=== PATIENT | male | born 1945 | race Caucasian/White ===

== ENCOUNTER 2019-08-23 11:27 | Outpatient (RCR) | payer MEDICARE, BC, SELFPAY | END 2019-08-30 23:59 | disposition home or self-care (01) | LOC: SPT 11:27 | PROVIDERS: Family Provider Family Medicine; PCP Family Medicine; Referring Provider Electrodiagnostic Medicine; Visit Provider Electrodiagnostic Medicine | DX: H81.10 Benign paroxysmal vertigo, unspecified ear (principal) | CPT/HCPCS: 95992; 97162 ==

== ENCOUNTER → 2019-12-21 14:32 | Outpatient (BNVA) | payer MEDICARE, BC, SELFPAY | PROVIDERS: Family Provider Family Medicine; PCP Family Medicine; Referring Provider Family Medicine; Visit Provider Urology | DX: R97.20 Elevated prostate specific antigen [PSA] (principal) | CPT/HCPCS: 81001 ==

== ENCOUNTER 2020-02-01 10:07 | Outpatient (CLI) | payer MEDICARE, BC, SELFPAY ==
[2020-02-01 12:23] LABS: Hematocrit 37.7 % (42.0-52.0); Mean Corpuscular HGB Conc 31.8 g/dL (30.0-36.0); Mean Corpuscular Hemoglobin 31.5 pg (28.0-34.0); Mean Platelet Volume 11.4 fL (7.4-10.4); Platelet Count 179 10^3/cmm (130-400); Red Blood Count 3.81 10^6/uL (4.1-5.3); Red Cell Distribution Width 21.4 % (12.1-15.1); White Blood Count 6.8 10^3/uL (4.0-10.0)
[2020-02-01 12:59] LABS: Slide Review Slide Review Perform
[2020-02-01 13:00] LABS: Alanine Aminotransferase 15 U/L (0-41); Albumin Level 4.5 g/dL (3.5-5.2); Alkaline Phosphatase 81 IU/L (40-130); Anion Gap 18.5 (5-19); Aspartate Amino Transferase 12 U/L (0-40); Blood Urea Nitrogen 14 mg/dL (8-23); Calcium 8.7 mg/dL (8.5-10.5); Carbon Dioxide 24 mmol/L (22-29); Chloride 99 mmol/L (98-107); Ferritin 654 ng/mL (30-400); Globulin 2.6 g/dL (1.3-4.6); Glucose 95 mg/dL (65-115); Homocysteine 7.05; Iron 107 ug/dL (59-158); Lactate Dehydrogenase 228 U/L (135-225); Osmolality Calculated 280 mOsm/kg (285-295); Percent Saturation 63.3 % (20-50); Potassium 4.5 mmol/L (3.5-5.1); Sodium 137 mmol/L (136-145); Thyroid Stimulating Hormone 2.72 uIU/mL (0.27-4.20); Total Bilirubin 2.8 mg/dL (0.15-1.2); Total Iron Binding Capacity 169 mcg/dl; Total Protein 7.1 g/dL (6.6-8.7); Unsaturated Iron Binding 62 ug/dL (112-347); Vitamin B12 797 pg/mL (232-1245)
[2020-02-01 13:08] LABS: Absolute Eosinophils 0.4 10^3/cmm (0.0-0.7); Band Neutrophils Absolute 0.1 10^3/cmm (0.0-1.2); Eosinophils 6 %; Lymphocytes 12 %; Monocytes Absolute 0.1 10^3/cmm (0.1-0.6); Segmented Neutrophils 73 %; Total Cells Counted 100 (0-100)
[2020-02-01 13:09] LABS: Anisocytosis 4+; Macrocytosis 2+
[2020-02-01 13:10] LABS: Absolute Neutrophil 5.1 10^3/cmm (1.4-6.5); Platelet Estimate Normal (Normal)
[2020-02-01 13:15] LABS: Folate Level > 20.0 ng/mL (4.5-32.2)
[2020-02-01 13:19] LABS: Erythrocyte Sedimentation Rate 22 mm/hr (0-10)
[2020-02-01 13:25] LABS: LAB Peripheral Smear Sent for Review
--- NOTE | 2020-02-01 13:46 | ONC CON_ITS ---
Dr. Merida New Patient Note Patient: Vlad Dugan Unit #: [id number]: 1945 Dicatated By: Oscar Merida M.D.Date of Visit: Feb 01, 2020 Onc MED New Patient/Consult Referring Physician: Dr. ARMANDO MAIN M.D. Chief Complaint: Anemia and splenomegaly. History of Present Illness: This is a 74 year-old man with a known history of nonimmune hemolytic anemia and splenomegaly. He has had a fairly longstanding mild anemia. His other blood counts have been somewhat variable, but it actually does appear to be a mild pancytopenia. He has had CT evidence of splenomegaly dating back to at least 2008 when he was admitted to the hospital with traumatic rib fractures and associated right pneumothorax. In 2010 he had underwent cholecystectomy following an episode of what was apparently gallbladder pancreatitis. He indicates that he had a liver biopsy with that procedure and that his liver was normal. In 2017 he underwent hematology evaluation with Dr. Tio Larsen in [place]. 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 His bone marrow aspiration/biopsy on 02/16/2018 showed hypercellular marrow for age with associated erythroid hyperplasia. Iron stores were 3+. There was no evidence of malignancy. There were rare binucleate RBC precursors with mild N:C dyssynchrony. There was no mention of a chromosome analysis or FISH studies. He was placed on folic acid supplementation. Splenic biopsy was recommended, but I am not certain if that was ever actually done. He also had a repeat CT abdomen/pelvis on 01/11/2018. It showed evidence of cholecystectomy and postoperative changes involving the stomach. The liver had a normal appearance. There was unchanged splenomegaly. A 9 mm low-attenuation lesion in the tip of the spleen was likely a splenic cyst or hemangioma, and it also appeared unchanged. There was no retroperitoneal or periaortic lymphadenopathy. His laboratory studies done by Dr. Main on 11/21/2019 included CBC showing hemoglobin 10.8 g with hematocrit 32.4%. The red cell indices were slightly macrocytic. The white blood cell count was 4800 and the platelet count was 118,000. Comprehensive metabolic profile showed slightly elevated total bilirubin at 3.1 mg/dL. The liver enzymes were normal. His calculated serum globulin was slightly low at 1.8 g/dL. B12 and folate levels were normal. His PSA was slightly elevated at 4.2 ng/mL. His main complaint has been extreme fatigue. He says he does not feel worth a damn. He is totally exhausted and completely drained. 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 He has no appetite and he says he eats very little. He indicates that he has lost 60 pounds after first moving to this area in 2004 and he has continued to gradually lose weight since then. He has had a total weight loss now in the range of 60 pounds. He does not have fever or night sweats. He indicates that he has been treated presumptively for tick fever on several occasions, initially about 3 years ago. He was treated again sometime in the spring of this year and he just completed another course of doxycycline a couple of weeks ago. He does report having some sinus drainage. He has only a little cough. Within the past week or so he has developed some shortness of breath. He does not complain of chest pain. He has no GI or complaints. He denies having any pain joint or bone pain, but he does have stiffness. He does not complain of headache or dizziness, and he has no focal neurologic symptoms. Past Medical History: His medical history includes history of tick fever, nonimmune hemolytic anemia and splenomegaly, and gall bladder pancreatitis in 2010. Past Surgical History: His surgical/procedural history includes bilateral cataract excisions, cholecystectomy in 2010, and chest tube placement for t raumatic right pneumothorax in 2008. He had polyps removed from his bladder about 25 years ago. Medications: Folic Acid 1 Tablet Oral daily, Vitamin B12 1 Tablet Oral daily Allergies: No Known Allergies. Social History: Mr. Dugan is and he is retired. He has a history of smoking 1-1/2 packs of cigarettes daily for 60 years. He reports that he was a heavy drinker for a short period, but he had cut down about 10 years ago. He now has just social alcohol use. Family History: He does not know anything about his father. Mother of natural causes at age 85. Two brothers are , one with complications of diabetes and one with multiple issues following service in [place]. Review Of Symptoms: Constitutional - He says he is not feeling worth a darn. He reports being totally exhausted and completely drained. He is able to do some light work, but he has to force himself. He has no appetite. He has been losing weight gradually. He does not have fever or night sweats. ECOG score is 1, Eyes - No recent change in vision, ENMT - No hearing loss, but he does report having tinnitus. He has some sinus drainage. No mouth sores. No or sore throat or difficulty swallowing, Hematologic/Lymphatic - No abnormal bruising or bleeding, Respiratory - He started having some shortness of breath about one week ago. He has a little cough. No pleuritic pain or hemoptysis, Cardiovascular - No angina pain. No palpitations, Gastrointestinal - No nausea or vomiting. No heartburn or acid reflux. No diarrhea or constipation. His normal bowel habits is every 2-3 days. No blood in the stool or black stools, Genitourinary (M) - No dysuria or hematuria. No urinary frequency. No urgency or incontinence, Musculoskeletal - He reports having no joint or bone pain, if he does get stiffness in his joints, Integumentary - No skin complications, Neurologic - No headache or dizziness. No numbness or tingling. No other focal neurologic symptoms, Psychiatric - No anxiety or depression. No insomnia. Vital Signs: Performed on Feb 01, 2020 10:54: 0, 24.32, 2.17 sq.m, 75.00 in (HIGH), 99 %, 68 /min, 18 /min, 125/60 mm(hg), 97.7 F (LOW), and 194.6 lbs (LOW). Physical Examination: Constitutional - He appears to be in reasonably good general health, Eyes - Sclerae nonicteric. Conjunctivae clear, ENMT - No lesions noted in the oral cavity, Neck - No mass or thyromegaly, Hematologic/Lymphatic - No cervical, clavicular, or axillary adenopathy, Respiratory - Lungs are clear with diminished air movement bilaterally, Cardiovascular - Heart rhythm is regular. There is no murmur, gallop, or rub noted, Abdomen - Soft and non-tender. Liver is not enlarged. The spleen tip is palpable just below the costal margin on deep inspiration. There is no abdominal mass or ascites noted and there is no inguinal adenopathy, Back/Spine - No spine or CVA tenderness noted, Extremities - No edema. Pedal pulses are palpable bilaterally. There is chronic purpura on both arms, Integumentary - No rashes. No suspicious skin lesions noted, Neurologic - No focal neurologic deficits noted. Impression: 1. Patient with nonimmune hemolytic anemia and splenomegaly. He also has had mild leukopenia and thrombocytopenia, though not consistently. An underlying cause has not been determined. 2. He has extreme fatigue, disproportionate to the anemia. 3. He has had empiric doxycycline therapy for suspected tick fever. Plan: I reviewed the laboratory and CT findings, and we discussed the clinical implications. He will have further laboratory studies today to include CBC, comprehensive metabolic profile, reticulocyte count, LDH level, haptoglobin level, direct bilirubin level, AMINA, serum iron studies and ferritin, B12 and folate levels, methylmalonic acid and homocystine levels, sed rate, and serum protein electrophoresis. I will review the blood smear. At a minimum, I anticipate that he will need PNH screening as well as additional studies for other causes of nonimmune hemolysis. I am skeptical, though, about determining a specific cause for his extreme fatigue. Signed By: Oscar Merida M.D. <<Signature on File>>
[2020-02-02 09:21] LABS: PROTEIN, TOTAL 6.3 g/dL (6.1-8.1)
[2020-02-02 13:41] LABS: ALPHA 1 GLOBULIN 0.4 g/dL (0.2-0.3); ALPHA 2 GLOBULIN 0.5 g/dL (0.5-0.9); BETA 1 GLOBULIN 0.3 g/dL (0.4-0.6); BETA 2 GLOBULIN 0.2 g/dL (0.2-0.5); GAMMA GLOBULIN 0.9 g/dL (0.8-1.7)
[2020-02-02 16:12] LABS: KAPPA LIGHT CHAIN, FREE, SERUM 22.9 mg/L (3.3-19.4); KAPPA/LAMBDA LIGHT CHAINS FREE 1.47 (0.26-1.65); LAMBDA LIGHT CHAIN, FREE, SERU 15.6 mg/L (5.7-26.3)
[2020-02-04 16:46] LABS: Methylmalonic Acid 119 nmol/L (87-318)
== END 2020-02-01 10:08 | disposition home or self-care (01) ==
PROVIDERS: PCP Family Medicine; Visit Provider Internal Medicine Medical Oncology
DX: D59.4 Other nonautoimmune hemolytic anemias (principal); R16.1 Splenomegaly, not elsewhere classified; D72.819 Decreased white blood cell count, unspecified; D69.6 Thrombocytopenia, unspecified; D50.9 Iron deficiency anemia, unspecified; E03.9 Hypothyroidism, unspecified; R53.83 Other fatigue; A93.8 Other specified arthropod-borne viral fevers; R94.30 Abnormal result of cardiovascular function study, unspecified
CPT/HCPCS: 80053; 82248; 82607; 82728; 82746; 83010; 83090; 83540; 83550; 83615; 83883; 83921; 84155; 84165; 84443; 85007; 85025; 85045; 85651; 86880; 99205

== ENCOUNTER 2020-02-01 12:15 | Outpatient (CLI) | payer MEDICARE, BC, SELFPAY ==
--- NOTE | 2020-02-01 12:20 | XRR_ITS ---
PROCEDURE INFORMATION: Exam: XR Chest, 2 Views Exam date and time: 02/01/2020 12:31 PM Age: 74 years old Clinical indication: Dyspnea TECHNIQUE: Imaging protocol: XR of the chest Views: 2 views. COMPARISON: No relevant prior studies available. FINDINGS: Lungs: Unremarkable. No consolidation. Pleural space: Unremarkable. No pleural effusion. No pneumothorax. Heart/Mediastinum: Unremarkable. No cardiomegaly. Bones/joints: Unremarkable. XR/XR chest 2V* [id number] IMPRESSION: No acute findings.
== END 2020-02-01 12:16 | disposition home or self-care (01) ==
LOC: RAD 12:18
PROVIDERS: PCP Family Medicine; Visit Provider Family Medicine
DX: R06.00 Dyspnea, unspecified (principal)
CPT/HCPCS: 71046

== ENCOUNTER 2020-02-07 06:50 | Outpatient (CLI) | payer MEDICARE, BC, SELFPAY ==
--- NOTE | 2020-02-07 07:08 | ECG_ITS ---
[facility] Test Date: 2020-02-07 Pat Name: Vlad Dugan Department: Room: Gender: Male [employer] Program Coordinator: : 1945 Requested By: Albin Moe Order Number: [id number] Marilee MD: Francie Flanagan M.D. Interpretive Statements NAME OF STUDY: LEXISCAN SESTAMIBI STRESS TEST INDICATION: Chest Pain PROCEDURE: At the baseline, the EKG revealed normal sinus rhythm with some nonspecific intraventricular conduction delay. Nonspecific ST changes. The baseline blood pressure was 118/67 mm Hg with a heart rate of 75 beats/min. Lexiscan was infused over a period of 20 seconds. A total of 0.4 milligrams of Lexiscan was infused. The stress phase was continued for a total of 5 minutes. Heart rate at the end of the stress phase was 82 with a blood pressure 109/55. The EKG at the peak infusion revealed no significant changes. Sestamibi was injected 20 seconds after the Lexiscan infusion. Blood pressure at the end of the recovery phase was 111/62 with a heart rate of 81 per minute. CONCLUSION: 1. No significant EKG changes with the LexiScan infusion 2. No LexiScan induced chest pain or cardiac arrhythmia 3. Normal blood pressure and heart rate response 4. Sestamibi/sestamibi perfusion scan pending; see separate report. Electronically Signed On 02-08-2020 19:33:16 CDT by Francie Flanagan M.D. [email or web address]
--- NOTE | 2020-02-07 07:09 | NMCV_ITS ---
NM seth perf SPECT r/s* [id number] KaileeVlad hewitt Age: 74 Gender: M : 1945 Exam Date: 02/07/2020 07:47 Ordering Phys: Albin Bah MD Technologist: MIGUEL Leach Exam Location: [facility] Indications: CHEST PAIN STRESS TEST Please see separate stress test report in [facility] for full findings IMAGE PROTOCOL Rest/Stress 1 Lexiscan Day Radiopharmaceutical Dose (mCi) Administration Site Administered by Rest: Tc-99m 10.9 IV MIGUEL Alegria Sestamibi Stress:Tc-99m 32.7 IV MIGUEL Alegria Sestamibi Rest: 07-Feb-2020 60 Discovery 630 Stress: 07-Feb-2020 30 Discovery 630 0.4mg Lexiscan. Images obtained in supine and prone position. SPECT RESULTS Technical Quality: Excellent Raw Data Analysis: Normal Image Corrections: No attenuation or motion correction applied Summed Stress Score: 5 Summed Rest Score: 6 Summed Difference Score: 0 PERFUSION FINDINGS Small to moderate decreases uptake in the mid and apical inferior and mid inferoseptal regions. No significant reversibility was noted in these regions. FUNCTIONAL RESULTS (calculated via Gated SPECT) Stress Image LV EF (%): 57 Stress EDV (mL):132 TID: 0.98 Stress ESV (mL):57 FUNCTIONAL FINDINGS: Segmental wall motion analysis revealed mild hypokinesia of the LV apex. IMPRESSIONS 1. Myocardial perfusion may revealing a small to moderate area of persistent decreases uptake in the mid and apical inferior and mid inferoseptal regions, suggestive of myocardial scarring versus attenuation artifacts. 2. Normal LV ejection fraction 57%. 3. LV wall motion analysis revealing mild hypokinesia of the LV apex. 4. Slightly elevated end-systolic volume of 57 mL. No significant coronary ischemia, based on the above findings. Dr Francie Flanagan MD [facility] (Electronically Signed) Final Date: 07 February 2020 17:56 S
[2020-02-07 07:17] VITALS: BMI 23.7
--- NOTE | 2020-02-07 08:29 | SUR.PREOP ---
Patient reports no pain or discomfort prior to the start of the procedure.
[2020-02-07] MEDS: regadenoson 0.4 Mg/5 ml Syringe IVP (08:31)
[2020-02-07 08:45] VITALS: BP 111/62; PULSE 81
== END 2020-02-07 06:51 | disposition home or self-care (01) ==
LOC: RAD 06:50 → CDL 07:17
PROVIDERS: PCP Family Medicine; Visit Provider Family Medicine
DX: R07.9 Chest pain, unspecified (principal)
CPT/HCPCS: 78452; 93017; A9500; J2785

== ENCOUNTER 2020-04-06 12:25 | Outpatient (CLI) | payer MEDICARE, BC, SELFPAY ==
--- NOTE | 2020-04-06 12:41 | USCV_ITS ---
Vlad Dugan Age: 74 Gender: M : 1945 Exam Date: 04/06/2020 13:04 Ordering Phys: Francie Flanagan MD ([email or web address]) Technologist: Ranjit Barrios Exam Location: [facility] [place] Indication: CCA STENOSIS Risk Factors: Smoker Previous Vascular Surgery: Right Brachial BP: / Left Brachial BP: / Right Left Velocity (cm/s) Spectral Plaque Velocity (cm/s) Spectral Plaque Syst/Diast Broadening Syst/Diast Broadening 87.10/ 20.90 Prox CCA 93.30 / 18.40 80.50/ 24.30 Mid CCA 81.50 / 9.20 77.20/ 16.50 Hetro Distal CCA 84.10 / 21.00 163.10/29.50 Hetro Prox ICA 78.90 / 19.70 166.20/40.40 Hetro Mid ICA 109.10/ 23.70 175.60/45.10 Distal ICA 114.10/ 31.00 86.00 ECA 113.10 2.02 ICA/CCA 1.22 Antegrade Vertebral Antegrade 68.40/ 12.40 cm/s 52.40/ 13.70 cm/s Tri Subclavian Tri 73.60 108.8 0 FINDINGS Moderate to heavy heterogeneous plaques of the right bifurcation and proximal internal carotid artery. Mild to moderate plaques at the left bifurcation and internal carotid artery Antegrade flow in the vertebral arteries bilaterally Normal Doppler flow velocities at the external carotid arteries bilaterally CONCLUSIONS Moderate to heavy heterogeneous plaques at the right bifurcation and proximal internal carotid arterywith velocity elevation consistent with 50-79% stenosis. Mild to moderate plaques at the left bifurcation and internal carotid arterywith velocity elevation consistent with 16-49% stenosis. No previous studies are available for comparison. . Dr Francie Flanagan MD [facility] (Electronically Signed) Final Date: 07 April 2020 00:16 S
--- NOTE | 2020-04-06 12:45 | USCV_ITS ---
KaileeVlad salgado Age: 74 Gender: M : 1945 Exam Date: 04/06/2020 12:37 Ordering Phys: Francie Flanagan MD ([email or web address]) Technologist: Ranjit Barrios Exam Location: [facility] [place] Indication: MURMUR BP: 120 / 60 HR: 75 Rhythm: Sinus Technical Quality: Fair MEASUREMENTS (Male / Female) Normal Values 2D ECHO LV Diastolic Diameter PLAX 4.3 cm 4.2 - 5.9 / 3.9 - 5.3 cm LV Systolic Diameter PLAX 3.4 cm IVS Diastolic Thickness 1.2 cm 0.6 - 1.0 / 0.6 - 0.9 cm IVS Systolic Thickness 1.6 cm LVPW Diastolic Thickness 1.0 cm 0.6 - 1.0 / 0.6 - 0.9 cm LVPW Systolic Thickness 1.6 cm LVOT Diameter 2.1 cm LV Ejection Fraction 2D Teich 41.5 % LV Ejection Fraction MOD 2C 63.1 % LV Ejection Fraction 2C AL 62.3 % LA Diameter 3.3 cm LA Width 3.6 cm LA Height 3.8 cm RA Width 2.4 cm RA Height 3.7 cm Aorta at Sinotubular Diameter 2.9 cm M-MODE LV Diastolic Diameter MM 5.8 cm 4.2 - 5.9 / 3.9 - 5.3 cm LV Systolic Diameter MM 4.6 cm LV Ejection Fraction MM Teich 40.7 % IVS Diastolic Thickness MM 1.1 cm 0.6 - 1.0 / 0.6 - 0.9 cm IVS Systolic Thickness MM 1.2 cm LVPW Diastolic Thickness MM 2.0 cm 0.6 - 1.0 / 0.6 - 0.9 cm LVPW Systolic Thickness MM 1.8 cm RV Diastolic Diameter MM 1.7 cm Aortic Annulus Diameter 3.6 cm LA Ao Ratio MM 1.1 MV E Point Septal Separation 2.2 cm DOPPLER AV Peak Velocity 167.0 cm/s LVOT Peak Velocity 95.0 cm/s AV Area Cont Eq vti 2.1 cm squared AV Area Cont Eq pk 2.0 cm squared MV Area PHT 5.4 cm squared Mitral E to A Ratio 0.7 MV E' Velocity 36.0 cm/s Mitral E to MV E' Ratio 6.2 Mitral E to LV E' Lateral Ratio 5.4 Mitral E to LV E' Septal Ratio 7.5 TR Peak Velocity 199.0 cm/s TR Peak Gradient 15.8 mmHg TV Peak E Velocity 82.0 cm/s Right Atrial Pressure 3.0 mmHg Pulmonary Artery Systolic Pressu 18.8 mmHg PV Peak Velocity 71.0 cm/s FINDINGS Left Ventricle Normal left ventricular size and systolic function, EF 64 %. Grade I/IV diastolic dysfunction (abnormal relaxation filling pattern), normal to mildly elevated filling pressures. Abnormal septal motion consistent with conduction abnormality. Right Ventricle Normal right ventricular size and systolic function. Right Atrium Normal right atrial size. Left Atrium Normal left atrial size. Mitral Valve Thickened mitral valve. Aortic Valve Thickened aortic valve. Tricuspid Valve Trace to mild tricuspid valve regurgitation. Pulmonic Valve No gross abnormalities noted Pericardium No pericardial effusion. Aorta Normal aortic annulus size. CONCLUSIONS Normal left ventricular size and systolic function, EF 64 %. Grade I/IV diastolic dysfunction (abnormal relaxation filling pattern), normal to mildly elevated filling pressures. Abnormal septal motion consistent with conduction abnormality. Trace to mild tricuspid valve regurgitation. Thickened aortic and mitral valves. There is no pericardial effusion. There are no intracardiac masses. No previous study is available for comparison. Dr Francie Flanagan MD [facility] (Electronically Signed) Final Date: 07 April 2020 00:02 S
== END 2020-04-06 12:26 | disposition home or self-care (01) ==
LOC: US 12:27
PROVIDERS: PCP Family Medicine; Visit Provider Internal Medicine Cardiovascular Disease
DX: R01.1 Cardiac murmur, unspecified (principal); I65.23 Occlusion and stenosis of bilateral carotid arteries; I08.3 Combined rheumatic disorders of mitral, aortic and tricuspid valves
CPT/HCPCS: 93306; 93880

== ENCOUNTER 2020-04-24 09:14 | Outpatient (CLI) | payer MEDICARE, BC, SELFPAY ==
--- NOTE | 2020-04-24 09:32 | MR_ITS ---
WS: [id number] MRI HEAD WITHOUT CONTRAST TECHNIQUE: Sagittal T1, T2 axial, T2 axial FLAIR, axial and coronal T1 images, axial susceptibility w eighted imaging, axial diffusion weighted images, and coronal T2 images were obtained. CLINICAL INFORMATION: VERTIGO COMPARISON: MRI 7 FINDINGS: No restricted diffusion to suggest acute ischemia. Ventricular system and basal cisterns are patent. Mild small vessel changes. Moderate parenchymal volume loss. Small vessel changes in the isaiah. No ext ra-axial fluid collections. Normal vascular flow voids at the skull base. Mild mucosal thickening in the ethmoid air cells. Mastoid air cells well aerated. No hemosiderin on s usceptibly weighted images. Moderate symmetric atrophy involving the temporal lobes and hippocampal f ormations. No other significant findings. No significant changes compared to 2018. MR/MR head wo con* [id number] IMPRESSION: 1. No evidence of restricted diffusion to suggest acute ischemia. 2. Mild small vessel changes. Moderate parenchymal volume loss. 3. Moderate symmetric atrophy involving the temporal lobes and hippocampal for mations. 4. Mild mucosal thickening in the ethmoid air cells. 5. No significant changes since 2018
== END 2020-04-24 09:15 | disposition home or self-care (01) ==
PROVIDERS: PCP Family Medicine; Visit Provider Family Medicine
DX: R42 Dizziness and giddiness (principal); G31.9 Degenerative disease of nervous system, unspecified
CPT/HCPCS: 70551

== ENCOUNTER → 2020-05-29 10:20 | Outpatient (BNVA) | payer MEDICARE, BC, SELFPAY | PROVIDERS: PCP Family Medicine; Visit Provider Internal Medicine Cardiovascular Disease | DX: I65.23 Occlusion and stenosis of bilateral carotid arteries (principal) | CPT/HCPCS: 80061 ==

== ENCOUNTER → 2020-07-27 09:13 | Outpatient (BNVA) | payer MEDICARE, BC, SELFPAY | PROVIDERS: PCP Family Medicine; Visit Provider Internal Medicine Cardiovascular Disease | DX: I65.23 Occlusion and stenosis of bilateral carotid arteries (principal); D64.9 Anemia, unspecified; R06.00 Dyspnea, unspecified; R97.20 Elevated prostate specific antigen [PSA]; R53.82 Chronic fatigue, unspecified | CPT/HCPCS: 80061; 80076 ==

== ENCOUNTER 2020-10-02 13:44 | Outpatient (CLI) | payer MEDICARE, BC, SELFPAY ==
--- NOTE | 2020-10-02 13:55 | XRR_ITS ---
PROCEDURE INFORMATION: Exam: XR Chest Exam date and time: 10/02/2020 1:58 PM Age: 74 years old Clinical indication: Dyspnea TECHNIQUE: Imaging protocol: XR of the chest. Views: 2 views. COMPARISON: CR XR chest 2V* [id number] 02/01/2020 12:28 PM FINDINGS: Lungs: Hyperinflation of lungs. Reticular interstitial lung change. Emphysematous features. No focal consolidation. Pleural spaces: Unremarkable. No pleural effusion. No pneumothorax. Heart/Mediastinum: Unremarkable. No cardiomegaly. Vasculature: Atherosclerosis of thoracic aorta. Bones/joints: Old healed right lateral rib fracture deformity. No acute thoracic fracture. XR/XR chest 2V* [id number] IMPRESSION: 1. No acute findings. 2. No change from comparison.
--- NOTE | 2020-10-02 13:55 | XRR_ITS ---
PROCEDURE INFORMATION: Exam: XR Lumbosacral Spine Exam date and time: 10/02/2020 1:58 PM Age: 74 years old Clinical indication: Pain; Other: Lumbar radiculopathy TECHNIQUE: Imaging protocol: XR of the lumbosacral spine. Views: 2 or 3 views. COMPARISON: CT abdomen pelvis w con* [id number] 01/11/2018 1:59 PM FINDINGS: Bones/joints: No acute fractures. Unremarkable alignment. Diffuse spondyloarthropathy changes. Disc height loss at each level of variable severity. Facet joint arthritis at each level. No focal lytic, aggressive bone lesion. Bridging osteophytes at each level seen laterally and anteriorly. Soft tissues: Unremarkable. Intraperitoneal space: Surgical clips in the right upper quadrant. Vasculature: Scattered atherosclerosis of abdominal aorta. XR/XR lumbar spine 2-3V* [id number] IMPRESSION: 1. No acute findings. 2. Diffuse spondyloarthropathy change.
== END 2020-10-02 13:45 | disposition home or self-care (01) ==
PROVIDERS: PCP Family Medicine; Visit Provider Family Medicine
DX: R06.00 Dyspnea, unspecified (principal); M54.16 Radiculopathy, lumbar region
CPT/HCPCS: 71046; 72100

== ENCOUNTER 2020-10-24 10:42 | Outpatient (CLI) | payer MEDICARE, BC, SELFPAY ==
--- NOTE | 2020-10-24 | MR_ITS ---
WS: [id number] MRI LUMBAR SPINE NONCONTRAST TECHNIQUE: Sagittal T1, T2 and STIR imaging. Axial T1 and T2 imaging. CLINICAL INFORMATION: LUMBAR RADICULOPATHY, RIGHT COMPARISON: None. FINDINGS: Mild lumbar curve. No acute compression. No high-grade central canal stenosis. Anterior hypertrophic changes lumbar spine. Schmorl's nodes superior endplate L3. Degenerative endplate-type changes L4-5 w ith disc desiccation. Fatty marrow changes in the L4-5 endplates. L1-L2: Normal. L2-L3: Mild disc bulging with endplate ridging. Mild facet arthropathy. Spinal canal and foramen are patent. L3-L4: Mild disc bulging with osteophytic ridging. Small right proximal foraminal protrusion with imp ingement traversing right L4 nerve root and exiting right L3 nerve root. Mild right and no significan t left foraminal narrowing. Moderate facet arthropathy. L4-L5: Fatty marrow endplate degenerative changes. Disc desiccation. Mild disc bulging with osteophyt ic ridging. Impingement on the traversing L5 nerve roots right greater than left. Small left foramina l protrusion with small annular fissure. Impingement on the exiting left L4 nerve root. Right foramen is patent. Mild facet arthropathy. L5-S1: Mild disc bulging with osteophytic ridging. Slight effacement of ventral thecal sac. Spinal ca nal and foramen are patent. Mild facet arthropathy. Visualized pelvic bony structures: Normal. Paravertebral soft tissues: Normal. MR/MR lumbar spine wo con* [id number] IMPRESSION: 1. Mild lumbar curve. No acute compression. No high-grade central canal stenos is. 2. Left proximal foraminal protrusion L4-5 slightly impinges the exiting left L4 nerve root with moderate left foraminal narrowing. Recommend Correlation lef t L4 nerve root symptoms. 3. Tiny right foraminal protrusion L3-4 slightly impinges the traversing right L4 and exiting Right L3 nerve roots with mild right L3-4 foraminal narrowing. 4. Disc bulging with slight impingement on the right L4-5 subarticular recess. 5. Mild/moderate facet arthropathy L3-L4 and L4-L5.
== END 2020-10-24 10:43 | disposition home or self-care (01) ==
PROVIDERS: PCP Family Medicine; Visit Provider Family Medicine
DX: M54.16 Radiculopathy, lumbar region (principal); M47.816 Spondylosis without myelopathy or radiculopathy, lumbar region; M51.26 Other intervertebral disc displacement, lumbar region
CPT/HCPCS: 72148

== ENCOUNTER → 2020-11-15 08:36 | Outpatient (BNVA) | payer MEDICARE, BC, SELFPAY | PROVIDERS: PCP Family Medicine; Referring Provider Family Medicine; Visit Provider Orthopaedic Surgery | DX: M54.9 Dorsalgia, unspecified (principal) | CPT/HCPCS: 72120 ==

== ENCOUNTER → 2020-12-18 14:37 | Outpatient (BNVA) | payer MEDICARE, BC, SELFPAY | PROVIDERS: PCP Family Medicine; Visit Provider Urology | DX: R97.20 Elevated prostate specific antigen [PSA] (principal); R39.89 Other symptoms and signs involving the genitourinary system | CPT/HCPCS: 81003; 84153 ==

== ENCOUNTER → 2021-01-28 10:50 | Outpatient (BNVA) | payer MEDICARE, BC, SELFPAY | PROVIDERS: PCP Family Medicine; Visit Provider Family Medicine | DX: D53.9 Nutritional anemia, unspecified (principal); M25.50 Pain in unspecified joint; G89.29 Other chronic pain; R53.81 Other malaise; R53.83 Other fatigue; R97.20 Elevated prostate specific antigen [PSA]; Z51.81 Encounter for therapeutic drug level monitoring; D61.818 Other pancytopenia | CPT/HCPCS: 80053; 83690; 84153; 84436; 84443; 85007; 85027; 86038; 86140; 86431 ==

== ENCOUNTER → 2021-03-12 10:16 | Outpatient (BNVA) | payer MEDICARE, BC, SELFPAY | PROVIDERS: PCP Family Medicine; Referring Provider Orthopaedic Surgery; Visit Provider Anesthesiology Pain Medicine | DX: G89.29 Other chronic pain (principal); M48.062 Spinal stenosis, lumbar region with neurogenic claudication; M79.604 Pain in right leg; M79.605 Pain in left leg | CPT/HCPCS: 99204 ==

== ENCOUNTER → 2021-03-13 13:36 | Outpatient (BNVA) | payer MEDICARE, BC, SELFPAY | PROVIDERS: PCP Family Medicine; Visit Provider Anesthesiology Pain Medicine | DX: G89.29 Other chronic pain (principal); M47.816 Spondylosis without myelopathy or radiculopathy, lumbar region | CPT/HCPCS: 64493; 64494; 64495; J3490 ==

== ENCOUNTER → 2021-03-27 09:40 | Outpatient (BNVA) | payer MEDICARE, BC, SELFPAY | PROVIDERS: PCP Family Medicine; Visit Provider Anesthesiology Pain Medicine | DX: G89.29 Other chronic pain (principal); M48.062 Spinal stenosis, lumbar region with neurogenic claudication; M79.604 Pain in right leg; M79.605 Pain in left leg; Z77.22 Contact with and (suspected) exposure to environmental tobacco smoke (acute) (chronic) | CPT/HCPCS: 99214 ==

== ENCOUNTER → 2021-04-02 13:26 | Outpatient (BNVA) | payer MEDICARE, BC, SELFPAY | PROVIDERS: PCP Family Medicine; Visit Provider Anesthesiology Pain Medicine | DX: G89.29 Other chronic pain (principal); M47.816 Spondylosis without myelopathy or radiculopathy, lumbar region; M54.16 Radiculopathy, lumbar region | CPT/HCPCS: 64635; 64636; J1030 ==

== ENCOUNTER → 2021-04-16 09:56 | Outpatient (BNVA) | payer MEDICARE, BC, SELFPAY | PROVIDERS: PCP Family Medicine; Visit Provider Anesthesiology Pain Medicine | DX: G89.29 Other chronic pain (principal); M48.062 Spinal stenosis, lumbar region with neurogenic claudication; M79.604 Pain in right leg; M79.605 Pain in left leg; Z77.22 Contact with and (suspected) exposure to environmental tobacco smoke (acute) (chronic) | CPT/HCPCS: 99213 ==

== ENCOUNTER → 2021-05-01 09:01 | Outpatient (BNVA) | payer MEDICARE, BC, SELFPAY | PROVIDERS: PCP Family Medicine; Visit Provider Internal Medicine | DX: D64.9 Anemia, unspecified (principal); R76.8 Other specified abnormal immunological findings in serum; M48.062 Spinal stenosis, lumbar region with neurogenic claudication; G89.29 Other chronic pain; Z11.59 Encounter for screening for other viral diseases; D72.819 Decreased white blood cell count, unspecified; E80.6 Other disorders of bilirubin metabolism; F17.210 Nicotine dependence, cigarettes, uncomplicated | CPT/HCPCS: 80053; 81000; 82306; 82533; 82550; 82607; 82728; 82746; 83735; 84100; 84155; 84165; 85025; 86140; 86160; 86162; 86200; 86235; 86255; 86376; 86431; 86704; 86803; 87340; 99204 ==

== ENCOUNTER → 2021-05-14 13:09 | Outpatient (BNVA) | payer MEDICARE, BC, SELFPAY | PROVIDERS: PCP Family Medicine; Visit Provider Internal Medicine | DX: R76.8 Other specified abnormal immunological findings in serum (principal); M25.50 Pain in unspecified joint; R53.82 Chronic fatigue, unspecified; E80.6 Other disorders of bilirubin metabolism; D69.6 Thrombocytopenia, unspecified; R77.8 Other specified abnormalities of plasma proteins; E53.8 Deficiency of other specified B group vitamins; E03.9 Hypothyroidism, unspecified; F10.21 Alcohol dependence, in remission | CPT/HCPCS: 99214 ==

== ENCOUNTER → 2021-05-23 10:35 | Outpatient (BNVA) | payer MEDICARE, BC, SELFPAY | PROVIDERS: PCP Family Medicine; Visit Provider Internal Medicine Cardiovascular Disease | DX: E78.5 Hyperlipidemia, unspecified (principal) | CPT/HCPCS: 80061 ==

== ENCOUNTER 2021-07-02 12:48 | Outpatient (CLI) | payer MEDICARE, BC, SELFPAY ==
--- NOTE | 2021-07-02 12:45 | US_ITS ---
WS: [id number] ULTRASOUND ABDOMEN CLINICAL INFORMATION: D64.9 - Anemia, unspecified COMPARISON: CT 8 ,018 FINDINGS: Technically difficult study Liver Size: Mild hepatomegaly Craniocaudal length: 16.5 cm. Echogenicity: Coarse Surface nodularity: None. Mass (size and location): None. Bile ducts Intrahepatic ducts: Normal. Common bile duct diameter: 0.4 cm. Gallbladder Removed Pancreas Not well visualized Right kidney: Normal. Hydronephrosis: None. Size: 9.1 cm x 5.0 cm x 4.8 cm Abdominal aorta and IVC Visualized portions are normal. Ascites: None. US/US liver [id number] IMPRESSION: Technically difficult study 1. Mild hepatomegaly with diffuse fatty infiltration. 2. Prior cholecystectomy. Normal common bile duct. 3. No hydronephrosis in right kidney. 4. Pancreas not well visualized.
== END 2021-07-02 12:49 | disposition home or self-care (01) ==
LOC: RAD 12:56
PROVIDERS: PCP Family Medicine; Visit Provider Internal Medicine
DX: D64.9 Anemia, unspecified (principal)
CPT/HCPCS: 76705

== ENCOUNTER → 2021-08-08 10:31 | Outpatient (BNVA) | payer MEDICARE, BC, SELFPAY | PROVIDERS: PCP Family Medicine; Visit Provider Internal Medicine | DX: R76.8 Other specified abnormal immunological findings in serum (principal); D72.819 Decreased white blood cell count, unspecified; Z79.899 Other long term (current) drug therapy | CPT/HCPCS: 80053; 85025; 85651; 86140 ==

== ENCOUNTER 2021-10-24 14:46 | Outpatient (CLI) | payer MEDICARE, BC, SELFPAY ==
--- NOTE | 2021-10-24 15:01 | XR_ITS ---
WS: [id number] Exam: XR lumbar spine 2-3V* [id number] Date/Time of Exam: 10/24/2021 3:24 PM Reason For Exam: R LUMBAR RADICULOPATHY Comparison 11/15/2020. No acute fracture or dislocation. Marked spondylosis with large anterior osteophytes. Moderate facet DJD at L3-4, L4-5 and L5-S1. Mild levoscoliosis. Aortoiliac atherosclerosis. XR/XR lumbar spine 2-3V* [id number] IMPRESSION: 1. Degenerative changes and spondylosis. Slight levoscoliosis. 2. No acute fracture or malalignment. Stable exam since previous study.
== END 2021-10-24 14:47 | disposition home or self-care (01) ==
PROVIDERS: PCP Family Medicine; Visit Provider Family Medicine
DX: M54.16 Radiculopathy, lumbar region (principal); M47.896 Other spondylosis, lumbar region
CPT/HCPCS: 72100

== ENCOUNTER 2021-11-17 08:52 | Emergency (ER) | payer MEDICARE, BC, SELFPAY ==
[2021-11-17 09:07] VITALS: BP 136/56; PULSE 66; RESP 18; TEMP 36.8; O2SAT 99; BMI 23.7
--- NOTE | 2021-11-17 09:15 | W.ED.GENADLT ---
HPI - General Adult General: Chief complaint: General Medical Stated complaint: left hand swelling Time Seen by Provider: 11/17/21 08:53 History of Present Illness: Patient is a 76-year-old male who comes to the ED with left hand swelling. Yesterday patient was stung by 2 wasps on fourth digit of left hand. He has had swelling in his hand since staying. This morning he woke up and his hand was still swollen and the also had some redness and swelling all throughout his left forearm. Denies any other symptoms such as trouble breathing, fevers, nausea/vomiting or lip or tongue swelling. Associated symptoms: Deny chest pain, dyspnea, headache(s), nausea, rash, palpitations or vomiting Review of Systems Const: Denies: fever(s), chills or fatigue Eyes: Denies: change in vision or eye discomfort ENMT: Denies: throat pain, odynophagia, nasal discharge or nasal congestion Card: Denies: chest pain, palpitations, edema, swelling of feet/ankles, dyspnea on exertion or orthopnea Resp: Denies: dyspnea, productive cough or non-productive cough GI: Denies: abdominal pain, nausea, vomiting, diarrhea, constipation or hematochezia : Denies: flank pain, difficulty urinating, dysuria or hematuria Musc: Denies: neck pain, back pain or extremity swelling Skin/Breast: Reports: erythema (Left forearm) and skin swelling (Left forearm and left hand); Denies: rash or new lesions Neuro: Denies: headache(s), numbness in extremities or weakness in extremities PFS ED PFSH: Medical History Abnormal nuclear stress test Abuse of smoked substance Anemia Carotid stenosis [place] (dyspnea on exertion) Elevated PSA Fatigue Leukopenia Thrombocytopenia Weight loss Surgical History H/O cataract removal with insertion of prosthetic lens S/P cholecystectomy Family History Family/Other Diabetes Brother Diabetes Heart attack, Onset Age: 40 Denies family history of Rheumatoid arthritis Lupus CAD (coronary artery disease) Clotting disorder Dementia Hyperlipidemia Chronic kidney disease (CKD) Suicide Anesthesia complication Bleeding disorder Lung disease Cancer Hypertension Stroke Social History Second hand smoke exposure: Yes Alcohol intake: current Alcohol intake frequency: few times a week Caregiver/support person: Yes Lives independently: Yes Marital status: Current occupational status: retired History of recent travel: No Current gender identity: Male Physical Exam Const: COMMON NORMALS: no acute distress, patient oriented x3 and alert GENERAL APPEARANCE: cooperative and comfortable HENMT: COMMON NORMALS: normocephalic HEAD & SCALP: normocephalic MOUTH: Normal oral and palatal mucosa present THROAT: posterior oropharynx normal and uvula midline Neck/C-Spine: COMMON NORMALS: supple GENERAL: Yes normal visual inspection Resp: COMMON NORMALS: normal respiratory effort, No retractions, No use of accessory muscles and clear to auscultation bilaterally AUSCULTATION: clear to auscultation bilaterally Cardio: COMMON NORMALS: regular rate, regular rhythm, S1 normal heart sound present, S2 normal heart sound present, No gallops present (Cardio), No clicks present (Cardio), No murmurs present (Cardio) and Peripheral pulses 2+ throughout RATE: regular rate RHYTHM: regular rhythm HEART SOUNDS: S1 normal heart sound present and S2 normal heart sound present PERIPHERAL PULSES: Peripheral pulses 2+ throughout GI: COMMON NORMALS: Normal to inspection, nondistended, normoactive bowel sounds present, Soft to palpation, non-tender and no masses PALPATION: Yes Soft to palpation : COMMON NORMALS: Yes no CVA tenderness BLADDER/KIDNEY EXAM: Yes no CVA tenderness Back/Pelvis: COMMON NORMALS: no CVA tenderness Extremity: NARRATIVE EXTREMITY EXAM: Left hand swelling but no tenderness or erythema. Left forearm has some erythema warmth and swelling which could indicate some possible cellulitis developing after wasp sting GENERAL: Yes normal exam except as noted Neuro: COMMON NORMALS: patient oriented x3 and moves all extremities SENSORIUM/ORIENTATION: Yes alert Skin: GENERAL SKIN EXAM: dry skin Course Vital Signs: Vital signs: Vital Signs Temperature 98.2 F 11/17/21 09:07 Pulse Rate 66 11/17/21 09:07 Respiratory Rate 18 11/17/21 09:07 Blood Pressure 136/56 11/17/21 09:07 Pulse Oximetry 99 11/17/21 09:07 [facility] - General Adult Medical Decision Making Patient is a 76-year-old male who comes to the ED with stating. stating occurred and fourth digit of left hand. Denies any other symptoms such as trouble breathing, fevers, nausea/vomiting or lip or tongue swelling. Vitals are stable. Here in the ED he has some hand swelling but no erythema or warmth of the hand around wasp sting. Has significant erythema warmth and swelling of his left forearm. Findings concern for possible developing cellulitis after wasp sting. Patient was diagnosed with a wasp sting and cellulitis and was discharged home on a steroid and an antibiotic. Follow-up with PCP in the next week for reevaluation. Return to ED precautions given. Patient is to agree with plan. Discharge Plan Discharge Patient Disposition: Home Clinical Impression: Sting, wasp Qualifiers: Encounter type: initial encounter Injury intent: accidental or unintentional Qualified Code(s): T63.461A - Toxic effect of venom of wasps, accidental (unintentional), initial encounter Cellulitis Qualifiers: Site of cellulitis: extremity Site of cellulitis of extremity: upper extremity Laterality: left Qualified Code(s): L03.114 - Cellulitis of left upper limb Condition: Stable Prescriptions: New cephalexin 500 mg capsule 500 mg PO Q6H 7 Days Qty: 28 0RF prednisone 20 mg tablet 20 mg PO BID 5 Days Qty: 10 0RF No Action aspirin 325 mg tablet 975 mg PO DAILY 0RF pravastatin 20 mg tablet 20 mg PO DAILY Qty: 90 3RF prednisone 5 mg tablet 5 mg PO DAILY Qty: 60 0RF Rx Instructions: 1 tab daily Discharge Orders: Discharge ED (Routine); Ordered 11/17/21 Ordered By: Albin Kelley Referrals: Albni Bah MD [Primary Care Provider] - Discharge Diet: Regular Discharge Activity: Increase activity as tolerated Patient Instructions: Cellulitis (ED), Insect Bite or Sting (ED) Activity Restrictions/Additional Instructions: Follow-up with medical provider as directed in the next 7 to 10 days for reevaluation. Take medications as prescribed. Return to the ER or your medical provider if condition worsens. Please read and understand discharge instructions. Thank you for choosing [facility] for your healthcare needs today. Please realize this is an emergency room and that we are providing you with a medical screening exam and this may not be complete and all inclusive of all the testing and or work up that you may need to determine your ailment or severity of your illness. It is very important that you follow up as instructed or that you return to the Emergency Department should you have concerns or if your condition changes or worsens in any way. Coding Level of Care Code ED Custom Shop Worker for Eugene Angel Exam Comprehensive
== END 2021-11-17 09:36 | disposition home or self-care (01) ==
PROVIDERS: Emergency Provider Physician Assistant; PCP Family Medicine
DX: L03.114 Cellulitis of left upper limb (principal); T63.461A Toxic effect of venom of wasps, accidental (unintentional), initial encounter
CPT/HCPCS: 99283

== ENCOUNTER → 2021-11-21 09:56 | Outpatient (BNVA) | payer MEDICARE, BC, SELFPAY | PROVIDERS: PCP Family Medicine; Visit Provider Anesthesiology Pain Medicine | DX: G89.29 Other chronic pain (principal); M51.16 Intervertebral disc disorders with radiculopathy, lumbar region; M48.062 Spinal stenosis, lumbar region with neurogenic claudication; M25.551 Pain in right hip; M79.604 Pain in right leg; M79.605 Pain in left leg; F17.210 Nicotine dependence, cigarettes, uncomplicated | CPT/HCPCS: 99214 ==

== ENCOUNTER → 2021-11-26 14:11 | Outpatient (BNVA) | payer MEDICARE, BC, SELFPAY | PROVIDERS: PCP Family Medicine; Referring Provider Anesthesiology Pain Medicine; Visit Provider Orthopaedic Surgery | DX: M54.50 Low back pain, unspecified (principal) | CPT/HCPCS: 99213 ==

== ENCOUNTER 2021-11-27 06:00 | Outpatient (RCR) | payer MEDICARE, BC, SELFPAY | END 2021-11-28 23:59 | disposition home or self-care (01) | LOC: SPT 06:00 | PROVIDERS: PCP Family Medicine; Referring Provider Anesthesiology Pain Medicine; Visit Provider Anesthesiology Pain Medicine | DX: G89.29 Other chronic pain (principal); M54.50 Low back pain, unspecified | CPT/HCPCS: 97163 ==

== ENCOUNTER 2021-11-29 06:00 | Outpatient (RCR) | payer MEDICARE, BC, SELFPAY | END 2021-12-29 23:59 | disposition home or self-care (01) | LOC: SPT 06:00 | PROVIDERS: PCP Family Medicine; Referring Provider Anesthesiology Pain Medicine; Visit Provider Anesthesiology Pain Medicine | DX: M54.50 Low back pain, unspecified (principal); G89.29 Other chronic pain | CPT/HCPCS: 97110; 97530 ==

== ENCOUNTER → 2021-12-17 08:23 | Outpatient (BNVA) | payer MEDICARE, BC, SELFPAY | PROVIDERS: PCP Family Medicine; Visit Provider Urology | DX: R97.20 Elevated prostate specific antigen [PSA] (principal) | CPT/HCPCS: 84153 ==

== ENCOUNTER → 2021-12-19 13:17 | Outpatient (BNVA) | payer MEDICARE, BC, SELFPAY | PROVIDERS: PCP Family Medicine; Visit Provider Urology | DX: R97.20 Elevated prostate specific antigen [PSA] (principal) | CPT/HCPCS: 81003; 99213 ==

== ENCOUNTER 2022-02-11 07:36 | Outpatient (CLI) | payer MEDICARE, BC, SELFPAY ==
--- NOTE | 2022-02-11 07:45 | US_ITS ---
WS: [id number] RIGHT UPPER QUADRANT ULTRASOUND HISTORY: Elevated bilirubin, concern for cirrhosis COMPARISON: 07/02/2021 Liver: 16.9 cm in length. Liver is top normal size. Mild diffuse coarse echotexture. Surface of the l iver is very slightly irregular. No nodules or mass within the liver. Portal Vein: Normal hepatopetal flow with monophasic waveform. Gallbladder: Status post cholecystectomy. CBD: 0.4 cm Pancreas: Not well visualized. Right kidney: 9.7 cm in length. Normal size and echogenicity. No hydronephrosis or mass. Aorta and IVC: Mild atherosclerosis aorta. No aneurysm. No ascites. US/US liver [id number] IMPRESSION: 1. Early changes of mild hepatocellular disease such as cirrhosis suspected. 2. Prior cholecystectomy. 3. No bile duct dilatation.
== END 2022-02-11 07:37 | disposition home or self-care (01) ==
LOC: RAD 07:37
PROVIDERS: PCP Family Medicine; Visit Provider Family Medicine
DX: R79.89 Other specified abnormal findings of blood chemistry (principal); K76.9 Liver disease, unspecified; Z90.49 Acquired absence of other specified parts of digestive tract; E80.6 Other disorders of bilirubin metabolism
CPT/HCPCS: 76705

== ENCOUNTER 2022-03-17 07:21 | Outpatient (CLI) | payer MEDICARE, BC, SELFPAY ==
[2022-03-13 11:46] VITALS: BMI 22.5
[2022-03-17] VITALS (11 sets, daily range): BP systolic 93–150; BP diastolic 54–79; PULSE 61–71; RESP 14–22; TEMP 35.9; O2SAT 97–100
[2022-03-17 08:15] LABS: INR 1.08 (0.8-1.2)
[2022-03-17] MEDS: sodium chloride 0.9% 1,000 ML 30 ML IV (08:17)
--- NOTE | 2022-03-17 08:27 | US_ITS ---
WS: [id number] ULTRASOUND GUIDED BIOPSY RANDOM LIVER. HISTORY: Possible cirrhosis, hepatomegaly, unspecified jaundice Procedure, risks, and complications are explained to the patient. Consent was obtained. Skin is clean sed with ChloraPrep and anesthetized with 1% buffered lidocaine. Prior imaging studies are reviewed. Laboratory values are reviewed. Under sterile conditions and with conscious sedation random liver biopsies performed with an 18-gauge achieve needle. 3 biopsies are performed and placed in formalin Biopsies are performed in the anterior LEFT lobe of the liver with no complications. No post procedur e hematoma. Patient tolerated the procedure well with no discomfort or pain. Patient will be observed for 2 hours post procedure. US/ biopsy liver [id number] IMPRESSION: 1. Uncomplicated random core liver biopsy. 2. Liver specimen placed in formalin for pathology.
[2022-03-17] MEDS: fentaNYL 50 mcg/mL INJ 2mL 25 MCG IVP (09:05)
[2022-03-17] MEDS: midazolam 1 mg/mL INJ 2 mL IVP (09:06)
== END 2022-03-17 11:02 | disposition home or self-care (01) ==
PROVIDERS: Radiology Diagnostic Radiology; PCP Family Medicine; Visit Provider Family Medicine
DX: R16.0 Hepatomegaly, not elsewhere classified (principal); R17 Unspecified jaundice
CPT/HCPCS: 47000; 76942; 85610; 88307; 88313; 99152; 99153; J2250; J3010; J7030

== ENCOUNTER → 2022-05-21 13:48 | Outpatient (BNVA) | payer MEDICARE, BC, SELFPAY | PROVIDERS: PCP Family Medicine; Visit Provider Internal Medicine Cardiovascular Disease | DX: I65.23 Occlusion and stenosis of bilateral carotid arteries (principal); R94.39 Abnormal result of other cardiovascular function study; R06.00 Dyspnea, unspecified; F18.10 Inhalant abuse, uncomplicated; F17.210 Nicotine dependence, cigarettes, uncomplicated | CPT/HCPCS: 99214 ==

== ENCOUNTER 2022-06-11 11:06 | Outpatient (CLI) | payer MEDICARE, BC, SELFPAY ==
--- NOTE | 2022-06-11 11:00 | USCV_ITS ---
Vlad Dugan Age: 76 Gender: M : 1945 Exam Date: 06/11/2022 11:21 Ordering Phys: Francie Flanagan MD ([email or web address]) Technologist: EPIFANIO Exam Location: [facility] [place] Indication: Stenosis Risk Factors: Previous Vascular Surgery: Right Brachial BP: / Left Brachial BP: / Right Left Velocity (cm/s) Spectral Plaque Velocity (cm/s) Spectral Plaque Syst/Diast Broadening Syst/Diast Broadening 49.60/ 16.50 Prox CCA 80.30 / 22.20 57.30/ 17.90 Hetro Mid CCA 79.40 / 18.70 151.00/25.60 Hetro Distal CCA 76.10 / 19.80 Hetro 63.00/ 19.80 Hetro Prox ICA 43.40 / 9.90 Hetro 81.00/ 27.00 Hetro Mid ICA 103.90/ 31.60 Hetro 71.50/ 29.50 Hetro Distal ICA 106.50/ 34.20 Hetro 136.70 Hetro ECA 83.80 Hetro 0.54 ICA/CCA 1.33 Antegrade Vertebral Antegrade 69.90/ 20.20 cm/s 88.10/ 23.70 cm/s Tri Subclavian Tri 65.30 123.6 0 FINDINGS Heavy dense irregular plaques at the right bifurcation involving the distal CCA and proximal ICA Delayed peaking low velocity Doppler waveforms in the mid and distal ICA on the right side Mild to moderate plaques of the left bifurcation and ICA Intimal thickening and minimal plaques in the common carotid arteries bilaterally CONCLUSIONS 1. Heavy dense irregular plaques at the right bifurcation involving the distal CCA and proximal ICA with a Doppler features suggesting high-grade stenosis. 2. Mild to moderate plaques at the left bifurcation and proximal internal carotid artery with a Doppler features suggesting less than 50% stenosis. 3. Intimal thickening and minimal plaques in the abdominal carotid arteries bilaterally. Compared to the study from 04/06/2020, some of the Doppler features may suggest worsening stenosis on the right side Consider CTA to better evaluate the right bifurcation lesion Dr Francie Flanagan MD [facility] (Electronically Signed) Final Date: 11 June 2022 21:18 S
== END 2022-06-11 11:07 | disposition home or self-care (01) ==
LOC: RAD 11:08
PROVIDERS: PCP Family Medicine; Visit Provider Internal Medicine Cardiovascular Disease
DX: I65.23 Occlusion and stenosis of bilateral carotid arteries (principal); I77.9 Disorder of arteries and arterioles, unspecified
CPT/HCPCS: 93880

== ENCOUNTER 2022-07-09 10:01 | Outpatient (CLI) | payer MEDICARE, BC, SELFPAY ==
--- NOTE | 2022-07-09 10:00 | CT_ITS ---
WS: [id number] CTA NECK TECHNIQUE: Contrast enhanced CTA of the neck with coronal and sagittal reformatted images and maximum intensity projection (MIP) images. NASCET criteria utilized. CLINICAL INFORMATION: Bilateral carotid artery stenosis COMPARISON: Ultrasound June 11, 2022 DLP: 319.[address] scans at [facility] use at least one of these dose optimization techniques: automated e xposure control; mA and/or kV adjustment per patient size (includes targeted exams where dose is matc hed to clinical indication); or iterative reconstruction. FINDINGS: RIGHT: RIGHT common carotid artery is patent. Dense calcification RIGHT carotid bulb extending into t he ICA. Small amount of residual peripheral flow at the carotid bulb with high-grade stenosis. RIGHT ECA is patent. Reduced caliber RIGHT ICA is patent to the skull base compatible with at least 80% gregg nosis. LEFT: LEFT common carotid artery is patent. Mild calcified atheromatous plaque LEFT carotid bulb. No significant LEFT ICA stenosis. LEFT ICA is patent to the skull base. Tortuous carotid artery at the s kull base. Both vertebral arteries are patent. No significant vertebral artery stenosis. Vertebral arteries are patent to the basilar junction. Emphysematous changes in the lung apices. Mastoid air cells are well aerated. Paranasal sinuses are well aerated. Normal posterior nasopharynx. Normal parapharyngeal fat. Moderate spondylitic changes with ankylosis cervical spine. CT/CT angio neck [id number] IMPRESSION: 1. Dense calcified atheromatous plaque RIGHT carotid bulb extending into the I CA with small amount of peripheral flow at the carotid bulb. Stenosis at the ca rotid bulb ICA junction measures approximately 80%. Reduced caliber RIGHT ICA t o the skull base compatible with significant stenosis. 2. No significant LEFT ICA stenosis. 3. Codominant and patent vertebral arteries bilaterally. 4. Mild cavernous carotid calcification bilaterally. 5. Partially visualized basilar artery is patent.
[2022-07-09] MEDS: iohexol 350 mg/mL 500 mL Btl (per mL) IV (10:25)
[2022-07-09 10:28] LABS: Blood Urea Nitrogen 12 mg/dL (8-23)
== END 2022-07-09 10:02 | disposition home or self-care (01) ==
LOC: RAD 10:02
PROVIDERS: PCP Family Medicine; Visit Provider Internal Medicine Cardiovascular Disease
DX: E78.5 Hyperlipidemia, unspecified (principal); I65.23 Occlusion and stenosis of bilateral carotid arteries
CPT/HCPCS: 70498; 82565; 84520; Q9967

== ENCOUNTER → 2022-07-29 13:03 | Outpatient (BNVA) | payer MEDICARE, BC, SELFPAY | PROVIDERS: PCP Family Medicine; Visit Provider Thoracic Surgery (Cardiothoracic Vascular Surgery) | DX: I65.23 Occlusion and stenosis of bilateral carotid arteries (principal); F17.210 Nicotine dependence, cigarettes, uncomplicated | CPT/HCPCS: 99203 ==

== ENCOUNTER 2022-08-14 07:38 | Outpatient (CLI) | payer MEDICARE, BC, SELFPAY ==
--- NOTE | 2022-08-14 08:00 | CT_ITS ---
WS: [id number] CT CHEST WITH INTRAVENOUS CONTRAST HISTORY: shortness of breath TECHNIQUE: Contiguous 5 mm axial imaging performed on the thorax. Coronal and sagittal reformats are submitted. All CT scans at [facility] use at least one of these dose optimization techniques: automated exposure control; mA and/or kV adjustment per patient size (includes targeted exams where dose is matched to clinical indication); or iterative reconstruction. CONTRAST: Omnipaque 350; 100 mL IV. DLP: 276.08 mGy.cm COMPARISON: 03/20/2009 Lungs and central airway: Chronic centrilobular emphysema. No mass, pneumonia or nodule. Pleura: Normal. No pleural effusion. Heart and pericardium: Normal size heart with no pericardial effusion. Mediastinum and dione: Indeterminate inferior RIGHT paratracheal lymph node measures 18 mm. This lymph node has increased in size. Additional small RIGHT hilar lymph nodes. RIGHT hilar lymph nodes are un changed. Vessels: Mild atherosclerosis aorta. No aneurysm. Normal size pulmonary artery. Chest wall and lower neck: No soft tissue masses. Upper abdomen: Heavy calcification of splenic artery. Spleen is incompletely visualized but does appe ar enlarged measuring 14.3 cm anterior posterior. Very small LEFT adrenal nodule Osseous structures: Numerous well-circumscribed low-attenuation paraspinal masses. Throughout the mid to lower thoracic spine and they are bilateral. The largest measures 2.0 x 1.3 cm. These do not defi nitely extend into the neural foramina. No definite enhancement. CT/CT chest w con* [id number] IMPRESSION: 1. Chronic emphysema with no mass or pneumonia. 2. Numerous bilateral well-circumscribed paraspinal masses in the mid to lower thoracic spine. These were not present on the prior study. Most likely these a re dilated ducts related to the cisterna chyli or prominent venous plexus. Less likely nerve sheath tumor. Likely benign as there is slight remodeling of the vertebral body near the largest mass. 3. Atherosclerosis aorta and coronary arteries. 4. Spleen appears mildly enlarged but incompletely visualized. 5. Very small LEFT adrenal nodule is probably an adenoma. 6. Indeterminate inferior RIGHT paratracheal lymph node.
[2022-08-14] MEDS: iohexol 350 mg/mL 500 mL Btl (per mL) IV (08:54)
== END 2022-08-14 07:39 | disposition home or self-care (01) ==
LOC: RAD 07:40
PROVIDERS: PCP Family Medicine; Visit Provider Thoracic Surgery (Cardiothoracic Vascular Surgery)
DX: R06.02 Shortness of breath (principal); J43.9 Emphysema, unspecified; D49.7 Neoplasm of unspecified behavior of endocrine glands and other parts of nervous system; R16.1 Splenomegaly, not elsewhere classified; I70.0 Atherosclerosis of aorta; I25.10 Atherosclerotic heart disease of native coronary artery without angina pectoris
CPT/HCPCS: 71260; Q9967

== ENCOUNTER 2022-08-26 10:12 | Inpatient (IN) | payer MEDICARE, BC, SELFPAY ==
--- NOTE | 2022-08-21 10:30 | ECG_ITS ---
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 Measurements Intervals [place] Rate: 68 P: 43 CT: 186 QRS: 64 QRSD: 146 T: 56 QT: 410 QTc: 438 Interpretive Statements SINUS RHYTHM RIGHT BUNDLE BRANCH BLOCK [120+ ms QRS DURATION, UPRIGHT V1, 40+ ms S IN I/aVL/V4/V5/V6] No previous ECG available for comparison Electronically Signed On 08-22-2022 23:07:46 CDT by Francie Flanagan M.D. [email or web address]
[2022-08-21 10:41] VITALS: BMI 21.9
[2022-08-21 11:13] LABS: Basophils % 0.9 %; Eosinophils # 0.4 10^3/uL (0.0-0.8); Eosinophils % 8.2 %; Hematocrit 33.4 % (42.0-52.0); Lymphocytes % 21.5 %; Mean Corpuscular HGB Conc 32.9 g/dL (30.0-36.0); Mean Corpuscular Hemoglobin 34.2 pg (28.0-34.0); Mean Corpuscular Volume 103.7 fl (80-94); Mean Platelet Volume 10.6 fL (7.4-10.4); Monocytes # 0.3 10^3/uL (0.2-0.9); Monocytes % 5.4 %; Neutrophils # 2.82 10^3/uL (1.8-7.7); Neutrophils % 60.6 %; Nucleated Red Blood Cells % 0 %; Platelet Count 139 10^3/cmm (130-400); Red Blood Count 3.22 10^6/uL (4.1-5.3); Red Cell Distribution Width 19.9 % (12.1-15.1); White Blood Count 4.7 10^3/uL (4.0-10.0)
--- NOTE | 2022-08-21 11:18 | SUR.PREOP ---
patient states that he takes 650mg aspirin every night and 81mg aspirin every morning. states he was told in the clinic to hold his aspirin but states he cannot go without aspirin so he will be taking it states he gets dizzy and isnt right in the head if he does not take aspirin. I informed him that he should stop the aspirin as directed and try his best to skip it thursday and thursday at least. he stated understanding but said he couldnt promise not taking the aspirin.
[2022-08-21 11:26] LABS: Glucose Urine UA Norm (Normal); Protein Urine Trace (Negative); Urine Appearance Clear (CLEAR); Urine Color Yellow (Yellow); pH Urine 5 (5-7)
[2022-08-21 11:27] LABS: Add Urine Microscopic? YES; Bilirubin Urine 1+ (Negative); Blood Urine Trace (Negative); Ketones Urine 1+ (Negative); Leukocyte Esterase Urine Trace (Negative); Nitrate Urine Negative (Negative); Urobilinogen Urine 4+ mg/dL (Negative)
--- NOTE | 2022-08-21 11:27 | P.ANESASSM_ITS ---
Pre-Anesthetic Assessment Height/Weight: Height 1.91 m Weight 79.379 kg Operation Date: 08/26/22 07:00 Proposed Procedures p Carotid Endarterectomy Right 32136,I65.23(Right) - Alexis Hernandez MD Familial anesthetic complications: None Social Tobacco and No alcohol Exam alert, oriented x 3, clear to auscultation bilaterally and regular rate & rhythm Airway Mallampati: Class II Dentition: other (missing) Pulmonary emphysema CV/HEM Echo 2019 CONCLUSIONS ?Normal left ventricular size and systolic function, EF 64 %.? ?Grade I/IV diastolic dysfunction (abnormal relaxation filling ?pattern), normal to mildly elevated filling pressures. ?Abnormal septal motion consistent with conduction abnormality. ?Trace to mild tricuspid valve regurgitation. ?Thickened aortic and mitral valves. ?There is no pericardial effusion. ?There are no intracardiac masses. ?No previous study is available for comparison. perfusion scan 2019 IMPRESSIONS ?1.? Myocardial perfusion may revealing a small to moderate area of persistent ?decreases uptake in the mid and apical inferior and mid inferoseptal regions, ?suggestive of myocardial scarring versus attenuation artifacts. ?2.? Normal LV ejection fraction 57%. ?3.? LV wall motion analysis revealing mild hypokinesia of the LV apex. ?4.? Slightly elevated end-systolic volume of 57 mL. ?No significant coronary ischemia, based on the above findings. Anesthetic Plan ASA status: 3 Anesthesia: General Other: A-line Risk of > 500 ml blood loss (7ml/kg in children): Yes, adequate IV access and fluids planned Medications/Allergies Home Medications Medication Instructions Recorded Confirmed Last Taken Type pravastatin 20 mg tablet 20 mg PO DAILY #90 tabs 12/06/21 08/21/22 08/21/22 Rx aspirin 325 mg tablet 650 mg PO DAILY PRN pain 03/17/22 08/21/22 08/20/22 History aspirin 81 mg capsule 81 mg PO DAILY 08/21/22 08/21/22 08/21/22 History Allergies Allergy/AdvReac Type Severity Reaction Status Date / Time No Known Allergies Allergy Verified 07/29/22 13:30 [facility] Anesthesia Medical History Abnormal nuclear stress test Abuse of smoked substance Anemia Carotid stenosis [place] (dyspnea on exertion) Elevated PSA Fatigue Leukopenia Thrombocytopenia Weight loss Surgical History H/O cataract removal with insertion of prosthetic lens S/P cholecystectomy Family History Family/Other Diabetes Brother Diabetes Heart attack, Onset Age: 40 Mother , in her 80's No problems noted. Father , IN HIS 70'S No problems noted. Denies family history of Rheumatoid arthritis Lupus CAD (coronary artery disease) Clotting disorder Dementia Hyperlipidemia Chronic kidney disease (CKD) Suicide Anesthesia complication Bleeding disorder Lung disease Cancer Hypertension Stroke Social History Smoking and tobacco status: current every day smoker cigarettes Packs smoked per day: 1.5 Years cigarettes smoked: 60 Alcohol intake: current Alcohol intake frequency: few times a week Alcohol type: beer Caregiver/support person: Yes Lives independently: Yes Marital status: Current occupational status: retired Current gender identity: Male Data Anesthesia 08/21/22 10:59 08/21/22 10:59 Short CBC 08/21/22 Range/Units 10:59 WBC 4.7 (4.0-10.0) 10^3/uL Hgb 11.0 L (11.7-16.6) g/dL Hct 33.4 L (42.0-52.0) % MCV 103.7 H (80-94) fl Plt Count 139 (130-400) 10^3/cmm Neut % (Auto) 60.6 % Neut # (Auto) 2.82 (1.8-7.7) 10^3/uL Cardiac Studies: Echocardiogram Ultrasound 04/06/20 Sestamibi Stress Test (Cardiology) 02/06
[2022-08-21 11:28] LABS: Anion Gap 11.6 (5-19); Blood Urea Nitrogen 12 mg/dL (8-23); Calcium 8.7 mg/dL (8.5-10.5); Carbon Dioxide 29 mmol/L (22-29); Chloride 102 mmol/L (98-107); Glucose 84 mg/dL (65-115); Osmolality Calculated 285 mOsm/kg (285-295); Potassium 4.6 mmol/L (3.5-5.1); Sodium 138 mmol/L (136-145)
[2022-08-21 11:32] LABS: RBC Urine 0-4 /hpf (0-2)
[2022-08-21 11:33] LABS: Hyaline Casts Urine RARE /lpf; Mucus Urine 1+ /hpf
[2022-08-21 11:35] LABS: Squamous Epithelial Cell Urine RARE /hpf (0-5); WBC Urine RARE /hpf (0-5)
[2022-08-26] VITALS (149 sets, daily range): BP systolic 74–120; BP diastolic 38–65; PULSE 62–89; RESP 0–39; TEMP 36.1–36.6; O2SAT 74–100; BMI 21.9
[2022-08-26 06:06] LABS: Glucose Point of Care 99 mg/dL (70-110)
[2022-08-26] MEDS: sodium chloride 0.9% 1,000 ML 30 ML IV (06:08)
--- NOTE | 2022-08-26 06:28 | W.PM.OPSUD ---
Surgery/Procedure H&P Update DATE OF PROCEDURE: August 26, 2022 DATE H&P PERFORMED: 07/29/22 H&P UPDATE INFORMATION: I have reviewed H&P completed within last 30 days, I have examined patient prior to procedure and No changes to prior documentation CHANGES TO PREVIOUS DOCUMENTATION: I again discussed very carefully with Mr. Dugan rationale for recommending right carotid endarterectomy. Options for surgical therapy versus interventional therapies including stenting were reviewed. He does wish to proceed. I discussed carefully the risk for stroke which may be very debilitating. 1 to 3% stroke risk was discussed. He also understands the risk of temporary permanent hoarseness, deviation of the tongue, monocular blindness, delayed stroke, and need for long-term surveillance. Risk of major cardiac events were also discussed. Unfortunately, he continues to smoke at least a pack a day. His is currently at home and he wishes for us to contact her by phone. She has had several debilitating strokes and ambulates with a cane. She does have a close family friend which lives a short distance away and can assist her as needed. PREOP DIAGNOSIS: Right Carotid Artery Stenosis PLANNED PROCEDURE: Operation Date: 08/26/22 07:00 Proposed Procedures p Carotid Endarterectomy Right [id number],I65.23(Right) - Alexis Hernandez MD
[2022-08-26] MEDS: ceFAZolin 2,000 MG in sodium chloride 0.9% (plus) 50 ML 100 MG IV ×3 (07:01→22:18)
--- NOTE | 2022-08-26 07:23 | P.ANESUD_ITS ---
Pre-Anesthetic Update Pre-Anesthetic Assessment: Date of Surgery/Procedure: 08/26/22 Preop [place] gnosis: Right Carotid Artery Stenosis Proposed Procedure: Operation Date: 08/26/22 07:00 Proposed Procedures p Carotid Endarterectomy Right [id number],I65.23(Right) - Alexis Hernandez MD Any changes to Pre-Anesthetic Assessment?: No Last Intake: Intake Last Liquid Date 08/25/22 Last Liquid Time 21:00 Last Solid Date 08/25/22 Last Solid Time 19:00 Vitals: Temperature 97.0 F L 08/26/22 05:38 Temperature Source Temporal Artery S can 08/26/22 05:38 Pulse Rate 74 08/26/22 05:38 Pulse Rhythm 08/26/22 05:38 Pulse Strength 2+ Slightly Dimin ished 08/26/22 05:38 Respiratory Rate 18 08/26/22 05:38 Blood Pressure 89/56 08/26/22 05:38 Blood Pressure Maryana n 67 08/26/22 05:38 Pulse Oximetry 96 08/26/22 05:38 Oxygen Delivery Me thod 08/26/22 05:38 Exam: Pre-Anes Outpt Exam: alert, oriented x 3, clear to auscultation bilaterally and regular rate & rhythm Cardiac Studies: Echocardiogram Ultrasound 04/06/20 Sestamibi Stress Test (Cardiology) 02/06
[2022-08-26] MEDS: heparin,porcine 1,000 unit/mL INJ 1 mL 1000 UNIT IRRIGATION (08:49)
[2022-08-26] MEDS: vancomycin 1,000 MG SDV 1000 MG IRRIGATION (08:53)
[2022-08-26] MEDS: lidocaine 1% INJ 10 mL (per mL) XX (10:38)
--- NOTE | 2022-08-26 11:50 | PC.NURSE ---
To unit Pt brought to unit by OR staff. Pt is drowsy but able to follow commands. Pt has bilateral IV access to both forearms and has right arterial line to wrist. Dias catheter in place and draining. Pt has incision to right neck per OR nurse, dermabond, telfa and covaderm dressing with BRENDON drain. Pt's arterial MAP in the high 50's to low 60's, MELINA given by HISTOTECHNOLOGIST SUPERVISOR which improved MAP. Arterial MAP continued to remain in the 50's. Dr Zhou brought albumin and started it on pt, Dr Lombardi ordered for one more dose of albumin and to start fluid bolus. Both albumin ran and fluid bolus started. Pt MAP improved. Aspirin and plavix given.
--- NOTE | 2022-08-26 12:04 | P.OP_ITS ---
Operative Report Date of procedure: August 26, 2022 Pre-op diagnosis: Preop Diagnosis Right Carotid Artery Stenosis Post-op diagnosis: same Procedure done: Right carotid endarterectomy with patch angioplasty Implants: Hemosure patch Specimens removed/disposition: Carotid artery plaque to pathology Surgeon: Alexis Hernandez Anesthesia: General Estimated blood loss (mL): 250 Complications: None: Neurologically intact immediately postop Findings: Very calcific plaque which extended well above the bifurcation requiring substantial traction of the hypoglossal nerve Condition: stable Disposition: ICU Brief History: Mr. Dugan is a 76-year-old gentleman with a long history of heavy tobacco use and was referred to our service for high-grade right ICA stenosis with elevated velocities on duplex study. Subsequent CTA was performed on July 09 which revealed an 80% heavily calcified atheromatous plaque in the right carotid bulb extending into the ICA with a small amount of peripheral flow at the carotid bulb. Reduced caliber of the right ICA to the skull base was compatible with significant stenosis. No significant left ICA stenosis was encountered. Due to his high-grade lesion as well as diminished flow, recommendation to consider intervention for this lesion was carefully discussed and after review, he agreed to carotid endarterectomy. Risk of stroke, heart attack, major bleeding, infection, temporary permanent hoarseness, deviation of the tongue, blindness, and need for prolonged follow-up for frankly discussed. He wished to proceed. Appropriate consents have been reviewed and signed. At his request, his has remained at home. He presented with no family members or support members. Procedure: Mr. Dugan was placed on the OR table and underwent general endotracheal anesthesia with a neurological monitoring endotracheal tube as well as placement of a right radial arterial line. Bihemispheric monitoring pads were placed as well as grounding and sensing pads for nerve conduction evaluation during neck dissection.The entire upper chest and right neck were sterilely prepped and draped. Incision was made along the anterior border of the sternomastoid muscle and carried down to the platysma with cautery. Dissection from this point forward was carried out utilizing Metzenbaum scissors and limited use of bipolar cautery. The internal jugular vein was dissected free and several branches representing the facial vein were ligated, oversewn, and divided. Dissection was continued down through the ansa cervicalis with preservation of major branches. Minor branches were divided if required to allow for adequate exposure. Nerve conduction evaluation was performed throughout the dissection for protection of the recurrent nerve. We subsequently reached the common carotid artery. Dissection was then continued proximally to distally across the bifurcation. This bifurcation was high in the calcium plaque extended well above the level of the hypoglossal nerve. This required retraction and careful dissection in order to reach a noninvolved section of the right internal carotid artery. Vessel loops were placed around the common carotid artery, internal carotid artery, and external carotid artery. Distally, the base of the hypoglossal nerve could be identified and was protected, though substantial retraction was required for adequate exposure.. The internal carotid artery disease went fairly high and extended above the level of the mandibular angle. This did require traction in this region, but great care was taken to minimize pressure as much as possible to the hypoglossal nerve, which was protected. Care was taken during this dissection to avoid injury to the vagus nerve. The patient was then heparinized with 10,000 units. The systolic blood pressure was elevated to 160. Following this, in a rapid sequenced fashion, the distal internal carotid artery was clamped followed by clamping of the common carotid artery and external carotid artery. #11 scalpel blade was used to open the common carotid artery proximally. Patel scissors were then utilized to extend this arteriotomy across the distal common carotid artery and ulcerated very stenotic plaque and continue this further at the bifurcation across the calcific plaque in the internal carotid artery until we had reached normal intima. The internal carotid artery clamp was briefly flashed with evidence of brisk back bleeding, therefore we elected not to shunt. It should be noted that bi- hemispheric oximetry was recorded throughout the procedure. Next, a freer elevator was utilized to create a dissection plane the plaque from intima at the proximal portion of the arteriotomy. This was then divided with a #11 scalpel blade. This plaque was then further dissected along the intimal plane proximally to distally across the bifurcation. Utilizing an everting technique, plaque was removed from the external carotid artery with brisk flow. This plaque was then dissected free up the internal carotid artery to a feathered edge. Heparinized saline solution was utilized to remove any loose debris. Next, a Hemashield patch was brought into the field and sewn into position utilizing a running 6-0 Prolene suture, thereby completing our patch angioplasty. At the completion of the patch, the external carotid artery was opened followed by the common carotid artery and finally the internal carotid artery, thereby reestablishing cerebral flow. Areas of extravasation were repaired with 6-0 Prolene suture. After 5 minutes, heparin was partially reversed with protamine. Hemostasis was confirmed. The wound was irrigated with antibiotic solution. A small, flat, Andrew-Akins drain was placed in the wound and connected to bulb suction. Sponge and needle count was correct. The wound was then closed in 2 layers of 3-0 Vicryl suture. Skin was reapproximated in a subcuticular manner with 4-0 Monocryl suture. A pressure dressing was then applied. Mr. Dugan was awakened from anesthesia and spontaneous movement of all extremities as well as movement to command was noted. He was then transferred to the ICU in stable condition. We will attempt to contact his by phone for update. Mr. Dugan will be monitored in the ICU for the next 24 hours.
[2022-08-26] MEDS: albumin 12.5 GM/250 ML VIAL IV (12:55)
[2022-08-26] MEDS: aspirin 81 mg Chew Tablet PO (12:59)
[2022-08-26] MEDS: clopidogrel 75 mg Tablet PO (12:59)
[2022-08-26] MEDS: lactated ringers 1,000 ML 75 ML IV (12:59)
--- NOTE | 2022-08-26 16:27 | ANE.PACU2 ---
Inpatient post-anesthesia follow up: Airway intact: Yes Vital signs: Temperature 97.0 F Pulse Rate 77 Respiratory Rate 17 Blood Pressure 101/49 Pulse Oximetry 91 Oxygen Delivery Me thod [ Nasal Cannula Current Rate & Del logan] Oxygen Delivery Me thod Room Air Oxygen Flow Rate [ Current Rate 3 & Delivery] Fraction of Inspir ed Oxygen Hydration adequate: Yes Nausea and vomiting: No Pain level: 2 Mental status: Baseline
[2022-08-27] VITALS (288 sets, daily range): BP systolic 95–129; BP diastolic 44–73; PULSE 63–103; RESP 0–95; TEMP 36.4–37.1; O2SAT 82–98
[2022-08-27] MEDS: lactated ringers 1,000 ML 75 ML IV (01:29)
[2022-08-27] MEDS: ceFAZolin 2,000 MG in sodium chloride 0.9% (plus) 50 ML 100 MG IV (06:12)
--- NOTE | 2022-08-27 07:23 | PM.PN ---
Subjective Subjective: Postop day 1 status post right carotid endarterectomy with patch angioplasty. Given the high distal aspect of his right ICA lesion along with a substantial retraction required superiorly, it is not surprising that he does have some mild deviation of his tongue to the right with protrusion. 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 He still maintains some hoarseness though it is no worse and perhaps modestly improved. He is tolerating liquids and solids without any difficulties or evidence for aspiration. Grossly otherwise, he remains neurologically intact. I have removed his BRENDON drain due to low output. His incision line is clean, dry, and intact. There is no evidence for fluid collection and there is no erythema. Given the degree of calcifications in the length of the lesion and high nature of his extent, I did elect to initiate aspirin and Plavix early. He received initial doses yesterday and will continue routinely beginning this morning with daily dosing. He did require some albumin early postop due to some modest hypotension with systolic pressures into the 80s. He has been running greater than 110 systolic throughout the night. Dias catheter was discontinued early. Vitals/I&O/Wt Last Vital Signs Temp 98.0 F 08/27/22 04:00 Pulse 86 08/27/22 06:05 Resp 30 H 08/27/22 06:05 BP 110/46 08/27/22 06:05 Pulse Ox 87 L 08/27/22 06:05 O2 Del Method 08/26/22 13:35 O2 Flow Rate 3 08/26/22 12:26 08/26/22 08/27/22 08/27/22 22:59 06:59 14:59 Intake Total 515 / 1565 1462.5 / 3027.5 Output Total 45 / 45 630 / 675 Balance 470 / 1520 832.5 / 2352.5 Weight last 48 hrs Weight 175 lb Physical Exam Const: COMMON NORMALS: patient oriented x3 Neck/C-Spine: COMMON NORMALS: No carotid bruits OTHER: No evidence for fluid collection. Incision line is clean, dry, and intact. No erythema. BRENDON drain was removed due to low output. Resp: COMMON NORMALS: clear to auscultation bilaterally AUSCULTATION: clear to auscultation bilaterally Cardio: COMMON NORMALS: regular rate, regular rhythm and S1 normal heart sound present RATE: regular rate RHYTHM: regular rhythm HEART SOUNDS: S1 normal heart sound present Neuro: COMMON NORMALS: patient oriented x3 Psych: OTHER: He does have some mild hypoesthesia along the right corner of his mouth as well as mild deviation of his tongue with protrusion, which I suspect is related to retraction required for superior exposure of the heavily calcified right ICA lesion. Urinary Catheter Management: Dias: Cath Placed During This Visit: yes, but has since been removed by the nurse Reason for Continuing Indwelling Catheter: Accurate Measurement of Urinary Output in Critically Ill Patients Urinary Catheter Date of Insertion: 08/26/22 Urinary Catheter Time of Insertion: 07:28 Date Urinary Catheter Removed: 08/26/22 Time Urinary Catheter Discontinued: 18:17 Data 08/21/22 10:59 08/21/22 10:59 A&P Assessment and plan (1) Status post carotid endarterectomy: Postop day #1 status post right carotid endarterectomy. 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 He also has some modest hoarseness which also think is related to traction in the region. We did utilize the Nervana system for nerve an indication throughout the procedure. Plan: BRENDON drain discontinued. We will discontinue the arterial line. We will assess his oral intake today though he did well with his evening meal last night without evidence for aspiration. We will increase activity and assess his gait and stability. I will make further determinations later the day after speaking with his nurse, Colleen, concerning appropriateness of discharge or whether we should continue close surveillance for another 24 hours. I discussed this frankly with Mr. Dugan. He stated understanding. Attestations Medical Necessity Statement*: Status post right carotid endarterectomy due to high-grade heavily calcific right ICA lesion Coding Level of Care Code Acute Code for Chg Fwd Diagnoses Status post carotid endarterectomy Z98.890
[2022-08-27] MEDS: aspirin 81 mg EC Tablet PO (08:40)
[2022-08-27] MEDS: pantoprazole DR 40 mg Tablet PO (08:40)
[2022-08-27] MEDS: HYDROcodone-acetaminophen 5-325 mg Tablet 1 TAB PO (08:41)
[2022-08-27] MEDS: clopidogrel 75 mg Tablet PO (08:41)
--- NOTE | 2022-08-27 17:53 | PM.MISC ---
Miscellaneous Note Purpose of Documentation: Mr. Dugan is sitting up on the side of the bed having dinner. He is complaining of difficulty with eating related to deviation of his tongue from the midline. This is from retraction required on the hypoglossal nerve to get exposure to the superior margin of his carotid lesion during endarterectomy yesterday. I do note that the hoarseness of his voice appears to be improved as compared to this morning. He is having no aspiration issues and no difficulties with swallowing either liquids or solids. He did take a Xanax earlier today from friend who was visiting and he stated it made him feel better. We will replace his surgical dressing with a smaller dressing as it is pulling on his ear. I will provide Xanax 3 times daily as needed for anxiety as well as Restoril for sleep tonight if needed. If he continues to do well after morning examination, I will plan to discharge home tomorrow. I do suspect he will take several weeks, though his tongue should return to midline as I feel the dysfunction is related to apraxia from traction on the hypoglossal nerve for superior exposure during endarterectomy yesterday. I did discuss this with him.
[2022-08-27] MEDS: temazepam 15 mg Capsule 30 MG PO (21:03)
[2022-08-28] VITALS: BP 114/52
--- NOTE | 2022-08-28 00:31 | PC.NURSE ---
pt. left AMA at 0030 this morning. I tried to ask him to stay. Pt stated that he was going home that it was nothing I did wrong or anyone he was just ready to go home. asked Mr. Dugan if there was anything I could do to get him to stay till at least the morning time and he said no he was ready to go. He could answer all of my questions correctly and he was AAOx3 He signed the AMA papers, I took his last IV out and gave him some 4x4s and tape just incase he wanted to change his dressing. The site on the right side of the neck was clean and dry. I also gave him the number to heart care and the ICU before he left. Dr. Lombardi was notfied of patient wanting to leave AMA. Pt left at 0030 this morning after signing the paper that is in his chart.
--- NOTE | 2022-08-28 06:22 | P.DS_ITS ---
Discharge Providers Date of Admission: 08/26/22 10:12 Date of Discharge: August 28, 2022 Attending Provider at Admission: Alexis Hernandez MD Attending Provider at Discharge: Alexis Hernandez MD Primary Care Provider: Albin Bah MD Diagnoses at Discharge Discharge Diagnosis (1) Status post carotid endarterectomy: Details from hospital stay: Mr. Dugan is a 76-year-old gentleman with a high-grade right very calcific and wall ICA stenosis. He has a long history of tobacco use and continues to smoke at least a pack a day. We discussed the considerations for intervention related to his high-grade lesion in the increase of physical risk for spontaneous CVA. He underwent careful outpatient preoperative evaluation and was electively admitted on August 26 for planned carotid endarterectomy. This was performed that he initially convalesced in the ICU postoperatively. As expected from the CTA, he had a very high lesion which required substantial retraction superiorly. Early postoperative, he is noted to have some modest deviation of his tongue to the right as well as some modest hoarseness, this will be consistent with apraxia related to the retraction required for exposure of the superior margin of his calcific carotid lesion. He had low BRENDON drain output. Given his artery findings, I elected to have him stay a second night for continued observation. His BRENDON drain was removed early on postop day #1. He is tolerating a diet well there is no evidence for aspiration with either liquids or solids. After 24 hours, he has no hoarseness has improved though is still present. I did discuss the operative findings with him and that I expect he will take several weeks before his tongue function should begin to return to normal as well as his voice quality continue to improve. I was notified just after midnight on August 28 that Mr. Dugan was leaving AGAINST MEDICAL ADVICE. Nurses did attempt to determine his needs to see if he would be willing to stay though he was very adamant about leaving. He really voices no other complaints and thought that his care was good as reported to me with my conversation with the nurse. We did confirm that appropriate discharge instructions were given and that contact information for myself, my office, and the ICU was provided for him and he was strongly encouraged to contact us should he wish to discuss matters further. We will attempt to reach him today through my office to see what other assistance we may provide. I have provided to his pharmacy and they are, [place] prescriptions for aspirin, Plavix, and hydrocodone. We will schedule follow-up in my clinic in 1 week. At my last encounter with him on the evening rounds he was stable with the noted hoarseness and tongue deviation. Nurses report of the time that he left that he was also hemodynamically stable and was ambulating without assistance and had no gross motor deficits other than the previously mentioned hoarseness and tongue to right of midline. We will attempt to contact him by phone this morning to determine his needs. Status: Acute Reason for Visit Reason for Visit: I65.23 Physical Exam Const: COMMON NORMALS: patient oriented x3 Neck/C-Spine: GENERAL: Yes normal visual inspection, Yes trachea midline, No anterior neck swelling and No lymphadenopathy OTHER: Incision line is clean, dry, and intact. There is no visible swelling. Neuro: COMMON NORMALS: patient oriented x3, moves all extremities and gait normal OTHER: Noted modest deviation from the right of midline of his tongue with protrusion. Mild hypoesthesia along the right mandibular line. Modest hoarseness which actually appears to be improved from immediately postop. Urinary Catheter Management: Dias: Cath Placed During This Visit: yes, but has since been removed by the nurse Reason for Continuing Indwelling Catheter: Accurate Measurement of Urinary Output in Critically Ill Patients Urinary Catheter Date of Insertion: 08/26/22 Urinary Catheter Time of Insertion: 07:28 Date Urinary Catheter Removed: 08/26/22 Time Urinary Catheter Discontinued: 18:17 Discharge Data Studies Completed and Pending Completed Studies During Hospitalization Category Date Time Status Pathology: Surgical [PTH] Routine Pth 08/26/22 12:02 Completed Pending at discharge Category Date Time Status Leukocyte Reduced RBC Routine Lab 08/21/22 10:59 Results Type and Screen - Cardiac Routine Lab 08/21/22 10:59 Results Laboratory Results WBC 4.7 10^3/uL (4.0-10.0) 08/21/22 10:59 RBC 3.22 10^6/uL (4.1-5.3) L 08/21/22 10:59 Hgb 11.0 g/dL (11.7-16.6) L 08/21/22 10:59 Hct 33.4 % (42.0-52.0) L 08/21/22 10:59 MCV 103.7 fl (80-94) H 08/21/22 10:59 MCH 34.2 pg (28.0-34.0) H 08/21/22 10:59 MCHC 32.9 g/dL (30.0-36.0) 08/21/22 10:59 RDW 19.9 % (12.1-15.1) H 08/21/22 10:59 Plt Count 139 10^3/cmm (130-400) 08/21/22 10:59 MPV 10.6 fL (7.4-10.4) H 08/21/22 10:59 Neut % (Auto) 60.6 % 08/21/22 10:59 Lymph % (Auto) 21.5 % 08/21/22 10:59 [place] % (Auto) 5.4 % 08/21/22 10:59 Eos % (Auto) 8.2 % 08/21/22 10:59 Baso % (Auto) 0.9 % 08/21/22 10:59 Neut # (Auto) 2.82 10^3/uL (1.8-7.7) 08/21/22 10:59 Lymph # (Auto) 1.0 10^3/uL (0.8-4.8) 08/21/22 10:59 [place] # (Auto) 0.3 10^3/uL (0.2-0.9) 08/21/22 10:59 Eos # (Auto) 0.4 10^3/uL (0.0-0.8) 08/21/22 10:59 Baso # (Auto) 0.0 10^3/uL (0.0-0.1) 08/21/22 10:59 Nucleated RBC % (auto) 0 % 08/21/22 10:59 Nucleated RBCs # 0.0 /100WBC 08/21/22 10:59 Sodium 138 mmol/L (136-145) 08/21/22 10:59 Potassium 4.6 mmol/L (3.5-5.1) 08/21/22 10:59 Chloride 102 mmol/L (98-107) 08/21/22 10:59 Carbon Dioxide 29 mmol/L (22-29) 08/21/22 10:59 Anion Gap 11.6 (5-19) 08/21/22 10:59 BUN 12 mg/dL (8-23) 08/21/22 10:59 Creatinine 0.7 mg/dL (0.7-1.2) 08/21/22 10:59 GFR Calculation Not Reportable 08/21/22 10:59 Glucose 84 mg/dL (65-115) 08/21/22 10:59 POC Glucose 99 mg/dL (70-110) 08/26/22 06:01 Calculated Osmolality 285 mOsm/kg (285-295) 08/21/22 10:59 Calcium 8.7 mg/dL (8.5-10.5) 08/21/22 10:59 Urine Color Yellow (Yellow) 08/21/22 10:59 Urine Appearance Clear (CLEAR) 08/21/22 10:59 Urine pH 5 (5-7) 08/21/22 10:59 Ur Specific [place] 1.010 (1.005-1.030) 08/21/22 10:59 Urine Protein Trace (Negative) 08/21/22 10:59 Urine Glucose (UA) Norm (Normal) 08/21/22 10:59 Urine Ketones 1+ (Negative) H 08/21/22 10:59 Urine Blood Trace (Negative) H 08/21/22 10:59 Urine Nitrate Negative (Negative) 08/21/22 10:59 Urine Bilirubin 1+ (Negative) H 08/21/22 10:59 Urine Urobilinogen 4+ mg/dL (Negative) H 08/21/22 10:59 Ur Leukocyte Esterase Trace (Negative) H 08/21/22 10:59 Urine RBC 0-4 /hpf (0-2) H 08/21/22 10:59 Urine WBC Rare /hpf (0-5) 08/21/22 10:59 Ur Squamous Epith Cells Rare /hpf (0-5) 08/21/22 10:59 Amorphous Sediment Not Reportable 08/21/22 10:59 Urine Bacteria None /hpf (NONE) 08/21/22 10:59 Hyaline Casts Rare /lpf 08/21/22 10:59 Urine Mucus 1+ /hpf 08/21/22 10:59 Blood Type A Positive 08/21/22 10:59 Rho(D) Type Positive 08/21/22 10:59 Antibody Screen Negative 08/21/22 10:59 Crossmatch See Detail 08/21/22 10:59 Procedures Performed Right carotid endarterectomy with patch angioplasty on August 26, 2022 Vitals Last Vital Signs Temp 97.6 F 08/27/22 20:00 Pulse 82 08/27/22 23:40 Resp 16 08/27/22 23:40 BP 114/52 08/28/22 00:00 Pulse Ox 94 08/27/22 23:40 O2 Del Method 08/27/22 20:00 O2 Flow Rate 3 08/26/22 12:26 Discharge Plan Discharge Patient Disposition: Left Against Medical Advice Prescriptions: New hydrocodone-acetaminophen 5-325 mg tablet 1 tab PO Q8H PRN (Reason: pain) 7 Days Qty: 20 0RF clopidogrel 75 mg tablet 75 mg PO DAILY Qty: 30 4RF Continued aspirin 325 mg tablet 650 mg PO DAILY PRN (Reason: pain) Rx Instructions: takes at night. Was told to hold for 5 days prior to surgery per nely in dr bishop office pravastatin 20 mg tablet 20 mg PO DAILY Qty: 90 3RF aspirin 81 mg Capsule 81 mg PO DAILY Rx Instructions: takes in the morning. Was told he could take it daily through to surgery. per nely in dr hernandez's office Discharge Orders: Discharge Order (Routine); Ordered 08/28/22 Ordered By: Alexis Hernandez Referrals: Alexis Hernandez MD [Physician] - 1 week Discharge Diet: Usual diet Discharge Activity: Limit activity as instructed Activity Restrictions/Additional Instructions: No heavy lifting x2 weeks. May begin showers in 2 days. May recover incision as desired to prevent irritation from clothing. Discharge Attestations Time Spent in Discharge Care*: less than 30 min Specific Discharge Activities: Other discharge activites (optional): Patient left AGAINST MEDICAL ADVICE prior to receiving full discharge instructions by myself Status at Discharge: Cognitive status at discharge: cognitively intact , Behavioral status at discharge: other (Patient left AGAINST MEDICAL ADVICE) , Functional status at discharge: independent ambulation , Overall status at discharge: patient is progressing back to baseline Quality Metrics Clinical Quality Measures [ No reported AMI, CVA or VTE this stay] Coding Level of Care Code Acute Code for Chg Fwd Diagnoses Status post carotid endarterectomy Z98.890
== END 2022-08-28 00:20 | disposition left against medical advice (07) | DRG 39 ==
LOC: ICU 10:15
PROVIDERS: Admitting Provider Thoracic Surgery (Cardiothoracic Vascular Surgery); PCP Family Medicine; Visit Provider Thoracic Surgery (Cardiothoracic Vascular Surgery)
PROC: 03CK0ZZ Extirpation of Matter from Right Internal Carotid Artery, Open Approach (ICD-10-PCS; CPT 35301; principal; 2022-08-26 07:00)
DX: I65.21 Occlusion and stenosis of right carotid artery (principal); F17.210 Nicotine dependence, cigarettes, uncomplicated; G52.1 Disorders of glossopharyngeal nerve; I95.81 Postprocedural hypotension; Z53.29 Procedure and treatment not carried out because of patient's decision for other reasons; Z79.82 Long term (current) use of aspirin
CPT/HCPCS: 36415; 36416; 51702; 80048; 81001; 82962; 85025; 86850; 86900; 86920; 88304; 93005; J0690; J1100; J1644; J2370; J2405; J2704; J2720; J3010; J3370; J3490; J7030; J7120; P9045

== ENCOUNTER → 2022-09-04 10:46 | Outpatient (BNVA) | payer MEDICARE, BC, SELFPAY | PROVIDERS: PCP Family Medicine; Visit Provider Thoracic Surgery (Cardiothoracic Vascular Surgery) | DX: Z98.890 Other specified postprocedural states (principal) | CPT/HCPCS: 99024 ==

== ENCOUNTER 2022-09-12 11:56 | Outpatient (CLI) | payer MEDICARE, BC, SELFPAY ==
[2022-09-12 12:48] LABS: Alanine Aminotransferase 6 U/L (0-41); Albumin Level 3.9 g/dL (3.5-5.2); Alkaline Phosphatase 62 U/L (40-130); Aspartate Amino Transferase 11 U/L (0-40); Blood Urea Nitrogen 10 mg/dL (8-23); Calcium 8.5 mg/dL (8.5-10.5); Carbon Dioxide 27 mmol/L (22-29); Chloride 99 mmol/L (98-107); Globulin 2.1 g/dL (1.3-4.6); Glucose 104 mg/dL (65-115); Osmolality Calculated 281 mOsm/kg (285-295); Sodium 136 mmol/L (136-145); Total Bilirubin 3.9 mg/dL (0.15-1.2)
== END 2022-09-12 11:57 | disposition home or self-care (01) ==
LOC: LAB 11:58
PROVIDERS: PCP Family Medicine; Visit Provider Family Medicine
DX: Z48.812 Encounter for surgical aftercare following surgery on the circulatory system (principal)
CPT/HCPCS: 80053

== ENCOUNTER 2022-09-16 15:27 | Emergency (ER) | payer MEDICARE, BC, SELFPAY ==
[2022-09-16] VITALS (9 sets, daily range): BP systolic 99–121; BP diastolic 47–85; PULSE 67–82; RESP 18; TEMP 36.6; O2SAT 97–100; BMI 21.2
--- NOTE | 2022-09-16 15:35 | XR_ITS ---
WS: [id number], AP view, 09/16/2022 Clinical Data: constipation Comparison: None. Findings: No abnormal intraabdominal masses or calcifications are seen. There is no dilatated small bowel or ev idence of obstruction. There is a large amount of fecal material throughout the colon. There are clips in the right upper qu adrant from a cholecystectomy. There are vascular calcifications. There are large osteophytes in the lumbar vertebral bodies. XR/XR [facility] portable [id number] Impression: Large amount of fecal material in the colon.
--- NOTE | 2022-09-16 15:37 | W.ED.ABDPA2 ---
Documented by User: Theo Arthur DO 09/17/22 05:55 HPI - Abdominal Pain General: Chief Complaint: Abdominal Pain Stated Complaint: ABDOMINAL PAIN/ CONSTIPATION Time Seen by Provider: 09/16/22 15:28 Source: patient Mode of arrival: EMS History of Present Illness: . 74-year-old male presents to the emergency room complaining of constipation for the last week with lower abdominal pain and bloating. He had a neck surgery a week ago since then he has not had normal bowel movements. Has had a little bit of anal leakage and did while he was here in the emergency room is not had any hematochezia melena. No hematemesis or coffee-ground emesis. Denies fever sweats or chills. MD elicited complaint: abdominal pain Pertinent past history: none Onset (ago): week(s) (1) Pain Consistency: intermittent Location: Diffuse Severity: moderate Quality: cramping Exacerbating factors: nothing Relieving factors: nothing Associated Symptoms: Reports bloating, constipation, GI cramping and nausea; Denies anorexia, belching, change in bowel habits, change in stool character, chills, coffee ground emesis, diarrhea, dyspepsia, dysuria, excessive flatus, fever(s), heartburn, hematochezia, hematuria, hematemesis, fecal incontinence, loose stools, melena, poor appetite, syncope and vomiting Review of Systems Const: Denies: fever(s), chills, fatigue or malaise ENMT: Denies: throat pain, ear or mastoid pain, nasal discharge or nasal congestion Card: Denies: chest pain, palpitations, irregular heart rhythm, edema or syncope Resp: Denies: dyspnea, productive cough or non-productive cough GI: Reports: abdominal pain, nausea, constipation, bloating and GI cramping; Denies: vomiting, hematemesis, coffee ground emesis, heartburn, diarrhea, belching, excessive flatus, fecal incontinence, change in bowel habits, change in stool character, hematochezia or melena : Denies: dysuria, urinary frequency, urinary urgency or hematuria Skin/Breast: Denies: rash or pruritus PFSH ED PFSH: Medical History Abnormal nuclear stress test Abuse of smoked substance Anemia Carotid stenosis [place] (dyspnea on exertion) Elevated PSA Fatigue Leukopenia Thrombocytopenia Weight loss Surgical History H/O cataract removal with insertion of prosthetic lens History of right-sided carotid endarterectomy S/P cholecystectomy Family History Family/Other Diabetes Brother Diabetes Heart attack, Onset Age: 40 Mother , in her 80's No problems noted. Father , IN HIS 70'S No problems noted. Denies family history of Rheumatoid arthritis Lupus CAD (coronary artery disease) Clotting disorder Dementia Hyperlipidemia Chronic kidney disease (CKD) Suicide Anesthesia complication Bleeding disorder Lung disease Cancer Hypertension Stroke Social History Smoking and tobacco status: current every day smoker cigarettes Packs smoked per day: 1.5 Years cigarettes smoked: 60 Alcohol intake: current Alcohol intake frequency: few times a week Alcohol type: beer Caregiver/support person: Yes Lives independently: Yes Marital status: Current occupational status: retired Current gender identity: Male Physical Exam Const: GENERAL APPEARANCE: cooperative and comfortable ORIENTATION/CONSCIOUSNESS: Yes awake, Yes oriented to person, Yes oriented to place and Yes oriented to time HENMT: COMMON NORMALS: normocephalic, atraumatic and hearing grossly normal bilaterally HEAD & SCALP: normocephalic and atraumatic Resp: COMMON NORMALS: normal respiratory effort, No retractions, No use of accessory muscles and clear to auscultation bilaterally AUSCULTATION: clear to auscultation bilaterally Cardio: COMMON NORMALS: regular rate, regular rhythm and No murmurs present (Cardio) RATE: regular rate RHYTHM: regular rhythm GI: COMMON NORMALS: Soft to palpation and No hepatosplenomegaly present AUSCULTATION: Yes normoactive bowel sounds PALPATION: Yes Soft to palpation, No Tenderness to palpation present (GI), No Guarding due to palpation present (GI) and Yes No hepatosplenomegaly present RECTAL EXAM: Yes heme negative stool Extremity: COMMON NORMALS: normal to inspection, capillary refill normal, no clubbing, cyanosis or edema, no calf tenderness and no pedal edema Neuro: SENSORIUM/ORIENTATION: Yes oriented to person, Yes oriented to place and Yes oriented to time Skin: COMMON NORMALS: no rashes or lesions noted GENERAL SKIN EXAM: no rashes or lesions noted Course Vital Signs: Vital signs: Vital Signs Temperature 97.9 F 09/16/22 15:30 Pulse Rate 75 09/16/22 20:36 Respiratory Rate 18 09/16/22 20:36 Blood Pressure 120/71 09/16/22 20:36 Pulse Oximetry 98 09/16/22 20:36 Oxygen Delivery Me thod Room Air 09/16/22 19:32 MDM - Abdominal Pain Medical Decision Making Patient had significant constipation but he is also had his large drop in his hemoglobin last 3 weeks he is dropped 3 g of hemoglobin Hemoccult of the stool was negative. CT of the abdomen ordered. Care signed out to Dr. Johnson at change of shift. See final notes for diagnosis and disposition. Patient presents with constipation I did give him lactulose he had a very large bowel movement here and he feels much improved. White count and other blood work here is normal I spoke to the radiologist about the CT finding of possible discitis or osteomyelitis I believe is likely more degenerative changes he has no signs of discitis or osteomyelitis here clinically he has no back pain he has no tenderness on my exam to his back his white count is normal and his symptoms resolved here after his bowel movement we will prescribe MiraLAX for home he is to follow-up with PCP and return if worsening he understands agrees to plan. Lab Data 09/16/22 15:35 09/16/22 15:35 Labs/Radiology: Radiology Impressions KUB X-Ray 09/16/22 15:35 Impression: Large amount of fecal material in the colon. Abdomen/Pelvis CT 09/16/22 17:35 IMPRESSION: 1. Prominent fluid in the small bowel without dilation suggestive of an enteritis in the appropriate clinical setting. 2. Soft tissue prominence seen about the L5/S1 disc space with suspected cortical endplate irregularity and lucency in the adjacent L5/S1 vertebrae, please correlate for possible discitis/osteomyelitis, MRI could further characterize this. 3. Emphysematous changes. 4. Bibasilar atelectasis. 5. Coronary artery atherosclerotic calcifications. 6. Spleen enlarged to 16 cm. 7. Cholecystectomy. 8. Constipation. 9. Gastric surgical sutures 10. Small bilateral fat containing inguinal hernias without bowel or inflammation. 11. Left adrenal 18 mm indeterminate nodule. 12. Trace right pleural effusion. ADDENDUM: 09/16/222010 Case reviewed on the phone with Dr Johnson. We discussed the L5/S1 findings may reflect progressive of degenerative changes if the clinical scenario does not fit with an infectious process. Laboratory Results WBC 4.3 10^3/uL (4.0-10.0) 09/16/22 15:35 RBC 2.47 10^6/uL (4.1-5.3) L 09/16/22 15:35 Hgb 8.1 g/dL (11.7-16.6) L 09/16/22 15:35 Hct 25.4 % (42.0-52.0) L 09/16/22 15:35 MCV 102.8 fl (80-94) H 09/16/22 15:35 MCH 32.8 pg (28.0-34.0) 09/16/22 15:35 MCHC 31.9 g/dL (30.0-36.0) 09/16/22 15:35 RDW 20.7 % (12.1-15.1) H 09/16/22 15:35 Plt Count 144 10^3/cmm (130-400) 09/16/22 15:35 MPV 10.5 fL (7.4-10.4) H 09/16/22 15:35 Neut % (Auto) 81.6 % 09/16/22 15:35 Lymph % (Auto) 8.6 % 09/16/22 15:35 Hendricks % (Auto) 4.2 % 09/16/22 15:35 Eos % (Auto) 3.5 % 09/16/22 15:35 Baso % (Auto) 0.7 % 09/16/22 15:35 Neut # (Auto) 3.50 10^3/uL (1.8-7.7) 09/16/22 15:35 Lymph # (Auto) 0.4 10^3/uL (0.8-4.8) L 09/16/22 15:35 Hendricks # (Auto) 0.2 10^3/uL (0.2-0.9) 09/16/22 15:35 Eos # (Auto) 0.2 10^3/uL (0.0-0.8) 09/16/22 15:35 Baso # (Auto) 0.0 10^3/uL (0.0-0.1) 09/16/22 15:35 Nucleated RBC % (auto) 0 % 09/16/22 15:35 Nucleated RBCs # 0.0 /100WBC 09/16/22 15:35 Sodium 132 mmol/L (136-145) L 09/16/22 15:35 Potassium 4.6 mmol/L (3.5-5.1) 09/16/22 15:35 Chloride 98 mmol/L (98-107) 09/16/22 15:35 Carbon Dioxide 25 mmol/L (22-29) 09/16/22 15:35 Anion Gap 13.6 (5-19) 09/16/22 15:35 BUN 14 mg/dL (8-23) 09/16/22 15:35 Creatinine 0.7 mg/dL (0.7-1.2) 09/16/22 15:35 GFR Calculation Not Reportable 09/16/22 15:35 Glucose 101 mg/dL (65-115) 09/16/22 15:35 Calculated Osmolality 275 mOsm/kg (285-295) L 09/16/22 15:35 Calcium 8.4 mg/dL (8.5-10.5) L 09/16/22 15:35 Total Bilirubin 4.3 mg/dL (0.15-1.2) H 09/16/22 15:35 AST 11 U/L (0-40) 09/16/22 15:35 ALT < 5 U/L (0-41) 09/16/22 15:35 Alkaline Phosphatase 55 U/L (40-130) 09/16/22 15:35 Total Protein 5.7 g/dL (6.6-8.7) L 09/16/22 15:35 Albumin 3.7 g/dL (3.5-5.2) 09/16/22 15:35 Globulin 2.0 g/dL (1.3-4.6) 09/16/22 15:35 Discharge Plan Discharge Patient Disposition: Home Clinical Impression: Constipation, Abdominal pain Condition: Stable Prescriptions: New Miralax 17 gram powder in packet 17 g PO DAILY PRN (Reason: constipation) Qty: 14 0RF No Action pravastatin 20 mg tablet 20 mg PO DAILY Qty: 90 3RF aspirin 81 mg Capsule 81 mg PO DAILY Rx Instructions: takes in the morning. Was told he could take it daily through to surgery. per nely in dr velasquez's office Discharge Orders: Discharge ED (Routine); Ordered 09/16/22 Ordered By: Matthias Johnson Referrals: Albin Bah MD [Primary Care Provider] - 1-3 days Discharge Diet: Advance as tolerated Discharge Activity: Resume usual activity Patient Instructions: Constipation (ED), Abdominal Pain (ED) Coding Level of Care Code ED Operations Program Manager for Chg Fwd Documented by User: Matthias Johnson MD 09/16/22 20:25 HPI - Abdominal Pain General: Chief Complaint: Abdominal Pain Stated Complaint: ABDOMINAL PAIN/ CONSTIPATION Time Seen by Provider: 09/16/22 15:28 History of Present Illness: . PFSH ED PFSH: Medical History Abnormal nuclear stress test Abuse of smoked substance Anemia Carotid stenosis [place] (dyspnea on exertion) Elevated PSA Fatigue Leukopenia Thrombocytopenia Weight loss Surgical History H/O cataract removal with insertion of prosthetic lens History of right-sided carotid endarterectomy S/P cholecystectomy Family History Family/Other Diabetes Brother Diabetes Heart attack, Onset Age: 40 Mother , in her 80's No problems noted. Father , IN HIS 70'S No problems noted. Denies family history of Rheumatoid arthritis Lupus CAD (coronary artery disease) Clotting disorder Dementia Hyperlipidemia Chronic kidney disease (CKD) Suicide Anesthesia complication Bleeding disorder Lung disease Cancer Hypertension Stroke Social History Smoking and tobacco status: current every day smoker cigarettes Packs smoked per day: 1.5 Years cigarettes smoked: 60 Alcohol intake: current Alcohol intake frequency: few times a week Alcohol type: beer Caregiver/support person: Yes Lives independently: Yes Marital status: Current occupational status: retired Current gender identity: Male Course Vital Signs: Vital signs: Vital Signs Temperature 97.9 F 09/16/22 15:30 Pulse Rate 75 09/16/22 20:36 Respiratory Rate 18 09/16/22 20:36 Blood Pressure 120/71 09/16/22 20:36 Pulse Oximetry 98 09/16/22 20:36 Oxygen Delivery Me thod Room Air 09/16/22 19:32 MDM - Abdominal Pain Medical Decision Making Patient presents with constipation I did give him lactulose he had a very large bowel movement here and he feels much improved. White count and other blood work here is normal I spoke to the radiologist about the CT finding of possible discitis or osteomyelitis I believe is likely more degenerative changes he has no signs of discitis or osteomyelitis here clinically he has no back pain he has no tenderness on my exam to his back his white count is normal and his symptoms resolved here after his bowel movement we will prescribe MiraLAX for home he is to follow-up with PCP and return if worsening he understands agrees to plan. Medical Records I reviewed the patient's medical records. Lab Data I reviewed the patient's lab results. 09/16/22 15:35 09/16/22 15:35 Labs/Radiology: Radiology Impressions KUB X-Ray 09/16/22 15:35 Impression: Large amount of fecal material in the colon. Abdomen/Pelvis CT 09/16/22 17:35 IMPRESSION: 1. Prominent fluid in the small bowel without dilation suggestive of an enteritis in the appropriate clinical setting. 2. Soft tissue prominence seen about the L5/S1 disc space with suspected cortical endplate irregularity and lucency in the adjacent L5/S1 vertebrae, please correlate for possible discitis/osteomyelitis, MRI could further characterize this. 3. Emphysematous changes. 4. Bibasilar atelectasis. 5. Coronary artery atherosclerotic calcifications. 6. Spleen enlarged to 16 cm. 7. Cholecystectomy. 8. Constipation. 9. Gastric surgical sutures 10. Small bilateral fat containing inguinal hernias without bowel or inflammation. 11. Left adrenal 18 mm indeterminate nodule. 12. Trace right pleural effusion. ADDENDUM: 09/16/222010 Case reviewed on the phone with Dr Johnson. We discussed the L5/S1 findings may reflect progressive of degenerative changes if the clinical scenario does not fit with an infectious process. Laboratory Results WBC 4.3 10^3/uL (4.0-10.0) 09/16/22 15:35 RBC 2.47 10^6/uL (4.1-5.3) L 09/16/22 15:35 Hgb 8.1 g/dL (11.7-16.6) L 09/16/22 15:35 Hct 25.4 % (42.0-52.0) L 09/16/22 15:35 MCV 102.8 fl (80-94) H 09/16/22 15:35 MCH 32.8 pg (28.0-34.0) 09/16/22 15:35 MCHC 31.9 g/dL (30.0-36.0) 09/16/22 15:35 RDW 20.7 % (12.1-15.1) H 09/16/22 15:35 Plt Count 144 10^3/cmm (130-400) 09/16/22 15:35 MPV 10.5 fL (7.4-10.4) H 09/16/22 15:35 Neut % (Auto) 81.6 % 09/16/22 15:35 Lymph % (Auto) 8.6 % 09/16/22 15:35 Hendricks % (Auto) 4.2 % 09/16/22 15:35 Eos % (Auto) 3.5 % 09/16/22 15:35 Baso % (Auto) 0.7 % 09/16/22 15:35 Neut # (Auto) 3.50 10^3/uL (1.8-7.7) 09/16/22 15:35 Lymph # (Auto) 0.4 10^3/uL (0.8-4.8) L 09/16/22 15:35 Hendricks # (Auto) 0.2 10^3/uL (0.2-0.9) 09/16/22 15:35 Eos # (Auto) 0.2 10^3/uL (0.0-0.8) 09/16/22 15:35 Baso # (Auto) 0.0 10^3/uL (0.0-0.1) 09/16/22 15:35 Nucleated RBC % (auto) 0 % 09/16/22 15:35 Nucleated RBCs # 0.0 /100WBC 09/16/22 15:35 Sodium 132 mmol/L (136-145) L 09/16/22 15:35 Potassium 4.6 mmol/L (3.5-5.1) 09/16/22 15:35 Chloride 98 mmol/L (98-107) 09/16/22 15:35 Carbon Dioxide 25 mmol/L (22-29) 09/16/22 15:35 Anion Gap 13.6 (5-19) 09/16/22 15:35 BUN 14 mg/dL (8-23) 09/16/22 15:35 Creatinine 0.7 mg/dL (0.7-1.2) 09/16/22 15:35 GFR Calculation Not Reportable 09/16/22 15:35 Glucose 101 mg/dL (65-115) 09/16/22 15:35 Calculated Osmolality 275 mOsm/kg (285-295) L 09/16/22 15:35 Calcium 8.4 mg/dL (8.5-10.5) L 09/16/22 15:35 Total Bilirubin 4.3 mg/dL (0.15-1.2) H 09/16/22 15:35 AST 11 U/L (0-40) 09/16/22 15:35 ALT < 5 U/L (0-41) 09/16/22 15:35 Alkaline Phosphatase 55 U/L (40-130) 09/16/22 15:35 Total Protein 5.7 g/dL (6.6-8.7) L 09/16/22 15:35 Albumin 3.7 g/dL (3.5-5.2) 09/16/22 15:35 Globulin 2.0 g/dL (1.3-4.6) 09/16/22 15:35 Discharge Plan Discharge Patient Disposition: Home Clinical Impression: Constipation, Abdominal pain Condition: Stable Prescriptions: New Miralax 17 gram powder in packet 17 g PO DAILY PRN (Reason: constipation) Qty: 14 0RF No Action pravastatin 20 mg tablet 20 mg PO DAILY Qty: 90 3RF aspirin 81 mg Capsule 81 mg PO DAILY Rx Instructions: takes in the morning. Was told he could take it daily through to surgery. per nely in dr velasquez's office Discharge Orders: Discharge ED (Routine); Ordered 09/16/22 Ordered By: Matthias Johnson Referrals: Albin Bah MD [Primary Care Provider] - 1-3 days Discharge Diet: Advance as tolerated Discharge Activity: Resume usual activity Patient Instructions: Constipation (ED), Abdominal Pain (ED) Coding Level of Care Code ED Operations Program Manager for Eugene Angel
[2022-09-16 15:51] LABS: Basophils % 0.7 %; Eosinophils # 0.2 10^3/uL (0.0-0.8); Eosinophils % 3.5 %; Hematocrit 25.4 % (42.0-52.0); Hemoglobin 8.1 g/dL (11.7-16.6); Lymphocytes # 0.4 10^3/uL (0.8-4.8); Lymphocytes % 8.6 %; Mean Corpuscular HGB Conc 31.9 g/dL (30.0-36.0); Mean Corpuscular Hemoglobin 32.8 pg (28.0-34.0); Mean Corpuscular Volume 102.8 fl (80-94); Mean Platelet Volume 10.5 fL (7.4-10.4); Monocytes # 0.2 10^3/uL (0.2-0.9); Monocytes % 4.2 %; Neutrophils % 81.6 %; Nucleated Red Blood Cells % 0 %; Platelet Count 144 10^3/cmm (130-400); Red Blood Count 2.47 10^6/uL (4.1-5.3); Red Cell Distribution Width 20.7 % (12.1-15.1); White Blood Count 4.3 10^3/uL (4.0-10.0)
[2022-09-16 16:14] LABS: Alanine Aminotransferase < 5 U/L (0-41); Albumin Level 3.7 g/dL (3.5-5.2); Alkaline Phosphatase 55 U/L (40-130); Anion Gap 13.6 (5-19); Aspartate Amino Transferase 11 U/L (0-40); Blood Urea Nitrogen 14 mg/dL (8-23); Calcium 8.4 mg/dL (8.5-10.5); Carbon Dioxide 25 mmol/L (22-29); Chloride 98 mmol/L (98-107); Glucose 101 mg/dL (65-115); Osmolality Calculated 275 mOsm/kg (285-295); Potassium 4.6 mmol/L (3.5-5.1); Sodium 132 mmol/L (136-145); Total Bilirubin 4.3 mg/dL (0.15-1.2); Total Protein 5.7 g/dL (6.6-8.7)
--- NOTE | 2022-09-16 17:35 | CTR_ITS ---
PROCEDURE INFORMATION: Exam: CT Abdomen And Pelvis With Contrast Exam date and time: 09/16/2022 6:33 PM Age: 76 years old Clinical indication: Abdominal pain; Acute; Prior surgery; Surgery date: 6+ months; Surgery type: Choley; Additional info: Abd pain/anemia TECHNIQUE: Imaging protocol: Computed tomography of the abdomen and pelvis with contrast. Radiation optimization: All CT scans at this facility use at least one of these dose optimization techniques: automated exposure control; mA and/or kV adjustment per patient size (includes targeted exams where dose is matched to clinical indication); or iterative reconstruction. Contrast material: OMNI 350; Contrast volume: 100 ml; Contrast route: INTRAVENOUS (IV); REPORTING DATA: Count of CT and Cardiac NM exams in prior 12 months: This patient has received 2 known CTs and 0 known cardiac nuclear medicine studies in the 12 months prior to the current study. COMPARISON: CT abdomen pelvis w con* [id number] 01/11/2018 1:59 PM RADIATION DOSE METRICS: Total DLP (mGy-cm): 634.13 FINDINGS: Lungs: Emphysematous changes. Bibasilar atelectasis. Pleural spaces: Trace right pleural effusion. Coronary arteries: Coronary artery atherosclerotic calcifications. Liver: Normal. No mass. Gallbladder and bile ducts: Cholecystectomy. Pancreas: Normal. No ductal dilation. Spleen: Spleen enlarged to 16 cm. Adrenal glands: Left adrenal 18 mm indeterminate nodule. Kidneys and ureters: Normal. No hydronephrosis. Stomach and bowel: Constipation. Prominent fluid in the small bowel without dilation suggestive of an enteritis. Gastric surgical sutures Appendix: No evidence of appendicitis. Intraperitoneal space: Unremarkable. No free air. No significant fluid collection. Vasculature: Unremarkable. No abdominal aortic aneurysm. Lymph nodes: Unremarkable. No enlarged lymph nodes. Urinary bladder: Unremarkable as visualized. Reproductive: Unremarkable as visualized. Bones/joints: Soft tissue prominence seen about the L5/S1 disc space with suspected cortical endplate irregularity and lucency in the adjacent L5/S1 vertebrae, please correlate for possible discitis/osteomyelitis, MRI could further characterize this.Soft tissues: Small bilateral fat containing inguinal hernias without bowel or inflammation. CT/CT abdomen pelvis w con* [id number] IMPRESSION: 1. Prominent fluid in the small bowel without dilation suggestive of an enteritis in the appropriate clinical setting. 2. Soft tissue prominence seen about the L5/S1 disc space with suspected cortical endplate irregularity and lucency in the adjacent L5/S1 vertebrae, please correlate for possible discitis/osteomyelitis, MRI could further characterize this. 3. Emphysematous changes. 4. Bibasilar atelectasis. 5. Coronary artery atherosclerotic calcifications. 6. Spleen enlarged to 16 cm. 7. Cholecystectomy. 8. Constipation. 9. Gastric surgical sutures 10. Small bilateral fat containing inguinal hernias without bowel or inflammation. 11. Left adrenal 18 mm indeterminate nodule. 12. Trace right pleural effusion.
[2022-09-16] MEDS: iohexol 350 mg/mL 500 mL Btl (per mL) IV (18:36)
[2022-09-16] MEDS: lactulose oral liq 20 gm/30 mL UDC 30 GM PO (19:30)
== END 2022-09-16 20:37 | disposition home or self-care (01) ==
PROVIDERS: Family Medicine; Emergency Provider Emergency Medicine; PCP Family Medicine
DX: K59.00 Constipation, unspecified (principal); Z79.82 Long term (current) use of aspirin; F17.210 Nicotine dependence, cigarettes, uncomplicated
CPT/HCPCS: 74018; 74177; 80053; 85025; 99285; Q9967

== ENCOUNTER → 2022-09-22 13:00 | Outpatient (BNVA) | payer MEDICARE, BC, SELFPAY | PROVIDERS: PCP Family Medicine; Referring Provider Thoracic Surgery (Cardiothoracic Vascular Surgery); Visit Provider Psychiatry & Neurology Neurology | DX: Z86.73 Personal history of transient ischemic attack (TIA), and cerebral infarction without residual deficits (principal); E87.1 Hypo-osmolality and hyponatremia; E83.51 Hypocalcemia; R77.9 Abnormality of plasma protein, unspecified; G52.3 Disorders of hypoglossal nerve; R13.10 Dysphagia, unspecified; R47.9 Unspecified speech disturbances; I65.23 Occlusion and stenosis of bilateral carotid arteries; K59.00 Constipation, unspecified; R63.4 Abnormal weight loss; D64.9 Anemia, unspecified; R42 Dizziness and giddiness; I63.9 Cerebral infarction, unspecified; R53.83 Other fatigue | CPT/HCPCS: 99203 ==

== ENCOUNTER 2022-10-06 14:30 | Outpatient (CLI) | payer MEDICARE, BC, SELFPAY ==
--- NOTE | 2022-10-06 14:30 | CT_ITS ---
WS: [id number] CT CERVICAL SPINE TECHNIQUE: Noncontrast CT of the cervical spine with coronal and sagittal reformatted images. 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 FINDINGS: Straightening of the normal cervical lordosis. Moderate spondylitic changes. Disc space narrowing thr oughout the cervical spine. Slight partial ankylosis across the disc spaces at C5-C7. C2-C3: Mild facet arthropathy. Spinal canal and foramen are patent. C3-C4: Disc osteophyte complex endplate ridging. Mild central canal stenosis. Slight indentation LEFT ventral cervical cord. Moderate bilateral bony foraminal narrowing. C4-C5: Disc osteophyte complex with endplate ridging. Mild central canal stenosis. Moderate RIGHT and mild LEFT bony foraminal narrowing. Mild facet arthropathy. C5-C6: Disc osteophyte complex eccentric to the LEFT. Slight indentation RIGHT ventral cervical cord. Mild central canal stenosis. Moderate RIGHT and mild LEFT foraminal narrowing. C6-C7: Disc osteophyte complex with mild central canal stenosis. Osteophytic ridging. Mild LEFT and n o significant RIGHT foraminal narrowing. C7-T1: Disc osteophytic ridging. Moderate RIGHT and mild LEFT foraminal narrowing. Visualized posterior nasopharynx: Normal. Prevertebral soft tissues: Normal. CT/CT cervical spin wo con* [id number] IMPRESSION: 1. Straightening of the normal cervical lordosis with moderate spondylitic martha nges progressed compared to 2009. 2. Mild cervical canal stenosis due to disc osteophyte complexes at C3-C4 C4-C 5 C5-C6 and C6-C7 with slight contact of the cervical cord. 3. Multilevel moderate bony foraminal narrowing worse at bilateral C3-C4, RIGH T C4-C5, RIGHT C5-C6 and RIGHT C7-T1
== END 2022-10-06 14:31 | disposition home or self-care (01) ==
LOC: RAD 14:33
PROVIDERS: PCP Family Medicine; Visit Provider Psychiatry & Neurology Neurology
DX: G52.3 Disorders of hypoglossal nerve (principal); R13.10 Dysphagia, unspecified; R47.9 Unspecified speech disturbances
CPT/HCPCS: 72125; 99203

== ENCOUNTER 2022-10-09 08:08 | Outpatient (CLI) | payer MEDICARE, BC, SELFPAY ==
--- NOTE | 2022-10-09 08:45 | MR_ITS ---
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 No evidence for acute infarct or hemorrhage. [place]-white matter differentiation is normal. Moderate parenchymal volume loss as seen on the prior exams. Small vessel changes in the isaiah and thr oughout the white matter. Very minimal progression since the prior study. No large territory infarct. Ventricles are normal size. Bilateral mild cerebellar volume loss and atrophy. No inferior displacement of cerebellar tonsils. The sella turcica and pituitary gland are unremarkabl e. Dural venous sinuses and [place] demonstrate no abnormality on this unenhanced studies. Paranasal sinuses: Clear. Mastoid air cells: Normal. Calvarium and scalp: Intact. MR/MR head wo con* [id number] IMPRESSION: 1. No acute infarcts or diffusion abnormalities. 2. Moderate cerebral and cerebellar atrophy with small vessel ischemic changes are essentially stable since 04/24/2020 with only minimal progression. 3. No abnormality is noted along the expected location of the hypoglossal nerv es canal.
== END 2022-10-09 08:09 | disposition home or self-care (01) ==
LOC: RAD 08:12
PROVIDERS: PCP Family Medicine; Visit Provider Psychiatry & Neurology Neurology
DX: G52.3 Disorders of hypoglossal nerve (principal); R13.10 Dysphagia, unspecified; R47.9 Unspecified speech disturbances; G31.9 Degenerative disease of nervous system, unspecified
CPT/HCPCS: 70551

== ENCOUNTER 2022-10-13 11:31 | Outpatient (CLI) | payer MEDICARE, BC, SELFPAY ==
--- NOTE | 2022-10-13 13:30 | USCV_ITS ---
Vlad Dugan Age: 76 Gender: M : 1945 Exam Date: 10/13/2022 12:09 Ordering Phys: Tristin Paulino MD Technologist: TOYIN Exam Location[place] [facility] [place] Indication: Stenosis. Rt sided CCA surg. Risk Factors: Previous Vascular Surgery: Right Brachial BP: / Left Brachial BP: / Right Left Velocity (cm/s) Spectral Plaque Velocity (cm/s) Spectral Plaque Syst/Diast Broadening Syst/Diast Broadening 77.70/ 15.50 Prox CCA 100.30/ 22.10 102.50/19.80 Mid CCA 94.60 / 21.90 106.90/20.60 Distal CCA 74.90 / 21.80 112.50/15.00 Prox ICA 99.10 / 20.50 137.50/34.70 Mid ICA 100.00/ 29.00 132.00/34.70 Distal ICA 106.40/ 29.00 98.50 ECA 70.50 1.29 ICA/CCA 1.06 Antegrade Vertebral Antegrade 68.30/ 16.00 cm/s 82.20/ 23.40 cm/s Tri Subclavian Tri 115.8 100.5 0 0 FINDINGS Comparison:. 06/11/22 No significant elevation of systolic or diastolic velocities. Mild plaque in the bifurcations. Antegrade vertebral arteries. CONCLUSIONS Bilateral ICA stenosis less than 50%. Mild carotid atherosclerosis. Dr. Colleen Watts DO (Electronically Signed) Final Date: 13 Oct 2022 15:13 S
== END 2022-10-13 11:32 | disposition home or self-care (01) ==
LOC: RAD 11:34
PROVIDERS: PCP Family Medicine; Visit Provider Psychiatry & Neurology Neurology
DX: I65.23 Occlusion and stenosis of bilateral carotid arteries (principal); G52.3 Disorders of hypoglossal nerve; R13.10 Dysphagia, unspecified; R47.9 Unspecified speech disturbances
CPT/HCPCS: 93880

== ENCOUNTER → 2022-10-14 09:49 | Outpatient (BNVA) | payer MEDICARE, BC, SELFPAY | PROVIDERS: PCP Family Medicine; Visit Provider Otolaryngology | DX: H81.10 Benign paroxysmal vertigo, unspecified ear (principal); I95.1 Orthostatic hypotension | CPT/HCPCS: 99204 ==

== ENCOUNTER → 2022-10-21 10:23 | Outpatient (BNVA) | payer MEDICARE, BC, SELFPAY | PROVIDERS: PCP Family Medicine; Visit Provider Family Medicine | DX: I95.1 Orthostatic hypotension (principal); D64.9 Anemia, unspecified; Z51.81 Encounter for therapeutic drug level monitoring | CPT/HCPCS: 80053; 83540; 85025 ==

== ENCOUNTER 2022-10-28 06:00 | Outpatient (RCR) | payer MEDICARE, BC, SELFPAY | END 2022-10-29 23:59 | disposition home or self-care (01) | LOC: TPT 06:00 | PROVIDERS: PCP Family Medicine; Visit Provider Otolaryngology | DX: R42 Dizziness and giddiness (principal) | CPT/HCPCS: 97162 ==

== ENCOUNTER → 2022-10-29 14:28 | Outpatient (BNVA) | payer MEDICARE, BC, SELFPAY | PROVIDERS: PCP Family Medicine; Visit Provider Psychiatry & Neurology Neurology | DX: G52.3 Disorders of hypoglossal nerve (principal); D64.9 Anemia, unspecified; E55.9 Vitamin D deficiency, unspecified; H81.10 Benign paroxysmal vertigo, unspecified ear; I95.1 Orthostatic hypotension; S16.1XXA Strain of muscle, fascia and tendon at neck level, initial encounter; X58.XXXA Exposure to other specified factors, initial encounter; R63.4 Abnormal weight loss; Z86.19 Personal history of other infectious and parasitic diseases; M50.30 Other cervical disc degeneration, unspecified cervical region; Z98.890 Other specified postprocedural states | CPT/HCPCS: 99213 ==

== ENCOUNTER 2022-10-30 06:00 | Outpatient (RCR) | payer MEDICARE, BC, SELFPAY | END 2022-11-28 23:59 | disposition home or self-care (01) | LOC: TPT 06:00 | PROVIDERS: PCP Family Medicine; Visit Provider Otolaryngology | DX: R42 Dizziness and giddiness (principal) | CPT/HCPCS: 95992 ==

== ENCOUNTER → 2022-10-30 10:37 | Outpatient (BNVA) | payer MEDICARE, BC, SELFPAY | PROVIDERS: PCP Family Medicine; Visit Provider Psychiatry & Neurology Neurology | DX: I65.29 Occlusion and stenosis of unspecified carotid artery (principal); R53.83 Other fatigue; D64.9 Anemia, unspecified | CPT/HCPCS: 82306; 82607; 83090; 86617; 86780 ==

== ENCOUNTER 2022-11-04 15:13 | Oncology outpatient (recurring) (ONCR) | payer MEDICARE, BC, SELFPAY ==
[2022-11-04 16:41] LABS: Reticulocyte % 8.2 % (0.5-2.0)
[2022-11-04 16:42] LABS: Basophils % 0.5 %; Eosinophils # 0.4 10^3/uL (0.0-0.8); Eosinophils % 8.1 %; Hematocrit 30.3 % (42.0-52.0); Hemoglobin 9.9 g/dL (11.7-16.6); Lymphocytes % 22.9 %; Mean Corpuscular HGB Conc 32.7 g/dL (30.0-36.0); Mean Corpuscular Hemoglobin 34.5 pg (28.0-34.0); Mean Corpuscular Volume 105.6 fl (80-94); Mean Platelet Volume 11.3 fL (7.4-10.4); Monocytes # 0.3 10^3/uL (0.2-0.9); Neutrophils # 2.65 10^3/uL (1.8-7.7); Neutrophils % 61.1 %; Nucleated Red Blood Cells % 0 %; Platelet Count 130 10^3/cmm (130-400); Red Blood Count 2.87 10^6/uL (4.1-5.3); Red Cell Distribution Width 20.3 % (12.1-15.1); White Blood Count 4.3 10^3/uL (4.0-10.0)
[2022-11-04 17:27] LABS: Lactate Dehydrogenase 156 U/L (135-225)
== END 2022-11-28 23:59 | disposition home or self-care (01) ==
PROVIDERS: PCP Family Medicine; Visit Provider Internal Medicine Medical Oncology
DX: D64.9 Anemia, unspecified (principal)
CPT/HCPCS: 36415; 83010; 83615; 85025; 85045; 88184; 88185; 99204

== ENCOUNTER → 2022-11-11 10:09 | Outpatient (BNVA) | payer MEDICARE, BC, SELFPAY | PROVIDERS: PCP Family Medicine; Referring Provider Psychiatry & Neurology Neurology; Visit Provider Orthopaedic Surgery | DX: M54.2 Cervicalgia (principal); M47.812 Spondylosis without myelopathy or radiculopathy, cervical region | CPT/HCPCS: 99213 ==

== ENCOUNTER → 2022-11-18 09:00 | Outpatient (BNVA) | payer MEDICARE, BC, SELFPAY | PROVIDERS: PCP Family Medicine; Visit Provider Internal Medicine Medical Oncology | DX: D64.9 Anemia, unspecified (principal) | CPT/HCPCS: 88184; 88185 ==

== ENCOUNTER → 2022-11-26 10:46 | Outpatient (BNVA) | payer MEDICARE, BC, SELFPAY | PROVIDERS: PCP Family Medicine; Visit Provider Internal Medicine Cardiovascular Disease | DX: Z98.890 Other specified postprocedural states (principal); E78.5 Hyperlipidemia, unspecified; E83.19 Other disorders of iron metabolism; D64.9 Anemia, unspecified; G52.3 Disorders of hypoglossal nerve; I95.1 Orthostatic hypotension; F17.210 Nicotine dependence, cigarettes, uncomplicated; Z79.82 Long term (current) use of aspirin | CPT/HCPCS: 99214 ==

== ENCOUNTER 2022-12-05 08:42 | Oncology outpatient (recurring) (ONCR) | payer MEDICARE, BC, SELFPAY | END 2022-12-29 23:59 | disposition home or self-care (01) | LOC: ONCMED 08:42 | PROVIDERS: PCP Family Medicine; Visit Provider Internal Medicine Medical Oncology | DX: D64.9 Anemia, unspecified (principal); R16.1 Splenomegaly, not elsewhere classified; F17.210 Nicotine dependence, cigarettes, uncomplicated; Z68.21 Body mass index [BMI] 21.0-21.9, adult; R63.4 Abnormal weight loss | CPT/HCPCS: 99214 ==

== ENCOUNTER → 2022-12-12 14:51 | Outpatient (BNVA) | payer MEDICARE, BC, SELFPAY | PROVIDERS: PCP Family Medicine; Visit Provider Surgery | DX: R16.1 Splenomegaly, not elsewhere classified (principal); D69.6 Thrombocytopenia, unspecified; D64.9 Anemia, unspecified; R53.82 Chronic fatigue, unspecified | CPT/HCPCS: 99203 ==

== ENCOUNTER 2023-01-02 08:44 | Oncology outpatient (recurring) (ONCR) | payer MEDICARE, BC, SELFPAY | END 2023-01-29 23:59 | disposition home or self-care (01) | LOC: ONCMED 08:44 | PROVIDERS: PCP Family Medicine; Visit Provider Internal Medicine Medical Oncology | DX: R16.1 Splenomegaly, not elsewhere classified (principal) ==

== ENCOUNTER 2023-02-09 11:36 | Inpatient (IN) | payer MEDICARE, BC, SELFPAY ==
[2023-02-06 15:28] VITALS: BMI 20.6
[2023-02-09] VITALS (28 sets, daily range): BP systolic 97–130; BP diastolic 46–76; PULSE 73–95; RESP 16–38; TEMP 35.6–36.6; O2SAT 90–99
[2023-02-09] MEDS: heparin 5,000 unit/mL INJ 1 mL 5000 UNIT SUBCUT (07:31)
[2023-02-09] MEDS: sodium chloride 0.9% 1,000 ML 30 ML IV (07:31)
--- NOTE | 2023-02-09 07:45 | ECG_ITS ---
[facility] Test Date: 2023-02-09 Pat Name: Vlad Dugan Department: Room: Gender: Male Cargo Mate: : 1945 Requested By: Reynold Moe Order Number: [id number] Marilee MD: Quan Lobo M.D. Measurements Intervals [place] Rate: 73 P: 76 AK: 196 QRS: 0 QRSD: 160 T: 39 QT: 421 QTc: 466 Interpretive Statements SINUS RHYTHM RIGHT BUNDLE BRANCH BLOCK [120+ ms QRS DURATION, UPRIGHT V1, 40+ ms S IN I/aVL/V4/V5/V6] Compared to ECG 08/21/2022 11:09:49 No significant changes Electronically Signed On 02-09-2023 16:03:10 CDT by Quan Lobo M.D. [email or web address] [id number]
[2023-02-09 07:50] LABS: Eosinophils # 0.4 10^3/uL (0.0-0.8); Eosinophils % 10.6 %; Hematocrit 31.6 % (37-53); Lymphocytes # 0.8 10^3/uL (0.8-4.8); Lymphocytes % 18.6 %; Mean Corpuscular HGB Conc 33.9 g/dL (30-55); Mean Corpuscular Hemoglobin 35.3 pg (27-33); Mean Corpuscular Volume 104.3 fl (82-101); Mean Platelet Volume 10.2 fL (7.4-10.4); Monocytes # 0.2 10^3/uL (0.2-0.9); Monocytes % 5.4 %; Neutrophils # 2.53 10^3/uL (1.8-7.7); Neutrophils % 62.7 %; Nucleated Red Blood Cells % 0 %; Platelet Count 130 10^3/cmm (157-399); Red Blood Count 3.03 10^6/uL (3.85-5.65); Red Cell Distribution Width 19.7 % (12.1-15.1); White Blood Count 4.04 10^3/uL (3.29-11.43)
--- NOTE | 2023-02-09 07:59 | P.HP_ITS ---
Providers/Chief Complaint Primary Care Provider: Albin Bah MD Chief Complaint: [id number] History of Present Illness Vlad Dugan is a 77 year old male Review of Systems General: Reports: 10 or more systems reviewed and unremarkable except in HPI and below Medications/Allergies Home Medications Medication Instructions Recorded Confirmed Last Taken Type polyethylene glycol 3350 17 gram 17 g PO DAILY PRN constipation #14 09/16/22 02/09/23 3 Days Ago Rx oral powder packet (Miralax) ea ~02/06/23 aspirin 81 mg capsule See Rx Instructions PO DAILY 12/05/22 02/06/23 02/06/23 Hi story pravastatin 20 mg tablet 20 mg PO DAILY 02/06/23 02/09/23 02/08/23 History Allergies Allergy/AdvReac Type Severity Reaction Status Date / Time No Known Allergies Allergy Verified 01/02/23 08:54 PFSH Acute PFSH: Medical History Abnormal nuclear stress test Abuse of smoked substance Anemia Carotid stenosis [place] (dyspnea on exertion) Elevated PSA Fatigue Leukopenia Thrombocytopenia Weight loss Surgical History H/O cataract removal with insertion of prosthetic lens History of right-sided carotid endarterectomy S/P cholecystectomy Family History Family/Other Diabetes Brother Diabetes Heart attack, Onset Age: 40 Mother , in her 80's No problems noted. Father , IN HIS 70'S No problems noted. Denies family history of Rheumatoid arthritis Lupus CAD (coronary artery disease) Clotting disorder Dementia Hyperlipidemia Chronic kidney disease (CKD) Suicide Anesthesia complication Bleeding disorder Lung disease Cancer Hypertension Stroke Social History Smoking and tobacco status: current every day smoker cigarettes Packs smoked per day: 1.5 Years cigarettes smoked: 60 Alcohol intake: current Alcohol intake frequency: few times a week Alcohol type: beer Substance/Drug Use: never Caregiver/support person: Yes Lives independently: Yes Marital status: Current occupational status: retired Current gender identity: Male Vitals/I&O/Wt Last Vital Signs Temp 97 F L 02/09/23 07:19 Pulse 95 02/09/23 07:19 Resp 16 02/09/23 07:19 BP 106/56 02/09/23 07:19 Pulse Ox 98 02/09/23 07:19 O2 Del Method Room Air 02/09/23 07:19 Data 02/09/23 07:35 02/09/23 07:35 A&P Assessment and plan (1) Splenomegaly: (2) Splenic mass: Plan Splenectomy Attestations Medical Necessity Statement*: Patient will require an average of 5 nights in the hospital for recovery and return of bowel function after open splenectomy Coding Level of Care Code Acute Code for Chg Fwd Diagnoses Splenomegaly R16.1 Splenic mass R16.1
[2023-02-09 08:04] LABS: Blood Urea Nitrogen 15 mg/dL (8-23); Calcium 8.7 mg/dL (8.5-10.5); Carbon Dioxide 29 mmol/L (22-29); Chloride 99 mmol/L (98-107); Glucose 99 mg/dL (65-115); Osmolality Calculated 285 mOsm/kg (285-295); Sodium 137 mmol/L (136-145)
[2023-02-09] MEDS: ceFAZolin 2,000 MG in sodium chloride 0.9% (plus) 50 ML 100 MG IV ×2 (08:45→17:09)
--- NOTE | 2023-02-09 10:36 | XR_ITS ---
WS: [id number] Exam: XR chest 1V portable [id number] Date/Time of Exam: 02/09/2023 10:36 AM Reason For Exam: NG TUBE PLACEMENT Comparison 10/02/2020. An NG tube has been placed and appears to end near the GE junction. The sideport of the tube ends in the lower esophagus. The tube should be advanced another 8 to 10 cm for optimal position. The lungs a re fully expanded and clear. Normal cardiomediastinal silhouette. Bony structures are intact. IMPRESSION: 1. NG tube ending at the gastroesophageal junction. The tube should be advanced another 8 to 10 cm fo r optimal position. 2. No acute cardiopulmonary finding.
--- NOTE | 2023-02-09 10:39 | SUR.OPER ---
NG TUBE PLACED BY TIM OLMOS CRNA
[2023-02-09] MEDS: fentaNYL 50 mcg/mL INJ 2mL IVP ×2 (11:02→11:18)
[2023-02-09] MEDS: HYDROmorphone 1 mg/mL INJ 1 mL 0.5 MG IVP (11:48)
[2023-02-09 11:53] LABS: Basophils % 0.3 %; Eosinophils # 0.1 10^3/uL (0.0-0.8); Eosinophils % 1.7 %; Hematocrit 29.5 % (37-53); Lymphocytes # 0.6 10^3/uL (0.8-4.8); Lymphocytes % 8.4 %; Mean Corpuscular HGB Conc 32.5 g/dL (30-55); Mean Corpuscular Hemoglobin 31.6 pg (27-33); Mean Platelet Volume 10.7 fL (7.4-10.4); Monocytes # 0.3 10^3/uL (0.2-0.9); Monocytes % 4.4 %; Neutrophils % 83.6 %; Nucleated Red Blood Cells % 0 %; Platelet Count 75 10^3/cmm (157-399); Red Blood Count 3.04 10^6/uL (3.85-5.65); Red Cell Distribution Width 22.2 % (12.1-15.1); White Blood Count 7.53 10^3/uL (3.29-11.43)
--- NOTE | 2023-02-09 11:53 | PC.NURSE ---
1130 - ANESTHESIA NOTIFIED OF CURRENT BP AT 63/46 - HEART RATE LOW 70'S - MULTIPLE ANESTHESIA ON THE FLOOR WELL DR OVIEDO - STAT H&H ORDERED AND COMPLETED - 0.5 OF MELINA GIVEN PER Yosvany DENNIS CRNA - NS PLACED TO PRESSURE BAG PER WILL SMART - PT REMAINS WITH HEART RATE IN 70'S - PT CONTINUES TO COMPLAIN OF PAIN THROUGHOUT ABOVE NOTES - ABD REMAINS SOFT WITH ABD DRESSING C/D/I - REFER TO VITAL SIGN INTERVENTION FOR V/S PROGRESS
--- NOTE | 2023-02-09 11:58 | ANES.PREANE2 ---
Pre-Anesthetic Assessment Height/Weight: Height 1.91 m Weight 74.843 kg Temp Pulse Resp BP Pulse Ox O2 Del Method O2 Flow Rate 97.0 F L 76 22 H 123/64 97 Nasal Cannula 2 02/09/23 10:50 02/09/23 11:51 02/09/23 11:51 02/09/23 11:51 02/09/23 11:51 02/09/23 11:51 02/09/23 11:51 Operation Date: 02/09/23 08:35 Proposed Procedures p Splenectomy open 07634,R16.1(Not Applicable) - Yuniro Ambrose DO Familial anesthetic complications: none Was Beta Lizzy taken within 24 hours: N/A Was Clonidine taken within 24 hours: N/A Last intake: Intake Last Liquid Date 02/08/23 Last Liquid Time 19:00 Last Solid Date 02/08/23 Last Solid Time 19:00 Social Tobacco and No alcohol Exam alert, oriented x 3 and regular rate & rhythm Airway Submandibular: within normal limits Cervical ROM: within normal limits Mallampati: Class II Pulmonary Chronic Obstructive Pulmonary Disease CV/HEM Anemia and Peripheral Vascular Disease Metabolic Hyperlipidemia [facility] [place] [facility] [place] Lower Back Pain and Osteoarthritis/DJD Anesthetic Plan ASA status: 3 Anesthesia: General Medications/Allergies Home Medications Medication Instructions Recorded Confirmed Last Taken Type polyethylene glycol 3350 17 gram 17 g PO DAILY PRN constipation #14 09/16/22 02/09/23 3 Days Ago Rx oral powder packet (Miralax) ea ~02/06/23 aspirin 81 mg capsule See Rx Instructions PO DAILY 12/05/22 02/06/23 02/06/23 History pravastatin 20 mg tablet 20 mg PO DAILY 02/06/23 02/09/23 02/08/23 History Allergies Allergy/AdvReac Type Severity Reaction Status Date / Time No Known Allergies Allergy Verified 01/02/23 08:54 Current Medications Generic Name Dose Route Start Last Admin Trade Name Freq PRN Reason Stop Dose Admin Sodium Chloride 1,000 mls @ 30 mls/hr 02/09/23 07:00 02/09/23 10:40 Sodium Chloride 0.9% IV 02/10/23 06:59 Infused .Q24H GAURANG Infusion PFSH Anesthesia Medical History Abnormal nuclear stress test Abuse of smoked substance Anemia Carotid stenosis [place] (dyspnea on exertion) Elevated PSA Fatigue Leukopenia Thrombocytopenia Weight loss Surgical History H/O cataract removal with insertion of prosthetic lens History of right-sided carotid endarterectomy S/P cholecystectomy Family History Family/Other Diabetes Brother Diabetes Heart attack, Onset Age: 40 Mother , in her 80's No problems noted. Father , IN HIS 70'S No problems noted. Denies family history of Rheumatoid arthritis Lupus CAD (coronary artery disease) Clotting disorder Dementia Hyperlipidemia Chronic kidney disease (CKD) Suicide Anesthesia complication Bleeding disorder Lung disease Cancer Hypertension Stroke Social History Smoking and tobacco status: current every day smoker cigarettes Packs smoked per day: 1.5 Years cigarettes smoked: 60 Alcohol intake: current Alcohol intake frequency: few times a week Alcohol type: beer Substance/Drug Use: never Caregiver/support person: Yes Lives independently: Yes Marital status: Current occupational status: retired Current gender identity: Male Data Anesthesia 02/09/23 07:35 02/09/23 07:35 Short CBC 02/09/23 Range/Units 07:35 WBC 4.04 (3.29-11.43) 10^3/uL Hgb 10.70 L (11.27-16.99) g/dL Hct 31.6 L (37-53) % MCV 104.3 H (82-101) fl Plt Count 130 L (157-399) 10^3/cmm Neut % (Auto) 62.7 % Neut # (Auto) 2.53 (1.8-7.7) 10^3/uL BMP 02/09/23 07:35 Sodium 137 Potassium 4.0 Chloride 99 Carbon Dioxide 29 BUN 15 Creatinine 0.6 L Glucose 99 Calcium 8.7 Blood Bank 02/09/23 07:35 Blood Type A Positive Rho(D) Type Positive Antibody Screen Negative Cardiac Studies: Echocardiogram Ultrasound 04/06/20 Sestamibi Stress Test (Cardiology) 02/07/20
--- NOTE | 2023-02-09 12:12 | PC.NURSE ---
1201 DR MORRELL AT PTS SIDE - UNABLE TO DETECT BP WITH CUFF - LEFT FEMORAL PALPATED WITHOUT DIFFICULTY - BP AT 1210 114/57 - PT AWAKENS EASILY AND STATES PAIN IS EASING
[2023-02-09] MEDS: pantoprazole 40 mg SDV IVP (13:52)
[2023-02-09] MEDS: HYDROmorphone 1 mg/mL INJ 1 mL IVP ×2 (13:52→20:40)
[2023-02-09] MEDS: sodium chlor 0.9% + KCl 20 mEq 20 MEQ/1,000 ML BAG 125 MEQ IV ×2 (13:53→20:40)
[2023-02-09 15:45] LABS: Basophils % 0.3 %; Hematocrit 33.7 % (37-53); Lymphocytes # 0.3 10^3/uL (0.8-4.8); Lymphocytes % 1.8 %; Mean Corpuscular HGB Conc 32.9 g/dL (30-55); Mean Corpuscular Hemoglobin 31.9 pg (27-33); Mean Corpuscular Volume 96.8 fl (82-101); Mean Platelet Volume 10.3 fL (7.4-10.4); Monocytes # 0.6 10^3/uL (0.2-0.9); Monocytes % 4.5 %; Neutrophils # 12.97 10^3/uL (1.8-7.7); Neutrophils % 92.7 %; Nucleated Red Blood Cells % 0 %; Platelet Count 106 10^3/cmm (157-399); Red Blood Count 3.48 10^6/uL (3.85-5.65); Red Cell Distribution Width 23.8 % (12.1-15.1); White Blood Count 13.99 10^3/uL (3.29-11.43)
--- NOTE | 2023-02-09 16:08 | PM.OP ---
Operative Report Date of procedure: February 09, 2023 Pre-op diagnosis: Splenic mass Post-op diagnosis: same Procedure done: Splenectomy Implants: Surgicel x3 Specimens removed/disposition: Spleen Surgeon: Yunior Ambrose DO Anesthesia: General Estimated blood loss (mL): 1,400 Complications: None apparent Brief History: This a very pleasant 77-year-old gentleman who was found to have a splenic mass. Splenectomy was indicated. The risk and benefits were explained and documented. Procedure: Patient was brought to the operating room and placed on the OR table in supine position. The abdomen was inspected prepped and draped in usual sterile fashion. Time was performed. All present were in agreement. General endotracheal ovation was achieved by department anesthesia. A 10 blade scalpel was used to make a midline laparotomy incision from just inferior of the xiphoid process to the supraumbilical region. Dissection was carried down through the fascia with electrocautery. Peritoneum was opened sharply with Metzenbaum scissors. Scar tissue from previous incision was transected with electrocautery. The splenic ligaments were taken down with electrocautery and Enseal. The hilum was then transected using the Enseal. The Enseal was fired multiple times but despite this there was significant bleeding encountered from the splenic artery at this time. The hilum was fully transected and the spleen was removed. The spleen was quite large. Hemostasis was created then with the Enseal. Surgicel x3 was placed over splenic artery and vein. Fascia was closed with #1 PDS x2 in a running fashion. Skin was then closed with 4-0 Monocryl in a subcuticular running fashion. Sterile bandages were applied. Patient tolerated procedure well. 2 units of PRBCs were given at the end of the case.
--- NOTE | 2023-02-09 17:00 | ANE.PACU2 ---
Inpatient post-anesthesia follow up: Airway intact: Yes Vital signs: Temperature 97.4 F Pulse Rate 84 Respiratory Rate 18 Blood Pressure 114/70 Pulse Oximetry 97 Oxygen Delivery Me thod Nasal Cannula Oxygen Flow Rate 2 Fraction of Inspir ed Oxygen Hydration adequate: Yes Nausea and vomiting: No Pain level: 4 Mental status: Baseline
--- NOTE | 2023-02-09 20:03 | PC.NURSE ---
During report, was told that Dr. Ambrose wants to be called when patient passes gas to potentially remove NG tube. Called Dr. Ambrose to clarify. Dr. Ambrose notified that patient has NG hooked up to LIWS. Dr. Ambrose ordered to leave NG tube in throughout the night, even if patient passes gas. Verified with Dr. Ambrose to give SQ Heparin that is due at [address] Ambrose stated via telephone that he DOES want patient to have this dose of Heparin.
[2023-02-09] MEDS: phenol oral Spray 177 mL 3 SPRAY MUCOUS MEM (20:41)
[2023-02-10] VITALS (9 sets, daily range): BP systolic 98–133; BP diastolic 53–71; PULSE 59–85; RESP 15–20; TEMP 36.5–37.2; O2SAT 90–92
[2023-02-10] MEDS: heparin 5,000 unit/mL INJ 1 mL 5000 UNIT SUBCUT ×2 (00:47→13:15)
[2023-02-10] MEDS: ceFAZolin 2,000 MG in sodium chloride 0.9% (plus) 50 ML 100 MG IV ×2 (00:47→08:54)
[2023-02-10] MEDS: phenol oral Spray 177 mL 3 SPRAY MUCOUS MEM (00:54)
[2023-02-10 06:12] LABS: Basophils % 0.2 %; Eosinophils # 0.1 10^3/uL (0.0-0.8); Eosinophils % 0.6 %; Hematocrit 29.7 % (37-53); Lymphocytes % 9.2 %; Mean Corpuscular HGB Conc 32.7 g/dL (30-55); Mean Corpuscular Hemoglobin 32.6 pg (27-33); Mean Corpuscular Volume 99.7 fl (82-101); Mean Platelet Volume 10.8 fL (7.4-10.4); Monocytes # 1.4 10^3/uL (0.2-0.9); Monocytes % 12.5 %; Neutrophils # 8.29 10^3/uL (1.8-7.7); Neutrophils % 76.8 %; Nucleated Red Blood Cells % 0 %; Platelet Count 117 10^3/cmm (157-399); Red Blood Count 2.98 10^6/uL (3.85-5.65); Red Cell Distribution Width 25.2 % (12.1-15.1)
[2023-02-10 06:28] LABS: Anion Gap 10.3 (5-19); Blood Urea Nitrogen 17 mg/dL (8-23); Calcium 7.8 mg/dL (8.5-10.5); Carbon Dioxide 24 mmol/L (22-29); Chloride 109 mmol/L (98-107); Glucose 86 mg/dL (65-115); Osmolality Calculated 289 mOsm/kg (285-295); Potassium 4.3 mmol/L (3.5-5.1); Sodium 139 mmol/L (136-145)
[2023-02-10] MEDS: sodium chlor 0.9% + KCl 20 mEq 20 MEQ/1,000 ML BAG 125 MEQ IV ×2 (08:54→17:54)
[2023-02-10] MEDS: HYDROmorphone 1 mg/mL INJ 1 mL IVP ×2 (08:57→17:57)
[2023-02-10] MEDS: pantoprazole 40 mg SDV IVP (13:18)
--- NOTE | 2023-02-10 16:04 | PM.PN ---
Subjective Subjective: Patient seen and examined. Pain controlled. Still no flatus Vitals/I&O/Wt Last Vital Signs Temp 97.7 F 02/10/23 12:00 Pulse 78 02/10/23 12:00 Resp 18 02/10/23 12:00 BP 117/58 02/10/23 12:00 Pulse Ox 90 02/10/23 12:00 O2 Del Method Room Air 02/10/23 12:00 O2 Flow Rate 2 02/09/23 12:25 02/10/23 02/10/23 02/10/23 06:59 14:59 22:59 Intake Total 50 / 3297.917 1016.667 / 1016.667 Output Total 150 / 1550 Balance -100 / 1463.442 9909.667 / 1016.667 Physical Exam Narrative: General: No acute distress, awake alert and oriented x3 Abdomen: Soft, nondistended, appropriately tender to palpation Dressings clean dry and intact Urinary Catheter Management: Dias: Cath Placed During This Visit: yes Reason for Continuing Indwelling Catheter: Other Urinary Catheter Date of Insertion: 02/09/23 Urinary Catheter Time of Insertion: 16:22 Data 02/10/23 05:28 02/10/23 05:28 A&P Assessment and plan (1) Splenic mass: Plan Postop day #1 status post open splenectomy await return of bowel function Attestations Medical Necessity Statement*: Patient requires multiple more nights in the hospital for return of bowel function and recovery after open splenectomy Coding Level of Care Code Acute Code for Chg Fwd Diagnoses Splenic mass R16.1
[2023-02-10] MEDS: nicotine 21 mg Patch 1 PATCH TRANSDERMA (20:10)
[2023-02-11] MEDS: heparin 5,000 unit/mL INJ 1 mL 5000 UNIT SUBCUT ×2 (00:14→12:16)
[2023-02-11] MEDS: sodium chlor 0.9% + KCl 20 mEq 20 MEQ/1,000 ML BAG 125 MEQ IV ×3 (00:15→20:48)
[2023-02-11] MEDS: HYDROmorphone 1 mg/mL INJ 1 mL IVP (00:15)
[2023-02-11 03:50] VITALS: BP 130/70; PULSE 86; RESP 17; TEMP 36.8; O2SAT 90
[2023-02-11 05:58] LABS: Basophils # 0.1 10^3/uL (0.0-0.1); Basophils % 0.5 %; Eosinophils # 0.1 10^3/uL (0.0-0.8); Eosinophils % 0.9 %; Hematocrit 34.2 % (37-53); Lymphocytes # 1.4 10^3/uL (0.8-4.8); Lymphocytes % 10.8 %; Mean Corpuscular HGB Conc 31.3 g/dL (30-55); Mean Corpuscular Hemoglobin 32.5 pg (27-33); Mean Platelet Volume 10.1 fL (7.4-10.4); Monocytes # 0.9 10^3/uL (0.2-0.9); Neutrophils % 80.1 %; Nucleated Red Blood Cells % 0 %; Platelet Count 157 10^3/cmm (157-399); Red Blood Count 3.29 10^6/uL (3.85-5.65); White Blood Count 12.73 10^3/uL (3.29-11.43)
--- NOTE | 2023-02-11 06:18 | PC.NURSE ---
Patient up to chair x2 throughout shift.
[2023-02-11 06:19] LABS: Anion Gap 14.2 (5-19); Blood Urea Nitrogen 14 mg/dL (8-23); Calcium 8.3 mg/dL (8.5-10.5); Carbon Dioxide 25 mmol/L (22-29); Chloride 105 mmol/L (98-107); Glucose 71 mg/dL (65-115); Osmolality Calculated 289 mOsm/kg (285-295); Potassium 4.2 mmol/L (3.5-5.1); Sodium 140 mmol/L (136-145)
[2023-02-11 07:35] VITALS: BP 119/62; PULSE 82; RESP 18; TEMP 36.4; O2SAT 93
[2023-02-11 12:00] VITALS: BP 134/66; PULSE 84; RESP 19; TEMP 36.9; O2SAT 93
[2023-02-11] MEDS: pantoprazole 40 mg SDV IVP (14:09)
--- NOTE | 2023-02-11 14:40 | PM.PN ---
Subjective Subjective: Patient reports to be passing flatus. Denies any nausea or vomiting. Pain controlled. Vitals/I&O/Wt Last Vital Signs Temp 98.4 F 02/11/23 12:00 Pulse 84 02/11/23 12:00 Resp 19 H 02/11/23 12:00 BP 134/66 02/11/23 12:00 Pulse Ox 93 02/11/23 12:00 O2 Del Method Room Air 02/11/23 12:00 O2 Flow Rate 2 02/09/23 12:25 02/10/23 02/11/23 02/11/23 22:59 06:59 14:59 Intake Total 1000 / 2015.667 793.75 / 2810.417 1020.833 / 1020.833 Output Total 1750 / 1750 900 / 2650 250 / 250 Balance -750 / 266.667 -106.25 / 160.417 770.833 / 770.833 Physical Exam Narrative: General: No acute distress, awake alert and oriented x3 Abdomen: Soft, nondistended, appropriately tender to palpation Incision intact without erythema or exudate Urinary Catheter Management: Dias: Cath Placed During This Visit: yes Reason for Continuing Indwelling Catheter: Other Urinary Catheter Date of Insertion: 02/09/23 Urinary Catheter Time of Insertion: 16:22 Data 02/11/23 05:32 02/11/23 05:32 A&P Assessment and plan (1) Splenic mass: Plan Postop day #2 status post open splenectomy Discontinue NG tube Clear liquid diet await return of bowel function Attestations Medical Necessity Statement*: Patient requires at least 1 more night in the hospital for return of bowel function and recovery after open splenectomy Coding Level of Care Code Acute Code for Chg Fwd Diagnoses Splenic mass R16.1
[2023-02-11 16:59] VITALS: BP 124/70; PULSE 82; RESP 17; TEMP 36.8; O2SAT 93
[2023-02-11 20:00] VITALS: BP 139/72; PULSE 86; RESP 17; TEMP 36.8; O2SAT 94
[2023-02-11] MEDS: nicotine 21 mg Patch 1 PATCH TRANSDERMA (20:48)
[2023-02-12] VITALS: BP 130/72; PULSE 80; RESP 18; TEMP 36.8; O2SAT 92
[2023-02-12] MEDS: HYDROmorphone 1 mg/mL INJ 1 mL IVP (01:12)
[2023-02-12 04:35] VITALS: BP 133/68; PULSE 72; RESP 18; TEMP 37; O2SAT 93
[2023-02-12 05:29] LABS: Basophils % 0.4 %; Eosinophils # 0.5 10^3/uL (0.0-0.8); Eosinophils % 4.8 %; Hematocrit 28.8 % (37-53); Lymphocytes # 1.5 10^3/uL (0.8-4.8); Lymphocytes % 15.7 %; Mean Corpuscular HGB Conc 31.9 g/dL (30-55); Mean Corpuscular Hemoglobin 32.6 pg (27-33); Mean Corpuscular Volume 102.1 fl (82-101); Mean Platelet Volume 10.1 fL (7.4-10.4); Monocytes # 0.9 10^3/uL (0.2-0.9); Monocytes % 9.5 %; Neutrophils % 69.2 %; Nucleated Red Blood Cells % 0.3 %; Platelet Count 179 10^3/cmm (157-399); Red Blood Count 2.82 10^6/uL (3.85-5.65); White Blood Count 9.39 10^3/uL (3.29-11.43)
--- NOTE | 2023-02-12 05:33 | PC.NURSE ---
Patient states that he is passing gas, but states he has not had a BM in 5 days. Patient has active bowel sounds. Patient up to chair x1 during the night.
[2023-02-12] MEDS: sodium chlor 0.9% + KCl 20 mEq 20 MEQ/1,000 ML BAG 125 MEQ IV (05:45)
[2023-02-12] MEDS: heparin 5,000 unit/mL INJ 1 mL 5000 UNIT SUBCUT (05:45)
[2023-02-12 05:51] LABS: Blood Urea Nitrogen 10 mg/dL (8-23); Calcium 7.9 mg/dL (8.5-10.5); Carbon Dioxide 26 mmol/L (22-29); Chloride 106 mmol/L (98-107); Glucose 76 mg/dL (65-115); Magnesium 1.9 mg/dL (1.7-2.3); Osmolality Calculated 284 mOsm/kg (285-295); Sodium 138 mmol/L (136-145)
[2023-02-12 07:41] VITALS: BP 130/70; PULSE 72; RESP 16; TEMP 36.7; O2SAT 92
--- NOTE | 2023-02-12 09:21 | P.DS_ITS ---
Discharge Providers Date of Admission: 02/09/23 11:36 Date of Discharge: February 12, 2023 Attending Provider at Admission: Yunior Ambrose DO Attending Provider at Discharge: Yunior Ambrose DO Primary Care Provider: Albin Bah MD Diagnoses at Discharge Discharge Diagnosis (1) Splenic mass: Status: Acute Reason for Visit Reason for Visit: [id number] Hospital Course Hospital Course Very pleasant 77-year-old gentleman who had splenomegaly and a splenic mass. He underwent open splenectomy on 02/09/2023. He did well postoperatively and was discharged home on postoperative day #3 Physical Exam Narrative: General : Patient is well developed , no acute distress, oriented x3 Head : Normal cephalic, a-traumatic. Ears : Pinnae and external canal are normal. Hearing is normal. Eyes : PERRLA, Sclera and injection are normal. No conjunctival discharge. Nose : Mucous membranes are without erythema. Throat : buccal mucosa is normal, gums are without significant recession or hypertrophy. Lungs : Equal chest rise bilaterally, no use of accessory muscles, trachea is midline. Cor : Rate and rhythm are normal. Abdomen : Soft, ND, appropriately tender, no g/r/m Extremities : No edema, no cyanosis or clubbing, dorsalis pedis pulses are present bilaterally, non-tender to palpation of calves. Upper extremities are normal bilaterally. Back : non-tender to palpation, no CVA tenderness. Neuro : CN II - XII intact, Upper and lower extremities have equal and full strength Urinary Catheter Management: Dias: Cath Placed During This Visit: yes Reason for Continuing Indwelling Catheter: Acute Urinary Retention or Obstruction Urinary Catheter Date of Insertion: 02/09/23 Urinary Catheter Time of Insertion: 16:22 Discharge Data Studies Completed and Pending Completed Studies During Hospitalization Category Date Time Status XR chest 1V portable [id number] Routine Exams 02/09/23 10:36 Completed Pending at discharge Category Date Time Status Pathology: Surgical [PTH] Routine Pth 02/09/23 10:20 Received Laboratory Results WBC 9.39 10^3/uL (3.29-11.43) 02/12/23 04:50 RBC 2.82 10^6/uL (3.85-5.65) L 02/12/23 04:50 Hgb 9.20 g/dL (11.27-16.99) L 02/12/23 04:50 Hct 28.8 % (37-53) L 02/12/23 04:50 MCV 102.1 fl (82-101) H 02/12/23 04:50 MCH 32.6 pg (27-33) 02/12/23 04:50 MCHC 31.9 g/dL (30-55) 02/12/23 04:50 RDW 22.0 % (12.1-15.1) H 02/12/23 04:50 Plt Count 179 10^3/cmm (157-399) 02/12/23 04:50 MPV 10.1 fL (7.4-10.4) 02/12/23 04:50 Neut % (Auto) 69.2 % 02/12/23 04:50 Lymph % (Auto) 15.7 % 02/12/23 04:50 Gilliam % (Auto) 9.5 % 02/12/23 04:50 Eos % (Auto) 4.8 % 02/12/23 04:50 Baso % (Auto) 0.4 % 02/12/23 04:50 Neut # (Auto) 6.50 10^3/uL (1.8-7.7) 02/12/23 04:50 Lymph # (Auto) 1.5 10^3/uL (0.8-4.8) 02/12/23 04:50 Gilliam # (Auto) 0.9 10^3/uL (0.2-0.9) 02/12/23 04:50 Eos # (Auto) 0.5 10^3/uL (0.0-0.8) 02/12/23 04:50 Baso # (Auto) 0.0 10^3/uL (0.0-0.1) 02/12/23 04:50 Nucleated RBC % (auto) 0.3 % 02/12/23 04:50 Nucleated RBCs # 0.0 /100WBC 02/12/23 04:50 Sodium 138 mmol/L (136-145) 02/12/23 04:50 Potassium 4.0 mmol/L (3.5-5.1) 02/12/23 04:50 Chloride 106 mmol/L (98-107) 02/12/23 04:50 Carbon Dioxide 26 mmol/L (22-29) 02/12/23 04:50 Anion Gap 10.0 (5-19) 02/12/23 04:50 BUN 10 mg/dL (8-23) 02/12/23 04:50 Creatinine 0.4 mg/dL (0.7-1.2) L 02/12/23 04:50 GFR Calculation Not Reportable 02/12/23 04:50 Glucose 76 mg/dL (65-115) 02/12/23 04:50 Calculated Osmolality 284 mOsm/kg (285-295) L 02/12/23 04:50 Calcium 7.9 mg/dL (8.5-10.5) L 02/12/23 04:50 Magnesium 1.9 mg/dL (1.7-2.3) 02/12/23 04:50 Blood Type A Positive 02/09/23 07:35 Rho(D) Type Positive 02/09/23 07:35 Antibody Screen Negative 02/09/23 07:35 Crossmatch See Detail 02/09/23 07:35 Procedures Performed Open splenectomy Vitals Last Vital Signs Temp 98.1 F 02/12/23 07:41 Pulse 72 02/12/23 07:41 Resp 16 02/12/23 07:41 BP 130/70 02/12/23 07:41 Pulse Ox 92 02/12/23 07:41 O2 Del Method Room Air 02/12/23 00:00 O2 Flow Rate 2 02/09/23 12:25 Discharge Plan Discharge Patient Disposition: Home Condition: Stable Prescriptions: New hydrocodone-acetaminophen 10-325 mg tablet 1 tab PO Q6H PRN (Reason: pain) Qty: 20 0RF Rx Instructions: May take half of a tab at a time Col-Rite 100 mg capsule 100 mg PO BID Qty: 14 0RF Continued aspirin 81 mg capsule See Rx Instructions PO DAILY Rx Instructions: 325 orally daily; takes in the morning. Was told he could take it daily through to surgery. per nely in dr velasquez's office polyethylene glycol 3350 [Miralax] 17 gram powder in packet 17 g PO DAILY PRN (Reason: constipation) Qty: 14 0RF pravastatin 20 mg tablet 20 mg PO DAILY Discharge Orders: Discharge Order (Routine); Ordered 02/12/23 Ordered By: Yunior Ambrose Referrals: Yunior Ambrose DO [Physician] - 2 weeks Discharge Diet: Advance as tolerated Discharge Activity: Resume usual activity Patient Instructions: Opioid Safety Activity Restrictions/Additional Instructions: No lifting, pushing or pulling over 15 pounds for 6 weeks. Do not soak incisions underwater for 2 weeks. Shower daily. Discharge Attestations Time Spent in Discharge Care*: less than 30 min Status at Discharge: Cognitive status at discharge: cognitively intact , Behavioral status at discharge: other , Quality Metrics Clinical Quality Measures [ No reported AMI, CVA or VTE this stay] Coding Level of Care Code Acute Code for Chg Fwd Diagnoses Splenic mass R16.1
== END 2023-02-12 13:05 | disposition home or self-care (01) | DRG 801 ==
LOC: MEDSURG 02-10 07:55
PROVIDERS: Anesthesiology; Admitting Provider Surgery; PCP Family Medicine; Visit Provider Surgery
PROC: 07TP0ZZ Resection of Spleen, Open Approach (ICD-10-PCS; principal; 2023-02-09 08:35)
DX: R16.1 Splenomegaly, not elsewhere classified (principal); Z79.82 Long term (current) use of aspirin; D69.6 Thrombocytopenia, unspecified; F17.210 Nicotine dependence, cigarettes, uncomplicated
CPT/HCPCS: 36415; 51702; 71045; 80048; 83735; 85025; 86850; 86900; 86920; 88305; 93005; 96372; C9113; J0690; J1100; J1170; J1644; J2371; J2405; J2704; J3010; J3480; J3490; J7030; P9016; P9045

== ENCOUNTER → 2023-02-18 09:18 | Outpatient (BNVA) | payer MEDICARE, BC, SELFPAY | PROVIDERS: PCP Family Medicine; Visit Provider Family Medicine | DX: Z51.81 Encounter for therapeutic drug level monitoring (principal); M79.10 Myalgia, unspecified site | CPT/HCPCS: 80053; 83735; 85025 ==

== ENCOUNTER → 2023-02-24 09:37 | Outpatient (BNVA) | payer MEDICARE, BC, SELFPAY | PROVIDERS: PCP Family Medicine; Visit Provider Surgery | DX: Z90.81 Acquired absence of spleen (principal); R10.13 Epigastric pain; Z98.890 Other specified postprocedural states | CPT/HCPCS: 99024 ==

== ENCOUNTER → 2023-03-24 12:48 | Outpatient (BNVA) | payer MEDICARE, BC, SELFPAY | PROVIDERS: PCP Family Medicine; Visit Provider Psychiatry & Neurology Neurology | DX: G47.30 Sleep apnea, unspecified (principal); R53.82 Chronic fatigue, unspecified; G52.3 Disorders of hypoglossal nerve; M47.812 Spondylosis without myelopathy or radiculopathy, cervical region | CPT/HCPCS: 99212 ==

== ENCOUNTER → 2023-06-25 11:46 | Outpatient (BNVA) | payer MEDICARE, BC, SELFPAY | PROVIDERS: PCP Family Medicine; Visit Provider Psychiatry & Neurology Neurology | DX: H81.10 Benign paroxysmal vertigo, unspecified ear (principal); R53.83 Other fatigue | CPT/HCPCS: 99212 ==

== ENCOUNTER 2023-07-24 11:15 | Outpatient (CLI) | payer MEDICARE, BC, SELFPAY ==
--- NOTE | 2023-07-24 11:23 | XR_ITS ---
WS: [id number] Examination: XR chest 2V* [id number] Reason for Exam: Hemoptysis Date: 07/24/2023 Comparison: 02/09/2023 Findings: The heart is not enlarged. The mediastinum is not widened. The dione are prominent. The aorta is calci fied with atherosclerotic change The lungs are hyperinflated with chronic obstructive change There is no pulmonary edema or pleural effusion. There is no dense consolidative change. Impression: Chronic obstructive lung disease is identified. I see no failure or focal infiltrate.
== END 2023-07-24 11:16 | disposition home or self-care (01) ==
LOC: RAD 11:16
PROVIDERS: PCP Family Medicine; Visit Provider Family Medicine
DX: R04.2 Hemoptysis (principal); J44.9 Chronic obstructive pulmonary disease, unspecified
CPT/HCPCS: 71046

== ENCOUNTER 2023-08-12 15:06 | Outpatient (CLI) | payer MEDICARE, BC, SELFPAY ==
--- NOTE | 2023-08-12 15:30 | CT_ITS ---
WS: [id number] CT chest w con* [id number] HISTORY: Hemoptysis TECHNIQUE: Axial imaging performed through the thorax. Coronal and sagittal reformats are submitted. All CT scans at [facility] use at least one of these dose optimization techniques: automated exposure control; mA and/or kV adjustment per patient size (includes targeted exams where dose is mat ched to clinical indication); or iterative reconstruction. CONTRAST: Omnipaque 350; 100 mL IV. DLP: 315.07 mGy.cm COMPARISON: 08/14/2022, 03/20/2009 Lungs and central airway: Advanced paraseptal and centrilobular emphysema. No pulmonary mass. There i s a new lobulated soft tissue mass in the distal trachea at the sarah. This is a midline mass extend ing over a length of 1.8 cm and transversely by 1.3 cm. At this time there is no significant obstruct ion of the central bronchial tree. Pleura: Normal. No pleural effusion. Heart and pericardium: Normal size heart with no pericardial effusion. Mediastinum and dione: Mediastinal and hilar lymph nodes are reidentified. There is been a slight incr ease in the size of the lymph nodes since 08/14/2022. The largest lymph node is 2.0 cm along the infer ior RIGHT paratracheal region. Additional smaller but rounded and slightly enlarged RIGHT hilar lymph nodes. There is a subcarinal lymph node which is increased in size to 1.4 cm in diameter. Minimally prominent lymphoid tissue at the LEFT hilum. Previously described soft tissue along the thoracic vert ebral body on 08/14/2022 slightly decreased in size. Favor this is probably related to cisterna chyli. Vessels: Moderate atherosclerotic plaque aorta. No aneurysm. Normal sized pulmonary artery. Chest wall and lower neck: No soft tissue masses. Upper abdomen: Prior cholecystectomy. 1.7 cm low-attenuation mass associated with the LEFT adrenal gl and no change since 08/14/2022. Heavy calcification in the splenic artery. Prior splenectomy. Osseous structures: No destructive process. IMPRESSION: 1. New endobronchial mass in the distal trachea at the sarah. Mass measures 1.8 cm in length by 1.3 cm. There is no significant obstruction of the airway at this time. Highly suspicious for neoplasm. Recommend evaluation by pulmonology to obtain tissue sampling. 2. Enlarging RIGHT paratracheal and RIGHT hilar lymph nodes. Largest lymph node is 2.0 cm. 3. Advanced emphysema. 4. Moderate atherosclerosis aorta. 5. Prior splenomegaly and cholecystectomy. Notified Albin Bah MD at 08/13/2023 9:01 AM.
[2023-08-12 15:40] LABS: Blood Urea Nitrogen 15 mg/dL (8-23)
[2023-08-12] MEDS: iohexol 350 mg/mL 500 mL Btl (per mL) IV (15:46)
== END 2023-08-12 15:07 | disposition home or self-care (01) ==
LOC: RAD 15:07
PROVIDERS: PCP Family Medicine; Visit Provider Family Medicine
DX: R04.2 Hemoptysis (principal); J98.09 Other diseases of bronchus, not elsewhere classified; J43.9 Emphysema, unspecified; I70.0 Atherosclerosis of aorta; Z90.49 Acquired absence of other specified parts of digestive tract; Z90.81 Acquired absence of spleen
CPT/HCPCS: 71260; 82565; 84520; Q9967

== ENCOUNTER → 2023-09-01 12:49 | Outpatient (BNVA) | payer MEDICARE, BC, SELFPAY | PROVIDERS: PCP Family Medicine; Visit Provider Family Medicine | DX: Z51.81 Encounter for therapeutic drug level monitoring (principal); D69.6 Thrombocytopenia, unspecified; E03.9 Hypothyroidism, unspecified; R97.20 Elevated prostate specific antigen [PSA]; R04.2 Hemoptysis; R10.9 Unspecified abdominal pain | CPT/HCPCS: 80053; 83690; 84153; 84443; 85025; 85610; 86141 ==

== ENCOUNTER 2023-10-13 08:43 | Outpatient (CLI) | payer MEDICARE, BC, SELFPAY ==
--- NOTE | 2023-10-13 09:00 | PETR_ITS ---
PROCEDURE INFORMATION: Exam: PET/CT Skull Base to Mid-thigh Exam date and time: 10/13/2023 9:30 AM Age: 77 years old Clinical indication: Abnormal findings; New endobronchial mass in the distal trachea at the sarah. Mass measures 1.8 cm in length by 1.3 cm. There is no significant obstruction of the airway at this time. Highly suspicious for neoplasm. Recommend evaluation by pulmonology to obtain tissue sampling. 2. Enlarging right paratracheal and right hilar lymph nodes. Largest lymph node is 2.0 cm. 3. Advanced emphysema; Prior surgery; Surgery date: 6+ months; Surgery type: Spleen; Additional info: New diagnosis of lung cancer - please get scheduled [facility] LABS AND CLINICAL REPORTS: Glucose: 91 mg/dl Treatment strategy for malignancy (PET staging): Initial Staging (PI) TECHNIQUE: Imaging protocol: Following at least four-hour fasting and following the injection of radiopharmaceutical, low dose CT images were obtained. Then, PET images were obtained. Attenuation corrected images were constructed using the CT scan. Fused images of PET and CT were reviewed. The standardized uptake values (SUV) reported below are maximum values within a region of interest, expressed in gm/ml. Exam includes orbital meatal line to mid-thigh. Radiopharmaceutical: 12.66 mCi F-18 FDG (Fluorodeoxyglucose), IV. Time of imaging post radiopharmaceutical administration: 1 hour COMPARISON: CT chest w con* [id number] 08/12/2023 3:42 PM FINDINGS: Brain: Visualized brain has normal physiologic uptake. Paranasal sinuses: Near complete opacification of the left maxillary sinus. Pharynx: No abnormal uptake. Larynx: No abnormal uptake. Lungs, pleura and trachea: Hypermetabolic 1.5 x 2 cm soft tissue mass within the distal trachea at the sarah with SUV max 39.4. New tree-in-bud nodularity in the right lower lobe without increased FDG uptake is likely infectious or inflammatory. Emphysematous changes in the lungs. Heart: Normal physiologic uptake. Mediastinal space: No abnormal uptake. Liver: No abnormal uptake. Gallbladder and bile ducts: Cholecystectomy. Pancreas: No abnormal uptake. Spleen: Splenectomy. Adrenal glands: There is a 1.6 cm left adrenal adenoma without increased FDG uptake. Kidneys and ureters: Normal physiologic uptake. Stomach and bowel: Postsurgical changes of sleeve gastrectomy. Reproductive: Focal FDG uptake is seen within the right aspect of the prostate gland with SUV max 3.6. Prostatomegaly. Vasculature: No abnormal uptake. Lymph nodes: Mildly hypermetabolic 1.2 cm right paratracheal lymph node with SUV max 3.8. Mildly hypermetabolic 1.2 cm right hilar lymph node with SUV max 3.5. Bones/joints: Remote right rib fractures. Some mild FDG uptake associated with several contiguous left anterior ribs with SUV max 2.1 is seen. There is no associated rib lesion or rib fractures. Soft tissues: No abnormal uptake in the visualized head, neck, chest, abdomen, pelvis, and extremities. PET/PET skulltothi INITIAL [id number] IMPRESSION: 1. Malignant range FDG uptake is seen within the soft tissue mass in the distal trachea at the sarah as well as within mediastinal and right hilar lymph nodes. 2. Focal FDG uptake is seen within the right aspect of the prostate gland. Recommend correlation with PSA and consider prostate MRI. 3. New tree-in-bud nodularity in the right lower lobe without increased FDG uptake is likely infectious or inflammatory.
== END 2023-10-13 08:44 | disposition home or self-care (01) ==
PROVIDERS: PCP Family Medicine; Visit Provider Family Medicine
DX: R93.2 Abnormal findings on diagnostic imaging of liver and biliary tract (principal); C34.90 Malignant neoplasm of unspecified part of unspecified bronchus or lung; C33 Malignant neoplasm of trachea; R93.89 Abnormal findings on diagnostic imaging of other specified body structures; R91.1 Solitary pulmonary nodule; D35.02 Benign neoplasm of left adrenal gland; Z90.3 Acquired absence of stomach [part of]; Z90.49 Acquired absence of other specified parts of digestive tract; N40.0 Benign prostatic hyperplasia without lower urinary tract symptoms; Z90.81 Acquired absence of spleen
CPT/HCPCS: 78815; A9552

== ENCOUNTER 2023-10-28 12:13 | Oncology outpatient (recurring) (ONCR) | payer MEDICARE, BC, SELFPAY ==
[2023-10-06 11:28] LABS: Basophils # 0.1 10^3/uL (0.0-0.1); Eosinophils # 1.1 10^3/uL (0.0-0.8); Hematocrit 48.6 % (37-53); Lymphocytes # 2.7 10^3/uL (0.8-4.8); Lymphocytes % 33.1 %; Mean Corpuscular HGB Conc 31.7 g/dL (30-55); Mean Corpuscular Hemoglobin 30.9 pg (27-33); Mean Corpuscular Volume 97.4 fl (82-101); Mean Platelet Volume 9.7 fL (7.4-10.4); Monocytes # 0.7 10^3/uL (0.2-0.9); Monocytes % 8.3 %; Neutrophils # 3.54 10^3/uL (1.8-7.7); Nucleated Red Blood Cells % 0 %; Platelet Count 303 10^3/cmm (157-399); Red Blood Count 4.99 10^6/uL (3.85-5.65); Red Cell Distribution Width 14.7 % (12.1-15.1); White Blood Count 8.06 10^3/uL (3.29-11.43)
[2023-10-06 11:41] LABS: Alanine Aminotransferase 13 U/L (0-41); Alkaline Phosphatase 109 U/L (40-130); Anion Gap 14.6 (5-19); Aspartate Amino Transferase 20 U/L (0-40); Blood Urea Nitrogen 12 mg/dL (8-23); Calcium 9.4 mg/dL (8.5-10.5); Carbon Dioxide 31 mmol/L (22-29); Chloride 98 mmol/L (98-107); Creatinine Clr Calc Pharmacy 72.0552; Globulin 3.5 g/dL (1.3-4.6); Glucose 114 mg/dL (65-115); Osmolality Calculated 289 mOsm/kg (285-295); Potassium 4.6 mmol/L (3.5-5.1); Sodium 139 mmol/L (136-145); Total Bilirubin 0.6 mg/dL (0.15-1.2); Total Protein 7.5 g/dL (6.6-8.7)
--- NOTE | 2023-10-07 10:24 | N.ONRAD NP_ITS ---
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 Radiotherapy to date: Summary > No prior radiation therapy. Chief Complaint / History of Present Illness: 77 yo smoker with new onset of mild gross hemoptysis over last 2 months. Chronic stable SOB. Smoked x 65 years up to 3 ppd now 1 ppd. He would like to quit but has not done so. CT chest 08/12/2023 carinal based mass extending into carinal airway, separate subcarinal adenopathy. Right pretracheal and right hilar adenopathy. Odd smooth right inferior right peter-spinal low density mass which may be benign. He also notes weight loss over last 2 to 3 years from 250 to 150 pounds. Weight stable over last 3 to 4 months. He feels exhausted all the time. Despite this he does the ADLs for his household as his girl friend cannot help around the house. Current Medications: Folic Acid, vitamin B12. Allergies: No Known Allergies Medical History: Gall bladder pancreatitis in 2010, history of tick fever, nonimmune hemolytic anemia and splenomegaly. No history of collagen vascular disease. No previous radiation therapy. Surgical History: Bilateral cataract excisions, chest tube placement for traumatic right pneumothorax in 2008, cholecystectomy in 2010 and removal of polyps from the bladder. Family History: He does not know anything about his father. Mother of natural causes at age 85. Two brothers are , one with complications of diabetes and one with multiple issues following service in [place]. Social History: x4. Now living with Neela Ware.. 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 2 sons. Last screened on 03/10/2019 - Current every day smoker 1.5 packs/day for 64 years (96 pack years). Drinks occasionally. Patient indicated use of the following products: cigarettes. Patient indicated access to the following support systems: lives with spouse, significant other, family, or friends, lives in own house, supportive family/friends willing to assist with needs, and transportation problems exist and will require assistance. Patient indicated the following nutritional habits: regular meals. Patient indicated participation in the following forms of activity: occasional exercise. Current Complaints / Review of Systems: . Vital Signs: Performed on 10/06/2023 8:54 AM BMI - 19.424 kg/m2, Height - 75 in, Weight - 155.4 lbs, Temperature - 97.4 f, Pulse - 62 /min, Respiration - 18 /min, O2 Sat - 98 %, Pain - 0, Fatigue - 0 and BP - 123/ 76 mm(hg). Physical Exam: This alert appropriate. No adenopathy. Lungs clear. No clubbing or pedal edema. Performance Status: ECOG 1 Lab: Imaging: See HPI Impression: St IIIB(T4 N2 M0) squamous cell carcinoma of the sarah with regional adenopathy. Need baseline PET/CT for completion of staging. If no metastatic disease seen, then consider 60 Gy of regional radiation with chemo-immunotherapy. Discussed in detail with patient. PET/CT is scheduled for 10/13/2023. Signed by: 10/07/2023 10:23:09 AM <<Signature on File>> Time spent with patient: CPT Code: CPT Code:
--- NOTE | 2023-10-14 08:45 | MR_ITS ---
WS: [id number] MRI BRAIN WITH AND WITHOUT CONTRAST HISTORY: LUNG CANCER COMPARISON: 10/09/2022 TECHNIQUE: Multiplanar imaging performed through the brain with MultiHance 14 ml's IV. No acute infarcts are seen. Arboleda-white matter differentiation is well preserved. Mild to moderate sma ll vessel ischemic disease with mild progression since 10/09/2022. No large territory infarct. No susceptibility artifacts or prior lacunar infarcts. Ventricles and extra-axial spaces are normal. Clivus and pituitary gland are normal. Visualized posterior fossa and brainstem are also normal. Postcontrast images are negative for masses or vascular malformations. Dural venous sinuses are normal. Paranasal sinuses: New heterogeneous signal throughout the entire LEFT maxillary sinus. Consistent wi th inspissated secretions. The RIGHT maxillary sinus is normal. Mastoid air cells: Normal. Calvarium and scalp: Normal. MR/MR head wo/w con [id number] IMPRESSION: 1. No metastatic disease to the brain. 2. Very mild progression of small vessel ischemic disease since 10/09/2022. 3. New inspissated secretions in the LEFT maxillary sinus. 4. Very mild volume loss and atrophy.
[2023-10-14] MEDS: gadobenate dimeglumine 20 mL vial IV (09:23)
--- NOTE | 2023-10-19 15:02 | ONCRAD EPV_ITS ---
Radiation Oncology Established Patient Visit Patient: Kailee Chu [id number] : 1945> Age: 78> Sex: Male> Dictated by: Dr. Ct Johnson Date of Service: 10/19/2023 Referring Physician(s) : Diagnosis: Squamous cell carcinoma of the sarah with mediastinal and hilar adenopathy Radiotherapy to Date: None Current History: Patient returns today to go over the results of his PET scan and his MRI of his head. The MRI of his head did not reveal any metastatic disease. The PET scan showed uptake in the distal trachea at the level of the sarah as well as mediastinal and right hilar adenopathy. There was also a focal uptake in the prostate gland no abnormalities were noted in the lung. Current Medications: Folic Acid, vitamin B12. Allergies: No Known Allergies Current Complaints / Review of Systems: . Patient continues to have weight loss and severe fatigue Vital Signs: Performed on 10/19/2023 2:34 PM BMI - 19.549 kg/m2, Height - 75 in, Weight - 156.4 lbs, Temperature - 98 f, Pulse - 63 /min, Respiration - 16 /min, O2 Sat - 97 %, Pain - 0, Fatigue - 10 and BP - 133/ 76 mm(hg). Physical Exam: General: Alert and oriented x 3. No acute distress. HEENT: Normocephalic, atraumatic. Extraocular Movements Intact: Pupils Equal, Round, Reactive to Light Sclerae anicteric. LUNGS: Respiratory rate is regular nonlabored. HEART: Regular rate and rhythm, . ABDOMEN: Abdomen is flat with minimal adipose tissue EXTREMITIES: No peripheral edema is identified. NEUROLOGIC: Alert and orient x 3. Gait and speech within normal limits. Performance Status: 78 Lab: None pending. Pathology: Primary, d59.4 - other nonautoimmune hemolytic anemias, Diagnosed 02/01/2020 (active) and Primary, r16.1 - splenomegaly, not elsewhere classified, Diagnosed 02/01/2020 (active) . Imaging: See HPI Impression: Squamous cell carcinoma of the lung stage IIIb Plan: I reviewed the results of the imaging with the patient. We talked about the typical course of treatment which would involve radiation and chemotherapy followed by immunotherapy. We discussed the simulation process. We reviewed the daily treatment regiment. We discussed the risks and side effects both acute and long-term. At this point he has an appointment to visit with medical oncology again on 08 November. We talked about how we needed to proceed with the simulation in order to be ready for treatment. He at this point has not decided what he wants to do. At this point we will schedule him for an appointment when he returns to see medical oncology on the . Will also schedule a simulation immediately thereafter. Patient was in agreement with this plan. Signed by: 10/19/2023 3:00:35 PM <<Signature on File>> Time spent with patient:20 CPT Code: CPT Code:
[2023-10-22 09:51] LABS: Basophils # 0.1 10^3/uL (0.0-0.1); Basophils % 0.8 %; Eosinophils # 1.2 10^3/uL (0.0-0.8); Eosinophils % 14.1 %; Lymphocytes # 2.7 10^3/uL (0.8-4.8); Lymphocytes % 30.6 %; Mean Corpuscular HGB Conc 32.1 g/dL (30-55); Mean Corpuscular Hemoglobin 31.3 pg (27-33); Mean Corpuscular Volume 97.5 fl (82-101); Mean Platelet Volume 9.7 fL (7.4-10.4); Monocytes # 0.8 10^3/uL (0.2-0.9); Monocytes % 8.5 %; Neutrophils # 3.97 10^3/uL (1.8-7.7); Neutrophils % 45.3 %; Nucleated Red Blood Cells % 0 %; Platelet Count 285 10^3/cmm (157-399); Red Blood Count 4.82 10^6/uL (3.85-5.65); Red Cell Distribution Width 15.2 % (12.1-15.1); White Blood Count 8.78 10^3/uL (3.29-11.43)
[2023-10-22 10:16] LABS: Alanine Aminotransferase 11 U/L (0-41); Alkaline Phosphatase 111 U/L (40-130); Anion Gap 9.6 (5-19); Aspartate Amino Transferase 17 U/L (0-40); Blood Urea Nitrogen 19 mg/dL (8-23); Calcium 8.6 mg/dL (8.5-10.5); Carbon Dioxide 32 mmol/L (22-29); Chloride 101 mmol/L (98-107); Globulin 3.1 g/dL (1.3-4.6); Glucose 104 mg/dL (65-115); Osmolality Calculated 289 mOsm/kg (285-295); Potassium 4.6 mmol/L (3.5-5.1); Sodium 138 mmol/L (136-145); Total Bilirubin 0.4 mg/dL (0.15-1.2); Total Protein 7.1 g/dL (6.6-8.7)
== END 2023-10-30 23:59 | disposition home or self-care (01) ==
PROVIDERS: Internal Medicine Hematology & Oncology; PCP Family Medicine; Visit Provider Internal Medicine Medical Oncology
DX: Z51.0 Encounter for antineoplastic radiation therapy (principal); C34.01 Malignant neoplasm of right main bronchus
CPT/HCPCS: 36415; 70553; 77334; 77470; 80053; 85025; 99024; 99204; 99205; 99213; 99214; A9577

== ENCOUNTER → 2023-10-29 08:05 | Outpatient (BNVA) | payer MEDICARE, BC, SELFPAY | PROVIDERS: PCP Family Medicine; Visit Provider Surgery | DX: C34.91 Malignant neoplasm of unspecified part of right bronchus or lung (principal) | CPT/HCPCS: 99214 ==

== ENCOUNTER 2023-11-03 08:23 | Day surgery (SDC) | payer MEDICARE, BC, SELFPAY ==
[2023-11-03] VITALS (7 sets, daily range): BP systolic 106–134; BP diastolic 61–75; PULSE 68–83; RESP 16–27; TEMP 36.3–36.8; O2SAT 96–100; BMI 19.2
--- NOTE | 2023-11-03 08:32 | XR_ITS ---
WS: [id number] XR chest 1V portable [id number] REASON FOR EXAM: s/p mediport placment FINDINGS: Chemotherapy infusion port over the left upper chest with trans left subclavian vein infusion cathete r with the tip in the proximal to mid SVC. No left pneumothorax. XR/XR chest 1V portable [id number] IMPRESSION: Left-sided chemotherapy infusion port and catheter placement as above.
--- NOTE | 2023-11-03 08:32 | SC_ITS ---
WS: [id number] C-arm FL for CVA [id number] REASON FOR EXAM: Mediport Placement FINDINGS: Chemotherapy infusion port over the left chest with trans left subclavian vein catheter that extends into the mid superior vena cava. No left pneumothorax identified. SC/C-arm FL for CVA [id number] IMPRESSION: Left chest chemotherapy port and catheter placement without abnormality.
[2023-11-03] MEDS: sodium chloride 0.9% 1,000 ML 30 ML IV (08:54)
--- NOTE | 2023-11-03 08:58 | ANES.PREANE2 ---
Pre-Anesthetic Assessment Height/Weight: Height 1.91 m Weight 69.853 kg Temp Pulse Resp BP Pulse Ox O2 Del Method 97.4 F L 83 16 118/65 96 Room Air 11/03/23 08:46 11/03/23 08:46 11/03/23 08:46 11/03/23 08:46 11/03/23 08:46 11/03/23 08:46 Operation Date: 11/03/23 10:35 Proposed Procedures p Portacath Placement 56653, C34.90(Not Applicable) - Yunior Ambrose DO Familial anesthetic complications: None Was Beta Lizzy taken within 24 hours: N/A Was Clonidine taken within 24 hours: N/A Last intake: Intake Last Liquid Date 11/02/23 Last Liquid Time 17:30 Last Solid Date 11/02/23 Last Solid Time 17:30 Social Tobacco and No alcohol Exam alert, oriented x 3, clear to auscultation bilaterally and regular rate & rhythm Airway Mallampati: Class II Dentition: full Pulmonary lung cancer, SCC Musc/skel fatigue Neuropsych Cerebrovascular Accident CEA Anesthetic Plan ASA status: 4 Anesthesia: MAC Risk of > 500 ml blood loss (7ml/kg in children): No Medications/Allergies Home Medications Medication Instructions Recorded Confirmed Last Taken Type pravastatin 20 mg tablet 20 mg PO DAILY #90 tabs 06/17/23 11/02/23 11/02/23 Rx midodrine 5 mg tablet 5 mg PO BID #60 tabs 09/29/23 11/02/23 11/02/23 Rx magnesium citrate 300 ml PO DAILY PRN Constipation 10/06/23 11/03/23 11/02/23 History propranolol 10 mg tablet 10 mg PO BID PRN tremor #60 tabs 10/28/23 11/02/23 11/02/23 Rx Allergies Allergy/AdvReac Type Severity Reaction Status Date / Time No Known Allergies Allergy Verified 10/28/23 12:32 Current Medications Generic Name Dose Route Start Last Admin Trade Name Freq PRN Reason Stop Dose Admin Sodium Chloride 1,000 mls @ 30 mls/hr 11/03/23 08:45 11/03/23 08:54 Sodium Chloride 0.9% IV 11/04/23 08:44 30 mls/hr .Q24H GAURANG Administration PFSH Anesthesia Medical History Abnormal nuclear stress test Abuse of smoked substance Anemia Carotid stenosis [place] (dyspnea on exertion) Elevated PSA Fatigue Leukopenia Thrombocytopenia Weight loss Surgical History H/O cataract removal with insertion of prosthetic lens History of right-sided carotid endarterectomy History of splenectomy S/P cholecystectomy Family History Family/Other Diabetes Brother Diabetes Heart attack, Onset Age: 40 Mother , in her 80's No problems noted. Father , IN HIS 70'S No problems noted. Denies family history of Rheumatoid arthritis Lupus CAD (coronary artery disease) Clotting disorder Dementia Hyperlipidemia Chronic kidney disease (CKD) Suicide Anesthesia complication Bleeding disorder Lung disease Cancer Hypertension Stroke Social History Smoking and tobacco/nicotine status: unknown if used tobacco/nicotine Alcohol intake: current Alcohol intake frequency: few times a week Alcohol type: beer Substance/Drug Use: never Caregiver/support person: Yes Lives independently: Yes Marital status: Current occupational status: retired Current gender identity: Male Data Anesthesia Cardiac Studies: Echocardiogram Ultrasound 04/06/20 Sestamibi Stress Test (Cardiology) 02/07/20
--- NOTE | 2023-11-03 09:27 | W.PM.OPSUD ---
Surgery/Procedure H&P Update DATE OF PROCEDURE: November 03, 2023 DATE H&P PERFORMED: 10/29/23 H&P UPDATE INFORMATION: I have reviewed H&P completed within last 30 days, I have examined patient prior to procedure and No changes to prior documentation PLANNED PROCEDURE: Operation Date: 11/03/23 10:35 Proposed Procedures p Portacath Placement 65901, C34.90(Not Applicable) - Yunior Ambrose DO
[2023-11-03] MEDS: ceFAZolin 2,000 MG in sodium chloride 0.9% (plus) 50 ML 100 MG IV (10:46)
[2023-11-03] MEDS: lidocaine-epi 2% PF 1:200,000 20 mL SDV XX (11:04)
[2023-11-03] MEDS: heparin, porcine 1,000 unit/mL INJ 10 mL 10000 UNIT XX (11:09)
[2023-11-03] MEDS: HYDROcodone-acetaminophen 5-325 mg Tablet 1 TAB PO (12:02)
--- NOTE | 2023-11-03 12:50 | ANE.PACU2 ---
Inpatient post-anesthesia follow up: Airway intact: Yes Vital signs: Temperature 98 F Pulse Rate 68 Respiratory Rate 17 Blood Pressure 129/75 Pulse Oximetry 97 Oxygen Delivery Me thod Room Air Oxygen Flow Rate Fraction of Inspir ed Oxygen Hydration adequate: Yes Nausea and vomiting: No Pain level: 1 Mental status: Baseline
--- NOTE | 2023-11-03 12:58 | SUR.PHASEII ---
1230 Patient waiting for ride home,smoking cigarettes. 1250 Ride here and pt d/compa
--- NOTE | 2023-11-03 13:06 | PM.OP ---
Operative Report Date of procedure: November 03, 2023 Pre-op diagnosis: Lung cancer Post-op diagnosis: same Procedure done: Mediport placement Intraoperative interpretation of fluoroscopy Implants: PowerPort Specimens removed/disposition: None Surgeon: Yunior Ambrose DO Anesthesia: MAC and Local Estimated blood loss (mL): 5 Brief History: This is a very pleasant 78-year-old gentleman who was diagnosed with lung cancer. Oncology requested Mediport placement for chemotherapy access. The risks and benefits were explained and documented. Procedure: They put another order I will do right now things the patient was taken to the operating room and placed supine on the operating room table. All bony prominences were padded. She was given IV sedation and monitored throughout the case by the anesthesia personnel. SCDs were placed and turned on. The arms were tucked to the side. Patient received Ancef 2 g preoperatively IV. The bilateral chest wall was prepped and draped in usual sterile fashion using chlorhexidine base prep. Sterile drapes were applied. We did procedure pause prior to beginning. An 18 gauge needle was placed in the left subclavian vein. Dark, nonpulsatile blood was aspirated. A guidewire was placed through the needle centrally toward the atrial/vena caval junction. Fluoroscopy visualized good placement. The needle was removed and the guidewire was clipped to the drape with a hemostat. Further local anesthetic was infiltrated in the soft tissues of the left chest wall and a #15 blade was used to make a horizontal skin incision. A subcutaneous Mediport pocket was created using Bovie cautery, dissecting down through the skin and subcutaneous tissues. Meticulous hemostasis was achieved. The Mediport was sutured in position using 3-0 vicryl suture x2 stitches. A #15 blade was used to make a small skin art around the guidewire insertion area. The Mediport tubing was tunneled through the subcutaneous tissues up to the needle insertion location. A dilator with a peel-away sheath was placed over the guidewire and placed centrally. After measuring the Mediport tubing was cut to length so that the tip would end at the atrial/vena caval junction. The inner cannula and the guidewire were removed, leaving the dilator sheath in place. The Mediport was flushed. The tip of the catheter was inserted through the peel-away sheath and the peel-away sheath removed in the standard fashion. The Mediport was accessed with a straight Penn needle and dark, nonpulsatile blood was aspirated and flushed using heparinized saline to hep-lock the Mediport. Final fluoroscopy visualization showed no kink in the catheter and the tip of the Mediport tubing near the atrial/vena caval junction. There was no obvious pneumothorax. Both skin incisions were thoroughly irrigated and suctioned dry. Meticulous hemostasis noted. The dermis was approximated with 3-0 Vicryl in an interrupted fashion. Skin was closed with Dermabond. Patient was awakened from anesthesia and transferred via her cart to the recovery room in stable condition. All needle, sponge, and instrument counts were correct per the operating personnel x2 counts.
== END 2023-11-03 12:50 | disposition home or self-care (01) ==
PROVIDERS: PCP Family Medicine; Visit Provider Surgery
PROC: (CPT 36561; principal; 2023-11-03 10:35)
DX: C34.90 Malignant neoplasm of unspecified part of unspecified bronchus or lung (principal); Z86.73 Personal history of transient ischemic attack (TIA), and cerebral infarction without residual deficits
CPT/HCPCS: 36561; 71045; 77001; C1788; J0690; J1644; J3010; J7030

== ENCOUNTER 2023-11-10 07:07 | Day surgery (SDC) | payer MEDICARE, BC, SELFPAY ==
[2023-11-10] VITALS (9 sets, daily range): BP systolic 113–148; BP diastolic 61–79; PULSE 63–77; RESP 12–18; TEMP 36.1–36.6; O2SAT 93–99; BMI 18.7
--- NOTE | 2023-11-10 07:38 | W.PM.OPSUD ---
Surgery/Procedure H&P Update DATE OF PROCEDURE: November 10, 2023 DATE H&P PERFORMED: 11/09/23 H&P UPDATE INFORMATION: I have reviewed H&P completed within last 30 days, I have examined patient prior to procedure and No changes to prior documentation PLANNED PROCEDURE: Operation Date: 11/10/23 08:50 Proposed Procedures p Portacath Removal [id number], [id number], Z95.828, C34.90(Not Applicable) - Yunior Ambrose DO s Portacath Placement(Not Applicable) - Yunior Ambrose DO
--- NOTE | 2023-11-10 07:47 | XRR_ITS ---
PROCEDURE INFORMATION: Exam: XR Chest Exam date and time: 11/10/2023 9:33 AM Age: 78 years old Clinical indication: Device placement; Other: Postop mediport placement; Prior surgery; Surgery date: Post-operative (0-2 days) TECHNIQUE: Imaging protocol: Radiologic exam of the chest. Views: 1 view. COMPARISON: CR XR chest 1V portable [id number] 11/03/2023 11:32 AM FINDINGS: Tubes, catheters and devices: Left port in place, tip overlies lower SVC. Lungs: Advanced COPD with lung scarring. No focal pneumonia. Pleural spaces: Unremarkable. No pleural effusion. No pneumothorax. Heart/Mediastinum: Unremarkable. No cardiomegaly. Advanced diffuse vascular calcification noted. Bones/joints: Old right rib deformities. Advanced spine DJD. Organs: Absent gallbladder. XR/XR chest 1V portable [id number] IMPRESSION: Stable chest from 1 week ago with left port in place.
--- NOTE | 2023-11-10 07:47 | SC_ITS ---
WS: [id number] C-ARM RADIOGRAPHS CHEST; 2 IMAGES HISTORY: Mediport placement COMPARISON: None available. Intraoperative imaging during LEFT subclavian Mediport placement. Tip of the catheter appears to be o verlying the spine. The very distal extent of the catheter is not visualized. SC/C-arm FL for CVA [id number] IMPRESSION: Intraoperative imaging during LEFT subclavian Mediport placement.
[2023-11-10] MEDS: sodium chloride 0.9% 1,000 ML 30 ML IV (08:00)
[2023-11-10] MEDS: heparin 5,000 unit/mL INJ 1 mL 5000 UNIT SUBCUT (08:09)
[2023-11-10] MEDS: ceFAZolin 2,000 MG in sodium chloride 0.9% (plus) 50 ML 100 MG IV (08:21)
[2023-11-10] MEDS: heparin, porcine 1,000 unit/mL INJ 10 mL 10000 UNIT IRRIGATION (08:43)
[2023-11-10] MEDS: lidocaine-epi 2% PF 1:200,000 20 mL SDV XX (08:43)
--- NOTE | 2023-11-10 09:01 | ANES.PREANE2 ---
Pre-Anesthetic Assessment Height/Weight: Height 1.91 m Weight 68.039 kg Temp Pulse Resp BP Pulse Ox O2 Del Method 97.4 F L 77 18 113/65 96 Room Air 11/10/23 07:39 11/10/23 07:39 11/10/23 07:39 11/10/23 07:39 11/10/23 07:39 11/10/23 07:53 Operation Date: 11/10/23 08:50 Proposed Procedures p Portacath Removal 82546, 25849, Z95.828, C34.90(Not Applicable) - Yunior Ambrose DO s Portacath Placement(Not Applicable) - Yunior Ambrose DO Familial anesthetic complications: none Was Beta Lizzy taken within 24 hours: Yes Was Clonidine taken within 24 hours: N/A Last intake: Intake Last Liquid Date 11/09/23 Last Liquid Time 21:00 Last Solid Date 11/09/23 Last Solid Time 18:30 Social Tobacco and No alcohol Exam alert, oriented x 3 and regular rate & rhythm Airway Submandibular: within normal limits Cervical ROM: within normal limits Mallampati: Class II Dentition: chipped Comments: Comments: Up Pulmonary Chronic Obstructive Pulmonary Disease CV/HEM Anemia, Hypertension and Peripheral Vascular Disease Lung CA Musc/skel Lower Back Pain and Osteoarthritis/DJD Neuropsych Cerebrovascular Accident Anesthetic Plan ASA status: 3 Anesthesia: MAC Medications/Allergies Home Medications Medication Instructions Recorded Confirmed Last Taken Type pravastatin 20 mg tablet 20 mg PO DAILY #90 tabs 06/17/23 11/09/23 11/09/23 Rx midodrine 5 mg tablet 5 mg PO BID #60 tabs 09/29/23 11/09/23 11/09/23 Rx magnesium citrate 300 ml PO DAILY PRN Constipation 10/06/23 11/09/23 11/08/23 History propranolol 10 mg tablet 10 mg PO BID PRN tremor #60 tabs 10/28/23 11/09/23 11/02/23 Rx hydrocodone 7.5 mg-acetaminophen 1 tab PO Q6H PRN pain #10 tabs 11/03/23 11/09/23 Unknown Rx 325 mg tablet amoxicillin 875 mg-potassium 1 tab PO BID 7 days #14 tabs 11/04/23 11/09/23 11/09/23 Rx clavulanate 125 mg tablet Allergies Allergy/AdvReac Type Severity Reaction Status Date / Time No Known Allergies Allergy Verified 11/09/23 08:05 Current Medications Generic Name Dose Route Start Last Admin Trade Name Della PRN Reason Stop Dose Admin Sodium Chloride 1,000 mls @ 30 mls/hr 11/10/23 07:30 11/10/23 08:00 Sodium Chloride 0.9% IV 11/11/23 07:29 30 mls/hr .Q24H GAURANG Administration PFSH Anesthesia Medical History Port-A-Cath in place 11/03/23 Dr Ambrose Abuse of smoked substance Carotid stenosis Abnormal nuclear stress test Weight loss [place] (dyspnea on exertion) Fatigue Leukopenia Anemia Thrombocytopenia Elevated PSA Surgical History History of splenectomy History of right-sided carotid endarterectomy S/P cholecystectomy H/O cataract removal with insertion of prosthetic lens Family History Family/Other Diabetes Brother Diabetes Heart attack, Onset Age: 40 Mother , in her 80's No problems noted. Father , IN HIS 70'S No problems noted. Denies family history of Rheumatoid arthritis Lupus CAD (coronary artery disease) Clotting disorder Dementia Hyperlipidemia Chronic kidney disease (CKD) Suicide Anesthesia complication Bleeding disorder Lung disease Cancer Hypertension Stroke Social History Smoking and tobacco/nicotine status: current every day tobacco/nicotine user cigarettes Packs smoked per day: 1 Years cigarettes smoked: 65 Alcohol intake: current Alcohol intake frequency: few times a week Alcohol type: beer Substance/Drug Use: never Caregiver/support person: Yes Lives independently: Yes Marital status: Current occupational status: retired Current gender identity: Male Data Anesthesia Cardiac Studies: Echocardiogram Ultrasound 04/06/20 Sestamibi Stress Test (Cardiology) 02/07/20
--- NOTE | 2023-11-10 10:00 | SUR.PHASEII ---
09:55 ICE CHIPS GIVEN. PT DENIES PAIN. WARM BLANKETS APPLIED.
--- NOTE | 2023-11-10 10:07 | SUR.PHASEII ---
10:00 BILATERAL BREATH SOUNDS PRESENT.
--- NOTE | 2023-11-10 10:28 | P.OP_ITS ---
Operative Report Date of procedure: November 10, 2023 Pre-op diagnosis: Mediport Post-op diagnosis: same Procedure done: Mediport removal Mediport placement Intraoperative interpretation of fluoroscopy Implants: PowerPort Specimens removed/disposition: None Surgeon: Yunior Ambrose DO Anesthesia: MAC and Local Estimated blood loss (mL): 20 Complications: None apparent Brief History: This is a very pleasant 78-year-old gentleman who recently underwent Mediport placement. He developed a hematoma at the insertion site and Mediport was unable to be accessed. Mediport removal and Mediport placement was indicated. The risks and benefits were explained and documented. Procedure: The patient was taken to the operating room and placed supine on the operating room table. All bony prominences were padded. She was given IV sedation and monitored throughout the case by the anesthesia personnel. SCDs were placed and turned on. The arms were tucked to the side. Patient received Ancef 2 g preoperatively IV. The bilateral chest wall was prepped and draped in usual gregg rile fashion using chlorhexidine base prep. Sterile drapes were applied. We did procedure pause prior to beginning. Previous incision was localized with 2% lidocaine with epinephrine. Incision was opened with a 15 blade scalpel. The Mediport was grasped and removed. A kink in the catheter was noticed at the subclavian vein insertion site. This was likely causing the malfunction and secondary to displacement from the hematoma. The tunnel was closed with 3-0 Vicryl in a [id number] fashion. Hematoma was evacuated. An 18 gauge needle was placed in the left subclavian vein. Dark, nonpulsatile blood was aspirated. A guidewire was placed through the needle centrally toward the atrial/vena caval junction. Fluoroscopy visualized good placement. The needle was removed and the guidewire was clipped to the drape with a hemostat. Further local anesthetic was infiltrated in the soft tissues of the left chest wall and a #15 blade was used to make a horizontal skin incision. A subcutaneous Mediport pocket was created using Bovie cautery, dissecting down through the skin and subcutaneous tissues. Meticulous hemostasis was achieved. The Mediport was sutured in position using 3-0 vicryl suture x2 stitches. A #15 blade was used to make a small skin art around the guidewire insertion area. The Mediport tubing was tunneled through the subcutaneous tissues up to the needle insertion location. A dilator with a peel-away sheath was placed over the guidewire and placed centrally. After measuring the Mediport tubing was cut to length so that the tip would end at the atrial/vena caval junction. The inner cannula and the guidewire were removed, leaving the dilator sheath in place. The Mediport was flushed. The tip of the catheter was inserted through the peel-away sheath and the peel-away sheath removed in the standard fashion. The Mediport was accessed with a straight Penn needle and dark, nonpulsatile blood was aspirated and flushed using heparinized saline to hep-lock the Mediport. Final fluoroscopy visualization showed no kink in the catheter and the tip of the Mediport tubing near the atrial/vena caval junction. There is no obvious pneumothorax Both skin incisions were thoroughly irrigated and suctioned dry. Meticulous hemostasis noted. The dermis was approximated with 3-0 Vicryl in an interrupted fashion. Skin was closed with Dermabond. Patient was awakened from anesthesia and transferred via her cart to the recovery room in stable condition. All needle, sponge, and instrument counts were correct per the operating personnel x2 counts.
--- NOTE | 2023-11-10 14:12 | ANE.PACU2 ---
Inpatient post-anesthesia follow up: Airway intact: Yes Vital signs: Temperature 97.9 F Pulse Rate 63 Respiratory Rate 16 Blood Pressure 141/79 Pulse Oximetry 94 Oxygen Delivery Me thod Room Air Oxygen Flow Rate Fraction of Inspir ed Oxygen Hydration adequate: Yes Nausea and vomiting: No Pain level: 2 Mental status: Baseline
== END 2023-11-10 11:25 | disposition home or self-care (01) ==
PROVIDERS: PCP Family Medicine; Visit Provider Surgery
PROC: (CPT 36589; principal; 2023-11-10 08:50)
PROC: (CPT 36561; 2023-11-10 08:50)
DX: T85.618A Breakdown (mechanical) of other specified internal prosthetic devices, implants and grafts, initial encounter (principal); Y82.8 Other medical devices associated with adverse incidents; J44.9 Chronic obstructive pulmonary disease, unspecified; I10 Essential (primary) hypertension; Z86.73 Personal history of transient ischemic attack (TIA), and cerebral infarction without residual deficits; F17.210 Nicotine dependence, cigarettes, uncomplicated; C34.90 Malignant neoplasm of unspecified part of unspecified bronchus or lung
CPT/HCPCS: 36561; 36590; 71045; 76000; 77001; C1788; J0690; J1644; J2704; J3010; J7030

== ENCOUNTER 2023-11-13 08:51 | Oncology outpatient (recurring) (ONCR) | payer MEDICARE, BC, SELFPAY ==
[2023-11-04 08:16] LABS: Basophils # 0.1 10^3/uL (0.0-0.1); Basophils % 0.8 %; Eosinophils # 0.8 10^3/uL (0.0-0.8); Eosinophils % 9.2 %; Hematocrit 43.8 % (37-53); Lymphocytes # 1.9 10^3/uL (0.8-4.8); Lymphocytes % 20.5 %; Mean Corpuscular Hemoglobin 31.2 pg (27-33); Mean Corpuscular Volume 97.6 fl (82-101); Mean Platelet Volume 9.6 fL (7.4-10.4); Monocytes # 0.9 10^3/uL (0.2-0.9); Monocytes % 10.1 %; Neutrophils # 5.32 10^3/uL (1.8-7.7); Neutrophils % 58.5 %; Nucleated Red Blood Cells % 0 %; Platelet Count 282 10^3/cmm (157-399); Red Blood Count 4.49 10^6/uL (3.85-5.65); Red Cell Distribution Width 15.8 % (12.1-15.1)
[2023-11-04 08:37] LABS: Alanine Aminotransferase 12 U/L (0-41); Albumin Level 3.6 g/dL (3.5-5.2); Alkaline Phosphatase 108 U/L (40-130); Anion Gap 12.2 (5-19); Aspartate Amino Transferase 14 U/L (0-40); Blood Urea Nitrogen 18 mg/dL (8-23); Calcium 9.2 mg/dL (8.5-10.5); Carbon Dioxide 31 mmol/L (22-29); Chloride 99 mmol/L (98-107); Glucose 116 mg/dL (65-115); Osmolality Calculated 289 mOsm/kg (285-295); Potassium 4.2 mmol/L (3.5-5.1); Sodium 138 mmol/L (136-145); Total Bilirubin 0.4 mg/dL (0.15-1.2); Total Protein 6.6 g/dL (6.6-8.7)
[2023-11-11 08:12] VITALS: BP 113/69; PULSE 74; RESP 16; TEMP 36.6; O2SAT 95
[2023-11-11 08:36] LABS: Basophils # 0.1 10^3/uL (0.0-0.1); Basophils % 0.6 %; Eosinophils # 0.7 10^3/uL (0.0-0.8); Eosinophils % 8.4 %; Lymphocytes # 2.6 10^3/uL (0.8-4.8); Lymphocytes % 31.7 %; Mean Corpuscular HGB Conc 32.2 g/dL (30-55); Mean Corpuscular Hemoglobin 31.4 pg (27-33); Mean Corpuscular Volume 97.4 fl (82-101); Mean Platelet Volume 9.5 fL (7.4-10.4); Monocytes # 0.8 10^3/uL (0.2-0.9); Monocytes % 9.3 %; Neutrophils # 4.02 10^3/uL (1.8-7.7); Neutrophils % 49.4 %; Nucleated Red Blood Cells % 0 %; Platelet Count 227 10^3/cmm (157-399); Red Blood Count 4.21 10^6/uL (3.85-5.65); Red Cell Distribution Width 15.6 % (12.1-15.1); White Blood Count 8.14 10^3/uL (3.29-11.43)
[2023-11-11 08:50] LABS: Alanine Aminotransferase 12 U/L (0-41); Albumin Level 3.8 g/dL (3.5-5.2); Alkaline Phosphatase 107 U/L (40-130); Anion Gap 11.3 (5-19); Aspartate Amino Transferase 14 U/L (0-40); Blood Urea Nitrogen 11 mg/dL (8-23); Calcium 9.1 mg/dL (8.5-10.5); Carbon Dioxide 30 mmol/L (22-29); Chloride 102 mmol/L (98-107); Globulin 2.9 g/dL (1.3-4.6); Glucose 94 mg/dL (65-115); Osmolality Calculated 287 mOsm/kg (285-295); Potassium 4.3 mmol/L (3.5-5.1); Sodium 139 mmol/L (136-145); Total Bilirubin 0.5 mg/dL (0.15-1.2); Total Protein 6.7 g/dL (6.6-8.7)
--- NOTE | 2023-11-11 09:20 | ONCRAD TMN_ITS ---
Radiation Oncology Weekly Treatment Management Patient: Vlad Dugan MR#: [id number] : 1945 Attending Physician: Dr. 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 ID: [id number], Energy: 6X, Dose/Fx (cGy): 200, #Fx: , Dose Correction (cGy): 0, Total Dose Delivered (cGy): 1,000, Start Date: 11/04/2023, Elapsed Days: 7 Reason for visit: The patient is being seen today as part of their regularly scheduled weekly on treatment visits to assess for acute toxicities from radiotherapy. Review of Systems: Patient had a second port placed yesterday. He is quite sore as this has been the second port placed in a week he is also a little bit dizzy today but he says he stays dizzy Vital Signs: Performed on 11/11/2023 8:41 AM BMI - 19.649 kg/m2, Height - 75 in, Weight - 157.2 lbs, Temperature - 97.3 f, Pulse - 60 /min, Respiration - 18 /min, O2 Sat - 99 %, Pain - 0, Fatigue - 100 (high) and BP - 107/ 63 mm(hg)(/low). Physical Exam: No changes on exam Imaging: Radiation therapy imaging related to accurate target localization (i.e. KV, MV and CBCT) was reviewed. Appropriate changes, if any, were made to ensure treatment accuracy. Plan: Will continue with his treatments today. He is finished his first week and is getting his first round of chemotherapy today as well. Signed by: Dr. Ct Johnson 11/11/2023 9:18:53 AM
[2023-11-11] MEDS: dexamethasone 20 MG in sodium chloride 0.9% 50 ML 188 MG IV (09:51)
[2023-11-11] MEDS: diphenhydrAMINE 50 mg/mL SDV 1mL 25 MG IVP (09:52)
[2023-11-11] MEDS: acetaminophen 325 mg Tablet 650 MG PO (09:52)
[2023-11-11] MEDS: sodium chloride 0.9% 250 ML 75 ML IV (09:52)
[2023-11-11] MEDS: palonosetron 0.25 mg/5 mL SDV IVP (10:09)
[2023-11-11] MEDS: famotidine 20 mg/2 mL INJ IVP (10:11)
[2023-11-11 10:25] VITALS: BMI 19.7
[2023-11-11] MEDS: PACLitaxeL 100 MG in sodium chloride 0.9%(non-DEHP) 250 ML 266.670000000000016 MG IV (10:33)
[2023-11-11] MEDS: CARBOplatin 280 MG in sodium chloride 0.9% 500 ML 528 MG IV (11:57)
[2023-11-11 13:20] VITALS: BP 147/65; PULSE 74; TEMP 36.2; O2SAT 90
== END 2023-11-13 23:59 | disposition home or self-care (01) ==
PROVIDERS: Internal Medicine; Nurse Practitioner Family; PCP Family Medicine; Visit Provider Internal Medicine Medical Oncology
DX: Z51.0 Encounter for antineoplastic radiation therapy (principal); C34.01 Malignant neoplasm of right main bronchus
CPT/HCPCS: 36415; 77300; 77301; 77336; 77338; 77386; 80053; 85025; 96367; 96375; 96413; 96417; 99024; 99213; 99214; J1100; J1200; J2469; J3490; J7040; J7050; J9045; J9267

== ENCOUNTER 2023-11-27 08:55 | Oncology outpatient (recurring) (ONCR) | payer MEDICARE, BC, SELFPAY ==
--- NOTE | 2023-11-17 09:26 | ONCRAD TMN_ITS ---
Radiation Oncology Weekly Treatment Management Patient: Vlad Dugan MR#: [id number] : 1945 Attending Physician: Dr. 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 ID: [id number], Energy: 6X, Dose/Fx (cGy): 200, #Fx: , Dose Correction (cGy): 0, Total Dose Delivered (cGy): 1,800, Start Date: 11/04/2023, Elapsed Days: 13 Reason for visit: The patient is being seen today as part of their regularly scheduled weekly on treatment visits to assess for acute toxicities from radiotherapy. Review of Systems: Patient has been not able to eat for the last 2 days. He says he just does not have an appetite. He thinks he has been drinking enough water but his blood pressure was quite low today. He also has pain all over which she said is his normal. Said after his chemo last week he felt so much better but this did not last but 24 hours. Vital Signs: Performed on 11/17/2023 9:02 AM BMI - 19.449 kg/m2, Height - 75 in, Weight - 155.6 lbs, Temperature - 96 f, Pulse - 66 /min, Respiration - 16 /min, O2 Sat - 96 %, Pain - 0, Fatigue - 10 and BP - 98/ 65 mm(hg). Physical Exam: No change on exam imaging: Radiation therapy imaging related to accurate target localization (i.e. KV, MV and CBCT) was reviewed. Appropriate changes, if any, were made to ensure treatment accuracy. Plan: Will continue with his treatments. We have given him some samples of Ensure to try. I encouraged him to try and eat. Even if he is not hungry he still needs to get at least boost or Ensure in every day. Signed by: Dr. Ct Johsnon 11/17/2023 9:25:32 AM
[2023-11-18 08:03] LABS: Basophils # 0.1 10^3/uL (0.0-0.1); Eosinophils # 0.7 10^3/uL (0.0-0.8); Eosinophils % 11.7 %; Hematocrit 39.6 % (37-53); Lymphocytes # 1.5 10^3/uL (0.8-4.8); Lymphocytes % 24.5 %; Mean Corpuscular HGB Conc 31.8 g/dL (30-55); Mean Corpuscular Hemoglobin 31.2 pg (27-33); Mean Platelet Volume 9.6 fL (7.4-10.4); Monocytes # 0.4 10^3/uL (0.2-0.9); Monocytes % 6.2 %; Neutrophils # 3.38 10^3/uL (1.8-7.7); Neutrophils % 55.5 %; Nucleated Red Blood Cells % 0.3 %; Platelet Count 252 10^3/cmm (157-399); Red Blood Count 4.04 10^6/uL (3.85-5.65); Red Cell Distribution Width 15.4 % (12.1-15.1); White Blood Count 6.09 10^3/uL (3.29-11.43)
[2023-11-18 08:25] LABS: Alanine Aminotransferase 13 U/L (0-41); Albumin Level 3.6 g/dL (3.5-5.2); Alkaline Phosphatase 95 U/L (40-130); Anion Gap 13.4 (5-19); Aspartate Amino Transferase 13 U/L (0-40); Blood Urea Nitrogen 15 mg/dL (8-23); Calcium 8.7 mg/dL (8.5-10.5); Carbon Dioxide 28 mmol/L (22-29); Chloride 103 mmol/L (98-107); Globulin 2.7 g/dL (1.3-4.6); Glucose 100 mg/dL (65-115); Osmolality Calculated 291 mOsm/kg (285-295); Potassium 4.4 mmol/L (3.5-5.1); Sodium 140 mmol/L (136-145); Total Bilirubin 0.3 mg/dL (0.15-1.2); Total Protein 6.3 g/dL (6.6-8.7)
[2023-11-18] MEDS: sodium chloride 0.9% 250 ML 75 ML IV (09:37)
[2023-11-18] MEDS: acetaminophen 325 mg Tablet 650 MG PO (09:37)
[2023-11-18] MEDS: diphenhydrAMINE 50 mg/mL SDV 1mL 25 MG IVP (09:38)
[2023-11-18] MEDS: famotidine 20 mg/2 mL INJ IVP (09:44)
[2023-11-18] MEDS: dexamethasone 20 MG in sodium chloride 0.9% 50 ML 188 MG IV (09:46)
[2023-11-18] MEDS: palonosetron 0.25 mg/5 mL SDV IVP (09:47)
[2023-11-18] MEDS: PACLitaxeL 100 MG in sodium chloride 0.9%(non-DEHP) 250 ML 266.670000000000016 MG IV (10:14)
[2023-11-18] MEDS: CARBOplatin 290 MG in sodium chloride 0.9% 500 ML 529 MG IV (11:36)
[2023-11-18 12:45] VITALS: BP 149/69; PULSE 75; O2SAT 99
--- NOTE | 2023-11-24 09:29 | ONCRAD TMN_ITS ---
Radiation Oncology Weekly Treatment Management Patient: Vlad Dugan MR#: [id number] : 1945 Attending Physician: Dr. 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 ID: [id number], Energy: 6X, Dose/Fx (cGy): 200, #Fx: , Dose Correction (cGy): 0, Total Dose Delivered (cGy): 2,800, Start Date: 11/04/2023, Elapsed Days: 20 Reason for visit: The patient is being seen today as part of their regularly scheduled weekly on treatment visits to assess for acute toxicities from radiotherapy. Review of Systems: He continues to be quite fatigued. He is also continued to have difficulty with his appetite. He was able to maintain his weight this week Vital Signs: Performed on 11/24/2023 9:11 AM BMI - 19.649 kg/m2, Height - 75 in, Weight - 157.2 lbs, Temperature - 96.6 f, Pulse - 66 /min, Respiration - 18 /min, O2 Sat - 100 %, Pain - 0, Fatigue - 10 and BP - 96/ 61 mm(hg)(/low). Physical Exam: No changes on exam Imaging: Radiation therapy imaging related to accurate target localization (i.e. KV, MV and CBCT) was reviewed. Appropriate changes, if any, were made to ensure treatment accuracy. Plan: Will continue with his treatments as planned. He will get chemotherapy again tomorrow. I have asked him to continue eating as best he can to maintain his weight. Signed by: Dr. Ct Johnson 11/24/2023 9:27:54 AM
[2023-11-25 08:06] LABS: Basophils # 0.1 10^3/uL (0.0-0.1); Basophils % 0.9 %; Eosinophils # 0.4 10^3/uL (0.0-0.8); Eosinophils % 7.2 %; Hematocrit 39.1 % (37-53); Lymphocytes # 1.6 10^3/uL (0.8-4.8); Lymphocytes % 28.3 %; Mean Corpuscular HGB Conc 31.7 g/dL (30-55); Mean Corpuscular Hemoglobin 30.8 pg (27-33); Mean Corpuscular Volume 97.3 fl (82-101); Mean Platelet Volume 9.7 fL (7.4-10.4); Monocytes # 0.4 10^3/uL (0.2-0.9); Monocytes % 7.3 %; Neutrophils # 3.14 10^3/uL (1.8-7.7); Neutrophils % 54.9 %; Nucleated Red Blood Cells % 0.3 %; Platelet Count 275 10^3/cmm (157-399); Red Blood Count 4.02 10^6/uL (3.85-5.65); Red Cell Distribution Width 15.7 % (12.1-15.1); White Blood Count 5.72 10^3/uL (3.29-11.43)
[2023-11-25 08:30] LABS: Alanine Aminotransferase 24 U/L (0-41); Albumin Level 3.7 g/dL (3.5-5.2); Alkaline Phosphatase 92 U/L (40-130); Anion Gap 13.5 (5-19); Aspartate Amino Transferase 18 U/L (0-40); Blood Urea Nitrogen 15 mg/dL (8-23); Calcium 8.8 mg/dL (8.5-10.5); Carbon Dioxide 28 mmol/L (22-29); Chloride 102 mmol/L (98-107); Creatinine Clr Calc Pharmacy 82.6742; Globulin 2.6 g/dL (1.3-4.6); Glucose 129 mg/dL (65-115); Osmolality Calculated 291 mOsm/kg (285-295); Potassium 4.5 mmol/L (3.5-5.1); Sodium 139 mmol/L (136-145); Total Bilirubin 0.5 mg/dL (0.15-1.2); Total Protein 6.3 g/dL (6.6-8.7)
[2023-11-25] MEDS: sodium chloride 0.9% 250 ML 75 ML IV (10:18)
[2023-11-25] MEDS: acetaminophen 325 mg Tablet 650 MG PO (10:19)
[2023-11-25] MEDS: diphenhydrAMINE 50 mg/mL SDV 1mL 25 MG IVP (10:20)
[2023-11-25] MEDS: palonosetron 0.25 mg/5 mL SDV IVP (10:24)
[2023-11-25] MEDS: famotidine 20 mg/2 mL INJ IVP (10:28)
[2023-11-25] MEDS: dexamethasone 20 MG in sodium chloride 0.9% 50 ML 188 MG IV (10:31)
[2023-11-25] MEDS: PACLitaxeL 100 MG in sodium chloride 0.9%(non-DEHP) 250 ML 266.670000000000016 MG IV (11:24)
[2023-11-25] MEDS: CARBOplatin 290 MG in sodium chloride 0.9% 500 ML 529 MG IV (12:39)
[2023-11-25 14:00] VITALS: BP 132/68; PULSE 84; RESP 18; TEMP 36.4; O2SAT 97
== END 2023-11-29 23:59 | disposition home or self-care (01) ==
PROVIDERS: Nurse Practitioner Family; PCP Family Medicine; Visit Provider Internal Medicine Medical Oncology
DX: Z51.0 Encounter for antineoplastic radiation therapy (principal); C34.01 Malignant neoplasm of right main bronchus
CPT/HCPCS: 77336; 77386; 80053; 85025; 96367; 96375; 96413; 96417; 99024; 99214; J1100; J1200; J2469; J3490; J7040; J7050; J9045; J9267

== ENCOUNTER 2023-12-15 10:00 | Oncology outpatient (recurring) (ONCR) | payer MEDICARE, BC, SELFPAY ==
--- NOTE | 2023-12-01 09:11 | ONCRAD TMN_ITS ---
Radiation Oncology Weekly Treatment Management Patient: Vlad Dugan MR#: [id number] : 1945 Attending Physician: Dr. 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 ID: [id number], Energy: 6X, Dose/Fx (cGy): 200, #Fx: , Dose Correction (cGy): 0, Total Dose Delivered (cGy): 3,800, Start Date: 11/04/2023, Elapsed Days: 27 Reason for visit: The patient is being seen today as part of their regularly scheduled weekly on treatment visits to assess for acute toxicities from radiotherapy. Review of Systems: Patient continues to be quite fatigued. He has not noticed any other issues. He did ask for additional Ensure today. Vital Signs: Performed on 12/01/2023 8:49 AM BMI - 19.674 kg/m2, Height - 75 in, Weight - 157.4 lbs, Temperature - 97.2 f, Pulse - 67 /min, Respiration - 18 /min, O2 Sat - 98 %, Pain - 0, Fatigue - 9 and BP - 107/ 64 mm(hg)(/low). Physical Exam: No changes on exam Imaging: Radiation therapy imaging related to accurate target localization (i.e. KV, MV and CBCT) was reviewed. Appropriate changes, if any, were made to ensure treatment accuracy. Plan: Will continue with his treatments as planned we talked about how he will be off on for the holiday. I offered to him to take off Thursday if he would like to rest. He will let us know Signed by: Dr. Ct Johnson 12/01/2023 9:10:35 AM
[2023-12-02 08:31] LABS: Basophils % 1.2 %; Eosinophils # 0.2 10^3/uL (0.0-0.8); Eosinophils % 6.8 %; Lymphocytes # 0.8 10^3/uL (0.8-4.8); Mean Corpuscular HGB Conc 32.7 g/dL (30-55); Mean Corpuscular Hemoglobin 31.8 pg (27-33); Mean Corpuscular Volume 97.1 fl (82-101); Mean Platelet Volume 9.9 fL (7.4-10.4); Monocytes # 0.5 10^3/uL (0.2-0.9); Monocytes % 15.4 %; Neutrophils # 1.68 10^3/uL (1.8-7.7); Neutrophils % 51.7 %; Nucleated Red Blood Cells % 0.9 %; Platelet Count 227 10^3/cmm (157-399); Red Blood Count 3.81 10^6/uL (3.85-5.65); Red Cell Distribution Width 16.1 % (12.1-15.1); White Blood Count 3.25 10^3/uL (3.29-11.43)
[2023-12-02 08:48] LABS: Alanine Aminotransferase 20 U/L (0-41); Albumin Level 3.7 g/dL (3.5-5.2); Alkaline Phosphatase 95 U/L (40-130); Anion Gap 12.8 (5-19); Aspartate Amino Transferase 20 U/L (0-40); Blood Urea Nitrogen 17 mg/dL (8-23); Calcium 8.8 mg/dL (8.5-10.5); Carbon Dioxide 29 mmol/L (22-29); Chloride 103 mmol/L (98-107); Globulin 2.8 g/dL (1.3-4.6); Glucose 109 mg/dL (65-115); Osmolality Calculated 292 mOsm/kg (285-295); Potassium 4.8 mmol/L (3.5-5.1); Sodium 140 mmol/L (136-145); Total Bilirubin 0.5 mg/dL (0.15-1.2); Total Protein 6.5 g/dL (6.6-8.7)
[2023-12-02 09:57] VITALS: BP 104/59; PULSE 65; RESP 16; TEMP 36.7; O2SAT 96
[2023-12-02] MEDS: sodium chloride 0.9% 250 ML 75 ML IV (10:16)
[2023-12-02] MEDS: acetaminophen 325 mg Tablet 650 MG PO (10:18)
[2023-12-02] MEDS: palonosetron 0.25 mg/5 mL SDV IVP (10:19)
[2023-12-02] MEDS: famotidine 20 mg/2 mL INJ IVP (10:22)
[2023-12-02] MEDS: diphenhydrAMINE 50 mg/mL SDV 1mL 25 MG IVP (10:23)
[2023-12-02] MEDS: dexamethasone 20 MG in sodium chloride 0.9% 50 ML 188 MG IV (10:29)
[2023-12-02] MEDS: PACLitaxeL 100 MG in sodium chloride 0.9%(non-DEHP) 250 ML 266.67 MG IV (11:21)
[2023-12-02] MEDS: CARBOplatin 290 MG in sodium chloride 0.9% 500 ML 529 MG IV (12:39)
[2023-12-02 14:07] VITALS: BP 130/69; PULSE 75; RESP 17; TEMP 36.2; O2SAT 95
--- NOTE | 2023-12-08 09:34 | ONCRAD TMN_ITS ---
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 ID: [id number], Energy: 6X, Dose/Fx (cGy): 200, #Fx: / 30, Dose Correction (cGy): 0, Total Dose Delivered (cGy): 4,600, Start Date: 11/04/2023, Elapsed Days: 34 Reason for visit: The patient is being seen today as part of their regularly scheduled weekly on treatment visits to assess for acute toxicities from radiotherapy. Review of Systems: Patient remains fatigued and with poor appetite. Weight appears stable. Patient smells of smoke. He is presently smoking 1 pack/day down from 3 packs/day. Patient denies any hemoptysis or increase in shortness of breath. He is scheduled to have labs drawn today. Last week's labs were adequate for chemotherapy which is usually on Wednesdays.. Vital Signs: Performed on 12/08/2023 9:08 AM BMI - 19.249 kg/m2, Height - 75 in, Weight - 154 lbs, Temperature - 96.5 f, Pulse - 74 /min, Respiration - 18 /min, O2 Sat - 100 %, Pain - 0, Fatigue - 10 and BP - 110/ 68 mm(hg). Physical Exam: Alert and oriented and answers questions appropriately. Skin intact. Lungs clear to auscultation. No apparent intercostal retraction. Extremities show no peripheral edema or Homans' sign. Imaging: Radiation therapy imaging related to accurate target localization (i.e. KV, MV and CBCT) was reviewed. Appropriate changes, if any, were made to ensure treatment accuracy. Plan: Continue XRT Continue chemotherapy Obtain labs today to evaluate for chemotherapy Signed by: Deric Hopper 12/08/2023 9:33:13 AM
[2023-12-08 09:44] LABS: Basophils % 0.9 %; Eosinophils % 0.5 %; Hematocrit 38.8 % (37-53); Lymphocytes # 0.8 10^3/uL (0.8-4.8); Lymphocytes % 17.2 %; Mean Corpuscular HGB Conc 32.2 g/dL (30-55); Mean Corpuscular Hemoglobin 31.6 pg (27-33); Mean Corpuscular Volume 98.2 fl (82-101); Mean Platelet Volume 9.9 fL (7.4-10.4); Monocytes # 0.5 10^3/uL (0.2-0.9); Monocytes % 11.7 %; Neutrophils # 2.96 10^3/uL (1.8-7.7); Neutrophils % 68.1 %; Nucleated Red Blood Cells # 0.1 /100WBC; Nucleated Red Blood Cells % 1.4 %; Platelet Count 206 10^3/cmm (157-399); Red Blood Count 3.95 10^6/uL (3.85-5.65); Red Cell Distribution Width 16.8 % (12.1-15.1); White Blood Count 4.35 10^3/uL (3.29-11.43)
[2023-12-08 10:04] LABS: Alanine Aminotransferase 20 U/L (0-41); Albumin Level 3.9 g/dL (3.5-5.2); Alkaline Phosphatase 82 U/L (40-130); Anion Gap 13.9 (5-19); Aspartate Amino Transferase 15 U/L (0-40); Blood Urea Nitrogen 23 mg/dL (8-23); Calcium 9.3 mg/dL (8.5-10.5); Carbon Dioxide 31 mmol/L (22-29); Chloride 101 mmol/L (98-107); Creatinine Clr Calc Pharmacy 82.3196; Globulin 2.6 g/dL (1.3-4.6); Glucose 87 mg/dL (65-115); Osmolality Calculated 297 mOsm/kg (285-295); Potassium 3.9 mmol/L (3.5-5.1); Sodium 142 mmol/L (136-145); Total Bilirubin 0.5 mg/dL (0.15-1.2); Total Protein 6.5 g/dL (6.6-8.7)
--- OUTSIDE RECORDS SUMMARY | 2023-12-09 07:48 | XMS_ITS | Patient Health Record ---
Author Name Unknown Organization [facility] Address [address] [place] [address] Support Name Relationship Address Phone Vlad Dugan Guarantor Unknown [phone] Reason For Referral No Information Medications Medication SIG (Take, Route, Frequency, Duration) Notes Start Date End Date Status Folic Acid 1 MG Oral Tablet Folic Acid 1 MG Oral Tablet 08/06/2017 Active Immunizations Vaccine Route Administration Date Status Comme nts Influenza (whole), CPT 85380 Inactive Unknown 02/08/2018 Administered Plan Of Treatment No Information
[2023-12-09] MEDS: sodium chloride 0.9% 250 ML 75 ML IV (08:56)
[2023-12-09] MEDS: dexamethasone 20 MG in sodium chloride 0.9% 50 ML 188 MG IV (08:56)
[2023-12-09] MEDS: acetaminophen 325 mg Tablet 650 MG PO (08:56)
[2023-12-09] MEDS: diphenhydrAMINE 50 mg/mL SDV 1mL 25 MG IVP (09:00)
[2023-12-09] MEDS: famotidine 20 mg/2 mL INJ IVP (09:02)
[2023-12-09] MEDS: palonosetron 0.25 mg/5 mL SDV IVP (09:03)
[2023-12-09] MEDS: PACLitaxeL 100 MG in sodium chloride 0.9%(non-DEHP) 250 ML 266.67 MG IV (09:19)
[2023-12-09] MEDS: CARBOplatin 250 MG in sodium chloride 0.9% 500 ML 525 MG IV (10:32)
[2023-12-09 12:10] VITALS: BP 90/78; PULSE 88; RESP 18; TEMP 36.6; O2SAT 97
[2023-12-14] MEDS: sodium chloride 0.9% 1,000 ML 999 ML IV (09:32)
--- NOTE | 2023-12-15 09:49 | ONCRAD TMN_ITS ---
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 ID: [id number], Energy: 6X, Dose/Fx (cGy): 200, #Fx: / 30, Dose Correction (cGy): 0, Total Dose Delivered (cGy): 5,600, Start Date: 11/04/2023, Elapsed Days: 41 Reason for visit: The patient is being seen today as part of their regularly scheduled weekly on treatment visits to assess for acute toxicities from radiotherapy. Review of Systems: Patient is still fatigued. Patient had fluids yesterday but he states he does not feel any better. Blood pressure is low today and visual signs of dehydration are noted. He continues to smoke. He denies any hemoptysis or increase in shortness of breath. Labs last week were adequate with a low protein noted. He is willing to try some more fluids today. He completes XRT on . He will have labs drawn today and may have his last chemotherapy tomorrow. Vital Signs: Performed on 12/15/2023 9:16 AM BMI - 19.449 kg/m2, Height - 75 in, Weight - 155.6 lbs, Temperature - 96.1 f, Pulse - 87 /min, Respiration - 18 /min, O2 Sat - 100 %, Pain - 0, Fatigue - 10 and BP - 94/ 55 mm(hg)(/low). Physical Exam: AAO x3 . In WC today. Poor Skin turgor. Imaging: Radiation therapy imaging related to accurate target localization (i.e. KV, MV and CBCT) was reviewed. Appropriate changes, if any, were made to ensure treatment accuracy. Plan: Cont XRT Labs today Fluids 1 Liter today Completes XRT Signed by: Deric Hopper 12/15/2023 9:48:15 AM
[2023-12-15] MEDS: sodium chloride 0.9% 1,000 ML 999 ML IV (10:15)
[2023-12-15 10:18] VITALS: BP 112/58; PULSE 71; RESP 16; O2SAT 96
[2023-12-15 10:21] LABS: Basophils % 0.4 %; Eosinophils % 0.7 %; Hematocrit 34.9 % (37-53); Lymphocytes # 0.4 10^3/uL (0.8-4.8); Lymphocytes % 15.3 %; Mean Corpuscular HGB Conc 32.7 g/dL (30-55); Mean Corpuscular Hemoglobin 31.9 pg (27-33); Mean Corpuscular Volume 97.8 fl (82-101); Mean Platelet Volume 9.8 fL (7.4-10.4); Monocytes # 0.4 10^3/uL (0.2-0.9); Neutrophils # 1.84 10^3/uL (1.8-7.7); Neutrophils % 66.9 %; Nucleated Red Blood Cells % 1.5 %; Platelet Count 195 10^3/cmm (157-399); Red Blood Count 3.57 10^6/uL (3.85-5.65); Red Cell Distribution Width 17.2 % (12.1-15.1); White Blood Count 2.75 10^3/uL (3.29-11.43)
[2023-12-15 10:38] LABS: Alanine Aminotransferase 16 U/L (0-41); Albumin Level 3.4 g/dL (3.5-5.2); Alkaline Phosphatase 67 U/L (40-130); Aspartate Amino Transferase 13 U/L (0-40); Blood Urea Nitrogen 20 mg/dL (8-23); Calcium 8.9 mg/dL (8.5-10.5); Carbon Dioxide 29 mmol/L (22-29); Chloride 99 mmol/L (98-107); Creatinine Clr Calc Pharmacy 73.2365; Globulin 2.4 g/dL (1.3-4.6); Glucose 114 mg/dL (65-115); Osmolality Calculated 291 mOsm/kg (285-295); Sodium 139 mmol/L (136-145); Total Bilirubin 0.3 mg/dL (0.15-1.2); Total Protein 5.8 g/dL (6.6-8.7)
[2023-12-15 11:32] VITALS: BP 138/74; PULSE 71; RESP 18; O2SAT 98
== END 2023-12-15 23:59 | disposition home or self-care (01) ==
PROVIDERS: Internal Medicine Medical Oncology; Nurse Practitioner Family; PCP Family Medicine; Visit Provider Radiology Radiation Oncology
DX: Z51.0 Encounter for antineoplastic radiation therapy (principal); C34.01 Malignant neoplasm of right main bronchus; Z53.9 Procedure and treatment not carried out, unspecified reason; I95.9 Hypotension, unspecified; R53.83 Other fatigue; E86.0 Dehydration; F17.290 Nicotine dependence, other tobacco product, uncomplicated
CPT/HCPCS: 36415; 77336; 77386; 80053; 85025; 96360; 96366; 96367; 96375; 96411; 96413; 96417; 99024; 99214; J1100; J1200; J2469; J3490; J7030; J7040; J7050; J9045; J9267

== ENCOUNTER 2023-12-17 08:53 | Oncology outpatient (recurring) (ONCR) | payer MEDICARE, BC, SELFPAY ==
[2023-12-16] MEDS: sodium chloride 0.9% 1,000 ML 999 ML IV (11:02)
[2023-12-16 12:16] VITALS: BP 147/73; PULSE 76; RESP 18; TEMP 35.7; O2SAT 99
[2023-12-16 12:49] VITALS: BP 147/72; PULSE 76; RESP 18; TEMP 35.7; O2SAT 99
--- NOTE | 2023-12-17 12:57 | N.ONRD TS_ITS ---
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 ID: [id number], Energy: 6X, Dose/Fx (cGy): 200, #Fx: 30 / 30, Dose Correction (cGy): 0, Total Dose Delivered (cGy): 6,000, Start Date: 11/04/2023, End Date: 12/17/2023, Elapsed Days: 43 Clinical Summary: The patient tolerated RT well. Patient continues to smoke throughout his treatment. He also had significant dehydration and required IV fluids toward the end of his treatment regimen. Plan: End of treatment today. Continue on the above medication until the skin reaction resolves. Follow up in one month. F/U with Dr Kristie Mcgraw Signed by: Deric Hopper>12/17/2023 12:55:50 PM <<Signature on File>>
== END 2023-12-30 23:59 | disposition home or self-care (01) ==
PROVIDERS: PCP Family Medicine; Visit Provider Nurse Practitioner Family
DX: Z51.0 Encounter for antineoplastic radiation therapy (principal); C34.01 Malignant neoplasm of right main bronchus
CPT/HCPCS: 77336; 77386; 96360; 99024; 99214; J7030

== ENCOUNTER 2024-01-21 10:00 | Oncology outpatient (recurring) (ONCR) | payer MEDICARE, BC, SELFPAY ==
--- NOTE | 2023-12-31 08:00 | CT_ITS ---
WS: [id number] CT chest w con* [id number] HISTORY: restaging TECHNIQUE: Axial imaging performed through the thorax. Coronal and sagittal reformats are submitted. All CT scans at [facility] use at least one of these dose optimization techniques: automated exposure control; mA and/or kV adjustment per patient size (includes targeted exams where dose is mat ched to clinical indication); or iterative reconstruction. CONTRAST: Omnipaque 350; 100 mL IV. DLP: 308.51 mGy.cm COMPARISON: 08/12/2023, 08/14/2022, PET/CT 10/13/2023 Lungs and central airway: Severe centrilobular emphysema. Previously described mass which was also PE T/CT positive at the sarah is essentially resolved. No significant residual soft tissue component sm all amount of frothy secretions in the RIGHT lateral trachea from mucous retention. Advanced centrilo bular emphysema. Subsegmental atelectasis at the lingula. No new pulmonary mass. Pleura: Normal. No pleural effusion. Heart and pericardium: Normal size heart with no pericardial effusion. Mediastinum and dione: Decrease in size of the previously described lymphadenopathy RIGHT paratracheal /RIGHT hilum and subcarinal. No new or increasing size of lymph nodes. Largest lymph node is 13 mm at the RIGHT hilum. Vessels: Moderate atherosclerosis aorta. Normal size pulmonary artery. Chest wall and lower neck: Left-sided Mediport. Upper abdomen: Prior cholecystectomy. Stable LEFT adrenal nodule which is most likely an adenoma. Neg ative on recent PET/CT. Osseous structures: No destructive bone lesions. Remote healed rib fractures in the posterior RIGHT t horax. CT/CT chest w con* [id number] IMPRESSION: 1. Essentially complete resolution of the endobronchial mass located at the ca laura. 2. Significant decrease in size of the previously described PET/CT positive RI GHT hilar and mediastinal lymph nodes. 3. Advanced emphysema. 4. Stable LEFT adrenal nodule which is negative on PET/CT.
[2023-12-31] MEDS: iohexol 350 mg/mL 500 mL Btl (per mL) IV (08:20)
[2024-01-04 09:19] LABS: Basophils # 0.1 10^3/uL (0.0-0.1); Basophils % 0.9 %; Eosinophils # 0.1 10^3/uL (0.0-0.8); Eosinophils % 1.1 %; Hematocrit 39.7 % (37-53); Lymphocytes # 1.2 10^3/uL (0.8-4.8); Lymphocytes % 16.4 %; Mean Corpuscular HGB Conc 32.2 g/dL (30-55); Mean Corpuscular Hemoglobin 32.7 pg (27-33); Mean Corpuscular Volume 101.5 fl (82-101); Mean Platelet Volume 9.6 fL (7.4-10.4); Monocytes % 14.3 %; Neutrophils % 65.6 %; Nucleated Red Blood Cells % 0 %; Platelet Count 369 10^3/cmm (157-399); Red Blood Count 3.91 10^6/uL (3.85-5.65); Red Cell Distribution Width 20.5 % (12.1-15.1); White Blood Count 7.01 10^3/uL (3.29-11.43)
[2024-01-04 09:40] LABS: Alanine Aminotransferase 16 U/L (0-41); Albumin Level 3.9 g/dL (3.5-5.2); Alkaline Phosphatase 101 U/L (40-130); Anion Gap 13.3 (5-19); Aspartate Amino Transferase 19 U/L (0-40); Blood Urea Nitrogen 16 mg/dL (8-23); Calcium 9.6 mg/dL (8.5-10.5); Carbon Dioxide 29 mmol/L (22-29); Chloride 98 mmol/L (98-107); Globulin 2.9 g/dL (1.3-4.6); Glucose 181 mg/dL (65-115); Osmolality Calculated 288 mOsm/kg (285-295); Potassium 4.3 mmol/L (3.5-5.1); Sodium 136 mmol/L (136-145); Total Bilirubin 0.3 mg/dL (0.15-1.2); Total Protein 6.8 g/dL (6.6-8.7)
[2024-01-04] MEDS: sodium chloride 0.9% 1,000 ML 500 ML IV (11:07)
[2024-01-04] MEDS: dexamethasone 10 mg/mL INJ IVP (11:08)
[2024-01-04 13:13] VITALS: BP 117/71; PULSE 80; RESP 16; TEMP 36.5; O2SAT 95
--- NOTE | 2024-01-11 14:30 | MR_ITS ---
WS: [id number] MRI BRAIN WITH AND WITHOUT CONTRAST HISTORY: lung cancer, headache, dysequilibrium, weakness COMPARISON: 10/14/2023 TECHNIQUE: Multiplanar imaging performed through the brain with MultiHance 15 ml's IV. No acute infarcts are seen. Arboleda-white matter differentiation is well preserved. Moderate small vesse l ischemic disease throughout the white matter. Not significantly progressed since the most recent ex am. There is also moderate bilateral hippocampal atrophy. No large territory infarct. Posterior fossa is negative. No hemorrhage. No susceptibility artifacts or prior lacunar infarcts. Ventricles and extra-axial spaces are normal. Clivus and pituitary gland are normal. Visualized posterior fossa and brainstem are also normal. Postcontrast images are negative for masses or vascular malformations. Small amount of plaque in the distal vertebral arteries. No occlusion. Dural venous sinuses are normal. Paranasal sinuses: Well aerated with no significant disease. Mastoid air cells: Normal. Calvarium and scalp: Normal. MR/MR head wo/w con [id number] IMPRESSION: 1. No evidence for metastatic disease to the brain. 2. Moderate small vessel ischemic disease similar to the prior study without s ignificant progression. 3. No acute infarct. 4. Moderate bilateral hippocampal atrophy.
[2024-01-11] MEDS: gadobenate dimeglumine 20 mL vial IV (14:54)
== END 2024-01-30 23:59 | disposition home or self-care (01) ==
PROVIDERS: Nurse Practitioner Family; PCP Family Medicine; Visit Provider Internal Medicine Medical Oncology
DX: C34.90 Malignant neoplasm of unspecified part of unspecified bronchus or lung
CPT/HCPCS: 36591; 70553; 71260; 80053; 85025; 96360; 99214; A9577; J1100; J7030; Q9967

== ENCOUNTER 2024-02-04 07:45 | Oncology outpatient (recurring) (ONCR) | payer MEDICARE, BC, SELFPAY ==
[2024-02-04 08:22] LABS: Basophils # 0.1 10^3/uL (0.0-0.1); Basophils % 0.8 %; Eosinophils # 0.9 10^3/uL (0.0-0.8); Hematocrit 41.5 % (37-53); Lymphocytes # 1.5 10^3/uL (0.8-4.8); Lymphocytes % 19.5 %; Mean Corpuscular Hemoglobin 33.7 pg (27-33); Mean Corpuscular Volume 105.1 fl (82-101); Mean Platelet Volume 9.7 fL (7.4-10.4); Monocytes # 0.7 10^3/uL (0.2-0.9); Monocytes % 9.8 %; Neutrophils % 56.7 %; Nucleated Red Blood Cells % 0 %; Platelet Count 302 10^3/cmm (157-399); Red Blood Count 3.95 10^6/uL (3.85-5.65); Red Cell Distribution Width 18.9 % (12.1-15.1); White Blood Count 7.58 10^3/uL (3.29-11.43)
[2024-02-04 08:26] LABS: Alanine Aminotransferase 11 U/L (0-41); Albumin Level 3.9 g/dL (3.5-5.2); Alkaline Phosphatase 94 U/L (40-130); Anion Gap 14.1 (5-19); Aspartate Amino Transferase 18 U/L (0-40); Blood Urea Nitrogen 17 mg/dL (8-23); Calcium 8.8 mg/dL (8.5-10.5); Carbon Dioxide 29 mmol/L (22-29); Chloride 103 mmol/L (98-107); Creatinine Clr Calc Pharmacy 82.2017; Globulin 2.7 g/dL (1.3-4.6); Glucose 139 mg/dL (65-115); Osmolality Calculated 298 mOsm/kg (285-295); Potassium 4.1 mmol/L (3.5-5.1); Sodium 142 mmol/L (136-145); Total Bilirubin 0.4 mg/dL (0.15-1.2); Total Protein 6.6 g/dL (6.6-8.7)
[2024-02-04] MEDS: durvalumab 1,500 MG in sodium chloride 0.9% 250 ML 280 MG IV (09:32)
[2024-02-04] MEDS: sodium chloride 0.9% 250 ML 75 ML IV (09:32)
[2024-02-04 10:05] LABS: Thyroid Stimulating Hormone 1.59 uIU/mL (0.27-4.20)
[2024-02-04 10:32] LABS: Hepatitis A Antibody IgM Non-Reactive (Nonreactive); Hepatitis B Core AB, Total Non-Reactive (Nonreactive); Hepatitis B Surface Antigen Non-Reactive (Nonreactive); Hepatitis C Virus Antibody Non-Reactive (Nonreactive)
[2024-02-04 10:52] VITALS: BP 140/72; PULSE 62; RESP 17; TEMP 36.6; O2SAT 93
[2024-02-04 11:03] LABS: Hepatitis B Surface AB < 3.5 (11.5-1000)
== END 2024-02-04 23:59 | disposition home or self-care (01) ==
PROVIDERS: Nurse Practitioner Family; PCP Family Medicine; Visit Provider Internal Medicine Medical Oncology
DX: C34.01 Malignant neoplasm of right main bronchus; Z79.69 Long term (current) use of other immunomodulators and immunosuppressants; Z92.3 Personal history of irradiation; Z79.899 Other long term (current) drug therapy; Z51.12 Encounter for antineoplastic immunotherapy; R53.83 Other fatigue
CPT/HCPCS: 80053; 84443; 85025; 86705; 86706; 86709; 86803; 87340; 96413; 99214; A4222; J7050; J9173

== ENCOUNTER 2024-03-03 07:35 | Oncology outpatient (recurring) (ONCR) | payer MEDICARE, BC, SELFPAY ==
[2024-03-03 08:06] LABS: Basophils # 0.1 10^3/uL (0.0-0.1); Basophils % 0.8 %; Eosinophils # 0.8 10^3/uL (0.0-0.8); Eosinophils % 9.9 %; Hematocrit 41.6 % (37-53); Lymphocytes # 1.4 10^3/uL (0.8-4.8); Lymphocytes % 17.8 %; Mean Corpuscular HGB Conc 32.7 g/dL (30-55); Mean Corpuscular Hemoglobin 32.7 pg (27-33); Mean Platelet Volume 9.1 fL (7.4-10.4); Monocytes # 0.8 10^3/uL (0.2-0.9); Monocytes % 10.3 %; Neutrophils # 4.65 10^3/uL (1.8-7.7); Neutrophils % 60.4 %; Nucleated Red Blood Cells % 0 %; Platelet Count 318 10^3/cmm (157-399); Red Blood Count 4.16 10^6/uL (3.85-5.65); Red Cell Distribution Width 15.8 % (12.1-15.1); White Blood Count 7.69 10^3/uL (3.29-11.43)
[2024-03-03 08:34] LABS: Alanine Aminotransferase 12 U/L (0-41); Albumin Level 3.9 g/dL (3.5-5.2); Alkaline Phosphatase 96 U/L (40-130); Anion Gap 10.2 (5-19); Aspartate Amino Transferase 18 U/L (0-40); Blood Urea Nitrogen 13 mg/dL (8-23); Calcium 9.4 mg/dL (8.5-10.5); Carbon Dioxide 29 mmol/L (22-29); Chloride 101 mmol/L (98-107); Creatinine Clr Calc Pharmacy 72.2917; Globulin 2.9 g/dL (1.3-4.6); Glucose 129 mg/dL (65-115); Osmolality Calculated 284 mOsm/kg (285-295); Potassium 4.2 mmol/L (3.5-5.1); Sodium 136 mmol/L (136-145); Thyroid Stimulating Hormone 3.05 uIU/mL (0.27-4.20); Total Bilirubin 0.4 mg/dL (0.15-1.2); Total Protein 6.8 g/dL (6.6-8.7)
[2024-03-03 08:56] LABS: Iron 50 ug/dL (59-158); Percent Saturation 22.3 % (20-50); Total Iron Binding Capacity 224 mcg/dl; Unsaturated Iron Binding 174 ug/dL (112-347)
[2024-03-03] MEDS: durvalumab 1,500 MG in sodium chloride 0.9% 250 ML 280 MG IV (09:17)
[2024-03-03 10:35] VITALS: BP 138/84; PULSE 68; RESP 17; TEMP 36.4; O2SAT 95
== END 2024-03-03 23:59 | disposition home or self-care (01) ==
PROVIDERS: Nurse Practitioner Family; PCP Family Medicine; Visit Provider Internal Medicine Hematology & Oncology
DX: C34.01 Malignant neoplasm of right main bronchus; F17.210 Nicotine dependence, cigarettes, uncomplicated; Z95.828 Presence of other vascular implants and grafts; Z79.69 Long term (current) use of other immunomodulators and immunosuppressants; Z92.3 Personal history of irradiation; R53.1 Weakness; E27.8 Other specified disorders of adrenal gland; J43.9 Emphysema, unspecified; Z79.899 Other long term (current) drug therapy; Z51.12 Encounter for antineoplastic immunotherapy
CPT/HCPCS: 80053; 83540; 83550; 84443; 85025; 96413; 99214; A4222; J7050; J9173

== ENCOUNTER → 2024-03-24 13:23 | Outpatient (BNVA) | payer MEDICARE, BC, SELFPAY | PROVIDERS: PCP Family Medicine; Visit Provider Family Medicine | DX: Z13.220 Encounter for screening for lipoid disorders (principal); I25.10 Atherosclerotic heart disease of native coronary artery without angina pectoris | CPT/HCPCS: 80061 ==

== ENCOUNTER 2024-03-31 07:39 | Oncology outpatient (recurring) (ONCR) | payer MEDICARE, BC, SELFPAY ==
[2024-03-31 08:02] LABS: Basophils # 0.1 10^3/uL (0.0-0.1); Basophils % 0.6 %; Eosinophils # 0.6 10^3/uL (0.0-0.8); Eosinophils % 7.2 %; Hematocrit 40.2 % (37-53); Lymphocytes # 1.4 10^3/uL (0.8-4.8); Lymphocytes % 17.6 %; Mean Corpuscular HGB Conc 32.1 g/dL (30-55); Mean Corpuscular Hemoglobin 31.8 pg (27-33); Mean Platelet Volume 9.2 fL (7.4-10.4); Monocytes # 0.6 10^3/uL (0.2-0.9); Monocytes % 7.7 %; Neutrophils # 5.29 10^3/uL (1.8-7.7); Neutrophils % 65.9 %; Nucleated Red Blood Cells % 0 %; Platelet Count 324 10^3/cmm (157-399); Red Blood Count 4.06 10^6/uL (3.85-5.65); Red Cell Distribution Width 14.8 % (12.1-15.1); White Blood Count 8.03 10^3/uL (3.29-11.43)
[2024-03-31 08:33] LABS: Alanine Aminotransferase 20 U/L (0-41); Albumin Level 3.9 g/dL (3.5-5.2); Alkaline Phosphatase 85 U/L (40-130); Aspartate Amino Transferase 19 U/L (0-40); Blood Urea Nitrogen 14 mg/dL (8-23); Calcium 8.7 mg/dL (8.5-10.5); Carbon Dioxide 29 mmol/L (22-29); Chloride 94 mmol/L (98-107); Globulin 2.8 g/dL (1.3-4.6); Glucose 119 mg/dL (65-115); Osmolality Calculated 274 mOsm/kg (285-295); Sodium 131 mmol/L (136-145); Thyroid Stimulating Hormone 3.36 uIU/mL (0.27-4.20); Total Bilirubin 0.5 mg/dL (0.15-1.2); Total Protein 6.7 g/dL (6.6-8.7)
[2024-03-31] MEDS: durvalumab 1,500 MG in sodium chloride 0.9% 250 ML 280 MG IV (09:48)
[2024-03-31 10:52] VITALS: BP 135/75; PULSE 75; TEMP 37.1; O2SAT 96
[2024-04-01 04:53] LABS: Estmated Average Glucose 105; Hemoglobin A1C 5.3 % (4.0-6.0)
== END 2024-03-31 23:59 | disposition home or self-care (01) ==
PROVIDERS: Nurse Practitioner Family; PCP Family Medicine; Visit Provider Internal Medicine Hematology & Oncology
DX: C34.01 Malignant neoplasm of right main bronchus; Z79.69 Long term (current) use of other immunomodulators and immunosuppressants; Z79.899 Other long term (current) drug therapy; Z51.12 Encounter for antineoplastic immunotherapy; F17.210 Nicotine dependence, cigarettes, uncomplicated; Z92.3 Personal history of irradiation
CPT/HCPCS: 80053; 83036; 84443; 85025; 96413; 99214; A4222; J7050; J9173

== ENCOUNTER 2024-05-23 10:00 | Oncology outpatient (recurring) (ONCR) | payer MEDICARE, BC, SELFPAY ==
[2024-05-04 09:36] LABS: Basophils # 0.1 10^3/uL (0.0-0.1); Basophils % 0.7 %; Eosinophils # 0.5 10^3/uL (0.0-0.8); Eosinophils % 6.1 %; Lymphocytes # 1.6 10^3/uL (0.8-4.8); Lymphocytes % 21.1 %; Mean Corpuscular HGB Conc 32.4 g/dL (30-55); Mean Corpuscular Hemoglobin 32.8 pg (27-33); Mean Corpuscular Volume 101.2 fl (82-101); Monocytes # 0.7 10^3/uL (0.2-0.9); Monocytes % 9.7 %; Neutrophils # 4.46 10^3/uL (1.8-7.7); Neutrophils % 60.8 %; Nucleated Red Blood Cells % 0 %; Platelet Count 278 10^3/cmm (157-399); Red Blood Count 4.15 10^6/uL (3.85-5.65); Red Cell Distribution Width 16.4 % (12.1-15.1); White Blood Count 7.34 10^3/uL (3.29-11.43)
[2024-05-04 09:57] LABS: Alanine Aminotransferase 19 U/L (0-41); Alkaline Phosphatase 78 U/L (40-130); Anion Gap 13.4 (5-19); Aspartate Amino Transferase 16 U/L (0-40); Blood Urea Nitrogen 18 mg/dL (8-23); Calcium 9.1 mg/dL (8.5-10.5); Carbon Dioxide 28 mmol/L (22-29); Chloride 101 mmol/L (98-107); Globulin 2.5 g/dL (1.3-4.6); Glucose 95 mg/dL (65-115); Lactate Dehydrogenase 154 U/L (135-225); Magnesium 2.1 mg/dL (1.7-2.3); Osmolality Calculated 288 mOsm/kg (285-295); Potassium 4.4 mmol/L (3.5-5.1); Sodium 138 mmol/L (136-145); Thyroid Stimulating Hormone 4.07 uIU/mL (0.27-4.20); Total Bilirubin 0.3 mg/dL (0.15-1.2); Total Protein 6.5 g/dL (6.6-8.7)
--- NOTE | 2024-05-18 08:00 | CTR_ITS ---
PROCEDURE INFORMATION: Exam: CT Chest With Contrast; Diagnostic Exam date and time: 05/18/2024 8:23 AM Age: 78 years old Clinical indication: Condition or disease; Lung condition and disease; Cancer of the lung; Bilateral; Unspecified; Primary cancer: Lung cancer; Prior surgery; Surgery date: 6+ months; Surgery type: Port; Additional info: Surveillance TECHNIQUE: Imaging protocol: Diagnostic computed tomography of the chest with contrast. Radiation optimization: All CT scans at this facility use at least one of these dose optimization techniques: automated exposure control; mA and/or kV adjustment per patient size (includes targeted exams where dose is matched to clinical indication); or iterative reconstruction. Contrast material: OMNI 350; Contrast volume: 100 ml; Contrast route: INTRAVENOUS (IV); COMPARISON: CT chest w con* [id number] 12/31/2023 8:12 AM RADIATION DOSE METRICS: Total DLP (mGy-cm): 304.17 FINDINGS: Tubes, catheters and devices: Left chest wall port is in place with its distal catheter tip at the cavoatrial junction. Thyroid: Subcentimeter left thyroid nodules measuring less than 5 mm. Trachea: Similar appearance of frothy secretions within the distal trachea. Lungs: Moderate to severe centrilobular emphysema. Scattered tree-in-bud nodularity and ground-glass opacity seen in the dependent portions of the right middle and lower lobes. Scattered tree-in-bud nodularity in the left upper lobe/lingula. Right basilar and left lingular atelectasis/scarring. Pleural spaces: Unremarkable. No pneumothorax. No pleural effusion. Heart: Unremarkable. No cardiomegaly. No pericardial effusion. Coronary arteries: Moderate coronary artery calcification. Lymph nodes: Decreasing prominence of mediastinal lymph nodes largest of which is a precarinal lymph node measuring 7 mm in the short axis. Right hilar lymph node measures 8 mm in the short axis on this examination. Vasculature: Calcification of the aortic arch in the descending thoracic aorta. No central or lobar pulmonary embolism. Gallbladder and biliary ducts: Status post cholecystectomy. Adrenal glands: Redemonstrated left adrenal nodule measuring 13 mm likely representing an adrenal adenoma. Stomach: Stable postsurgical changes from gastric bypass and/or sleeve gastrectomy.. Bones/joints: Chronic posterior right rib fractures. No acute fracture or dislocation. Soft tissues: Mass demonstrated on PET-CT from 10/13/[address] chest from 08/12/2023 similarly appears nearly completely resolved with minimal residual soft tissue noted. CT/CT chest w con* [id number] IMPRESSION: 1. Stable appearance of minimal residual soft tissue at the sarah from previously demonstrated carinal mass. 2. Decreasing mediastinal lymph nodes measuring up to 8 mm in the short axis. 3. New interval appearance of tree-in-bud nodularity seen in the dependent portions of the right middle and lower lobes as well as the left upper lobe suggesting infectious or inflammatory bronchiolitis. Linear subsegmental atelectasis and/or scarring in the lingula and right lower lobe. 4. Moderate to severe centrilobular emphysema. 5. Stable left adrenal nodule. 6. Moderate to severe coronary artery calcification. 7. Other findings as described in the body of the report. COMMENTS: Consistent with the [place] [employer]'s Incidental Findings Committee white paper (J Am Mumtaz Radiol 2015): In patients aged 35 years and older with an incidental thyroid nodule equal to or greater than 1.[address], MRI or extrathyroidal US, further evaluation with dedicated thyroid US is recommended for patients with normal life expectancy and without comorbidities. For smaller nodules without suspicious features, no further evaluation or follow up is recommended.
[2024-05-18] MEDS: iohexol 350 mg/mL 500 mL Btl (per mL) IV (08:22)
[2024-05-23 10:26] LABS: Basophils # 0.1 10^3/uL (0.0-0.1); Basophils % 0.6 %; Eosinophils # 0.4 10^3/uL (0.0-0.8); Eosinophils % 4.5 %; Lymphocytes # 1.7 10^3/uL (0.8-4.8); Lymphocytes % 20.8 %; Mean Corpuscular HGB Conc 31.8 g/dL (30-55); Mean Corpuscular Hemoglobin 31.9 pg (27-33); Mean Corpuscular Volume 100.3 fl (82-101); Monocytes # 0.8 10^3/uL (0.2-0.9); Monocytes % 9.3 %; Neutrophils # 5.09 10^3/uL (1.8-7.7); Neutrophils % 63.2 %; Nucleated Red Blood Cells % 0 %; Platelet Count 356 10^3/cmm (157-399); Red Blood Count 3.89 10^6/uL (3.85-5.65); Red Cell Distribution Width 16.2 % (12.1-15.1); White Blood Count 8.06 10^3/uL (3.29-11.43)
[2024-05-23 10:40] LABS: Alanine Aminotransferase 14 U/L (0-41); Albumin Level 3.7 g/dL (3.5-5.2); Alkaline Phosphatase 81 U/L (40-130); Anion Gap 11.6 (5-19); Aspartate Amino Transferase 20 U/L (0-40); Blood Urea Nitrogen 14 mg/dL (8-23); Calcium 9.5 mg/dL (8.5-10.5); Carbon Dioxide 30 mmol/L (22-29); Chloride 102 mmol/L (98-107); Globulin 3.1 g/dL (1.3-4.6); Glucose 160 mg/dL (65-115); Osmolality Calculated 292 mOsm/kg (285-295); Potassium 4.6 mmol/L (3.5-5.1); Sodium 139 mmol/L (136-145); Total Bilirubin 0.5 mg/dL (0.15-1.2); Total Protein 6.8 g/dL (6.6-8.7)
[2024-05-23 12:03] VITALS: BP 123/79; PULSE 63; RESP 17; TEMP 36.4; O2SAT 93
[2024-05-23] MEDS: durvalumab 1,500 MG in sodium chloride 0.9% 250 ML 280 MG IV (12:39)
[2024-05-23 13:48] VITALS: BP 134/74; PULSE 73; RESP 17; TEMP 36.5; O2SAT 97
== END 2024-05-23 23:59 | disposition home or self-care (01) ==
PROVIDERS: Internal Medicine Hematology & Oncology; PCP Family Medicine; Visit Provider Nurse Practitioner Family
DX: Z51.12 Encounter for antineoplastic immunotherapy (principal); Z53.9 Procedure and treatment not carried out, unspecified reason; C34.01 Malignant neoplasm of right main bronchus; F17.210 Nicotine dependence, cigarettes, uncomplicated; Z95.828 Presence of other vascular implants and grafts; Z92.3 Personal history of irradiation; Z79.899 Other long term (current) drug therapy; E78.5 Hyperlipidemia, unspecified
CPT/HCPCS: 36591; 71260; 80053; 83615; 83735; 84443; 85025; 96413; 99214; A4222; J7050; J9173

== ENCOUNTER 2024-06-07 11:33 | Emergency (ER) | payer MEDICARE, BC, SELFPAY ==
[2024-06-07 11:49] VITALS: BP 78/50; PULSE 98; RESP 22; TEMP 36.3; O2SAT 100
--- NOTE | 2024-06-07 11:58 | CTR_ITS ---
PROCEDURE INFORMATION: Exam: CT Head Without Contrast Exam date and time: 06/07/2024 12:32 PM Age: 78 years old Clinical indication: Injury or trauma; Fall; Other: Dizzy and weak; Additional info: Multiple falls overnight, dizzy and weak TECHNIQUE: Imaging protocol: Computed tomography of the head without contrast. Radiation optimization: All CT scans at this facility use at least one of these dose optimization techniques: automated exposure control; mA and/or kV adjustment per patient size (includes targeted exams where dose is matched to clinical indication); or iterative reconstruction. COMPARISON: MR head wo/w con [id number] 01/11/2024 2:32 PM RADIATION DOSE METRICS: Total DLP (mGy-cm): 1140.43 FINDINGS: Brain: There is diffuse cerebral atrophy and chronic microvascular white matter disease. There is no significant mass effect or midline shift. There is no acute intracranial hemorrhage. Cerebral ventricles: There is mild ex vacuo dilation of the lateral ventricles. The basal cisterns are unremarkable. Paranasal sinuses: The paranasal sinuses are clear. Mastoid air cells: The mastoid air cells are clear. Bones: The calvarium is intact. Soft tissues: The visible extracranial soft tissues are unremarkable. CT/CT head wo con* [id number] IMPRESSION: No acute intracranial abnormality.
--- NOTE | 2024-06-07 11:58 | XRR_ITS ---
PROCEDURE INFORMATION: Exam: XR Abdomen Exam date and time: 06/07/2024 12:04 PM Age: 78 years old Clinical indication: Injury or trauma; Fall; Blunt; Generalized; Additional info: Fall, weakness, cough TECHNIQUE: Imaging protocol: Radiologic exam of the abdomen. Views: Frontal supine view of the abdomen. 1 View. COMPARISON: CT abdomen pelvis w con* [id number] 09/16/2022 6:33 PM FINDINGS: Gastrointestinal tract: The stomach is mildly gas distended. The colon is diffusely stool distended. No visibly dilated small bowel. There is a paucity of small bowel gas. Intraperitoneal space: No intraperitoneal free air. Organs: There are cholecystectomy clips in the right upper quadrant. Bones/joints: Moderate diffuse lumbar degenerative disease. Pelvis and hips are unremarkable as visualized. XR/XR KUB portable [id number] IMPRESSION: 1. No acute findings. 2. Mildly gas distended stomach of unknown significance. 3. Stool distended colon. This finding would support a clinical diagnosis of constipation.
--- NOTE | 2024-06-07 12:00 | W.ED.DIZZY ---
HPI - Dizziness General: Chief Complaint: Dizziness Stated Complaint: dizzy, falling down Time Seen by Provider: 06/07/24 11:50 History of Present Illness: HPI Narrative: 78-year-old male presents via private vehicle. Patient reports he has been having episodes of being dizzy and off balance since during the night last night. He reports that he fell 7-8 times if not more. He reports that he is fine till he gets up and walks then after couple steps he just goes down. Patient is a cancer patient receives chemo. His last chemo dose was about 3 weeks ago. He has a chronic cough that is similar to previous with no increase in this. No reports of fever or chills. No vision changes. No focalized weakness. Associated symptoms: Denies chest pain, chills, nausea, palpitations or vomiting Related Data Home Medications Medication Instructions Recorded Confirmed midodrine 10 mg tablet 10 mg PO DAILY 03/31/24 06/07/24 pravastatin 20 mg tablet 20 mg PO DAILY low blood pressure 06/07/24 06/07/24 Previous Rx's Medication Instructions Recorded cyclobenzaprine 10 mg tablet 10 mg PO TID PRN muscle spasm #30 02/15/24 tabs hydrocodone 5 mg-acetaminophen 325 1 tab PO Q6H PRN pain 8 days #30 02/15/24 mg tablet tabs linaclotide 145 mcg capsule 145 mcg PO QAM #30 caps 02/15/24 (Linzess) propranolol 10 mg tablet 10 mg PO BID PRN tremor #60 tabs 03/14/24 megestrol 400 mg/10 mL (10 mL) 400 mg (10 mL) PO DAILY #300 mL 05/02/24 oral suspension Allergies Allergy/AdvReac Type Severity Reaction Status Date / Time No Known Allergies Allergy Verified 06/07/24 11:53 Review of Systems Const: Denies: fever(s) or chills Card: Denies: chest pain or palpitations Resp: Reports: productive cough; Denies: dyspnea GI: Denies: abdominal pain, nausea or vomiting : Denies: flank pain or difficulty urinating Neuro: Reports: frequent falls and dizziness [facility] ED PFSH: Medical History Non-small cell lung cancer Port-A-Cath in place 11/03/23 Dr Ambrose Abuse of smoked substance Carotid stenosis Abnormal nuclear stress test Weight loss [place] (dyspnea on exertion) Fatigue Anemia Elevated PSA Surgical History History of splenectomy History of right-sided carotid endarterectomy S/P cholecystectomy H/O cataract removal with insertion of prosthetic lens Family History Family/Other Diabetes Brother Diabetes Heart attack, Onset Age: 40 Mother , in her 80's No problems noted. Father , IN HIS 70'S No problems noted. Denies family history of Rheumatoid arthritis Lupus CAD (coronary artery disease) Clotting disorder Dementia Hyperlipidemia Chronic kidney disease (CKD) Suicide Anesthesia complication Bleeding disorder Lung disease Cancer Hypertension Stroke Social History Smoking and tobacco/nicotine status: current every day tobacco/nicotine user cigarettes Packs smoked per day: 1 Years cigarettes smoked: 65 Alcohol intake: current Alcohol intake frequency: few times a week Alcohol type: beer Substance/Drug Use: never Caregiver/support person: Yes Lives independently: Yes Marital status: Current occupational status: retired Current gender identity: Male Physical Exam Const: COMMON NORMALS: patient oriented x3 GENERAL APPEARANCE: frail appearing Eye: COMMON NORMALS: Equal, round and reactive pupils present and EOMs intact bilaterally PUPIL: Yes Equal, round and reactive pupils present Resp: COMMON NORMALS: normal respiratory effort, No retractions, No use of accessory muscles and clear to auscultation bilaterally AUSCULTATION: clear to auscultation bilaterally Cardio: COMMON NORMALS: regular rhythm RATE: tachycardic RHYTHM: regular rhythm GI: COMMON NORMALS: Soft to palpation and non-tender PALPATION: Yes Soft to palpation Neuro: COMMON NORMALS: patient oriented x3, moves all extremities, no focal motor deficits and no sensory deficits noted Psych: COMMON NORMALS: mental status grossly normal, Normal thought process present and speech normal APPEARANCE: Yes disheveled SPEECH: Yes normal speech THOUGHT PROCESS: Normal thought process present Course Vital Signs: Vital signs: Vital Signs Temperature 97.4 F L 06/07/24 11:49 Pulse Rate 79 06/07/24 13:08 Respiratory Rate 14 06/07/24 13:08 Blood Pressure 117/67 06/07/24 13:08 Pulse Oximetry 100 06/07/24 13:08 Oxygen Delivery Me thod Room Air 06/07/24 11:49 MDM - Dizziness Medical Decision Making Patient's diagnostic studies were ordered reviewed interpreted by me. Patient does have a decrease in his hemoglobin from 10 from his prior ones. He also has a elevated BUN. I did discuss with him my concerns for potential bleed possibly small bowel. He was offered a rectal but kindly declined. Patient was given some IV fluids and felt a lot better. He did ambulate and felt that the dizziness had resolved. I did have a long discussion with him regarding the need to follow-up with his primary care provider to ensure that his hemoglobin and anemia is rechecked. Patient was ready to be discharged home and was discharged as requested. He was stable with recommendations for close follow-up. Lab Data 06/07/24 12:20 06/07/24 12:[address] 06/07/24 11:58 IMPRESSION: No acute intracranial abnormality. KUB X-Ray 06/07/24 11:58 IMPRESSION: 1. No acute findings. 2. Mildly gas distended stomach of unknown significance. 3. Stool distended colon. This finding would support a clinical diagnosis of constipation. Laboratory Results WBC 8.73 10^3/uL (3.29-11.43) 06/07/24 12:20 RBC 3.19 10^6/uL (3.85-5.65) L 06/07/24 12:20 Hgb 10.00 g/dL (11.27-16.99) L 06/07/24 12:20 Hct 32.1 % (37-53) L 06/07/24 12:20 MCV 100.6 fl (82-101) 06/07/24 12:20 MCH 31.3 pg (27-33) 06/07/24 12:20 MCHC 31.2 g/dL (30-55) 06/07/24 12:20 RDW 16.1 % (12.1-15.1) H 06/07/24 12:20 Plt Count 322 10^3/cmm (157-399) 06/07/24 12:20 MPV 9.0 fL (7.4-10.4) 06/07/24 12:20 Lymph % (Auto) Not Reportable 06/07/24 12:20 Villalba % (Auto) Not Reportable 06/07/24 12:20 Lymph # (Auto) Not Reportable 06/07/24 12:20 Villalba # (Auto) Not Reportable 06/07/24 12:20 Total Counted 100 (0-100) 06/07/24 12:20 Atypical Lymphs % 0.0 % (0-5) 06/07/24 12:20 Absolute Neutrophils 6.5 10^3/cmm (1.4-6.5) 06/07/24 12:20 Segmented Neutrophils 74 % 06/07/24 12:20 Band Neutrophils 1.0 % 06/07/24 12:20 Absolute Lymphocytes 1.3 10^3/cmm (1.2-3.4) 06/07/24 12:20 Lymphocytes (Manual) 15 % 06/07/24 12:20 Monocytes (Manual) 5.0 % 06/07/24 12:20 Absolute Monocytes 0.4 10^3/cmm (0.1-0.6) 06/07/24 12:20 Eosinophils (Manual) 0 % 06/07/24 12:20 Absolute Eosinophils 0.0 10^3/cmm (0.0-0.7) 06/07/24 12:20 Basophils (Manual) 0.0 % 06/07/24 12:20 Absolute Basophils 0.0 10^3/cmm (0.0-0.2) 06/07/24 12:20 Metamyelocytes 2.0 % 06/07/24 12:20 Myelocytes 2.0 % 06/07/24 12:20 Nucleated RBCs 1.0 /100WBC (0-1) 06/07/24 12:20 Platelet Estimate Normal (Normal) 06/07/24 12:20 Giant Platelets Trace 06/07/24 12:20 Polychromasia Trace 06/07/24 12:20 Anisocytosis 2+ H 06/07/24 12:20 Macrocytosis 2+ H 06/07/24 12:20 Sodium 138 mmol/L (136-145) 06/07/24 12:20 Potassium 4.9 mmol/L (3.5-5.1) 06/07/24 12:20 Chloride 101 mmol/L (98-107) 06/07/24 12:20 Carbon Dioxide 27 mmol/L (22-29) 06/07/24 12:20 Anion Gap 14.9 (5-19) 06/07/24 12:20 BUN 68 mg/dL (8-23) H 06/07/24 12:20 Creatinine 0.8 mg/dL (0.7-1.2) 06/07/24 12:20 GFR Calculation Not Reportable 06/07/24 12:20 Glucose 121 mg/dL (65-115) H 06/07/24 12:20 Calculated Osmolality 307 mOsm/kg (285-295) H 06/07/24 12:20 Lactic Acid 1.3 mmol/L (0.5-2.2) 06/07/24 12:20 Calcium 9.2 mg/dL (8.5-10.5) 06/07/24 12:20 Magnesium 2.1 mg/dL (1.7-2.3) 06/07/24 12:20 Total Bilirubin 0.3 mg/dL (0.15-1.2) 06/07/24 12:20 AST 10 U/L (0-40) 06/07/24 12:20 ALT 9 U/L (0-41) 06/07/24 12:20 Alkaline Phosphatase 71 U/L (40-130) 06/07/24 12:20 Total Protein 6.2 g/dL (6.6-8.7) L 06/07/24 12:20 Albumin 3.8 g/dL (3.5-5.2) 06/07/24 12:20 Globulin 2.4 g/dL (1.3-4.6) 06/07/24 12:20 All radiology interpretation(s) finalized by discharge Discharge Plan Discharge Patient Disposition: Home Clinical Impression: Dizziness, Anemia, Elevated BUN Condition: Stable Prescriptions: No Action cyclobenzaprine 10 mg tablet 10 mg PO TID PRN (Reason: muscle spasm) Qty: 30 0RF hydrocodone-acetaminophen 5-325 mg tablet 1 tab PO Q6H PRN (Reason: pain) 8 Days Qty: 30 0RF Linzess 145 mcg capsule 145 mcg PO QAM Qty: 30 3RF midodrine 10 mg tablet 10 mg PO DAILY propranolol 10 mg tablet 10 mg PO BID PRN (Reason: tremor) Qty: 60 6RF Hold Instructions: Home Medication placed on hold at Doctor's office megestrol 400 mg/10 mL (10 mL) suspension 400 mg PO DAILY Qty: 300 2RF pravastatin 20 mg tablet 20 mg PO DAILY Discharge Orders: Discharge ED (Routine); Ordered 06/07/24 Ordered By: Jordan Camacho Referrals: Albin Bah MD [Primary Care Provider] - Discharge Diet: Usual diet Discharge Activity: Increase activity as tolerated Patient Instructions: Lightheadedness (ED), Anemia (ED), Opioid Safety, Pain Management Activity Restrictions/Additional Instructions: Please follow-up with your primary care provider in the next 1 to 2 days for further evaluation of your anemia and recheck of your labs. Return to the ER with any concerns. Coding Level of Care Code ED Tempering Machine Operator for Eugene Angel
--- NOTE | 2024-06-07 12:14 | XRR_ITS ---
PROCEDURE INFORMATION: Exam: XR Chest Exam date and time: 06/07/2024 12:18 PM Age: 78 years old Clinical indication: Cough; Additional info: Cough, weakness TECHNIQUE: Imaging protocol: Radiologic exam of the chest. Views: 1 view. COMPARISON: CT chest w con* [id number] 05/18/2024 8:23 AM FINDINGS: Tubes, catheters and devices: Accessed left MediPort with tip terminating at the cavoatrial junction. Lungs: Hyperinflation with hyperlucency. No focal consolidation. Pleural spaces: No pleural effusions. No pneumothorax. Heart/Mediastinum: Unremarkable. No cardiomegaly. Vasculature: Tortuous calcified aorta. Bones/joints: Unremarkable. XR/XR chest 1V portable [id number] IMPRESSION: No acute cardiopulmonary findings. Emphysema.
[2024-06-07 12:28] LABS: Hematocrit 32.1 % (37-53); Mean Corpuscular HGB Conc 31.2 g/dL (30-55); Mean Corpuscular Hemoglobin 31.3 pg (27-33); Mean Corpuscular Volume 100.6 fl (82-101); Platelet Count 322 10^3/cmm (157-399); Red Blood Count 3.19 10^6/uL (3.85-5.65); Red Cell Distribution Width 16.1 % (12.1-15.1); White Blood Count 8.73 10^3/uL (3.29-11.43)
[2024-06-07] MEDS: sodium chloride 0.9% 1,000 ML 999 ML IV (12:37)
[2024-06-07 12:40] LABS: Slide Review Slide Review Perform
[2024-06-07 12:47] LABS: Absolute Segmented Neutrophil 6.5 10/cmm (1.6-7.1); Segmented Neutrophils 74 %; Total Cells Counted 100 (0-100)
[2024-06-07 12:48] LABS: Absolute Neutrophil 6.5 10^3/cmm (1.4-6.5); Anisocytosis 2+; Band Neutrophils Absolute 0.1 10^3/cmm (0.0-1.2); Eosinophils 0 %; Giant Platelets Trace; Lymphocytes 15 %; Lymphocytes Absolute 1.3 10^3/cmm (1.2-3.4); Macrocytosis 2+; Monocytes Absolute 0.4 10^3/cmm (0.1-0.6); Platelet Estimate Normal (Normal); Polychromasia Trace
[2024-06-07 12:51] LABS: Lactic Sepsis W/Reflex 1.3 mmol/L (0.5-2.2)
[2024-06-07 12:52] LABS: Alanine Aminotransferase 9 U/L (0-41); Albumin Level 3.8 g/dL (3.5-5.2); Alkaline Phosphatase 71 U/L (40-130); Anion Gap 14.9 (5-19); Aspartate Amino Transferase 10 U/L (0-40); Blood Urea Nitrogen 68 mg/dL (8-23); Calcium 9.2 mg/dL (8.5-10.5); Carbon Dioxide 27 mmol/L (22-29); Chloride 101 mmol/L (98-107); Creatinine Clr Calc Pharmacy 68.0385; Globulin 2.4 g/dL (1.3-4.6); Glucose 121 mg/dL (65-115); Magnesium 2.1 mg/dL (1.7-2.3); Osmolality Calculated 307 mOsm/kg (285-295); Potassium 4.9 mmol/L (3.5-5.1); Sodium 138 mmol/L (136-145); Total Bilirubin 0.3 mg/dL (0.15-1.2); Total Protein 6.2 g/dL (6.6-8.7)
[2024-06-07 13:08] VITALS: BP 117/67; PULSE 79; RESP 14; O2SAT 100
[2024-06-07 14:08] VITALS: BP 144/80; PULSE 86; O2SAT 96
--- NOTE | 2024-06-07 16:08 | ECG_ITS ---
[facility] Date: 2024-06[facility]07 Pat Name: Vlad Dugan Department: Room: Gender: Male Hub Borer: DAVID: 1945 Requested By: Jordan Camacho Order Number: [id number] Marilee MD: Davide Ugarte M.D. Measurements Intervals [place] Rate: 98 P: 87 [place]: 150 QRS: 37 QRSD: 110 T: 48 QT: 375 QTc: 479 Interpretive Statements SINUS RHYTHM INCOMPLETE RIGHT BUNDLE BRANCH BLOCK [90+ ms QRS DURATION, TERMINAL R IN V1/V2, 40+ ms S IN I/aVL/V4/V5/V6] JUNCTIONAL ST DEPRESSION, CONSIDER NORMAL VARIANT [0.1+ mV JUNCTIONAL DEPRESSION] Compared to ECG 02/09/2023 07:45:05 Incomplete right bundle-branch block now present ST (T wave) deviation now present Right bundle-branch block no longer present Electronically Signed On 06-07-2024 21:13:46 DECORATOR INSPECTOR by Davide Ugarte M.D. [email or web address]
== END 2024-06-07 14:11 | disposition home or self-care (01) ==
PROVIDERS: Emergency Provider Student in an Organized Health Care Education/Training Program; PCP Family Medicine
DX: R42 Dizziness and giddiness (principal); D64.9 Anemia, unspecified; R79.0 Abnormal level of blood mineral; F17.210 Nicotine dependence, cigarettes, uncomplicated; Z85.118 Personal history of other malignant neoplasm of bronchus and lung
CPT/HCPCS: 36415; 70450; 71045; 74018; 80053; 83605; 83735; 85007; 85025; 93005; 96360; 99285; J7030

== ENCOUNTER → 2024-06-13 14:01 | Outpatient (BNVA) | payer MEDICARE, BC, SELFPAY | PROVIDERS: PCP Family Medicine; Visit Provider Family Medicine | DX: D64.9 Anemia, unspecified (principal); Z51.81 Encounter for therapeutic drug level monitoring | CPT/HCPCS: 80053; 83615; 85025 ==

== ENCOUNTER 2024-06-14 13:18 | Observation (INO) | payer MEDICARE, BC, SELFPAY ==
[2024-06-14] VITALS (7 sets, daily range): BP systolic 111–155; BP diastolic 61–81; PULSE 81–87; RESP 16–24; TEMP 36.4–36.7; O2SAT 93–99; BMI 18.1
[2024-06-14 14:04] LABS: Basophils % 0.5 %; Eosinophils # 0.2 10^3/uL (0.0-0.8); Eosinophils % 3.6 %; Hematocrit 28.7 % (37-53); Lymphocytes # 1.1 10^3/uL (0.8-4.8); Lymphocytes % 18.5 %; Mean Corpuscular HGB Conc 30.3 g/dL (30-55); Mean Corpuscular Hemoglobin 32.2 pg (27-33); Mean Corpuscular Volume 106.3 fl (82-101); Monocytes # 0.6 10^3/uL (0.2-0.9); Monocytes % 10.2 %; Neutrophils # 3.95 10^3/uL (1.8-7.7); Neutrophils % 65.1 %; Nucleated Red Blood Cells # 0.1 /100WBC; Platelet Count 352 10^3/cmm (157-399); Red Cell Distribution Width 19.5 % (12.1-15.1); White Blood Count 6.07 10^3/uL (3.29-11.43)
[2024-06-14 14:21] LABS: INR 0.96 (0.8-1.2)
[2024-06-14 14:25] LABS: Alanine Aminotransferase 9 U/L (0-41); Albumin Level 3.8 g/dL (3.5-5.2); Alkaline Phosphatase 75 U/L (40-130); Anion Gap 12.1 (5-19); Aspartate Amino Transferase 16 U/L (0-40); Blood Urea Nitrogen 19 mg/dL (8-23); Calcium 9.2 mg/dL (8.5-10.5); Carbon Dioxide 30 mmol/L (22-29); Chloride 97 mmol/L (98-107); Creatinine Clr Calc Pharmacy 68.5115; Globulin 2.6 g/dL (1.3-4.6); Glucose 108 mg/dL (65-115); Osmolality Calculated 283 mOsm/kg (285-295); Potassium 4.1 mmol/L (3.5-5.1); Sodium 135 mmol/L (136-145); Total Bilirubin 0.3 mg/dL (0.15-1.2); Total Protein 6.4 g/dL (6.6-8.7)
--- NOTE | 2024-06-14 15:24 | ED_ITS ---
HPI - General Adult 2 General: Chief complaint: General Medical Stated complaint: (reff) loosing blood Time Seen by Provider: 06/14/24 13:40 History of Present Illness: 78-year-old male with history of broncho genic lung cancer brought into the emergency room at the direction of his primary care doctor for decreasing hemoglobin. Patient was seen yesterday and his hemoglobin had been 10 on June 07 on June 13 it was 9.2 was checked today after he arrived here and is down to 8.7. Patient reports feeling lightheaded dizzy has had some falls at home he denies any injuries related to the falls. He has had dark stool but no tarry texture to the school stool he has not had any obvious bright red blood he has not had any hematemesis or coffee-ground emesis. Associated symptoms: Deny chest pain, dyspnea or rash Related Data Home Medications Medication Instructions Recorded Confirmed pravastatin 20 mg tablet 20 mg PO DAILY low blood pressure 06/07/24 06/14/24 propranolol 10 mg tablet 10 mg PO BID 06/14/24 06/14/24 Previous Rx's Medication Instructions Recorded cyclobenzaprine 10 mg tablet 10 mg PO TID PRN muscle spasm #30 02/15/24 tabs hydrocodone 5 mg-acetaminophen 325 1 tab PO Q6H PRN pain 8 days #30 02/15/24 mg tablet tabs linaclotide 145 mcg capsule 145 mcg PO QAM #30 caps 02/15/24 (Linzess) megestrol 400 mg/10 mL (10 mL) 400 mg (10 mL) PO DAILY #300 mL 05/02/24 oral suspension midodrine 10 mg tablet 10 mg PO TID #90 tabs 06/14/24 Allergies Allergy/AdvReac Type Severity Reaction Status Date / Time No Known Allergies Allergy Verified 06/14/24 13:41 Review of Systems 2 Const: Denies: fever(s) or chills Card: Denies: chest pain Resp: Denies: dyspnea GI: Denies: abdominal pain : Denies: dysuria, urinary frequency or urinary urgency Musc: Denies: neck pain or back pain Skin/Breast: Denies: rash PFSH ED 2 PFSH: Medical History Non-small cell lung cancer Port-A-Cath in place 11/03/23 Dr Ambrose Abuse of smoked substance Carotid stenosis Abnormal nuclear stress test Weight loss [place] (dyspnea on exertion) Fatigue Anemia Elevated PSA Surgical History History of splenectomy History of right-sided carotid endarterectomy S/P cholecystectomy H/O cataract removal with insertion of prosthetic lens Family History Family/Other Diabetes Brother Diabetes Heart attack, Onset Age: 40 Mother , in her 80's No problems noted. Father , IN HIS 70'S No problems noted. Denies family history of Rheumatoid arthritis Lupus CAD (coronary artery disease) Clotting disorder Dementia Hyperlipidemia Chronic kidney disease (CKD) Suicide Anesthesia complication Bleeding disorder Lung disease Cancer Hypertension Stroke Social History Smoking and tobacco/nicotine status: former use of tobacco/nicotine Alcohol intake: current Alcohol intake frequency: few times a week Alcohol type: beer Substance/Drug Use: never Caregiver/support person: Yes Lives independently: Yes Marital status: Current occupational status: retired Current gender identity: Male Physical Exam 2 Const: COMMON NORMALS: no acute distress GENERAL APPEARANCE: cooperative and comfortable ORIENTATION/CONSCIOUSNESS: Yes awake, Yes oriented to person, Yes oriented to place and Yes oriented to time HENMT: COMMON NORMALS: normocephalic, atraumatic and hearing grossly normal bilaterally HEAD & SCALP: normocephalic and atraumatic Resp: COMMON NORMALS: normal respiratory effort, No retractions, No use of accessory muscles and clear to auscultation bilaterally AUSCULTATION: clear to auscultation bilaterally Cardio: COMMON NORMALS: regular rate, regular rhythm and No murmurs present (Cardio) RATE: regular rate RHYTHM: regular rhythm GI: COMMON NORMALS: Soft to palpation and No hepatosplenomegaly present A USCULTATION: Yes normoactive bowel sounds PALPATION: Yes Soft to palpation, No Tenderness to palpation present (GI), No Guarding due to palpation present (GI) and Yes No hepatosplenomegaly present OTHER: Rectal exam markedly heme positive obviously melanotic stool Extremity: COMMON NORMALS: normal to inspection, capillary refill normal, no clubbing, cyanosis or edema, no calf tenderness and no pedal edema Neuro: SENSORIUM/ORIENTATION: Yes oriented to person, Yes oriented to place and Yes oriented to time Skin: COMMON NORMALS: no rashes or lesions noted GENERAL SKIN EXAM: no rashes or lesions noted Course 2 Vital Signs: Vital signs: Vital Signs Temperature 97.5 F L 06/14/24 13:34 Pulse Rate 87 06/14/24 13:34 Respiratory Rate 24 H 06/14/24 13:34 Blood Pressure 123/61 06/14/24 15:27 Pulse Oximetry 98 06/14/24 13:34 Oxygen Delivery Me thod Room Air 06/14/24 13:34 MDM - General Adult Medical Decision Making Markedly heme positive stool obviously melanotic on exam. Discussed with the patient likely has upper GI bleed given history of factor loss will watch him overnight keep him n.p.o. start IV Protonix consult general surgery. Lab Data 06/14/24 13:56 06/14/24 13:56 Radiology Impressions Abdomen/Pelvis CT 06/14/24 15:35 IMPRESSION: 1. Interval increase in right posterior pleural-based nodule which measures 1.8 cm in transverse diameter. For both low risk and high risk patients, consider CT Chest at 3 months, PET/CT or biopsy. (Reference: Annabel) 2. No gross evidence of bleeding however, this is not a CTA study for evaluation of bleeding. REFERENCES: Annabel Bangura, et al. Guidelines for Management of Incidental Pulmonary Nodules Detected on CT Images: From the Fleischner Society 2017. Radiology. 2017;284(1):228-243. Laboratory Results WBC 6.07 10^3/uL (3.29-11.43) 06/14/24 13:56 RBC 2.70 10^6/uL (3.85-5.65) L 06/14/24 13:56 Hgb 8.70 g/dL (11.27-16.99) L 06/14/24 13:56 Hct 28.7 % (37-53) L 06/14/24 13:56 MCV 106.3 fl (82-101) H 06/14/24 13:56 MCH 32.2 pg (27-33) 06/14/24 13:56 MCHC 30.3 g/dL (30-55) 06/14/24 13:56 RDW 19.5 % (12.1-15.1) H 06/14/24 13:56 Plt Count 352 10^3/cmm (157-399) 06/14/24 13:56 MPV 9.0 fL (7.4-10.4) 06/14/24 13:56 Neut % (Auto) 65.1 % 06/14/24 13:56 Lymph % (Auto) 18.5 % 06/14/24 13:56 Levy % (Auto) 10.2 % 06/14/24 13:56 Eos % (Auto) 3.6 % 06/14/24 13:56 Baso % (Auto) 0.5 % 06/14/24 13:56 Neut # (Auto) 3.95 10^3/uL (1.8-7.7) 06/14/24 13:56 Lymph # (Auto) 1.1 10^3/uL (0.8-4.8) 06/14/24 13:56 Levy # (Auto) 0.6 10^3/uL (0.2-0.9) 06/14/24 13:56 Eos # (Auto) 0.2 10^3/uL (0.0-0.8) 06/14/24 13:56 Baso # (Auto) 0.0 10^3/uL (0.0-0.1) 06/14/24 13:56 Nucleated RBC % (auto) 1.0 % 06/14/24 13:56 Nucleated RBCs # 0.1 /100WBC 06/14/24 13:56 PT 13.50 SECONDS (12.1-14.9) 06/14/24 13:56 INR 0.96 (0.8-1.2) 06/14/24 13:56 Sodium 135 mmol/L (136-145) L 06/14/24 13:56 Potassium 4.1 mmol/L (3.5-5.1) 06/14/24 13:56 Chloride 97 mmol/L (98-107) L 06/14/24 13:56 Carbon Dioxide 30 mmol/L (22-29) H 06/14/24 13:56 Anion Gap 12.1 (5-19) 06/14/24 13:56 BUN 19 mg/dL (8-23) 06/14/24 13:56 Creatinine 0.7 mg/dL (0.7-1.2) 06/14/24 13:56 GFR Calculation Not Reportable 06/14/24 13:56 Glucose 108 mg/dL (65-115) 06/14/24 13:56 Calculated Osmolality 283 mOsm/kg (285-295) L 06/14/24 13:56 Calcium 9.2 mg/dL (8.5-10.5) 06/14/24 13:56 Total Bilirubin 0.3 mg/dL (0.15-1.2) 06/14/24 13:56 AST 16 U/L (0-40) 06/14/24 13:56 ALT 9 U/L (0-41) 06/14/24 13:56 Alkaline Phosphatase 75 U/L (40-130) 06/14/24 13:56 Total Protein 6.4 g/dL (6.6-8.7) L 06/14/24 13:56 Albumin 3.8 g/dL (3.5-5.2) 06/14/24 13:56 Globulin 2.6 g/dL (1.3-4.6) 06/14/24 13:56 All radiology interpretation(s) finalized by discharge Discharge Plan Discharge Patient Disposition: Admitted As Inpatient Clinical Impression: Acute upper GI bleed, Lung cancer Condition: Stable Prescriptions: No Action cyclobenzaprine 10 mg tablet 10 mg PO TID PRN (Reason: muscle spasm) Qty: 30 0RF hydrocodone-acetaminophen 5-325 mg tablet 1 tab PO Q6H PRN (Reason: pain) 8 Days Qty: 30 0RF Linzess 145 mcg capsule 145 mcg PO QAM Qty: 30 3RF megestrol 400 mg/10 mL (10 mL) suspension 400 mg PO DAILY Qty: 300 2RF midodrine 10 mg tablet 10 mg PO TID Qty: 90 6RF propranolol 10 mg tablet 10 mg PO BID pravastatin 20 mg tablet 20 mg PO DAILY Referrals: Albin Bah MD [Primary Care Provider] - Patient Instructions: Opioid Safety, Pain Management Coding Level of Care Code 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
--- NOTE | 2024-06-14 15:35 | CTR_ITS ---
PROCEDURE INFORMATION: Exam: CT Abdomen And Pelvis With Contrast Exam date and time: 06/14/2024 4:08 PM Age: 78 years old Clinical indication: Other: Gi bleed TECHNIQUE: Imaging protocol: Computed tomography of the abdomen and pelvis with contrast. Radiation optimization: All CT scans at this facility use at least one of these dose optimization techniques: automated exposure control; mA and/or kV adjustment per patient size (includes targeted exams where dose is matched to clinical indication); or iterative reconstruction. Contrast material: OMNIPAQUE 350; Contrast volume: 100 ml; Contrast route: INTRAVENOUS (IV); COMPARISON: PT PET skull to thigh INIT [id number] 10/13/2023 9:30 AM RADIATION DOSE METRICS: Total DLP (mGy-cm): 440.33 FINDINGS: Lungs: Interval increase in size of the right posterior pleural-based nodule which measures 1.8 cm in transverse diameter. Right basal and lingular scarring remain unchanged. Liver: The liver is unremarkable. Gallbladder and biliary ducts: Post cholecystectomy. Pancreas: Pancreas is unremarkable. No ductal dilation or peripancreatic inflammation. Spleen: Post splenectomy. Adrenal glands: Stable left adrenal nodule. Kidneys and ureters: No hydronephrosis or nephrolithiasis. Stomach and bowel: Stable 13 mm calcification in the right posterior aspect of the rectum. The stomach is distended. Status post sleeve gastrectomy. Small and large bowel are normal in caliber without evidence of obstruction. Appendix: Appendix is unremarkable. Intraperitoneal space: No free intraperitoneal air. No fluid collection. Vasculature: There is no aortic aneurysm. There is severe atherosclerotic disease. Lymph nodes: No pathologically enlarged lymph nodes (by short axis size criteria). Urinary bladder: No focal wall thickening of the urinary bladder. Reproductive: Visualized portions of the male reproductive tract are unremarkable, though routine CT is limited in this regard. Bones/joints: No acute osseous abnormality. Stable 7.5 mm sclerotic focus in the L1 vertebral body. There is degenerative disease of the spine. Soft tissues: Bilateral fat containing inguinal hernia. CT/CT abdomen pelvis w con* [id number] IMPRESSION: 1. Interval increase in right posterior pleural-based nodule which measures 1.8 cm in transverse diameter. For both low risk and high risk patients, consider CT Chest at 3 months, PET/CT or biopsy. (Reference: Annabel) 2. No gross evidence of bleeding however, this is not a CTA study for evaluation of bleeding. REFERENCES: Annabel H, et al. Guidelines for Management of Incidental Pulmonary Nodules Detected on CT Images: From the Fleischner Society 2017. Radiology. 2017;284(1):228-243.
[2024-06-14] MEDS: iohexol 350 mg/mL 500 mL Btl (per mL) IV (16:09)
[2024-06-14] MEDS: pantoprazole 40 mg SDV 80 MG IVP (17:14)
--- NOTE | 2024-06-14 17:54 | P.HP_ITS ---
Providers/Chief Complaint 2 Primary Care Provider: Albin Bah MD Chief Complaint: (reff) loosing blood History of Present Illness Vlad Dugan is a 78 year old male With past medical history of non-small cell lung cancer, carotid stenosis, fatigue, anemia currently on immunotherapy Imfinzi maintenance treatment who previously finished concurrent chemoradiation presented to the hospital today after being sent in by his primary care doctor for decreasing hemoglobin. He was seen yesterday and his hemoglobin was 10 on June and on June 13 was 9.2. After arrival to the ER it dropped to 8.7. Patient has been reporting lightheadedness and dizziness and having frequent falls at home. He states he has always been dizzy for a long time however this time he was asked to come to the hospital. He states he feels fine and he has been eating okay as well. Patient is agitated that he will not be allowed to eat however is amenable to having an EGD done in the morning. He denies having any injuries related to his falls. He does report dark stools. He has not had any bright red blood in the stool. Denies any hematemesis or coffee-ground emesis. Denies hematuria. Denies nausea vomiting abdominal pain. ER course: 123/61 respiratory 24, pulse 87, temperature 97.5, saturating 98% on room air. Rectal exam done by ER doctor shows heme positive stool melanotic in appearance. He was given IV Protonix. General surgery was consulted.. Medications/Allergies Home Medications Medication Instructions Recorded Confirmed Last Taken Type cyclobenzaprine 10 mg tablet 10 mg PO TID PRN muscle spasm #30 02/15/24 06/14/24 Unknown Rx tabs hydrocodone 5 mg-acetaminophen 325 1 tab PO Q6H PRN pain 8 days #30 02/15/24 06/14/24 Unknown Rx mg tablet tabs linaclotide 145 mcg capsule 145 mcg PO QAM #30 caps 02/15/24 06/14/24 Unknown Rx (Linzess) megestrol 400 mg/10 mL (10 mL) 400 mg (10 mL) PO DAILY #300 mL 05/02/24 06/14/24 Unknown Rx oral suspension pravastatin 20 mg tablet 20 mg PO DAILY low blood pressure 06/07/24 06/14/24 Unknown History midodrine 10 mg tablet 10 mg PO TID #90 tabs 06/14/24 06/14/24 Unknown Rx propranolol 10 mg tablet 10 mg PO BID 06/14/24 06/14/24 Unknown History Allergies Allergy/AdvReac Type Severity Reaction Status Date / Time No Known Allergies Allergy Verified 06/14/24 13:41 PFSH Acute 2 PFSH: Medical History Non-small cell lung cancer Port-A-Cath in place 11/03/23 Dr Ambrose Abuse of smoked substance Carotid stenosis Abnormal nuclear stress test Weight loss [place] (dyspnea on exertion) Fatigue Anemia Elevated PSA Surgical History History of splenectomy History of right-sided carotid endarterectomy S/P cholecystectomy H/O cataract removal with insertion of prosthetic lens Family History Family/Other Diabetes Brother Diabetes Heart attack, Onset Age: 40 Mother , in her 80's No problems noted. Father , IN HIS 70'S No problems noted. Denies family history of Rheumatoid arthritis Lupus CAD (coronary artery disease) Clotting disorder Dementia Hyperlipidemia Chronic kidney disease (CKD) Suicide Anesthesia complication Bleeding disorder Lung disease Cancer Hypertension Stroke Social History Smoking and tobacco/nicotine status: former use of tobacco/nicotine Alcohol intake: current Alcohol intake frequency: few times a week Alcohol type: beer Substance/Drug Use: never Caregiver/support person: Yes Lives independently: Yes Marital status: Current occupational status: retired Current gender identity: Male Vitals/I&O/Wt Last Vital Signs Temp 97.5 F L 06/14/24 13:34 Pulse 83 06/14/24 17:30 Resp 24 H 06/14/24 13:34 BP 155/72 06/14/24 17:30 Pulse Ox 99 06/14/24 17:30 O2 Del Method Room Air 06/14/24 17:30 Weight last 48 hrs Weight 65.771 kg Physical Exam 2 Narrative: General: Alert oriented x3, patient seen laying in bed, no acute distress HEENT: Normocephalic, atraumatic, EOMI, breathing room air Cardio: Regular rate rhythm, normal S1-S2, Respiratory: Good bilateral air entry, no wheezes no rhonchi appreciated GI: Abdomen soft, nontender, nondistended, bowel sounds + Extremities: no edema Data 06/15/24 05:36 06/15/24 05:36 A&P Assessment and plan (1) Status post carotid endarterectomy: (2) Dyslipidemia: (3) Acute upper GI bleed: (4) Anemia: Qualifiers: Anemia type: unspecified type Qualified Code(s): D64.9 - Anemia, unspecified (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 Patient has been feeling lightheaded dizziness and dizzy and was seen by primary care. Serial hemoglobins were being followed. Hemoglobin dropped to to 9.2. Upon coming to the hospital hemoglobin was 8.5. Patient is having melanotic stools. ? General Surgery has been consulted from the ER. ? Check CBC every 12 hours ? N.p.o. ? Plan for EGD in a.m. ? Threshold to transfer hemoglobin less than 7 ? Patient did get Protonix 80 IV x 1 in the ER ? Placed on Protonix 40 IV twice daily - He has completed chemoradiation as an outpatient is currently on maintenance treatment medication. - Normal saline 75 cc/hr - Check UA, - CT abdomen pelvis showed: 1. Interval increase in right posterior pleural- based nodule which measures 1.8 cm in transverse diameter. For both low risk and high risk patients, consider CT Chest at 3 months, PET/CT or biopsy. (Reference: Annabel) 2. No gross evidence of bleeding however, this is not a CTA study for evaluation of bleeding. -I will check iron studies. DVT PPX: Mechanical SCDS, Pharmacological contraindicated at this time Attestations 2 Medical Necessity Statement*: Upper gi bleed, observation admission. Expect less than 2 midnight stay at this time. Diagnoses Status post carotid endarterectomy Z98.890 Dyslipidemia E78.5 Acute upper GI bleed K92.2 Anemia, unspecified type D64.9 Anemia type: unspecified type Squamous cell carcinoma of right lung C34.91 Laterality: right Fatigue R53.83 Frequent falls R29.6 Lightheaded R42
--- NOTE | 2024-06-14 17:56 | P.CONIM_ITS ---
Providers/Reason For Consult 2 Consulting Physician/Specialty*: General Surgery Reason for Consult*: Upper GI bleeding Primary Care Provider: Albin Bah MD History of Present Illness History of Present Illness Vlad Dugan is a 78 year old male who presents to the hospital after being evaluated in the outpatient clinic and noted to have a trending down hemoglobin. Patient also states that he has been feeling dizzy for couple of days and today he saw 1 episode of melena. No abdominal pain. Review of Systems 2 General: Reports: 10 or more systems reviewed and unremarkable except in HPI and below Medications/Allergies Home Medications Medication Instructions Recorded Confirmed Last Taken Type cyclobenzaprine 10 mg tablet 10 mg PO TID PRN muscle spasm #30 02/15/24 06/14/24 Unknown Rx tabs hydrocodone 5 mg-acetaminophen 325 1 tab PO Q6H PRN pain 8 days #30 02/15/24 06/14/24 Unknown Rx mg tablet tabs linaclotide 145 mcg capsule 145 mcg PO QAM #30 caps 02/15/24 06/14/24 Unknown Rx (Linzess) megestrol 400 mg/10 mL (10 mL) 400 mg (10 mL) PO DAILY #300 mL 05/02/24 06/14/24 Unknown Rx oral suspension pravastatin 20 mg tablet 20 mg PO DAILY low blood pressure 06/07/24 06/14/24 Unknown History midodrine 10 mg tablet 10 mg PO TID #90 tabs 06/14/24 06/14/24 Unknown Rx propranolol 10 mg tablet 10 mg PO BID 06/14/24 06/14/24 Unknown History Allergies Allergy/AdvReac Type Severity Reaction Status Date / Time No Known Allergies Allergy Verified 06/14/24 13:41 PFSH Acute 2 PFSH: Medical History Non-small cell lung cancer Port-A-Cath in place 11/03/23 Dr Ambrose Abuse of smoked substance Carotid stenosis Abnormal nuclear stress test Weight loss [place] (dyspnea on exertion) Fatigue Anemia Elevated PSA Surgical History History of splenectomy History of right-sided carotid endarterectomy S/P cholecystectomy H/O cataract removal with insertion of prosthetic lens Family History Family/Other Diabetes Brother Diabetes Heart attack, Onset Age: 40 Mother , in her 80's No problems noted. Father , IN HIS 70'S No problems noted. Denies family history of Rheumatoid arthritis Lupus CAD (coronary artery disease) Clotting disorder Dementia Hyperlipidemia Chronic kidney disease (CKD) Suicide Anesthesia complication Bleeding disorder Lung disease Cancer Hypertension Stroke Social History Smoking and tobacco/nicotine status: former use of tobacco/nicotine Alcohol intake: current Alcohol intake frequency: few times a week Alcohol type: beer Substance/Drug Use: never Caregiver/support person: Yes Lives independently: Yes Marital status: Current occupational status: retired Current gender identity: Male Vitals/I&O/Wt Last Vital Signs Temp 97.5 F L 06/14/24 13:34 Pulse 83 06/14/24 17:30 Resp 24 H 06/14/24 13:34 BP 155/72 06/14/24 17:30 Pulse Ox 99 06/14/24 17:30 O2 Del Method Room Air 06/14/24 17:30 Weight last 48 hrs Weight 145 lb Physical Exam 2 Narrative: General : Patient is well developed , no acute distress, oriented x3 Head : Normal cephalic, a-traumatic. Nose : Mucous membranes are without erythema. Lungs : Equal chest rise bilaterally, no use of accessory muscles, trachea is midline. CV : Rate and rhythm are normal. Abdomen : Soft, ND, NT, no g/r/m Extremities : No edema. Upper extremities are normal bilaterally. Back : non-tender to palpation, no CVA tenderness. Data 06/14/24 13:56 06/14/24 13:56 A&P Assessment and plan (1) Acute upper GI bleed: Plan After complete history, physical examination and review of all available clinical data the following is my assessment. Patient will benefit from upper endoscopy for evaluation of possible upper GI bleeding. I discussed all the risks and benefits of the procedure including the risk of recurrent bleeding, lack of bleeding control, need for additional interventions, need for transfer to higher level of care, perforation, injury to soft tissue of mouth and pharynx. Patient shows understanding wishes to proceed. We will schedule procedure for tomorrow morning, in the interim patient can have clear liquids tonight and should be n.p.o. after midnight. I recommend high-dose PPI and every 6 hours Carafate. Coding Level of Care Code 22997 Diagnoses Acute upper GI bleed K92.2
[2024-06-14] MEDS: sodium chloride 0.9% 1,000 ML 75 ML IV (18:28)
[2024-06-14 18:42] LABS: Basophils % 0.6 %; Eosinophils # 0.2 10^3/uL (0.0-0.8); Eosinophils % 4.4 %; Hematocrit 28.5 % (37-53); Lymphocytes # 0.7 10^3/uL (0.8-4.8); Lymphocytes % 15.2 %; Mean Corpuscular HGB Conc 30.2 g/dL (30-55); Mean Corpuscular Hemoglobin 32.2 pg (27-33); Mean Corpuscular Volume 106.7 fl (82-101); Mean Platelet Volume 9.4 fL (7.4-10.4); Monocytes # 0.2 10^3/uL (0.2-0.9); Monocytes % 4.9 %; Neutrophils # 3.36 10^3/uL (1.8-7.7); Neutrophils % 71.1 %; Nucleated Red Blood Cells # 0.1 /100WBC; Nucleated Red Blood Cells % 1.7 %; Platelet Count 321 10^3/cmm (157-399); Red Blood Count 2.67 10^6/uL (3.85-5.65); Red Cell Distribution Width 19.6 % (12.1-15.1); White Blood Count 4.73 10^3/uL (3.29-11.43)
[2024-06-14 18:42] LABS: Thyroid Stimulating Hormone 2.71 uIU/mL (0.27-4.20)
[2024-06-14 22:26] LABS: Bilirubin Urine Negative (Negative); Blood Urine Negative (Negative); Glucose Urine UA Negative (Normal); Ketones Urine Negative (Negative); Leukocyte Esterase Urine Negative (Negative); Nitrate Urine Negative (Negative); Protein Urine Trace (Negative); Urine Appearance Clear (CLEAR); Urine Color Yellow (Yellow); pH Urine 5.5 (5-7)
[2024-06-14 22:31] LABS: Bacteria Urine None Seen /hpf; RBC Urine 0-2 /hpf (0-2); Squamous Epithelial Cell Urine 0-5 /hpf (0-5); WBC Urine 0-5 /hpf (0-5)
[2024-06-14 22:47] LABS: Specific Gravity, Urine 1.064 (1.005-1.030)
[2024-06-15] VITALS (11 sets, daily range): BP systolic 103–149; BP diastolic 62–79; PULSE 76–86; RESP 15–18; TEMP 36.7–37.9; O2SAT 93–100
[2024-06-15] MEDS: pantoprazole 40 mg SDV IVP (05:01)
[2024-06-15 05:42] LABS: Basophils % 0.9 %; Eosinophils # 0.3 10^3/uL (0.0-0.8); Eosinophils % 5.7 %; Hematocrit 26.3 % (37-53); Lymphocytes # 0.9 10^3/uL (0.8-4.8); Mean Corpuscular HGB Conc 30.4 g/dL (30-55); Mean Corpuscular Hemoglobin 32.3 pg (27-33); Mean Platelet Volume 9.2 fL (7.4-10.4); Monocytes # 0.5 10^3/uL (0.2-0.9); Monocytes % 10.9 %; Neutrophils # 2.81 10^3/uL (1.8-7.7); Neutrophils % 61.3 %; Nucleated Red Blood Cells % 0.9 %; Platelet Count 322 10^3/cmm (157-399); Red Blood Count 2.48 10^6/uL (3.85-5.65); Red Cell Distribution Width 19.2 % (12.1-15.1); White Blood Count 4.58 10^3/uL (3.29-11.43)
[2024-06-15 06:11] LABS: INR 0.93 (0.8-1.2)
[2024-06-15 06:14] LABS: Alanine Aminotransferase 11 U/L (0-41); Albumin Level 3.5 g/dL (3.5-5.2); Alkaline Phosphatase 75 U/L (40-130); Anion Gap 12.5 (5-19); Aspartate Amino Transferase 10 U/L (0-40); Blood Urea Nitrogen 12 mg/dL (8-23); Calcium 8.9 mg/dL (8.5-10.5); Carbon Dioxide 28 mmol/L (22-29); Chloride 105 mmol/L (98-107); Creatinine Clr Calc Pharmacy 70.6844; Glucose 87 mg/dL (65-115); Magnesium 2.1 mg/dL (1.7-2.3); Osmolality Calculated 291 mOsm/kg (285-295); Phosphorus 3.1 mg/dL (2.5-4.5); Potassium 4.5 mmol/L (3.5-5.1); Sodium 141 mmol/L (136-145); Total Bilirubin 0.5 mg/dL (0.15-1.2); Total Protein 5.5 g/dL (6.6-8.7)
[2024-06-15] MEDS: sodium chloride 0.9% 1,000 ML 75 ML IV (08:00)
--- NOTE | 2024-06-15 09:23 | PC.CHAP ---
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 [] Patient/Family/Request visit [] Outpatient visit [] Follow-up visit [] Physician referral [] Code/Alert [] Routine visit [] Staff referral [] Actively dying [] Patient sleeping [] Family support [] [] Out of room [] Palliative care [] [] Receiving care in room [] Pre-surgical visit [] Trauma [] Long length of stay [] ICU visit [] Other: Relational/Emotional Strength [] Patient feels connected with others/family/visitors/staff [] Distress [] Loneliness/isolation [] Abandonment Spirituality of Patient [] Person of Anila [] Attends Buddhism of their Anila [] Believes in Prayer [] Reads Bible or Church materials [] There are Spiritual issues to be addressed Manager Support Services Interventions [] Prayer [] Active listening [] Non-anxious presence [] Spiritual/emotional support [] Crisis/trauma care [] Spiritual counseling [] Bereavement support [] Provided bereavement packet [] Provided Bible/devotional materials [] Provided toy/stuffed animal, coloring book to patient or family member [] Provided Communion [] Anointing/[place] [] Salvation [] Completed spiritual assessment [] Other: Impact on Illness or Injury [] Angry [] Fearful [] Anxious [] Often cries [] Exhaustion [] Unable to work [] Unable to attend yazidism [] Unable to walk/stand [] Unable to read [] Unable to drive [] Unable to eat/drink [] Unable to sleep [] Unable to be with family [] Patient intubated [] Other: Summary Time spent with patient
[2024-06-15 09:57] LABS: Reticulocyte % 8.9 % (0.5-2.0)
[2024-06-15 10:13] LABS: Ferritin 479 ng/mL (30-400); Iron 29 ug/dL (59-158); Percent Saturation 15.4 % (20-50); Total Iron Binding Capacity 188 mcg/dl; Unsaturated Iron Binding 159 ug/dL (112-347)
--- NOTE | 2024-06-15 11:34 | P.PN_ITS ---
Subjective 2 Subjective: Seen this morning. Patient awaiting to go for EGD. Hemoglobin 8.0 this morning. RDW 19.2, iron studies are pending at this time. Patient is quite agitated and would like to eat. Vitals/I&O/Wt Last Vital Signs Temp 98.4 F 06/15/24 07:18 Pulse 76 06/15/24 07:18 Resp 16 06/15/24 07:18 BP 125/75 06/15/24 07:18 Pulse Ox 94 06/15/24 07:18 O2 Del Method Room Air 06/15/24 07:46 06/14/24 06/15/24 06/15/24 22:59 06:59 14:59 Intake Total 0 / 0 0 / 0 1000 / 1000 Output Total 895 / 895 Balance 0 / 0 -895 / -895 1000 / 1000 Weight last 48 hrs Weight 67.857 kg Weight 65.771 kg Physical Exam 2 Narrative: General: Alert oriented x3, patient seen laying in bed, no acute distress HEENT: Normocephalic, atraumatic, EOMI, breathing room air Cardio: Regular rate rhythm, normal S1-S2, Respiratory: Good bilateral air entry, no wheezes no rhonchi appreciated GI: Abdomen soft, nontender, nondistended, bowel sounds + Extremities: no edema Data 06/15/24 05:36 06/15/24 05:36 Micro: Microbiology 06/14/24 18:33 Blood Culture - Preliminary Blood SPECIMEN COLLECTED 06/14/24 18:28 Blood Culture - Preliminary Blood SPECIMEN COLLECTED A&P Assessment and plan (1) Status post carotid endarterectomy: (2) Dyslipidemia: (3) Acute upper GI bleed: (4) Anemia: Qualifiers: Anemia type: unspecified type Qualified Code(s): D64.9 - Anemia, unspecified (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 Patient has been feeling lightheaded dizziness and dizzy and was seen by primary care. Serial hemoglobins were being followed. Hemoglobin dropped to to 9.2. Upon coming to the hospital hemoglobin was 8.5. Patient is having melanotic stools. ? General Surgery has been consulted from the ER. ? Check CBC every 12 hours ? N.p.o. ? Plan for EGD in a.m. ? Threshold to transfer hemoglobin less than 7 ? Patient did get Protonix 80 IV x 1 in the ER ? Placed on Protonix 40 IV twice daily - He has completed chemoradiation as an outpatient is currently on maintenance treatment medication. - Normal saline 75 cc/hr - Check UA, - CT abdomen pelvis showed: 1. Interval increase in right posterior pleural- based nodule which measures 1.8 cm in transverse diameter. For both low risk and high risk patients, consider CT Chest at 3 months, PET/CT or biopsy. (Reference: Annabel) 2. No gross evidence of bleeding however, this is not a CTA study for evaluation of bleeding. -I will check iron studies. DVT PPX: Mechanical SCDS, Pharmacological contraindicated at this time Coding Level of Care Code Acute Code for Chg Fwd Diagnoses Status post carotid endarterectomy Z98.890 Dyslipidemia E78.5 Acute upper GI bleed K92.2 Anemia, unspecified type D64.9 Anemia type: unspecified type Squamous cell carcinoma of right lung C34.91 Laterality: right Fatigue R53.83 Frequent falls R29.6 Lightheaded R42
--- NOTE | 2024-06-15 11:43 | P.HPUD_ITS ---
Surgery/Procedure H&P Update DATE OF PROCEDURE: June 15, 2024 DATE H&P PERFORMED: 06/14/24 H&P UPDATE INFORMATION: I have reviewed H&P completed within last 30 days, I have examined patient prior to procedure, No changes to prior documentation and H&P is in [facility] EMR on date indicated PLANNED PROCEDURE: Operation Date: 06/15/24 12:00 Proposed Procedures p EGD with bleeding control(Not Applicable) - Kwaku Dickerson MD
--- NOTE | 2024-06-15 11:52 | ANES.PREANE2 ---
Pre-Anesthetic Assessment Height/Weight: Height 1.91 m Weight 67.857 kg Temp Pulse Resp BP Pulse Ox O2 Del Method 98.2 F 79 15 148/76 94 Room Air 06/15/24 11:00 06/15/24 11:00 06/15/24 11:00 06/15/24 11:00 06/15/24 11:00 06/15/24 11:00 Preop Diagnosis: GI Bleed Operation Date: 06/15/24 12:00 Proposed Procedures p EGD with bleeding control(Not Applicable) - Kwaku Dickerson MD Familial anesthetic complications: none Was Beta Lizzy taken within 24 hours: Yes Was Clonidine taken within 24 hours: N/A Last intake: Intake Last Liquid Date 06/14/24 Last Solid Date 06/14/24 Social No alcohol and No tobacco 1 PPD pack(s) per day Exam alert, oriented x 3, clear to auscultation bilaterally and regular rate & rhythm Airway Submandibular: within normal limits Cervical ROM: within normal limits Mallampati: Class II Dentition: full History/ROS No significant history except as noted and No significant complaints Pulmonary Shortness of Breath Lung Cancer, radiation/chemo in the past CV/HEM Hypertension Kidney Stones and None reported Hepatic None reported GI None reported GI bleed Metabolic None reported Musc/skel None reported Neuropsych None reported Anesthetic Plan ASA status: 3 Anesthesia: MAC Risk of > 500 ml blood loss (7ml/kg in children): No Medications/Allergies Home Medications Medication Instructions Recorded Confirmed Last Taken Type cyclobenzaprine 10 mg tablet 10 mg PO TID PRN muscle spasm #30 02/15/24 06/14/24 Unknown Rx tabs hydrocodone 5 mg-acetaminophen 325 1 tab PO Q6H PRN pain 8 days #30 02/15/24 06/14/24 Unknown Rx mg tablet tabs linaclotide 145 mcg capsule 145 mcg PO QAM #30 caps 02/15/24 06/14/24 Unknown Rx (Linzess) megestrol 400 mg/10 mL (10 mL) 400 mg (10 mL) PO DAILY #300 mL 05/02/24 06/14/24 Unknown Rx oral suspension pravastatin 20 mg tablet 20 mg PO DAILY low blood pressure 06/07/24 06/14/24 Unknown History midodrine 10 mg tablet 10 mg PO TID #90 tabs 06/14/24 06/14/24 Unknown Rx propranolol 10 mg tablet 10 mg PO BID 06/14/24 06/14/24 Unknown History Allergies Allergy/AdvReac Type Severity Reaction Status Date / Time No Known Allergies Allergy Verified 06/14/24 13:41 Current Medications Generic Name Dose Route Start Last Admin Trade Name Della PRN Reason Stop Dose Admin Sodium Chloride 1,000 mls @ 75 mls/hr 06/14/24 18:00 06/15/24 08:00 Sodium Chloride 0.9% IV 75 mls/hr .[id number] GAURANG Administration Pantoprazole Sodium 40 mg 06/14/24 18:00 06/15/24 05:01 Pantoprazole 40 Mg Sdv IVP 40 mg Q12H GAURANG Administration PFSH Anesthesia Medical History Non-small cell lung cancer Port-A-Cath in place 11/03/23 Dr Ambrose Abuse of smoked substance Carotid stenosis Abnormal nuclear stress test Weight loss [place] (dyspnea on exertion) Fatigue Anemia Elevated PSA Surgical History History of splenectomy History of right-sided carotid endarterectomy S/P cholecystectomy H/O cataract removal with insertion of prosthetic lens Family History Family/Other Diabetes Brother Diabetes Heart attack, Onset Age: 40 Mother , in her 80's No problems noted. Father , IN HIS 70'S No problems noted. Denies family history of Rheumatoid arthritis Lupus CAD (coronary artery disease) Clotting disorder Dementia Hyperlipidemia Chronic kidney disease (CKD) Suicide Anesthesia complication Bleeding disorder Lung disease Cancer Hypertension Stroke Social History Smoking and tobacco/nicotine status: former use of tobacco/nicotine Alcohol intake: current Alcohol intake frequency: few times a week Alcohol type: beer Substance/Drug Use: never Caregiver/support person: Yes Lives independently: Yes Marital status: Current occupational status: retired Current gender identity: Male Data Anesthesia 06/15/24 05:36 06/15/24 05:36 Short CBC 06/14/24 06/14/24 06/15/24 Range/Units 13:56 18:28 05:36 WBC 6.07 4.73 4.58 (3.29-11.43) 10^3/uL Hgb 8.70 L 8.60 L 8.00 L (11.27-16.99) g/dL Hct 28.7 L 28.5 L 26.3 L (37-53) % MCV 106.3 H 106.7 H 106.0 H (82-101) fl Plt Count 352 321 322 (157-399) 10^3/cmm Neut % (Auto) 65.1 71.1 61.3 % Neut # (Auto) 3.95 3.36 2.81 (1.8-7.7) 10^3/uL BMP 06/14/24 06/15/24 13:56 05:36 Sodium 135 L 141 Potassium 4.1 4.5 Chloride 97 L 105 Carbon Dioxide 30 H 28 BUN 19 12 Creatinine 0.7 0.6 L Glucose 108 87 Calcium 9.2 8.9 Liver Function 06/14/24 06/15/24 Range/Units 13:56 05:36 Total Bilirubin 0.3 0.5 (0.15-1.2) mg/dL AST 16 10 (0-40) U/L ALT 9 11 (0-41) U/L Alkaline Phosphatase 75 75 (40-130) U/L Albumin 3.8 3.5 (3.5-5.2) g/dL Urine 06/14/24 Range/Units 22:08 Urine Color Yellow (Yellow) Urine Appearance Clear (CLEAR) Urine pH 5.5 (5-7) Ur Specific [place] 1.064 H (1.005-1.030) Urine Protein Trace A (Negative) Urine Glucose (UA) Negative (Normal) Urine Ketones Negative (Negative) Urine Nitrate Negative (Negative) Urine Bilirubin Negative (Negative) Ur Leukocyte Esterase Negative (Negative) Urine RBC 0-2 (0-2) /hpf Urine WBC 0-5 (0-5) /hpf Blood Bank 06/14/24 17:27 Blood Type A Positive Rho(D) Type Rh positive Antibody Screen Negative Coags 06/14/24 06/15/24 13:56 05:36 PT 13.50 13.20 INR 0.96 0.93 Microbiology 06/14/24 18:33 Blood Culture - Preliminary Blood SPECIMEN COLLECTED 06/14/24 18:28 Blood Culture - Preliminary Blood SPECIMEN COLLECTED Cardiac Studies: Echocardiogram Ultrasound 04/06/20 Sestamibi Stress Test (Cardiology) 02/07/20
--- NOTE | 2024-06-15 12:30 | P.MISC_ITS ---
Miscellaneous Note Purpose of Documentation: Update on patient care Note: EGD was done this afternoon, there was no evidence of active bleeding at this time. There was 2 spots in the stomach that may have been related to previous episode of bleeding but not currently bleeding, no need for endoscopic therapy. I took a biopsy of the antrum. My recommendation is to continue him on high- dose PPI as well as Carafate for the next 4 to 6 weeks. If he continues to have a downtrend in the hemoglobin I may consider offering him lower endoscopy as outpatient. Patient is cleared to start diet from the surgical standpoint.
--- NOTE | 2024-06-15 12:51 | ANE.PACU2 ---
Inpatient post-anesthesia follow up: Airway intact: Yes Vital signs: Temperature 99.7 F Pulse Rate 82 Respiratory Rate 18 Blood Pressure 137/79 Pulse Oximetry 97 Oxygen Delivery Me thod Room Air Oxygen Flow Rate Fraction of Inspir ed Oxygen Hydration adequate: Yes Nausea and vomiting: No Pain level: 1 Mental status: Baseline
--- NOTE | 2024-06-15 12:58 | PM.DCS ---
Discharge Providers Date of Admission: 06/14/24 17:57 Date of Discharge: June 15, 2024 Attending Provider at Admission: Leola Rosen MD Attending Provider at Discharge: Leola Rosen MD Primary Care Provider: Albin Bah MD Diagnoses at Discharge Discharge Diagnosis (1) Status post carotid endarterectomy: Status: Acute (2) Dyslipidemia: Status: Acute (3) Acute upper GI bleed: Status: Acute (4) Anemia: Status: Acute Qualifiers: Anemia type: unspecified type Qualified Code(s): D64.9 - Anemia, unspecified (5) Squamous cell carcinoma lung: Status: Acute Qualifiers: Laterality: right Qualified Code(s): C34.91 - Malignant neoplasm of unspecified part of right bronchus or lung Permanent problem details: Biopsy positive on 09/14/23 - at [facility] in [place] (6) Fatigue: Status: Acute (7) Frequent falls: Status: Acute (8) Lightheaded: Status: Acute Reason for Visit Reason for Visit: (reff) loosing blood Hospital Course Hospital Course Vlad Dugan is a 78 year old male With past medical history of non-small cell lung cancer, carotid stenosis, fatigue, anemia currently on immunotherapy Imfinzi maintenance treatment who previously finished concurrent chemoradiation presented to the hospital today after being sent in by his primary care doctor for decreasing hemoglobin. He was seen yesterday and his hemoglobin was 10 on June and on June 13 was 9.2. After arrival to the ER it dropped to 8.7. Patient has been reporting lightheadedness and dizziness and having frequent falls at home. He states he has always been dizzy for a long time however this time he was asked to come to the hospital. He states he feels fine and he has been eating okay as well. Patient is agitated that he will not be allowed to eat however is amenable to having an EGD done in the morning. He denies having any injuries related to his falls. He does report dark stools. He has not had any bright red blood in the stool. Denies any hematemesis or coffee-ground emesis. Denies hematuria. Denies nausea vomiting abdominal pain. ER course: 123/61 respiratory 24, pulse 87, temperature 97.5, saturating 98% on room air. Rectal exam done by ER doctor shows heme positive stool melanotic in appearance. He was given IV Protonix. General surgery was consulted.. Patient underwent an EGD in a.m. There was no evidence of active bleeding however there were 2 spots in the stomach that may have been related to previous episode of bleeding but not currently bleeding noted need for endoscopic therapy. Biopsy of the antrum was obtained. Recommendation from general surgery to continue on high-dose PPI as well as Carafate for next 4 to 6 weeks. If patient's hemoglobin continues to downtrend he may consider offering the patient a colonoscopy as an outpatient. He may follow-up with general surgery in 2 weeks as an outpatient and have repeat labs done. He will be discharged home in stable condition at this time. Right after EGD patient has been requesting to go home. Physical Exam Narrative: General : Patient is well developed , no acute distress, oriented x3 Head : Normal cephalic, a-traumatic. Nose : Mucous membranes are without erythema. Lungs : Equal chest rise bilaterally, no use of accessory muscles, trachea is midline. CV : Rate and rhythm are normal. Abdomen : Soft, ND, NT, no g/r/m Extremities : No edema. Upper extremities are normal bilaterally. Back : non-tender to palpation, no CVA tenderness. Discharge Data Studies Completed and Pending Completed Studies During Hospitalization Category Date Time Status CT abdomen pelvis w con* [id number] Stat Cat Scan 06/14/24 15:35 Completed Pending at discharge Category Date Time Status Blood Culture Stat Lab 06/14/24 18:33 Results Complete Blood Count w/Auto Q12H Lab 06/15/24 17:48 Ordered Complete Blood Count w/Auto Q12H Lab 06/16/24 05:48 Ordered Complete Blood Count w/Auto Q12H Lab 06/16/24 17:48 Ordered Complete Blood Count w/Auto Q12H Lab 06/17/24 05:48 Ordered Occult Blood Stool [Immunochemical Fecal OCB] Routine Lab 06/14/24 17:31 Ordered Urine Culture Stat Lab 06/14/24 22:08 Received Pathology: Surgical [PTH] Routine Pth 06/15/24 12:23 Ordered Radiology Impressions Abdomen/Pelvis CT 06/14/24 15:35 IMPRESSION: 1. Interval increase in right posterior pleural-based nodule which measures 1.8 cm in transverse diameter. For both low risk and high risk patients, consider CT Chest at 3 months, PET/CT or biopsy. (Reference: Annabel) 2. No gross evidence of bleeding however, this is not a CTA study for evaluation of bleeding. REFERENCES: Annabel Bangura, et al. Guidelines for Management of Incidental Pulmonary Nodules Detected on CT Images: From the Fleischner Society 2017. Radiology. 2017;284(1):228-243. Laboratory Results WBC 4.58 10^3/uL (3.29-11.43) 06/15/24 05:36 RBC 2.48 10^6/uL (3.85-5.65) L 06/15/24 05:36 Hgb 8.00 g/dL (11.27-16.99) L 06/15/24 05:36 Hct 26.3 % (37-53) L 06/15/24 05:36 MCV 106.0 fl (82-101) H 06/15/24 05:36 MCH 32.3 pg (27-33) 06/15/24 05:36 MCHC 30.4 g/dL (30-55) 06/15/24 05:36 RDW 19.2 % (12.1-15.1) H 06/15/24 05:36 Plt Count 322 10^3/cmm (157-399) 06/15/24 05:36 MPV 9.2 fL (7.4-10.4) 06/15/24 05:36 Neut % (Auto) 61.3 % 06/15/24 05:36 Lymph % (Auto) 19.0 % 06/15/24 05:36 [place] % (Auto) 10.9 % 06/15/24 05:36 Eos % (Auto) 5.7 % 06/15/24 05:36 Baso % (Auto) 0.9 % 06/15/24 05:36 Reticulocyte % (Auto) 8.9 % (0.5-2.0) H 06/15/24 05:36 Neut # (Auto) 2.81 10^3/uL (1.8-7.7) 06/15/24 05:36 Lymph # (Auto) 0.9 10^3/uL (0.8-4.8) 06/15/24 05:36 [place] # (Auto) 0.5 10^3/uL (0.2-0.9) 06/15/24 05:36 Eos # (Auto) 0.3 10^3/uL (0.0-0.8) 06/15/24 05:36 Baso # (Auto) 0.0 10^3/uL (0.0-0.1) 06/15/24 05:36 Nucleated RBC % (auto) 0.9 % 06/15/24 05:36 Nucleated RBCs # 0.0 /100WBC 06/15/24 05:36 PT 13.20 SECONDS (12.1-14.9) 06/15/24 05:36 INR 0.93 (0.8-1.2) 06/15/24 05:36 Sodium 141 mmol/L (136-145) 06/15/24 05:36 Potassium 4.5 mmol/L (3.5-5.1) 06/15/24 05:36 Chloride 105 mmol/L (98-107) 06/15/24 05:36 Carbon Dioxide 28 mmol/L (22-29) 06/15/24 05:36 Anion Gap 12.5 (5-19) 06/15/24 05:36 BUN 12 mg/dL (8-23) 06/15/24 05:36 Creatinine 0.6 mg/dL (0.7-1.2) L 06/15/24 05:36 GFR Calculation Not Reportable 06/15/24 05:36 Glucose 87 mg/dL (65-115) 06/15/24 05:36 Calculated Osmolality 291 mOsm/kg (285-295) 06/15/24 05:36 Calcium 8.9 mg/dL (8.5-10.5) 06/15/24 05:36 Phosphorus 3.1 mg/dL (2.5-4.5) 06/15/24 05:36 Magnesium 2.1 mg/dL (1.7-2.3) 06/15/24 05:36 Iron 29 ug/dL (59-158) L 06/15/24 05:36 TIBC 188 mcg/dl 06/15/24 05:36 % Saturation 15.4 % (20-50) L 06/15/24 05:36 Unsat Iron Binding 159 ug/dL (112-347) 06/15/24 05:36 Ferritin 479 ng/mL (30-400) H 06/15/24 05:36 Total Bilirubin 0.5 mg/dL (0.15-1.2) 06/15/24 05:36 AST 10 U/L (0-40) 06/15/24 05:36 ALT 11 U/L (0-41) 06/15/24 05:36 Alkaline Phosphatase 75 U/L (40-130) 06/15/24 05:36 Total Protein 5.5 g/dL (6.6-8.7) L 06/15/24 05:36 Albumin 3.5 g/dL (3.5-5.2) 06/15/24 05:36 Globulin 2.0 g/dL (1.3-4.6) 06/15/24 05:36 TSH 2.71 uIU/mL (0.27-4.20) 06/14/24 13:56 Urine Color Yellow (Yellow) 06/14/24 22:08 Urine Appearance Clear (CLEAR) 06/14/24 22:08 Urine pH 5.5 (5-7) 06/14/24 22:08 Ur Specific [place] 1.064 (1.005-1.030) H 06/14/24 22:08 Urine Protein Trace (Negative) A 06/14/24 22:08 Urine Glucose (UA) Negative (Normal) 06/14/24 22:08 Urine Ketones Negative (Negative) 06/14/24 22:08 Urine Blood Negative (Negative) 06/14/24 22:08 Urine Nitrate Negative (Negative) 06/14/24 22:08 Urine Bilirubin Negative (Negative) 06/14/24 22:08 Urine Urobilinogen 1.0 mg/dL (Negative) 06/14/24 22:08 Ur Leukocyte Esterase Negative (Negative) 06/14/24 22:08 Urine RBC 0-2 /hpf (0-2) 06/14/24 22:08 Urine WBC 0-5 /hpf (0-5) 06/14/24 22:08 Ur Squamous Epith Cells 0-5 /hpf (0-5) 06/14/24 22:08 Amorphous Sediment Not Reportable 06/14/24 22:08 Urine Bacteria None seen /hpf (NONE) 06/14/24 22:08 Hyaline Casts 3.30 /lpf 06/14/24 22:08 Blood Type A Positive 06/14/24 17:27 Rho(D) Type Rh positive 06/14/24 17:27 Antibody Screen Negative 06/14/24 17:27 Vitals Last Vital Signs Temp 99.7 F H 06/15/24 12:37 Pulse 82 06/15/24 12:42 Resp 18 06/15/24 12:42 BP 137/79 06/15/24 12:42 Pulse Ox 97 06/15/24 12:42 O2 Del Method Room Air 06/15/24 12:42 Discharge Plan Discharge Patient Disposition: Home Condition: Stable Prescriptions: New sucralfate 100 mg/mL Suspension 1 g PO AC&BEDTIME 42 Days Qty: 1000 0RF pantoprazole [Protonix] [address] for susp in packet 40 mg PO BID 42 Days Qty: 90 0RF Continued cyclobenzaprine 10 mg tablet 10 mg PO TID PRN (Reason: muscle spasm) Qty: 30 0RF hydrocodone-acetaminophen 5-325 mg tablet 1 tab PO Q6H PRN (Reason: pain) 8 Days Qty: 30 0RF Linzess 145 mcg capsule 145 mcg PO QAM Qty: 30 3RF megestrol 400 mg/10 mL (10 mL) suspension 400 mg PO DAILY Qty: 300 2RF midodrine 10 mg tablet 10 mg PO TID Qty: 90 6RF propranolol 10 mg tablet 10 mg PO BID pravastatin 20 mg tablet 20 mg PO DAILY Discharge Orders: Discharge Order (Routine); Ordered 06/15/24 Ordered By: Leola Rosen Referrals: Kwaku Dickerson MD [Physician] - (We have notified your physician's clinic of the need for a follow-up appointment to be scheduled. If you have not heard from them within the next 2 business days, please call them directly. ) Albin Bah MD [Primary Care Provider] - (We have notified your physician's clinic of the need for a follow-up appointment to be scheduled. If you have not heard from them within the next 2 business days, please call them directly. ) Discharge Diet: Cardiac Patient Instructions: Sucralfate (By mouth), Pantoprazole (By mouth), GI Post Discharge Instructions w/ Anesthesia, Opioid Safety, Pain Management Discharge Attestations Time Spent in Discharge Care*: less than 30 min Status at Discharge: Cognitive status at discharge: cognitively intact, Behavioral status at discharge: other, Quality Metrics Clinical Quality Measures [ No reported AMI, CVA or VTE this stay] Coding Level of Care Code Acute Code for Chg Fwd Diagnoses Status post carotid endarterectomy Z98.890 Dyslipidemia E78.5 Acute upper GI bleed K92.2 Anemia, unspecified type D64.9 Anemia type: unspecified type Squamous cell carcinoma of right lung C34.91 Laterality: right Fatigue R53.83 Frequent falls R29.6 Lightheaded R42
== END 2024-06-15 15:20 | disposition home or self-care (01) ==
LOC: ER 17:41 → ER IP 17:58 → MEDSURG 18:36
PROVIDERS: Emergency Medicine; Surgery; Admitting Provider Internal Medicine; Emergency Provider Family Medicine; PCP Family Medicine; Visit Provider Internal Medicine
PROC: 0DJ08ZZ Inspection of Upper Intestinal Tract, Via Natural or Artificial Opening Endoscopic (ICD-10-PCS; principal; 2024-06-15 12:00)
DX: K92.1 Melena (principal); K29.50 Unspecified chronic gastritis without bleeding; E78.5 Hyperlipidemia, unspecified; Z98.890 Other specified postprocedural states; C34.91 Malignant neoplasm of unspecified part of right bronchus or lung; R53.83 Other fatigue; R29.6 Repeated falls; R42 Dizziness and giddiness; Z87.891 Personal history of nicotine dependence; I10 Essential (primary) hypertension
CPT/HCPCS: 36415; 43239; 74177; 80053; 81001; 82728; 83540; 83550; 83735; 84100; 84443; 85025; 85045; 85610; 86850; 86900; 87040; 87086; 88305; 88342; 96374; 99285; G0378; J2470; J2704; J7030

== ENCOUNTER 2024-06-23 12:30 | Oncology outpatient (recurring) (ONCR) | payer MEDICARE, BC, SELFPAY ==
[2024-06-23] MEDS: alteplase 1 mg/mL SDV 2 mL 2 MG INTRACATH (13:25)
[2024-06-23 13:27] LABS: Basophils % 0.6 %; Eosinophils # 0.2 10^3/uL (0.0-0.8); Eosinophils % 3.7 %; Hematocrit 33.5 % (37-53); Lymphocytes # 1.2 10^3/uL (0.8-4.8); Lymphocytes % 18.8 %; Mean Corpuscular HGB Conc 30.1 g/dL (30-55); Mean Corpuscular Hemoglobin 32.3 pg (27-33); Mean Platelet Volume 8.8 fL (7.4-10.4); Monocytes # 0.6 10^3/uL (0.2-0.9); Monocytes % 10.1 %; Neutrophils # 4.03 10^3/uL (1.8-7.7); Neutrophils % 65.5 %; Nucleated Red Blood Cells % 0 %; Platelet Count 430 10^3/cmm (157-399); Red Blood Count 3.13 10^6/uL (3.85-5.65); Red Cell Distribution Width 18.9 % (12.1-15.1); White Blood Count 6.16 10^3/uL (3.29-11.43)
[2024-06-23 14:05] LABS: Alanine Aminotransferase 8 U/L (0-41); Albumin Level 4.1 g/dL (3.5-5.2); Alkaline Phosphatase 77 U/L (40-130); Anion Gap 14.3 (5-19); Aspartate Amino Transferase 15 U/L (0-40); Blood Urea Nitrogen 20 mg/dL (8-23); Calcium 9.4 mg/dL (8.5-10.5); Carbon Dioxide 28 mmol/L (22-29); Chloride 101 mmol/L (98-107); Creatinine Clr Calc Pharmacy 71.8188; Globulin 2.7 g/dL (1.3-4.6); Glucose 81 mg/dL (65-115); Osmolality Calculated 290 mOsm/kg (285-295); Potassium 4.3 mmol/L (3.5-5.1); Sodium 139 mmol/L (136-145); Thyroid Stimulating Hormone 4.21 uIU/mL (0.27-4.20); Total Bilirubin 0.5 mg/dL (0.15-1.2); Total Protein 6.8 g/dL (6.6-8.7)
[2024-06-23] MEDS: durvalumab 1,500 MG in sodium chloride 0.9% 250 ML 280 MG IV (15:07)
[2024-06-23 16:24] VITALS: BP 131/68; PULSE 80; TEMP 36.9; O2SAT 93
== END 2024-06-23 23:59 | disposition home or self-care (01) ==
PROVIDERS: Internal Medicine Medical Oncology; PCP Family Medicine; Visit Provider Nurse Practitioner Family
DX: Z53.9 Procedure and treatment not carried out, unspecified reason (principal); Z51.12 Encounter for antineoplastic immunotherapy; C34.91 Malignant neoplasm of unspecified part of right bronchus or lung; E78.5 Hyperlipidemia, unspecified; F17.210 Nicotine dependence, cigarettes, uncomplicated; Z92.3 Personal history of irradiation; Z92.21 Personal history of antineoplastic chemotherapy; K59.09 Other constipation; Z79.899 Other long term (current) drug therapy
CPT/HCPCS: 36415; 36593; 80053; 84443; 85025; 96413; 99214; A4222; J2997; J7050; J9173

== ENCOUNTER → 2024-07-06 10:10 | Outpatient (BNVA) | payer MEDICARE, BC, SELFPAY | PROVIDERS: PCP Family Medicine; Visit Provider Surgery | DX: Z09 Encounter for follow-up examination after completed treatment for conditions other than malignant neoplasm (principal) | CPT/HCPCS: 99213 ==

== ENCOUNTER 2024-07-28 09:45 | Oncology outpatient (recurring) (ONCR) | payer MEDICARE, BC, SELFPAY ==
--- NOTE | 2024-07-04 15:00 | USCV_ITS ---
Vlad Dugan Age: 78 Gender: M : 1945 Exam Date: 07/04/2024 15:19 Ordering Phys: Albin Bah MD Technologist: CT Exam Location: [facility]_ Indication: hypotension, lung ca, weight loss BP: 94 / 52 HR: 69 Rhythm: Sinus Technical Quality: Poor secondary to COPD MEASUREMENTS (Male / Female) Normal Values 2D ECHO LVOT Diameter 2.0 cm LV Ejection Fraction MOD 4C 56.4 % LV Ejection Fraction MOD 2C 45.6 % LV Ejection Fraction 2C AL 46.9 % LA Diameter 2.9 cm RA Systolic Volume 4C AL 29.9 ml RA Systolic Volume 4C MOD 27.2 ml LA Sys Volume AL 28.3 cm cubed LA Sys Volume Index AL 14.9 cm cubed/m squared Aorta at Sinotubular Diameter 2.3 cm IVC Diameter 1.8 cm M-MODE LA Ao Ratio MM 1.2 AV Cusp Separation MM 2.2 cm DOPPLER AV Peak Velocity 143.0 cm/s LVOT Peak Velocity 75.0 cm/s AV Area Cont Eq vti 2.0 cm squared AV Area Cont Eq pk 1.7 cm squared MV Peak Velocity 59.0 cm/s MV Area PHT 2.6 cm squared TR Peak Velocity 248.5 cm/s TR Peak Gradient 24.7 mmHg TR Mean Velocity 160.0 cm/s TR Mean Gradient 12.6 mmHg TR Velocity Time Integral 54.3 cm TV Peak E Velocity 56.0 cm/s PV Peak Velocity 83.5 cm/s FINDINGS Left Ventricle Technically limited quality echocardiogram because of poor ultrasonic windows. LV systolic function is mildly reduced with EF of 40-45%. Mild global hypokinesis seen. Right Ventricle RV is dilated and is mildly hypokinetic. Right Atrium Normal in size Left Atrium Normal in size Mitral Valve Structurally normal mitral valve. Trace mitral regurgitation. Aortic Valve Aortic valve is thickened. No significant stenosis or regurgitation. Tricuspid Valve Mild tricuspid regurgitation. Pulmonary artery systolic pressure is normal. Pulmonic Valve Not well visualized Pericardium Normal Aorta Grossly normal IVC Appears to be normal CONCLUSIONS Technically limited quality echocardiogram because of poor ultrasonic windows. LV systolic function is mildly reduced with EF of 40-45%. RV is dilated and is mildly hypokinetic. Trace mitral regurgitation. Trace tricuspid regurgitation. Compared to prior echocardiogram from 2019, patient has mild hypokinesis of LV and RV. Davide Ugarte MD (Electronically Signed) Final Date: 06 July 2024 13:41 S
[2024-07-14] MEDS: sodium chloride 0.9% 1,000 ML 999 ML IV (13:42)
[2024-07-28 09:38] VITALS: BMI 18.7
--- NOTE | 2024-07-28 09:38 | ECG_ITS ---
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 Interpretive Statements LEXISCAN SESTAMIBI STRESS TEST Procedure: At the baseline, the blood pressure was 144/78mmHg with a heart rate of 66 bpm. The electrocardiogram showed normal sinus rhythm, incomplete right bundle branch block with normal ST and T's. The Lexiscan was infused over a period of 20 seconds. A total of 0.4 mg of Lexiscan was infused. The stress phase was continued for a total of 5 minutes. Heart rate was at the end of stress phase was 80 bpm and a blood pressure of 112/59 mmHg. The EKG at the peak infusion revealed normal sinus rhythm with no significant ST-T wave changes. Sestamibi was injected 20 seconds after the Lexiscan infusion. Blood pressure at the end of recovery phase was 105/59 mmHg with a heart rate of 78 bpm. Conclusion: 1. Normal EKG response to Lexiscan infusion 2. No Lexiscan induced chest pain or cardiac arrhythmia. 3. Normal blood pressure and heart rate response. 4. Sestamibi/sestamibi perfusion scan pending; see separate report. Electronically Signed On 08-17-2024 11:06:25 CDT by Davide Ugarte M.D. [email or web address]
--- NOTE | 2024-07-28 09:39 | NMCV_ITS ---
NM seth perf SPECT r/s* [id number] Kailee, Vlad Age: 78 Gender: M : 1945 Exam Date: 07/28/2024 09:39 Ordering Phys: Albin Bah MD Technologist: MIGUEL Krueger Exam Location: [facility] Indications: cp STRESS TEST Please see separate stress test report in [facility] for full findings IMAGE PROTOCOL Rest/Stress 1 Lexiscan Day Radiopharmaceutical Dose (mCi) Administration Site Administered by Rest: Tc-99m 10.6 IV Mari Vanessa, PROJECT DEVELOPMENT COORDINATOR Sestamibi Stress:Tc-99m 33 IV Mari Vanessa, PROJECT DEVELOPMENT COORDINATOR Sestamibi Rest: 28-Jul-2024 60 Discovery 630 Stress: 28-Jul-2024 30 Discovery 630 0.4mg Lexiscan. Images obtained in supine and prone position. SPECT RESULTS Technical Quality: Good Raw Data Analysis: Normal Image Corrections: No attenuation or motion correction applied Summed Stress Score: 1 Summed Rest Score: 1 Summed Difference Score: 0 PERFUSION FINDINGS Small area of fixed perfusion defect seen in apical wall. 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 no evidence of ischemia FUNCTIONAL RESULTS (calculated via Gated SPECT) Stress Image LV EF (%): 63 Stress EDV (mL):132 TID: 1.06 Stress ESV (mL):49 FUNCTIONAL FINDINGS: There is normal left ventricular systolic function. IMPRESSIONS 1. 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 No evidence of ischemia 2. LV systolic function is normal Davide Ugarte MD (Electronically Signed) Final Date: 01 August 2024 22:03 S
[2024-07-28] MEDS: regadenoson 0.4 Mg/5 ml Syringe IVP (11:38)
[2024-07-28 12:22] VITALS: BP 105/59; PULSE 79
== END 2024-07-29 23:59 | disposition home or self-care (01) ==
LOC: ONCMED 08-01 10:37
PROVIDERS: PCP Family Medicine; Visit Provider Family Medicine
DX: Z53.9 Procedure and treatment not carried out, unspecified reason; R07.9 Chest pain, unspecified
CPT/HCPCS: 36415; 78452; 85025; 93017; 93306; 96360; 96374; A9500; J2785; J7030

== ENCOUNTER 2024-08-01 11:45 | Oncology outpatient (recurring) (ONCR) | payer MEDICARE, BC, SELFPAY ==
[2024-08-01 12:08] LABS: Basophils # 0.1 10^3/uL (0.0-0.1); Basophils % 0.7 %; Eosinophils # 0.3 10^3/uL (0.0-0.8); Eosinophils % 4.7 %; Hematocrit 40.5 % (37-53); Lymphocytes # 1.7 10^3/uL (0.8-4.8); Lymphocytes % 22.8 %; Mean Corpuscular HGB Conc 30.9 g/dL (30-55); Mean Corpuscular Hemoglobin 31.3 pg (27-33); Mean Corpuscular Volume 101.3 fl (82-101); Mean Platelet Volume 9.7 fL (7.4-10.4); Monocytes # 0.8 10^3/uL (0.2-0.9); Monocytes % 11.2 %; Neutrophils # 4.31 10^3/uL (1.8-7.7); Neutrophils % 59.6 %; Nucleated Red Blood Cells % 0 %; Platelet Count 323 10^3/cmm (157-399); Red Cell Distribution Width 16.4 % (12.1-15.1); White Blood Count 7.23 10^3/uL (3.29-11.43)
[2024-08-01 12:33] LABS: Alanine Aminotransferase 9 U/L (0-41); Albumin Level 3.9 g/dL (3.5-5.2); Alkaline Phosphatase 96 U/L (40-130); Anion Gap 11.2 (5-19); Aspartate Amino Transferase 16 U/L (0-40); Blood Urea Nitrogen 17 mg/dL (8-23); Calcium 9.3 mg/dL (8.5-10.5); Carbon Dioxide 34 mmol/L (22-29); Chloride 99 mmol/L (98-107); Creatinine Clr Calc Pharmacy 69.9292; Free T4 Free Thyroxine 1.36 ng/dL (0.82-1.77); Globulin 2.9 g/dL (1.3-4.6); Glucose 90 mg/dL (65-115); Osmolality Calculated 293 mOsm/kg (285-295); Potassium 3.2 mmol/L (3.5-5.1); Sodium 141 mmol/L (136-145); Thyroid Stimulating Hormone 2.72 uIU/mL (0.27-4.20); Total Bilirubin 0.3 mg/dL (0.15-1.2); Total Protein 6.8 g/dL (6.6-8.7)
[2024-08-01] MEDS: durvalumab 1,500 MG in sodium chloride 0.9% 250 ML 280 MG IV (14:37)
[2024-08-01 15:46] VITALS: BP 125/72; PULSE 76; RESP 16; TEMP 36.9; O2SAT 95
== END 2024-08-01 23:59 | disposition home or self-care (01) ==
PROVIDERS: Nurse Practitioner Family; PCP Family Medicine; Visit Provider Family Medicine
DX: Z51.12 Encounter for antineoplastic immunotherapy (principal); C34.91 Malignant neoplasm of unspecified part of right bronchus or lung; E78.5 Hyperlipidemia, unspecified; K59.09 Other constipation; F17.210 Nicotine dependence, cigarettes, uncomplicated; Z92.3 Personal history of irradiation; Z79.899 Other long term (current) drug therapy
CPT/HCPCS: 36415; 80053; 84439; 84443; 85025; 96413; 99214; A4222; J7050; J9173

== ENCOUNTER 2024-08-29 12:32 | Oncology outpatient (recurring) (ONCR) | payer MEDICARE, BC, SELFPAY ==
[2024-08-29] MEDS: alteplase 1 mg/mL SDV 2 mL 2 MG INTRACATH (13:40)
[2024-08-29 13:56] LABS: Basophils # 0.1 10^3/uL (0.0-0.1); Basophils % 0.9 %; Eosinophils # 0.2 10^3/uL (0.0-0.8); Eosinophils % 3.9 %; Hematocrit 39.5 % (37-53); Lymphocytes # 1.2 10^3/uL (0.8-4.8); Lymphocytes % 20.7 %; Mean Corpuscular HGB Conc 31.1 g/dL (30-55); Mean Corpuscular Hemoglobin 30.8 pg (27-33); Mean Platelet Volume 9.8 fL (7.4-10.4); Monocytes # 0.6 10^3/uL (0.2-0.9); Monocytes % 10.8 %; Neutrophils # 3.71 10^3/uL (1.8-7.7); Neutrophils % 63.4 %; Nucleated Red Blood Cells % 0 %; Platelet Count 271 10^3/cmm (157-399); Red Blood Count 3.99 10^6/uL (3.85-5.65); Red Cell Distribution Width 16.1 % (12.1-15.1); White Blood Count 5.85 10^3/uL (3.29-11.43)
[2024-08-29 14:23] LABS: Alanine Aminotransferase 11 U/L (0-41); Alkaline Phosphatase 99 U/L (40-130); Anion Gap 12.4 (5-19); Aspartate Amino Transferase 18 U/L (0-40); Blood Urea Nitrogen 11 mg/dL (8-23); Carbon Dioxide 34 mmol/L (22-29); Chloride 98 mmol/L (98-107); Globulin 2.7 g/dL (1.3-4.6); Glucose 89 mg/dL (65-115); Osmolality Calculated 291 mOsm/kg (285-295); Potassium 3.4 mmol/L (3.5-5.1); Sodium 141 mmol/L (136-145); Thyroid Stimulating Hormone 2.46 uIU/mL (0.27-4.20); Total Bilirubin 0.7 mg/dL (0.15-1.2); Total Protein 6.7 g/dL (6.6-8.7)
[2024-08-29] MEDS: durvalumab 1,500 MG in sodium chloride 0.9% 250 ML 280 MG IV (14:58)
[2024-08-29 16:08] VITALS: BP 157/73; PULSE 56; RESP 16; TEMP 37; O2SAT 95
== END 2024-08-29 23:59 | disposition home or self-care (01) ==
PROVIDERS: Internal Medicine Medical Oncology; PCP Family Medicine; Visit Provider Family Medicine
DX: Z51.12 Encounter for antineoplastic immunotherapy (principal); C34.91 Malignant neoplasm of unspecified part of right bronchus or lung; F17.210 Nicotine dependence, cigarettes, uncomplicated; Z92.3 Personal history of irradiation; Z92.21 Personal history of antineoplastic chemotherapy; Z79.899 Other long term (current) drug therapy
CPT/HCPCS: 36593; 80048; 80053; 84443; 85025; 96413; 99214; A4222; J2997; J7050; J9173

== ENCOUNTER → 2024-09-21 09:51 | Outpatient (BNVA) | payer MEDICARE, BC, SELFPAY | PROVIDERS: PCP Family Medicine; Visit Provider Nurse Practitioner Family | DX: I95.1 Orthostatic hypotension (principal); I11.0 Hypertensive heart disease with heart failure; I50.20 Unspecified systolic (congestive) heart failure; C34.90 Malignant neoplasm of unspecified part of unspecified bronchus or lung; I25.2 Old myocardial infarction; Z72.0 Tobacco use; R06.00 Dyspnea, unspecified | CPT/HCPCS: 93005; 99214 ==

== ENCOUNTER 2024-09-26 11:30 | Oncology outpatient (recurring) (ONCR) | payer MEDICARE, BC, SELFPAY ==
--- NOTE | 2024-09-14 10:00 | CTR_ITS ---
PROCEDURE INFORMATION: Exam: CT Chest With Contrast; Diagnostic Exam date and time: 09/14/2024 10:59 AM Age: 78 years old Clinical indication: Condition or disease; Lung condition and disease; Cancer of the lung; Bilateral; Unspecified; Prior surgery; Surgery date: 6+ months; Surgery type: Port; Additional info: Restaging TECHNIQUE: Imaging protocol: Diagnostic computed tomography of the chest with contrast. Radiation optimization: All CT scans at this facility use at least one of these dose optimization techniques: automated exposure control; mA and/or kV adjustment per patient size (includes targeted exams where dose is matched to clinical indication); or iterative reconstruction. Contrast material: OMNI 350; Contrast volume: 100 ml; Contrast route: INTRAVENOUS (IV); COMPARISON: CT chest w con* [id number] 05/18/2024 8:23 AM RADIATION DOSE METRICS: Total DLP (mGy-cm): 578.38 FINDINGS: Tubes, catheters and devices: There is a medication port on the left with its tip within the SVC. Lungs: There is slight soft tissue thickening in the subcarinal space similar to that seen on prior exam. No measurable mass is identified. Pleural spaces: Unremarkable. No pneumothorax. No pleural effusion. Heart: Heart size is normal. There is a small amount of pericardial fluid. There are changes of emphysema diffusely. Tree-in-bud type nodularity noted involving the right lower lobe medially likely inflammatory. There is associated bronchial wall thickening as well as a few opacified bronchi directed toward this tree-in-bud nodularity. No consolidated infiltrates are otherwise appreciated. No definite lung nodules or masses are noted. Lymph nodes: There are a few small mediastinal and hilar lymph nodes. No enlarged nodes are appreciated. Vasculature: The thoracic aorta is normal in caliber without aneurysm or dissection. There is calcified plaque involving the aorta and coronary vessels. Bones/joints: Stable sclerotic lesion noted at L1. No blastic or lytic bony lesions are otherwise appreciated. Soft tissues: Unremarkable. PROCEDURE INFORMATION: Exam: CT Abdomen And Pelvis With Contrast Exam date and time: 09/14/2024 10:59 AM Age: 78 years old Clinical indication: Condition or disease; Lung condition and disease; Cancer of the lung; Bilateral; Unspecified; Prior surgery; Surgery date: 6+ months; Surgery type: Port; Additional info: Restaging TECHNIQUE: Imaging protocol: Computed tomography of the abdomen and pelvis with contrast. Radiation optimization: All CT scans at this facility use at least one of these dose optimization techniques: automated exposure control; mA and/or kV adjustment per patient size (includes targeted exams where dose is matched to clinical indication); or iterative reconstruction. Contrast material: OMNI 350; Contrast volume: 100 ml; Contrast route: INTRAVENOUS (IV); COMPARISON: CT abdomen pelvis w con* [id number] 06/14/2024 4:08 PM RADIATION DOSE METRICS: Total DLP (mGy-cm): 578.38 FINDINGS: Diaphragm: There may be a small hiatal hernia. Liver: Normal. No mass. Gallbladder and biliary ducts: There are surgical clips within the gallbladder fossa. Pancreas: Normal. No ductal dilation. Spleen: The spleen is not identified. Adrenal glands: There is a low-density left adrenal nodule measuring 15 mm in size unchanged. The right adrenal gland is normal. Kidneys and ureters: Normal. No hydronephrosis. Stomach and bowel: There are postoperative changes involving the stomach possibly related to a prior gastric sleeve procedure. No dilated loops of large or small bowel is appreciated. No bowel wall thickening is noted. There is a moderate amount of stool within the colon. Appendix: No evidence of appendicitis. Intraperitoneal space: Unremarkable. No free air. No significant fluid collection. Vasculature: The aorta is normal in caliber. There is calcified plaque involving the aorta and its branch vessels. Lymph nodes: Unremarkable. No enlarged lymph nodes. Urinary bladder: Unremarkable as visualized. Reproductive: Unremarkable as visualized. Bones/joints: There is a stable sclerotic lesion at L1. No acute bony abnormalities are otherwise appreciated. Soft tissues: There is a fat filled left inguinal hernia. CT/CT chest abdpel w/*[id number] IMPRESSION: 1. Emphysema. 2. Tree-in-bud type nodularity involving the right lower lobe with proximal bronchial wall thickening and opacified bronchi. Findings are likely inflammatory. IMPRESSION: 1. No definite acute findings noted. Please see above comments for additional details.
[2024-09-14] MEDS: iohexol 350 mg/mL 500 mL Btl (per mL) PO (10:45)
[2024-09-14] MEDS: iohexol 350 mg/mL 500 mL Btl (per mL) IV (11:00)
[2024-09-26 11:29] LABS: Basophils # 0.1 10^3/uL (0.0-0.1); Basophils % 1.1 %; Eosinophils # 0.7 10^3/uL (0.0-0.8); Eosinophils % 10.2 %; Hematocrit 40.6 % (37-53); Lymphocytes # 2.1 10^3/uL (0.8-4.8); Lymphocytes % 31.7 %; Mean Corpuscular HGB Conc 31.3 g/dL (30-55); Mean Corpuscular Volume 95.8 fl (82-101); Mean Platelet Volume 10.5 fL (7.4-10.4); Monocytes # 0.4 10^3/uL (0.2-0.9); Monocytes % 5.5 %; Neutrophils % 50.9 %; Nucleated Red Blood Cells % 0 %; Platelet Count 305 10^3/cmm (157-399); Red Blood Count 4.24 10^6/uL (3.85-5.65); Red Cell Distribution Width 16.5 % (12.1-15.1); White Blood Count 6.49 10^3/uL (3.29-11.43)
[2024-09-26 12:10] LABS: Alanine Aminotransferase 7 U/L (0-41); Albumin Level 4.1 g/dL (3.5-5.2); Alkaline Phosphatase 108 U/L (40-130); Anion Gap 11.1 (5-19); Aspartate Amino Transferase 14 U/L (0-40); Blood Urea Nitrogen 13 mg/dL (8-23); Calcium 9.2 mg/dL (8.5-10.5); Carbon Dioxide 34 mmol/L (22-29); Chloride 100 mmol/L (98-107); Creatinine Clr Calc Pharmacy 71.8188; Globulin 2.6 g/dL (1.3-4.6); Glucose 144 mg/dL (65-115); Osmolality Calculated 297 mOsm/kg (285-295); Potassium 3.1 mmol/L (3.5-5.1); Sodium 142 mmol/L (136-145); Thyroid Stimulating Hormone 4.76 uIU/mL (0.27-4.20); Total Bilirubin 0.5 mg/dL (0.15-1.2); Total Protein 6.7 g/dL (6.6-8.7)
[2024-09-26] MEDS: durvalumab 1,500 MG in sodium chloride 0.9% 250 ML 280 MG IV (13:52)
[2024-09-26 14:57] VITALS: BP 130/65; PULSE 69; TEMP 36.7; O2SAT 90
== END 2024-09-26 23:59 | disposition home or self-care (01) ==
PROVIDERS: PCP Family Medicine; Visit Provider Nurse Practitioner Family
DX: Z53.9 Procedure and treatment not carried out, unspecified reason; C34.91 Malignant neoplasm of unspecified part of right bronchus or lung; F17.210 Nicotine dependence, cigarettes, uncomplicated; R42 Dizziness and giddiness; E03.9 Hypothyroidism, unspecified; E87.6 Hypokalemia; Z92.3 Personal history of irradiation; Z92.21 Personal history of antineoplastic chemotherapy
CPT/HCPCS: 71260; 74177; 80053; 84443; 85025; 96413; 99214; A4222; J7050; J9173

== ENCOUNTER 2024-10-25 12:41 | Oncology outpatient (recurring) (ONCR) | payer MEDICARE, BC, SELFPAY ==
[2024-10-25 13:01] LABS: Basophils # 0.1 10^3/uL (0.0-0.1); Basophils % 0.9 %; Eosinophils # 0.5 10^3/uL (0.0-0.8); Eosinophils % 7.2 %; Hematocrit 41.4 % (37-53); Lymphocytes # 1.3 10^3/uL (0.8-4.8); Lymphocytes % 18.3 %; Mean Corpuscular HGB Conc 31.4 g/dL (30-55); Mean Corpuscular Hemoglobin 30.5 pg (27-33); Mean Corpuscular Volume 97.2 fl (82-101); Mean Platelet Volume 9.6 fL (7.4-10.4); Monocytes # 0.5 10^3/uL (0.2-0.9); Monocytes % 6.9 %; Neutrophils # 4.57 10^3/uL (1.8-7.7); Nucleated Red Blood Cells % 0 %; Platelet Count 288 10^3/cmm (157-399); Red Blood Count 4.26 10^6/uL (3.85-5.65); Red Cell Distribution Width 16.9 % (12.1-15.1); White Blood Count 6.93 10^3/uL (3.29-11.43)
[2024-10-25 13:40] LABS: Alanine Aminotransferase 10 U/L (0-41); Albumin Level 4.1 g/dL (3.5-5.2); Alkaline Phosphatase 112 U/L (40-130); Anion Gap 16.4 (5-19); Aspartate Amino Transferase 19 U/L (0-40); Blood Urea Nitrogen 11 mg/dL (8-23); Calcium 9.2 mg/dL (8.5-10.5); Carbon Dioxide 29 mmol/L (22-29); Chloride 99 mmol/L (98-107); Creatinine Clr Calc Pharmacy 69.2277; Globulin 2.7 g/dL (1.3-4.6); Glucose 131 mg/dL (65-115); Osmolality Calculated 293 mOsm/kg (285-295); Potassium 3.4 mmol/L (3.5-5.1); Sodium 141 mmol/L (136-145); Thyroid Stimulating Hormone 2.63 uIU/mL (0.27-4.20); Total Bilirubin 0.6 mg/dL (0.15-1.2); Total Protein 6.8 g/dL (6.6-8.7)
[2024-10-25] MEDS: durvalumab 1,500 MG in sodium chloride 0.9% 250 ML 280 MG IV (15:13)
[2024-10-25] MEDS: sodium chloride 0.9% 500 ML 999 ML IV (15:24)
[2024-10-25 16:48] VITALS: BP 154/76; PULSE 77; RESP 18; TEMP 36.1; O2SAT 96
== END 2024-10-25 23:59 | disposition home or self-care (01) ==
PROVIDERS: Internal Medicine Medical Oncology; PCP Family Medicine; Visit Provider Nurse Practitioner Family
DX: Z51.12 Encounter for antineoplastic immunotherapy (principal); C34.91 Malignant neoplasm of unspecified part of right bronchus or lung; R42 Dizziness and giddiness; E87.6 Hypokalemia; F17.210 Nicotine dependence, cigarettes, uncomplicated; E03.9 Hypothyroidism, unspecified; E78.5 Hyperlipidemia, unspecified; Z92.21 Personal history of antineoplastic chemotherapy; Z92.3 Personal history of irradiation; Z95.828 Presence of other vascular implants and grafts; Z79.899 Other long term (current) drug therapy
CPT/HCPCS: 80053; 84443; 85025; 96361; 96413; 99214; A4222; J7040; J7050; J9173

== ENCOUNTER 2024-11-22 12:41 | Oncology outpatient (recurring) (ONCR) | payer MEDICARE, BC, SELFPAY ==
[2024-11-22 13:10] LABS: Basophils # 0.1 10^3/uL (0.0-0.1); Basophils % 0.8 %; Eosinophils # 0.5 10^3/uL (0.0-0.8); Eosinophils % 8.1 %; Hematocrit 37.8 % (37-53); Lymphocytes # 1.2 10^3/uL (0.8-4.8); Lymphocytes % 20.1 %; Mean Corpuscular HGB Conc 31.7 g/dL (30-55); Mean Corpuscular Hemoglobin 30.9 pg (27-33); Mean Corpuscular Volume 97.4 fl (82-101); Mean Platelet Volume 9.7 fL (7.4-10.4); Monocytes # 0.6 10^3/uL (0.2-0.9); Monocytes % 10.3 %; Neutrophils # 3.55 10^3/uL (1.8-7.7); Nucleated Red Blood Cells % 0 %; Platelet Count 289 10^3/cmm (157-399); Red Blood Count 3.88 10^6/uL (3.85-5.65); Red Cell Distribution Width 16.9 % (12.1-15.1); White Blood Count 5.92 10^3/uL (3.29-11.43)
[2024-11-22 13:40] LABS: Alanine Aminotransferase 10 U/L (0-41); Albumin Level 3.9 g/dL (3.5-5.2); Alkaline Phosphatase 107 U/L (40-130); Aspartate Amino Transferase 15 U/L (0-40); Blood Urea Nitrogen 15 mg/dL (8-23); Calcium 9.1 mg/dL (8.5-10.5); Carbon Dioxide 30 mmol/L (22-29); Chloride 98 mmol/L (98-107); Creatinine Clr Calc Pharmacy 68.2986; Globulin 2.6 g/dL (1.3-4.6); Glucose 116 mg/dL (65-115); Osmolality Calculated 288 mOsm/kg (285-295); Sodium 138 mmol/L (136-145); Thyroid Stimulating Hormone 2.02 uIU/mL (0.27-4.20); Total Bilirubin 0.5 mg/dL (0.15-1.2); Total Protein 6.5 g/dL (6.6-8.7)
[2024-11-22] MEDS: durvalumab 1,500 MG in sodium chloride 0.9% 250 ML 280 MG IV (15:07)
[2024-11-22 16:22] VITALS: BP 150/68; PULSE 66; RESP 18; TEMP 36.4; O2SAT 94
== END 2024-11-22 23:59 | disposition home or self-care (01) ==
PROVIDERS: PCP Family Medicine; Visit Provider Nurse Practitioner Family
DX: Z51.12 Encounter for antineoplastic immunotherapy (principal); C34.91 Malignant neoplasm of unspecified part of right bronchus or lung; Z95.828 Presence of other vascular implants and grafts; F17.210 Nicotine dependence, cigarettes, uncomplicated; E87.6 Hypokalemia; I95.9 Hypotension, unspecified; K59.00 Constipation, unspecified; R06.00 Dyspnea, unspecified; J44.9 Chronic obstructive pulmonary disease, unspecified; Z79.899 Other long term (current) drug therapy
CPT/HCPCS: 80053; 84443; 85025; 96413; 99213; A4222; J7050; J9173

== ENCOUNTER 2024-12-20 09:38 | Oncology outpatient (recurring) (ONCR) | payer MEDICARE, BC, SELFPAY ==
[2024-12-20 10:41] LABS: Hematocrit 38.5 % (37-53); Hemoglobin 12.20 g/dL (11.27-16.99); Mean Corpuscular HGB Conc 31.7 g/dL (30-55); Mean Corpuscular Hemoglobin 30.5 pg (27-33); Mean Corpuscular Volume 96.3 fl (82-101); Nucleated Red Blood Cells % 0 %; Platelet Count 294 10^3/cmm (157-399); Red Blood Count 4.00 10^6/uL (3.85-5.65); White Blood Count 6.00 10^3/uL (3.29-11.43)
[2024-12-20 10:53] LABS: Alanine Aminotransferase 8 U/L (0-41); Albumin Level 3.8 g/dL (3.5-5.2); Alkaline Phosphatase 109 U/L (40-130); Anion Gap 13.8 (5-19); Aspartate Amino Transferase 17 U/L (0-40); Blood Urea Nitrogen 12 mg/dL (8-23); Calcium 9.1 mg/dL (8.5-10.5); Carbon Dioxide 32 mmol/L (22-29); Chloride 99 mmol/L (98-107); Creatinine Clr Calc Pharmacy 67.8336; Globulin 2.9 g/dL (1.3-4.6); Glucose 128 mg/dL (65-115); Osmolality Calculated 295 mOsm/kg (285-295); Sodium 142 mmol/L (136-145); Thyroid Stimulating Hormone 3.22 uIU/mL (0.27-4.20); Total Protein 6.7 g/dL (6.6-8.7)
[2024-12-20 11:05] LABS: Potassium 2.8 mmol/L (3.5-5.1)
[2024-12-20] MEDS: durvalumab 1,500 MG in sodium chloride 0.9% 250 ML 280 MG IV (11:51)
[2024-12-20] MEDS: potassium chloride premix 100 ML 25 MEQ IV (12:08)
[2024-12-20 15:14] VITALS: BP 134/77; PULSE 69; TEMP 36.4; O2SAT 94
== END 2024-12-20 23:59 | disposition home or self-care (01) ==
PROVIDERS: Internal Medicine; PCP Family Medicine; Visit Provider Nurse Practitioner Family
DX: Z51.12 Encounter for antineoplastic immunotherapy (principal); C34.91 Malignant neoplasm of unspecified part of right bronchus or lung; F17.210 Nicotine dependence, cigarettes, uncomplicated; R42 Dizziness and giddiness; R63.0 Anorexia; R63.4 Abnormal weight loss; R06.02 Shortness of breath; E87.6 Hypokalemia; Z92.3 Personal history of irradiation; Z79.899 Other long term (current) drug therapy; Z95.828 Presence of other vascular implants and grafts; Z68.1 Body mass index [BMI] 19.9 or less, adult
CPT/HCPCS: 80053; 84443; 85025; 96365; 96413; 99214; A4222; J3480; J7050; J9173

== ENCOUNTER → 2025-01-10 13:24 | Outpatient (BNVA) | payer MEDICARE, BC, SELFPAY | PROVIDERS: PCP Family Medicine; Visit Provider Family Medicine | DX: E87.6 Hypokalemia (principal) | CPT/HCPCS: 80048; 83735 ==

== ENCOUNTER 2025-01-17 09:24 | Oncology outpatient (recurring) (ONCR) | payer MEDICARE, BC, SELFPAY ==
[2025-01-17 09:52] LABS: Hematocrit 37.2 % (37-53); Hemoglobin 11.90 g/dL (11.27-16.99); Mean Corpuscular HGB Conc 32.0 g/dL (30-55); Mean Corpuscular Hemoglobin 30.4 pg (27-33); Mean Corpuscular Volume 94.9 fl (82-101); Nucleated Red Blood Cells % 0 %; Platelet Count 249 10^3/cmm (157-399); Red Blood Count 3.92 10^6/uL (3.85-5.65); White Blood Count 7.72 10^3/uL (3.29-11.43)
[2025-01-17 10:27] LABS: Alanine Aminotransferase 7 U/L (0-41); Albumin Level 4.1 g/dL (3.5-5.2); Alkaline Phosphatase 119 U/L (40-130); Anion Gap 13.5 (5-19); Aspartate Amino Transferase 15 U/L (0-40); Blood Urea Nitrogen 15 mg/dL (8-23); Calcium 9.1 mg/dL (8.5-10.5); Carbon Dioxide 29 mmol/L (22-29); Chloride 100 mmol/L (98-107); Creatinine Clr Calc Pharmacy 66.9046; Globulin 2.6 g/dL (1.3-4.6); Glucose 111 mg/dL (65-115); Osmolality Calculated 290 mOsm/kg (285-295); Potassium 3.5 mmol/L (3.5-5.1); Sodium 139 mmol/L (136-145); Thyroid Stimulating Hormone 3.53 uIU/mL (0.27-4.20); Total Protein 6.7 g/dL (6.6-8.7)
[2025-01-17] MEDS: durvalumab 1,500 MG in sodium chloride 0.9% 250 ML 280 MG IV (12:09)
[2025-01-17 13:26] VITALS: BP 148/68; PULSE 76; RESP 16; TEMP 36.9
== END 2025-01-17 23:59 | disposition home or self-care (01) ==
PROVIDERS: Internal Medicine Medical Oncology; PCP Family Medicine; Visit Provider Nurse Practitioner Family
DX: Z51.12 Encounter for antineoplastic immunotherapy (principal); C34.90 Malignant neoplasm of unspecified part of unspecified bronchus or lung; Z79.899 Other long term (current) drug therapy
CPT/HCPCS: 80053; 84443; 85025; 96413; A4222; J7050; J9173

== ENCOUNTER 2025-02-28 11:00 | Oncology outpatient (recurring) (ONCR) | payer MEDICARE, BC, SELFPAY ==
--- NOTE | 2025-02-07 13:00 | CTR_ITS ---
PROCEDURE INFORMATION: Exam: CT Chest With Contrast; Diagnostic Exam date and time: 02/07/2025 1:07 PM Age: 79 years old Clinical indication: Condition or disease; Lung condition and disease; Cancer of the lung; Bilateral; Unspecified; Additional info: Lung cancerDr. Albright would like this done on 02/07/25 TECHNIQUE: Imaging protocol: Diagnostic computed tomography of the chest with contrast. Radiation optimization: All CT scans at this facility use at least one of these dose optimization techniques: automated exposure control; mA and/or kV adjustment per patient size (includes targeted exams where dose is matched to clinical indication); or iterative reconstruction. Contrast material: OMNIPAQUE 350; Contrast volume: 100 ml; Contrast route: INTRAVENOUS (IV); COMPARISON: CT chest abdpel w/*[id number] 09/14/2024 10:59 AM RADIATION DOSE METRICS: Total DLP (mGy-cm): 597.49 FINDINGS: Tubes, catheters and devices: Unchanged left subclavian Port-A-Cath with the tip in the superior vena cava. Lungs: 19 mm irregular soft tissue density mass has developed posteriorly in the right lower lobe, partially contiguous with the diaphragmatic pleural surface. An adjacent 5 cm region of nodular interstitial thickening posteromedially in the right lower lobe is similar in appearance to the prior CT scan. A 17 mm new focus of nodular interstitial thickening has developed laterally in the right lower lobe. Unchanged small focus of nodular interstitial thickening in the inferior lingula. Unchanged 3 mm subpleural calcification medially in the left upper lobe. Extensive bullous disease and scattered subpleural blebs again noted. Pleural spaces: No effusion or pneumothorax. Heart: Unremarkable. No cardiomegaly. No pericardial effusion. Coronary arteries: Moderate coronary artery calcification is present. Lymph nodes: Unchanged focus right infrahilar ang tissue measuring 7 mm in short axis. No ang enlargement. Vasculature: Moderate atherosclerotic calcification. No aortic aneurysm. Bones/joints: 3 cm sclerotic focus in L1 previously measured 1 cm. New sclerotic focus laterally in the left 4th rib. Soft tissues: Unremarkable. PROCEDURE INFORMATION: Exam: CT Abdomen And Pelvis With Contrast Exam date and time: 02/07/2025 1:07 PM Age: 79 years old Clinical indication: Condition or disease; Lung condition and disease; Cancer of the lung; Bilateral; Unspecified; Additional info: Lung cancerDr. Albright would like this done on 02/07/25 TECHNIQUE: Imaging protocol: Computed tomography of the abdomen and pelvis with contrast. Radiation optimization: All CT scans at this facility use at least one of these dose optimization techniques: automated exposure control; mA and/or kV adjustment per patient size (includes targeted exams where dose is matched to clinical indication); or iterative reconstruction. Contrast material: OMNIPAQUE 350; Contrast volume: 100 ml; Contrast route: INTRAVENOUS (IV); COMPARISON: CT abdomen pelvis w con* [id number] 06/14/2024 4:08 PM RADIATION DOSE METRICS: Total DLP (mGy-cm): 597.49 FINDINGS: Liver: The liver is normal. No mass. Gallbladder and biliary ducts: Post cholecystectomy. There is no evidence of biliary ductal dilation. Pancreas: The pancreas is normal. No mass. Spleen: The spleen is not identified. Adrenal glands: Unchanged 15 mm left adrenal nodule. The right adrenal gland is normal. Kidneys and ureters: No renal mass. or hydronephrosis. Stomach and bowel: Bowel caliber is normal. No paracolonic inflammatory changes. There has been previous gastric surgery. Appendix: Normal appendix. Intraperitoneal space: No significant peritoneal free fluid. No free peritoneal air. Vasculature: Atherosclerotic calcification most significantly affecting the abdominal aorta and iliac arteries. No abdominal aortic aneurysm. Lymph nodes: No lymph node enlargement. Urinary bladder: Unchanged mild diffuse mural thickening involving the bladder. Reproductive: The prostate gland remains enlarged and heterogeneous in density. Unchanged penile calcifications. Bones/joints: 3 cm sclerotic focus in L1 previously measured 1 cm. 2.6 cm sclerotic and lytic lesion in the right sacral ala previously represented a 2.4 cm focus of sclerosis. Unchanged small subchondral sclerotic density in the medial left iliac wing. Soft tissues: Unremarkable. CT/CT chest abdpel w/*[id number] IMPRESSION: 1. New 19 mm soft tissue opacity in the right lower lobe. The finding lies adjacent to focus of chronic , nodular interstitial disease and could represent a focal inflammatory process. New metastatic disease is a possibility. Chest CT follow-up in 1-3 months is recommended. An additional new, smaller focus of nodular interstitial disease noted in the right lower lobe is likely inflammatory in nature. 2. Enlarging L1 sclerotic metastasis. IMPRESSION: 1. Enlarging sclerotic lesions in the right sacrum and the L1 vertebral body. Findings could represent progressive metastatic disease or treatment response. 2. Unchanged 15 mm left adrenal nodule. 3. No other acute disease or interval changes.
[2025-02-07] MEDS: iohexol 350 mg/mL 500 mL Btl (per mL) IV (13:11)
[2025-02-07] MEDS: iohexol 350 mg/mL 500 mL Btl (per mL) PO (13:12)
--- NOTE | 2025-02-24 13:00 | PETR_ITS ---
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 Then, PET images were obtained. Attenuation corrected images were constructed using the CT scan. Fused images of PET and CT were reviewed. The standardized uptake values (SUV) reported below are maximum values within a region of interest, expressed in gm/ml. Exam includes orbital meatal line to mid-thigh. SUV normalization method: BodyWeight Radiopharmaceutical: 11.69 mCi F-18 FDG (Fluorodeoxyglucose), IV. Time of imaging post radiopharmaceutical administration: 45 minutes Injection site: LAC COMPARISON: 1. PT PET skull to thigh INIT [id number] 10/13/2023 9:[address] chest abdpel w/*[id number] 02/07/2025 1:07 PM FINDINGS: Tubes, catheters and devices: Left chest port terminates near the superior cavoatrial junction. Brain: Visualized brain has normal physiologic uptake. Pharynx: No abnormal uptake. Larynx: No abnormal uptake. Lungs, pleura and trachea: Upper lung predominant emphysematous change. Much decreased right lower lobe opacity with residual bandlike opacity showing SUV max 1.5. Decreased surrounding tree-in-bud nodularity. Mildly increased posterior right lower lobe superior segment FDG avid nodularity showing intervally developed subpleural nodular thickening with SUV max 3.6 on axial image 121. Heart: Normal physiologic uptake. Coronary arteries: Heavy coronary artery calcification. Mediastinal space: No abnormal uptake. Liver: No abnormal uptake. Gallbladder and biliary ducts: No abnormal uptake. Prior cholecystectomy. Pancreas: No abnormal uptake. Spleen: Stable absence. Adrenal glands: No abnormal uptake. Kidneys and ureters: Normal physiologic uptake. Stomach and bowel: No abnormal uptake. Reproductive: Prostatomegaly with diffuse low-level FDG uptake that is likely benign physiologic or inflammatory. Vasculature: No abnormal uptake. Heavy systemic atherosclerotic calcification without aortic aneurysm. Lymph nodes: FDG avid right hilar node measures 1 cm in the short axis on axial image 130 with SUV max 3.8. Resolved FDG avid mediastinal lymphadenopathy. Skeleton: Developed mild medial right clavicle sclerosis with SUV max 3.5. Developed focal FDG uptake at the leftward T4 vertebral body without underlying CT abnormality shows SUV max 4.6 on axial image 97. Developed focal FDG uptake at posteromedial right 9th rib with mild underlying sclerosis showing SUV max 3.3 on axial image 133. Focal FDG uptake at developed slightly angulated anterolateral right 6th and 7th ribs without underlying lytic or blastic lesion. Increased FDG avid sclerosis at left L1 vertebral body showing SUV max of 4.8 on axial image 173. FDG avid mixed lytic and sclerotic right sacral lesion showing SUV max 4.8. Degenerative change along the spine and sacroiliac joints. Soft tissues: No abnormal uptake in the visualized head, neck, chest, abdomen, pelvis, and extremities. Small fat containing left and tiny fat containing right inguinal hernias. METRICS: Mediastinal blood pool: SUV mean 2.0 Liver uptake: SUV 2.2 PET/PET skull to thigh SUBS [id number] IMPRESSION: 1. Compared to September 2023, development of multifocal FDG osseous metastases involving the medial right clavicle, T4 and L1 vertebral bodies, right 9th rib, and rightward sacrum. 2. Developed FDG avid slightly angulated anterolateral right 6th and 7th ribs without underlying lytic or blastic lesion compatible with acute fractures. 3. Much decreased right lower lobe opacity with residual bandlike opacity showing very low-level FDG uptake favors resolving infectious or inflammatory process. Decreased surrounding tree-in-bud nodularity. 4. Mildly increased posterior right lower lobe superior segment FDG avid nodularity showing intervally developed subpleural nodular thickening. Favor inflammatory process. 5. Developed FDG avid right hilar node may be reactive or metastatic. 6. Additional chronic and incidental findings as above.
[2025-02-28 11:10] LABS: Hematocrit 37.8 % (37-53); Hemoglobin 11.80 g/dL (11.27-16.99); Mean Corpuscular HGB Conc 31.2 g/dL (30-55); Mean Corpuscular Hemoglobin 30.4 pg (27-33); Mean Corpuscular Volume 97.4 fl (82-101); Nucleated Red Blood Cells % 0 %; Platelet Count 379 10^3/cmm (157-399); Red Blood Count 3.88 10^6/uL (3.85-5.65); White Blood Count 7.84 10^3/uL (3.29-11.43)
[2025-02-28 11:36] LABS: Alanine Aminotransferase 7 U/L (0-41); Albumin Level 3.9 g/dL (3.5-5.2); Alkaline Phosphatase 141 U/L (40-130); Anion Gap 14.4 (5-19); Aspartate Amino Transferase 14 U/L (0-40); Blood Urea Nitrogen 17 mg/dL (8-23); Calcium 8.9 mg/dL (8.5-10.5); Carbon Dioxide 31 mmol/L (22-29); Chloride 101 mmol/L (98-107); Creatinine Clr Calc Pharmacy 66.9046; Globulin 2.8 g/dL (1.3-4.6); Glucose 102 mg/dL (65-115); Osmolality Calculated 298 mOsm/kg (285-295); Potassium 3.4 mmol/L (3.5-5.1); Prostate Specific Antigen 79.290 ng/mL (0-4); Sodium 143 mmol/L (136-145); Total Protein 6.7 g/dL (6.6-8.7)
== END 2025-02-28 23:59 | disposition home or self-care (01) ==
PROVIDERS: PCP Family Medicine; Visit Provider Internal Medicine Medical Oncology
DX: C34.91 Malignant neoplasm of unspecified part of right bronchus or lung; R97.20 Elevated prostate specific antigen [PSA]; F17.210 Nicotine dependence, cigarettes, uncomplicated; M89.8X8 Other specified disorders of bone, other site; Z79.899 Other long term (current) drug therapy; Z95.828 Presence of other vascular implants and grafts; Z92.3 Personal history of irradiation; Z92.21 Personal history of antineoplastic chemotherapy; Z53.9 Procedure and treatment not carried out, unspecified reason
CPT/HCPCS: 36591; 71260; 74177; 78815; 80053; 84153; 85025; 96523; 99214; A9552

== ENCOUNTER 2025-03-21 07:46 | Oncology outpatient (recurring) (ONCR) | payer MEDICARE, BC, SELFPAY ==
[2025-03-20 11:21] LABS: Hematocrit 39.6 % (37-53); Hemoglobin 12.50 g/dL (11.27-16.99); Mean Corpuscular HGB Conc 31.6 g/dL (30-55); Mean Corpuscular Hemoglobin 29.6 pg (27-33); Mean Corpuscular Volume 93.8 fl (82-101); Nucleated Red Blood Cells % 0 %; Platelet Count 296 10^3/cmm (157-399); Red Blood Count 4.22 10^6/uL (3.85-5.65); White Blood Count 6.23 10^3/uL (3.29-11.43)
[2025-03-20 11:36] LABS: Alanine Aminotransferase 7 U/L (0-41); Albumin Level 4.2 g/dL (3.5-5.2); Alkaline Phosphatase 131 U/L (40-130); Anion Gap 14.4 (5-19); Aspartate Amino Transferase 15 U/L (0-40); Blood Urea Nitrogen 14 mg/dL (8-23); Calcium 9.0 mg/dL (8.5-10.5); Carbon Dioxide 32 mmol/L (22-29); Chloride 100 mmol/L (98-107); Creatinine Clr Calc Pharmacy 65.6559; Globulin 2.5 g/dL (1.3-4.6); Glucose 104 mg/dL (65-115); Osmolality Calculated 297 mOsm/kg (285-295); Potassium 3.4 mmol/L (3.5-5.1); Sodium 143 mmol/L (136-145); Total Protein 6.7 g/dL (6.6-8.7)
[2025-03-21] MEDS: aprepitant 130 mg/18 ml SDV IVP (09:35)
[2025-03-21] MEDS: diphenhydrAMINE 50 mg/mL SDV 1mL 25 MG IVP (09:43)
[2025-03-21] MEDS: [UNRECOGNIZED DRUG - REMARK] 185 MG IV (11:03)
[2025-03-21] MEDS: CARBOplatin 510 MG in sodium chloride 0.9% 500 ML 551 MG IV (14:35)
[2025-03-21 15:50] VITALS: BP 147/73; PULSE 90; RESP 17; TEMP 36.7; O2SAT 96
[2025-03-21] MEDS: pegfilgrastim 6 mg/0.6 mL Kit (onpro) SUBCUT (15:53)
== END 2025-03-31 23:59 | disposition home or self-care (01) ==
PROVIDERS: PCP Family Medicine; Visit Provider Internal Medicine Medical Oncology
DX: Z53.9 Procedure and treatment not carried out, unspecified reason; Z51.11 Encounter for antineoplastic chemotherapy; C34.91 Malignant neoplasm of unspecified part of right bronchus or lung; F17.210 Nicotine dependence, cigarettes, uncomplicated; Z79.52 Long term (current) use of systemic steroids; Z79.899 Other long term (current) drug therapy; Z95.828 Presence of other vascular implants and grafts; Z71.6 Tobacco abuse counseling; Z92.3 Personal history of irradiation
CPT/HCPCS: 36591; 80053; 83615; 85025; 96367; 96375; 96377; 96401; 96413; 96415; 96417; 99214; 99215; J0185; J1100; J1200; J2469; J2506; J3490; J7030; J7040; J7050; J9045; J9267

== ENCOUNTER 2025-03-22 14:28 | Outpatient (CLI) | payer MEDICARE, BC, SELFPAY ==
--- NOTE | 2025-03-22 15:15 | MR_ITS ---
WS: [id number] MRI BRAIN WITH AND WITHOUT CONTRAST HISTORY: dizziness and unsteady gaite COMPARISON: 01/11/2024 TECHNIQUE: Multiplanar imaging performed through the brain with MultiHance 13 ml's IV. No acute infarct. Normal diffusion imaging. Mild cerebral and cerebellar volume loss. Moderate small vessel ischemic changes throughout the white matter. Not significantly progressed since the most recent exams. No mass effect. No hemorrhage. Moderate bilateral hippocampal atrophy is similar to prior studies. Prominent ventricles and extra-axial spaces on the basis of volume loss. No change in appearance of the pituitary gland or clivus. Visualized posterior fossa and brainstem are also normal. Postcontrast images are negative for masses or vascular malformations. Dural venous sinuses are normal. Paranasal sinuses: Well aerated with no significant disease. Mastoid air cells: Normal. Calvarium and scalp: No metastatic lesions. MR/MR head wo/w con [id number] IMPRESSION: 1. No evidence for metastatic disease to the brain. 2. No acute infarct. 3. Mild cerebral and cerebellar volume loss. 4. Moderate small vessel ischemic changes are stable.
[2025-03-22] MEDS: gadobenate dimeglumine 20 mL vial 14 ML IV (16:03)
== END 2025-03-22 14:29 | disposition home or self-care (01) ==
LOC: RAD 14:31
PROVIDERS: PCP Family Medicine; Visit Provider Nurse Practitioner Family
DX: C34.91 Malignant neoplasm of unspecified part of right bronchus or lung (principal); G93.89 Other specified disorders of brain; R42 Dizziness and giddiness
CPT/HCPCS: 70553; A9577

== ENCOUNTER 2025-03-27 11:21 | Inpatient (IN) | payer MEDICARE, BC, SELFPAY ==
--- OUTSIDE RECORDS SUMMARY | 2024-03-26 04:00 | XMS_ITS ---
Author Organization [facility] Address [address] [place] [address] Care Team Providers Care Talent Partner Name Role Phone Migration, Provider Unavailable Unavailable REASON FOR VISIT EMR-Maurice Encounters Encounter Location Date Provider Diagnosis Migrated_Facility 0 0 03/26/2024 Provider Migration Plan Of Treatment No Information Progress Notes * Vlad DUGANDOB:1945 (79 yo M)Acc No.[id number]:03/26/2024 Patient: Vlad ARAYA :1945 A ge:78 Y S ex:Male Address:[address] [address] , [place] [address] Subjective: * Chief Complaints: * E MR-Maurice * * Date:
--- OUTSIDE RECORDS SUMMARY | 2024-03-27 04:00 | XMS_ITS ---
Author Organization [facility] Address [address] [place] [address] Care Team Providers Care Computer Tester Name Role Phone Migration, Provider Unavailable Unavailable REASON FOR VISIT EMR-Maurice Encounters Encounter Location Date Provider Diagnosis Migrated_Facility 0 0 03/27/2024 Provider Migration Plan Of Treatment No Information Progress Notes * Vlad DUGANDOB:1945 (79 yo M)Acc No.[id number]:03/27/2024 Patient: Vlad ARAYA :1945 A ge:78 Y S ex:Male Address:[address] [address] , [place] [address] Subjective: * Chief Complaints: * E MR-Maurice * * Date:
[2025-03-27] VITALS (138 sets, daily range): BP systolic 70–126; BP diastolic 30–96; PULSE 84–111; RESP 19–37; TEMP 36.2–36.6; O2SAT 48–100; BMI 17.4
--- NOTE | 2025-03-27 11:24 | XR_ITS ---
WS: [id number] Exam: XR chest 1V portable [id number] Date/Time of Exam: 03/27/2025 11:29 AM Reason For Exam: sob Comparison 06/07/2024. There are diffuse interstitial infiltrates throughout both lungs. The lungs are hyperinflated. No pneumothorax. Small RIGHT pleural effusion. Cardiomediastinal silhouette is unremarkable for technique. LEFT subclavian port ends in the lower one third of the SVC. Several old RIGHT rib fractures. IMPRESSION1. Diffuse interstitial infiltrates throughout both lungs that could represent interstitial pulmonary edema or interstitial pneumonia. 2. Pulmonary hyperinflation with emphysematous changes and honeycombing. 3. Small RIGHT basal pleural effusion.
--- NOTE | 2025-03-27 11:27 | ECG_ITS ---
[facility] Test Date: 2025-03-27 Pat Name: Vlad Dugan Department: Room: Gender: Male Reeling Operator: DAVID: 1945 Requested By: Matthias Johnson Order Number: [id number] Marilee MD: Christopher Perez M.D. Measurements Intervals [place] Rate: 102 P: 82 AL: 144 QRS: -21 QRSD: 166 T: 76 QT: 418 QTc: 545 Interpretive Statements SINUS TACHYCARDIA BORDERLINE LEFT AXIS DEVIATION [QRS AXIS < -20] RIGHT BUNDLE BRANCH BLOCK [120+ ms QRS DURATION, UPRIGHT V1, 40+ ms S IN I/aVL/V4/V5/V6] Compared to ECG 09/21/2024 09:59:02 NO SIGNIFICANT CHANGE Electronically Signed On 03-30-2025 08:31:02 CDT by Christopher Perez M.D. [email or web address]
[2025-03-27 11:33] LABS: Arterial Blood Gas Hematocrit 26.9 % (42-52); Blood Gas Allen Test Pos; Blood Gas Operator Identificat GD; Blood Gas Sample Site Radial, right; Blood Gas Sample Type Arterial; Carboxyhemoglobin 3.8 %THgb (0.4-20.1); Glucose Level-ABG 40.0 mg/dL (70-115); HCO3 ABG 23.0 mmol/L (22-26); Ionized Calcium Level - ABG 1.0 mmol/L (1.1-1.4); Methemoglobin 1.0 % (0.4-1.5); Oxygen Saturation ABG 87.6; PO2 ABG 71.3 mmHg (80.0-100.0); Potassium Level - ABG 3.3 mmol/L (3.5-5.0); Sodium Level - ABG 143.0 mmol/L (131-143)
[2025-03-27 11:34] LABS: ABG PH Result 7.16 (7.35-7.45); Alveolar-Arterial Oxygen Gradi 73.4 mmHg (5-10); Blood Gas LPM 15.0 %; PO2 FiO2 Ratio Arterial Blood 71
[2025-03-27 11:35] LABS: ABG PCO2 65.3 mmHg (35-45)
--- NOTE | 2025-03-27 11:37 | CT_ITS ---
WS: [id number] CT CHEST ANGIOGRAPHY WITH REFORMATS HISTORY: sob TECHNIQUE: Contiguous axial images are obtained through the chest during arterial injection of intravenous contrast. Images are reconstructed to evaluate the pulmonary arteries. MIP imaging also reviewed. All CT scans at [facility] use at least one of these dose optimization techniques: automated exposure control; mA and/or kV adjustment per patient size (includes targeted exams where dose is matched to clinical indication); or iterative reconstruction. CONTRAST: Omnipaque 350; 100 mL IV. DLP: 488.61 mGy.cm COMPARISON: 02/07/2025, PET/CT 02/24/2025 Opacification of the pulmonary arteries. No pulmonary emboli is identified. Normal size pulmonary artery. Moderate atherosclerosis aorta and ectasia. Mild enlargement of the LEFT ventricle. No RIGHT heart strain. No pericardial effusion. Interval development of small to moderate layering bilateral pleural effusions with compressive atelectasis and areas of pulmonary consolidations. Consolidation superimposed on a background of chronic emphysema. Reticular nodular airspace disease extends into the upper lung maloney bilaterally. Mediastinal and hilar lymphadenopathy with mild progression since 02/07/2025 suggesting reactive adenopathy. Largest lymph node on the RIGHT is 1.5 cm, intralobular lymph node. LEFT subclavian Port-A-Cath. Prior cholecystectomy. Atherosclerotic calcification suprarenal aorta. Motion artifact. Patient has known multifocal osseous metastasis which are recently described by PET/CT imaging most pronounced area of metastasis at L1. CT/CT angio chest PE protcl [id number] IMPRESSION: 1. No pulmonary embolism. 2. Development of small to moderate bilateral pleural effusions with compressi ve atelectasis. New since 02/07/2025. 3. Additional areas of consolidation consistent with pneumonia in the upper farhan ng maloney. 4. Chronic emphysema. 5. Increasing hilar and mediastinal adenopathy is probably reactive. Progresse d since 02/07/2025. 6. Patient has known metastatic bone disease which was described on the PET/CT of 02/24/2025. 7. Prior cholecystectomy.
--- NOTE | 2025-03-27 11:37 | CT_ITS ---
WS: [id number] CT HEAD NONCONTRAST HISTORY: ams TECHNIQUE: Contiguous axial imaging performed through the brain. Bone and soft tissue windows. Sagittal and coronal reformats reviewed. All CT scans at [facility] use at least one of these dose optimization techniques: automated exposure control; mA and/or kV adjustment per patient size (includes targeted exams where dose is matched to clinical indication); or iterative reconstruction. DLP: 1941.03 mGy.cm COMPARISON: 06/07/2024 No acute intracranial hemorrhage or edema. Diffuse cerebral atrophy and chronic microvascular white matter disease. No prior infarct. Ventricles: Normal size with no hydrocephalus. No inferior displacement of the cerebellar tonsils. Paranasal sinuses: Obscured by motion. No air-fluid levels identified. Mastoid air cells: Well pneumatized. Calvarium and scalp: There is significant motion artifact. No skull fracture identified. CT/CT head wo con* [id number] IMPRESSION: 1. Examination is compromised by motion artifact. 2. No intracranial hemorrhage or edema identified. 3. Stable cerebral atrophy and chronic microvascular white matter disease.
[2025-03-27 12:05] LABS: Hematocrit 30.1 % (37-53); Hemoglobin 8.50 g/dL (11.27-16.99); Mean Corpuscular HGB Conc 28.2 g/dL (30-55); Mean Corpuscular Hemoglobin 29.9 pg (27-33); Mean Corpuscular Volume 106.0 fl (82-101); Nucleated Red Blood Cells % 0 %; Platelet Count 70 10^3/cmm (157-399); Red Blood Count 2.84 10^6/uL (3.85-5.65)
[2025-03-27 12:05] LABS: Glucose Urine UA Negative (Normal); Specific Gravity, Urine 1.025 (1.005-1.030)
[2025-03-27] MEDS: piperacillin-tazobactam 3.375 GM in sodium chloride 0.9% (plus) 50 ML IV (12:06)
--- NOTE | 2025-03-27 12:08 | ED_ITS ---
HPI - Altered Mental Status 2 General: Chief Complaint: Altered Mental Status Stated Complaint: resp distress Time Seen by Provider: 03/27/25 11:24 Source: patient and EMS Mode of arrival: EMS Limitations: altered mental status History of Present Illness: 79-year-old male has a history of squamo us cell carcinoma and just received chemotherapy 2 days ago per him his states he has been increasingly lethargic since then when they arrived he was hypoxic with pulse ox in the 60s and unresponsive and hypotensive. Patient arrived. Did give him Narcan he is waking up a lot more is able to tell me his name but he is quite confused. No known recent injuries. Related Data Previous Rx's ?Medication ?Instructions ?Recorded midodrine 10 mg tablet 10 mg PO TID #90 tabs Held on 01/10/25. Instructions: Home Medication placed on hold at Doctor's office citalopram 10 mg tablet 10 mg PO DAILY #30 tabs 12/30 07/26 fludrocortisone 0.1 mg tablet 0.2 mg (2 x 0.1 mg) PO D AILY #180 01/10/25 tabs ferrous sulfate 325 mg (65 mg 325 mg PO BID #60 tabs 0 01/18/25 iron) tablet Orthopedic seat cushion #1 ea 03/03/25 triamcinolone acetonide 0.1 % 1 applic topical DAILY # 30 grams 03/03/25 topical cream zinc oxide 13 % topical cream 1 applic topical QID PRN skin 03/03/25 (Desitin Daily Defense) irritation #113 grams dexamethasone 4 mg tablet 20 mg (5 x 4 mg) PO .COMPLEX #40 03/14/25 tabs ondansetron HCl 4 mg tablet 4 mg PO Q6H PRN nausea and 03/14/25 vomiting #30 tabs prochlorperazine maleate 10 mg 10 mg PO Q4H PRN mild n ausea #30 03/14/25 tablet (Compazine) tabs Allergies Allergy/AdvReac Type Severity Reaction Status Date / Time No Known Allergies Allergy Verified 03/21/25 07:53 Review of Systems 2 General: Reports: ROS unobtainable due to mental status PFSH ED 2 PFSH: Medical History (Updated 03/27/25 @ 14:38 by Matthias Johnson MD) Non-small cell lung cancer Port-A-Cath in place 11/03/23 Dr Ambrose Abuse of smoked substance Carotid stenosis Abnormal nuclear stress test Weight loss [place] (dyspnea on exertion) Fatigue Anemia Elevated PSA Surgical History History of splenectomy History of right-sided carotid endarterectomy S/P cholecystectomy H/O cataract removal with insertion of prosthetic lens Family History Family/Other Diabetes Brother Diabetes Heart attack, Onset Age: 40 Mother , in her 80's No problems noted. Father , IN HIS 70'S No problems noted. Denies family history of Rheumatoid arthritis Lupus CAD (coronary artery disease) Clotting disorder Dementia Hyperlipidemia Chronic kidney disease (CKD) Suicide Anesthesia complication Bleeding disorder Lung disease Cancer Hypertension Stroke Social History Smoking and tobacco/nicotine status: current every day tobacco/nicotine user cigarettes Packs smoked per day: 1 Years cigarettes smoked: 65 Alcohol intake: current Alcohol intake frequency: few times a week Alcohol type: beer Substance/Drug Use: never Caregiver/support person: Yes Lives independently: Yes Marital status: Current occupational status: retired Current gender identity: Male Physical Exam 2 Const: COMMON NORMALS: negative for patient oriented x3 GENERAL APPEARANCE: ill appearing and frail appearing HENMT: COMMON NORMALS: normocephalic and atraumatic HEAD & SCALP: n ormocephalic and atraumatic Eye: COMMON NORMALS: Equal, round and reactive pupils present and EOMs intact bilaterally PUPIL: Yes Equal, round and reactive pupils present Neck/C-Spine: COMMON NORMALS: full ROM and supple Chest: COMMONS NORMALS: normal inspection of the chest and normal palpation of entire chest wall Resp: EFFORT & INSPECTION: Yes respiratory distress and Yes labored A USCULTATION: rales Cardio: COMMON NORMALS: regular rhythm and No murmurs present (Cardio) R ATE: tachycardic RHYTHM: regular rhythm GI: COMMON NORMALS: Normal to inspection, nondistended, normoactive bowel sounds present, Soft to palpation, non-tender and no masses PALPATION: Yes Soft to palpation Extremity: COMMON NORMALS: normal to inspection and full ROM Neuro: COMMON NORMALS: moves all extremities and no focal motor deficits; negative for patient oriented x3 Psych: COMMON NORMALS: cooperative Skin: COMMON NORMALS: no rashes or lesions noted and no wounds GENERAL SKIN EXAM: no rashes or lesions noted Urinary Catheter Management: Dias: Cath Placed During This Visit: yes Urinary Catheter Date of Insertion: 03/27/25 Urinary Catheter Time of Insertion: 11:59 Course 2 Vital Signs: Vital signs: Vital Signs Temperature 97.8 F 03/27/25 11:29 Pulse Rate 93 03/27/25 14:28 Respiratory Rate 34 H 03/27/25 14:00 Blood Pressure 86/58 03/27/25 14:28 Pulse Oximetry 97 03/27/25 14:28 Oxygen Delivery Me thod BiPAP 03/27/25 12:30 Oxygen Flow Rate 3 03/27/25 11:29 Fraction of Inspir ed Oxygen 100 03/27/25 11:43 MDM - Altered Mental Status Medical Decision Making Patient presents here with septic shock likely from pneumonia along with his cancer. Patient is initially unresponsive he is now awake and alert he is improving on BiPAP his blood pressure here is improved after IV fluids as well. I did give him sepsis bolus including the fluid bolus he received with EMS. Patient had blood culture antibiotics here. Did have a period of hypoglycemia did treat with D10 and his blood sugar has normalized here. I did review all his imaging. EKG here shows sinus tachycardia [address] elevation QRS 166 QTc 476. I spoke to Dr. Montgomery who will be admitting to the ICU at this time. Medical Records I reviewed the patient's medical records. Lab Data I reviewed the patient's lab results. 03/27/25 11:52 03/27/25 11:52 Radiology Impressions Chest CTA 03/27/25 11:37 IMPRESSION: 1. No pulmonary embolism. 2. Development of small to moderate bilateral pleural effusions with compressive atelectasis. New since 02/07/2025. 3. Additional areas of consolidation consistent with pneumonia in the upper lung maloney. 4. Chronic emphysema. 5. Increasing hilar and mediastinal adenopathy is probably reactive. Progressed since 02/07/2025. 6. Patient has known metastatic bone disease which was described on the PET/CT of 02/24/2025. 7. Prior cholecystectomy. Head CT 03/27/25 11:37 IMPRESSION: 1. Examination is compromised by motion artifact. 2. No intracranial hemorrhage or edema identified. 3. Stable cerebral atrophy and chronic microvascular white matter disease. Laboratory Results WBC 0.52 10^3/uL (3.29-11.43) L* 03/27/25 11:52 RBC 2.84 10^6/uL (3.85-5.65) L 03/27/25 11:52 Hgb 8.50 g/dL (11.27-16.99) L 03/27/25 11:52 Hct 30.1 % (37-53) L 03/27/25 11:52 MCV 106.0 fl (82-101) H 03/27/25 11:52 MCH 29.9 pg (27-33) 03/27/25 11:52 MCHC 28.2 g/dL (30-55) L 03/27/25 11:52 RDW 17.2 % (12.1-15.1) H 03/27/25 11:52 Plt Count 70 10^3/cmm (157-399) L 03/27/25 11:52 MPV 12.7 fL (7.4-10.4) H 03/27/25 11:52 Neut % (Auto) 5.8 % 03/27/25 11:52 Lymph % (Auto) 80.8 % 03/27/25 11:52 [place] % (Auto) 11.5 % 03/27/25 11:52 Eos % (Auto) 0.0 % 03/27/25 11:52 Baso % (Auto) 0.0 % 03/27/25 11:52 Neut # (Auto) 0.03 10^3/uL (1.8-7.7) L* 03/27/25 11:52 Lymph # (Auto) 0.4 10^3/uL (0.8-4.8) L 03/27/25 11:52 [place] # (Auto) 0.1 10^3/uL (0.2-0.9) L 03/27/25 11:52 Eos # (Auto) 0.0 10^3/uL (0.0-0.8) 03/27/25 11:52 Baso # (Auto) 0.0 10^3/uL (0.0-0.1) 03/27/25 11:52 Nucleated RBC % (auto) 0 % 03/27/25 11:52 Nucleated RBCs # 0.0 /100WBC 03/27/25 11:52 PT 22.50 SECONDS (12.1-14.9) H 03/27/25 11:52 INR 1.85 (0.8-1.2) H 03/27/25 11:52 Specimen Type Arterial 03/27/25 13:45 Sample Site Brachial, right 03/27/25 13:45 ABG pH 7.22 (7.35-7.45) L 03/27/25 13:45 ABG pCO2 61.3 mmHg (35-45) H* 03/27/25 13:45 ABG pO2 93.3 mmHg (80.0-100.0) 03/27/25 13:45 ABG PO2/FiO2 Ratio 93 03/27/25 13:45 ABG HCO3 25.3 mmol/L (22-26) 03/27/25 13:45 ABG O2 Saturation 95.5 03/27/25 13:45 ABG Base Excess -2.8 mmol/L (-2.0-2.0) L 03/27/25 13:45 Angel Test Pos 03/27/25 13:45 A-a O2 Gradient 70.8 mmHg (5-10) H 03/27/25 13:45 Hematocrit 28.6 % (42-52) L 03/27/25 13:45 Hgb O2 Saturation 92.5 % (95-100) L 03/27/25 13:45 Carboxyhemoglobin 2.3 %THgb (0.4-20.1) 03/27/25 13:45 Methemoglobin 0.9 % (0.4-1.5) 03/27/25 13:45 Total Hemoglobin 9.3 g/dL (14-18) L 03/27/25 13:45 Sodium 140.0 mmol/L (131-143) 03/27/25 13:45 Potassium 3.7 mmol/L (3.5-5.0) 03/27/25 13:45 Glucose 123.0 mg/dL (70-115) H 03/27/25 13:45 Ionized Calcium 1.0 mmol/L (1.1-1.4) L 03/27/25 13:45 O2 Delivery Device Bipap 03/27/25 13:45 O2 Liters/Min 15.0 % 10/27/25 11:18 FiO2 100.0 % 03/27/25 13:45 Demand Planner ID Broma 03/27/25 13:45 Sodium 142 mmol/L (136-145) 03/27/25 11:52 Potassium 3.8 mmol/L (3.5-5.1) 03/27/25 11:52 Chloride 101 mmol/L (98-107) 03/27/25 11:52 Carbon Dioxide 21 mmol/L (22-29) L 03/27/25 11:52 Anion Gap 23.8 (5-19) H 03/27/25 11:52 BUN 30 mg/dL (8-23) H 03/27/25 11:52 Creatinine 1.2 mg/dL (0.7-1.2) 03/27/25 11:52 GFR Calculation Not Reportable 03/27/25 11:52 Glucose 34 mg/dL (65-115) L* 03/27/25 11:52 POC Glucose 115 mg/dL (70-110) H 03/27/25 13:45 Calculated Osmolality 297 mOsm/kg (285-295) H 03/27/25 11:52 Lactic Acid 8.9 mmol/L (0.5-2.2) H* 03/27/25 11:52 Calcium 7.2 mg/dL (8.5-10.5) L 03/27/25 11:52 Total Bilirubin 2.8 mg/dL (0.15-1.2) H 03/27/25 11:52 AST 677 U/L (0-40) H 03/27/25 11:52 ALT 409 U/L (0-41) H 03/27/25 11:52 Alkaline Phosphatase 87 U/L (40-130) 03/27/25 11:52 Troponin T Baseline 258 ng/L (0-15) H* 03/27/25 11:52 Troponin T 120 Minute 359.1 ng/L (0-15) H 03/27/25 13:42 Delta Troponin T 101.1 ABS# (0-10) H* 03/27/25 13:42 C-Reactive Protein 230.2 mg/L (0.0-4.9) H 03/27/25 11:52 NT-Pro-B Natriuret Pep 96473 pg/mL (0-450) H 03/27/25 11:52 Total Protein 4.0 g/dL (6.6-8.7) L 03/27/25 11:52 Albumin 2.6 g/dL (3.5-5.2) L 03/27/25 11:52 Globulin 1.4 g/dL (1.3-4.6) 03/27/25 11:52 Urine Color [place] (Yellow) A 03/27/25 11:58 Urine Appearance Cloudy (CLEAR) A 03/27/25 11:58 Urine pH 5.5 (5-7) 03/27/25 11:58 Ur Specific [place] 1.025 (1.005-1.030) 03/27/25 11:58 Urine Protein 2+ (Negative) A 03/27/25 11:58 Urine Glucose (UA) Negative (Normal) 03/27/25 11:58 Urine Ketones Negative (Negative) 03/27/25 11:58 Urine Blood Negative (Negative) 03/27/25 11:58 Urine Nitrate Not Reportable 03/27/25 11:58 Urine Bilirubin 2+ (Negative) H 03/27/25 11:58 Urine Urobilinogen 2.0 mg/dL (Negative) H 03/27/25 11:58 Ur Leukocyte Esterase Trace (Negative) A 03/27/25 11:58 Urine RBC 0-2 /hpf (0-2) 03/27/25 11:58 Urine WBC 0-5 /hpf (0-5) 03/27/25 11:58 Ur Squamous Epith Cells 6-10 /hpf (0-5) 03/27/25 11:58 Amorphous Sediment 1+ /hpf 03/27/25 11:58 Urine Bacteria None seen /hpf (NONE) 03/27/25 11:58 Hyaline Casts 22.73 /lpf 03/27/25 11:58 Coarse Granular Casts 10-15 /lpf H 03/27/25 11:58 Urine Mucus Trace /hpf 03/27/25 11:58 All radiology interpretation(s) finalized by discharge EKG Data EKG 1: I personally reviewed and interpreted this EKG as follows: EKG interpretation date: 03/27/25 EKG interpretation time: Interpretation: sinus tach hr [address] elevation qrs 166 qtc 476 Critical Care Time 2 Critical Care Time: Critical Care Time: Yes Total Critical Care Time: 50 Attestation: The high probability of a clinically significant, sudden or life threatening deterioration of the patient's resp system(s) required my full and direct attention, intervention and personal management. The critical care time is as shown. This time is in addition to time spent performing any reported procedures but includes the following: [x] Data and vital sign review and interpretation [x] Patient assessment, examination and intervention [x] Documentation [x] Medication orders and management Discharge Plan Discharge Patient Disposition: Admitted As Inpatient Admit Provider: Marin Montgomery Clinical Impression: Pneumonia, Septic shock, Squamous cell carcinoma lung, Acute respiratory failure with hypoxia Condition: Stable Coding Level of Care Code ED Clinic Receptionist for Eugene Angel
--- OUTSIDE RECORDS SUMMARY | 2025-03-27 12:08 | XMS_ITS | Clinical Summary ---
Author Organization [facility] Address [address] [place] [address] Phone Care Team Providers Care Marketing Support Assistant Name Role Phone Albin Bah MD Primary Care Provider [phone] Allergies No known active allergies Medications No known medications Social History Tobacco Use Types Packs/Day Years Used Date Smoking Tobacco: Every Day Cigarettes Smokeless Tobacco: Current Sex and Gender Information Value Date Recorded Sex Assigned at Not on file Legal Sex Male 1:29 PM CDT Gender Identity Not on file Sexual Orientation Not on file Last Filed Vital Signs Vital Sign Reading Time Taken Comments Blood Pressure 113/56 03/26/2018 4:46 PM CDT Pulse 77 03/26/2018 4:46 PM CDT Temperature 36.4 C (97.5 F) 03/26/2018 4:46 PM CDT Respiratory Rate 16 03/26/2018 4:46 PM CDT Oxygen Saturation 98% 03/26/2018 4:46 PM CDT Inhaled Oxygen Concentration - - Weight 90.7 kg (200 lb) 03/26/2018 11:29 AM CDT Height 190.5 cm (6' 3 ) 03/26/2018 11:29 AM CDT Body Mass Index 25 03/26/2018 11:29 AM CDT Plan of Treatment Health Maintenance Due Date Last Done Comments DTAP/TDAP/TD VACCINES (1 - Tdap) 10/17/1962 PNEUMOCOCCAL VACCINE 50+ YEARS (1 of 2 - PCV) 10/17/18 61 ZOSTER VACCINE (1 of 2) 10/17/1993 RSV VACCINE (60+ or ) (1 - 1-dose 75+ series) 10/17/2018 INFLUENZA VACCINE (#1) 2024 Insurance MEDICARE PART A AND B [employer] Care Teams Marketing Support Assistant Relationship Specialty Start Date End Date Albin Bah MD [address] [place] [address] PCP - General Family Practice 03/25/18
--- OUTSIDE RECORDS SUMMARY | 2025-03-27 12:08 | XMS_ITS | Clinical Summary ---
Author Organization [facility] Address [address] Attn: Epic Prelude ADT [place] [address] Care Team Providers Care Practice Lead Name Role Phone Albin Bah MD Primary Care Provider [phone] Allergies No known active allergies Medications propranoloL (INDERAL) 10 mg tablet Take 10 mg by mouth 2 times daily. 07/24/2023 Active pravastatin (PRAVACHOL) 20 mg tablet Take 20 mg by mouth daily. 06/18/2023 Active midodrine (PROAMATINE) 2.5 mg Tablet Take 2.5 mg by mouth 2 times daily. 07/24/2023 Active lactulose (ENULOSE) 10 gram/15 mL 10 gram/15 mL solution Take 10 Grams by mouth 2 times daily. 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 Gender Identity Not on file Sexual Orientation Not on file Last Filed Vital Signs Vital Sign Reading Time Taken Comments Blood Pressure 105/86 09/14/2023 12:40 PM CDT Pulse 66 09/14/2023 12:40 PM CDT Temperature 36.2 C (97.1 F) 09/14/2023 12:40 PM CDT Respiratory Rate 24 09/14/2023 12:40 PM CDT Oxygen Saturation 95% 09/14/2023 12:40 PM CDT Inhaled Oxygen Concentration - - Weight 70.8 kg (156 lb) 09/08/2023 9:45 AM CDT Height 190.5 cm (6' 3 ) 09/08/2023 9:45 AM CDT Body Mass Index 19.5 09/08/2023 9:45 AM CDT Plan of Treatment Health Maintenance Due Date Last Done Comments DTAP/TDAP/TD VACCINES (1 - Tdap) 10/17/1962 PNEUMOCOCCAL VACCINE 50+ YEARS (1 of 2 - PCV) 10/17/18 63 ZOSTER VACCINE (1 of 2) 10/17/1993 RSV VACCINE (60+ or ) (1 - 1-dose 75+ series) 10/17/2018 INFLUENZA VACCINE (#1) 2024 Insurance [id number] [place] [id number] MEDICARE PART A AND B [facility] Advance Directives For more information, please contact: [phone] * Full Code (Latest Code Status on File) Date Activated Date Inactivated Comments 09/14/2023 10:35 AM 09/14/2023 3:02 PM Care Teams Practice Lead Relationship Specialty Start Date End Date Albin Bah MD [address] [place] [phone] PCP - General Family Practice 03/25/18
--- OUTSIDE RECORDS SUMMARY | 2025-03-27 12:08 | XMS_ITS | Encounter Summary ---
Author Organization [facility] Address [address] [place] [address] Care Team Providers Care Insurance Processor Name Role Phone Albin Bah MD Primary Care Provider [phone] Reason for Referral * Radiology Services (Routine) - Closed Specialty Diagnoses / Procedures Referred By Sebastian barnes Referred To Contact Diagnoses Pancytopenia Procedures US BIOPSY ABDOMEN Tio Larsen MD [address] [place] [phone] Phone: tel: fax: [facility] Pre-Registration [place] CALL TO MAKE APPOINTMENT ONLY [address] [place] [address] Phone: tel: fax: Referral ID Status Reason Start Date Expiration Date Visits Re quested Visits Authorized [id number] Closed 03/22/2018 04/22/2019 1 1 Encounter Details Date Type Department Care Team (Latest Contact Info) Description 03/22/2018 Ancillary Orders [facility] Ultrasound [address] [place] [phone] Tio Larsen MD [address] [place] [phone] Pancytopenia (CMS/HCC) Social History Tobacco Use Types Packs/Day Years Used Date Smoking Tobacco: Never Assessed Sex and Gender Information Value Date Recorded Sex Assigned at Not on file Legal Sex Male 1:29 PM CDT Gender Identity Not on file Sexual Orientation Not on file documented as of this encounter Plan of Treatment Not on file documented as of this encounter Results * US BIOPSY ABDOMEN (03/26/2018 2:33 PM CDT) Anatomical Region Laterality Modality Abdomen Ultrasound 03/26/2018 2:35 PM CDT Impressions 03/26/2018 6:27 PM CDT IMPRESSION: Please see below. Exam: US BIOPSY ABDOMEN - ultrasound-guided spleen biopsy - Date/Time of Exam: 03/26/2018 2:33 PM Reason For Exam: The patient is a 72-year-old male referred from an outside facility for biopsy of his spleen. He has unexplained splenomegaly and anemia.. Diagnosis: Pancytopenia. Findings: Comparison is made to an outside CT scan. The planned procedure and its risks, benefits, and alternatives were explained to the patient and his . Included in this discussion was the significant theoretical risk of severe bleeding associated with a biopsy of the spleen. Consent to proceed was obtained. Moderate IV conscious sedation was provided with Versed and fentanyl. The patient was placed in a right lateral decubitus position. Preliminary imaging was performed. An appropriate approach for biopsy of the spleen was identified. The skin was marked. The left side of the abdomen was prepped and draped in the usual fashion. Local anesthesia was achieved with lidocaine. Utilizing ultrasound guidance and the needle guide, a 19-gauge introducer was advanced into the spleen. Two passes were then made with a 20-gauge biopsy gun. These cores were sent to pathology. A pass was then made with the 20-gauge biopsy gun to be sent to flow cytometry. This core was small. Another pass was made and again yielded a small core. The introducer was retracted slightly while still keeping it within the spleen. A final pass was made an adequate core was obtained. These cores were sent for flow cytometry. The introducer was removed. Postprocedure imaging showed no evidence for hematoma or perisplenic fluid. A sterile dressing was applied. The patient tolerated the procedure well. There were no immediate postprocedure complications. Estimated blood loss was minimal. IMPRESSION: Ultrasound-guided spleen biopsy as described. [id number] Narrative Procedure Note Neela Kidd MD - 03/26/2018 IMPRESSION: Please see below. Exam: US BIOPSY ABDOMEN - ultrasound-guided spleen biopsy - Date/Time of Exam: 03/26/2018 2:33 PM Reason For Exam: The patient is a 72-year-old male referred from an outside facility for biopsy of his spleen. He has unexplained splenomegaly and anemia.. Diagnosis: Pancytopenia. Findings: Comparison is made to an outside CT scan. The planned procedure and its risks, benefits, and alternatives were explained to the patient and his . Included in this discussion was the significant theoretical risk of severe bleeding associated with a biopsy of the spleen. Consent to proceed was obtained. Moderate IV conscious sedation was provided with Versed and fentanyl. The patient was placed in a right lateral decubitus position. Preliminary imaging was performed. An appropriate approach for biopsy of the spleen was identified. The skin was marked. The left side of the abdomen was prepped and draped in the usual fashion. Local anesthesia was achieved with lidocaine. Utilizing ultrasound guidance and the needle guide, a 19-gauge introducer was advanced into the spleen. Two passes were then made with a 20-gauge biopsy gun. These cores were sent to pathology. A pass was then made with the 20-gauge biopsy gun to be sent to flow cytometry. This core was small. Another pass was made and again yielded a small core. The introducer was retracted slightly while still keeping it within the spleen. A final pass was made an adequate core was obtained. These cores were sent for flow cytometry. The introducer was removed. Postprocedure imaging showed no evidence for hematoma or perisplenic fluid. A sterile dressing was applied. The patient tolerated the procedure well. There were no immediate postprocedure complications. Estimated blood loss was minimal. IMPRESSION: Ultrasound-guided spleen biopsy as described. [id number] Tio Larsen MD ORDERABLES Final Resu lt documented in this encounter Visit Diagnoses Diagnosis Pancytopenia Other pancytopenia Pancytopenia Other pancytopenia documented in this encounter Care Teams Insurance Processor Relationship Specialty Start Date End Date Albin Bah MD [address] [place] [phone] PCP - General Family Practice 03/25/18 documented as of this encounter
--- NOTE | 2025-03-27 12:09 | PC.NURSE ---
PT GIVEN 2,000ML OF NORMAL SALINE IN ROUTE. DR. BRITT NOTIFIED. VERBAL ORDERS TO GIVE 1 LITER BOLUS OF NORMAL SALINE INSTEAD OF THE ORDERED 2L.
--- OUTSIDE RECORDS SUMMARY | 2025-03-27 12:09 | XMS_ITS | Encounter Summary ---
Author Organization [facility] Address [address] [place] [address] Care Team Providers Care [employer] Consultant Name Role Phone Albin Bah MD Primary Care Provider [phone] Encounter Details Date Type Department Care Team (Latest Contact Info) Description 03/22/2018 Ancillary Orders [facility] CT Scan [address] [place] [phone] Tio Larsen MD [address] [place] [phone] Pancytopenia (CMS/HCC) Social History Tobacco Use Types Packs/Day Years Used Date Smoking Tobacco: Never Assessed Sex and Gender Information Value Date Recorded Sex Assigned at Not on file Legal Sex Male 1:29 PM CDT Gender Identity Not on file Sexual Orientation Not on file documented as of this encounter Plan of Treatment Not on file documented as of this encounter Visit Diagnoses Diagnosis Pancytopenia Other pancytopenia documented in this encounter Care Teams [employer] Consultant Relationship Specialty Start Date End Date Albin Bah MD [address] [place] [address] PCP - General Family Practice 03/25/18 documented as of this encounter
--- OUTSIDE RECORDS SUMMARY | 2025-03-27 12:09 | XMS_ITS | Patient Health Record ---
Author Organization [facility] Address [address] [place] [address] Care Team Providers Care Service Cashier Name Role Phone Migration, Provider Unavailable Unavailable Idris Rausch Unavailable Allergies No Known Allergies Reason For Referral Reason CHRONIC CONSTIPATION - DIFFICULTY WITH HAVING BOWEL MOVEMENTS DESPITE MULTIPLE MEDS. EVAL Diagnosis 1 Constipation, unspec ified constipation type (K59.00) Referring Provider First Name Albin Referring Provider Last Name Olvin Referring Provider Speciality Family Med icine Referred Organization [facility] Referred Provider Idris Rausch Referred Address [address] [place] [id number], Referred Provider Specialty Internal Med [place] General Notes Rose Mary Will 024 11:23:14 AM >NO ANSWER, VM LEFTSuman Heidi 04/26/2024 08:29:12 AM >NO RING, VM LEFT Referral Priority Routine Medications Medication SIG (Take, Route, Frequency, Duration) Notes Start Date End Date Status Propranolol HCl 10 MG Tablet 1 tablet on an empty stomach Orally every 12 hrs Active Flexeril 10 MG Tablet 1 tablet at bedtime as needed Orally Once a day Not-Taking Stool Softener 100 MG Capsule 1 capsule as needed Orally Once a day Active Folic Acid 1 MG Oral Tablet Folic Acid 1 MG Oral Tablet 08/06/2017 Not-Taking Immunizations Vaccine Route Administration Date Status Comme nts Influenza (whole), CPT 53186 Inactive Unknown 02/08/2018 Administered Social History Tobacco Use: Social History Observation Description Date Details (start date - stop date) Current Smoker NA - NA Social History Depression Screening Social Info Question Answer Notes depression screening findings Findings Negative (0 -4) PHQ-9 Little interest or p jewels in doing things Not at all Feeling down, depressed, or hopeless Not at all Trouble falling or staying asleep, or sleeping t oo much Not at all Feeling tired or having little energy Not at all Poor appetite or overeating Not at all Feeling bad about yourself, or that you are a failure, or have let yourself or your family down Not at all Trouble concentrating on thi ngs, such as reading the newspaper or watching television Not at all Moving or speaking so slowly that other people could have noticed. Or the opposite ? being so fidgety or restless that you have been moving around a lot more than usual Not at all Thoughts that you would be b callie off , or of hurting yourself in some way Not at all Total Score 0 Tobacco Use: Social Info Question Answer Notes Tobacco Control (Standard) Tobacco use: Current smoker How often do you smoke cigarettes? Every day How many cigarettes a day do you smoke? 11-20 Problems Problem Type SNOMED Code ICD Code Onset Dates Problem Status W/U Status Risk Notes Problem Change in bowel habit (43059223) Change in bowel habit (R19.4) Active confirmed Problem Constipation (19153224) Constipation, unspecified constipation type (K59.00) Active confirmed Vital Signs Heart Rate 76 /min 05/10/2024 Temperature 97.8 degrees Fahrenheit 05/10/2024 Oximetry 96 % 05/10/2024 Blood pressure diastolic 66 mm Hg 05/10/2024 Weight-kg 69.04 kg 05/10/2024 Height 75 in 05/10/2024 Blood pressure systolic 110 mm Hg 05/10/2024 Weight 152.2 lbs 05/10/2024 BMI 19.02 kg/m2 05/10/2024 Encounters Encounter Location Date Provider Diagnosis [facility] [address] [place] [id number] 05/10/2024 Idris Rausch Change in bowel habit R19.4 ; Constipation, unspecified constipation type K59.00 and Depression screen Z13.31 Migrated_Facility 0 0 03/27/2024 Provider Migration Assessments Encounter Date Diagnosis (ICD Code) Assessment Notes Treatment Notes Treatment Clinical Notes Section Notes 05/10/2024 Change in bowel habit (ICD-10 - R19.4) I have explained to him his profound WL and profound bowel habit change could be a harbinger of a sinister colon issue. He is battling lung cancer, and isn't keen to have a colonoscopy despite the risk. He refuses colonoscopy at this time. 05/10/2024 Constipation, unspecified constipation type (ICD-10 - K59.00) 05/10/2024 Depression screen (ICD-10 - Z13.31) Plan Of Treatment No Information Insurance Providers Payer Name Payer Address Payer Phone Subscriber Number Group Number Insured Name Patient Relationship to Insured Coverage Start Date Coverage End Date [place] [address] [address] [place] [phone] [id number] KaileeWalterd Self - patient is the insured [employer] [place] [address] [place] [address] [id number] KaileeWalterd Self - patient is the insured Medical (General) History Medical History History ICD Code Problem:Induratio penis plastica (disord er) , Status :: Active Problem:Tobacco user (finding) , Status :: Active 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
[2025-03-27 12:10] LABS: Add Urine Microscopic? YES
[2025-03-27 12:16] LABS: INR 1.85 (0.8-1.2); Prothrombin Time 22.50 SECONDS (12.1-14.9)
[2025-03-27 12:29] LABS: Lactic Sepsis W/Reflex 8.9 mmol/L (0.5-2.2); Troponin(5th) Baseline 258 ng/L (0-15)
[2025-03-27 12:31] LABS: Alanine Aminotransferase 409 U/L (0-41); Albumin Level 2.6 g/dL (3.5-5.2); Alkaline Phosphatase 87 U/L (40-130); Anion Gap 23.8 (5-19); Aspartate Amino Transferase 677 U/L (0-40); Blood Urea Nitrogen 30 mg/dL (8-23); Calcium 7.2 mg/dL (8.5-10.5); Carbon Dioxide 21 mmol/L (22-29); Chloride 101 mmol/L (98-107); Creatinine Clr Calc Pharmacy 43.3643; Globulin 1.4 g/dL (1.3-4.6); NT Pro B Type Natriuretic Pept 13874 pg/mL (0-450); Osmolality Calculated 297 mOsm/kg (285-295); Potassium 3.8 mmol/L (3.5-5.1); Sodium 142 mmol/L (136-145); Total Protein 4.0 g/dL (6.6-8.7)
[2025-03-27 12:38] LABS: Glucose 34 mg/dL (65-115)
[2025-03-27 12:41] LABS: Slide Review Slide Review Perform; White Blood Count 0.52 10^3/uL (3.29-11.43)
[2025-03-27 12:42] LABS: UA Slide Review UA Slide Review Perf
[2025-03-27] MEDS: iohexol 350 mg/mL 500 mL Btl (per mL) IV (13:01)
--- NOTE | 2025-03-27 13:09 | PC.PHAR ---
Potassium chl 10meq tid last fill 10/25/24 30ds, and Lactulose 30ml daily prn last fill 10/25/24 30ds are both more than 90 days old and have not been filled. Removed from med list.
[2025-03-27 13:49] LABS: Reflex Lactate Order REFLEX LACTIC ORDERD
[2025-03-27 13:58] LABS: ABG PH Result 7.22 (7.35-7.45); Alveolar-Arterial Oxygen Gradi 70.8 mmHg (5-10); Arterial Blood Gas Hematocrit 28.6 % (42-52); Blood Gas Allen Test Pos; Blood Gas Operator Identificat BROMA; Blood Gas Sample Site Brachial, right; Blood Gas Sample Type Arterial; Carboxyhemoglobin 2.3 %THgb (0.4-20.1); Glucose Level-ABG 123.0 mg/dL (70-115); HCO3 ABG 25.3 mmol/L (22-26); Ionized Calcium Level - ABG 1.0 mmol/L (1.1-1.4); Methemoglobin 0.9 % (0.4-1.5); Oxygen Saturation ABG 95.5; PO2 ABG 93.3 mmHg (80.0-100.0); PO2 FiO2 Ratio Arterial Blood 93; Potassium Level - ABG 3.7 mmol/L (3.5-5.0); Sodium Level - ABG 140.0 mmol/L (131-143)
[2025-03-27 14:01] LABS: ABG PCO2 61.3 mmHg (35-45)
[2025-03-27 14:30] LABS: Troponin 5 2HR 359.1 ng/L (0-15); Troponin 5 2HR Delta 101.1 ABS# (0-10)
[2025-03-27 15:28] LABS: Lactic Acid level (Lactate) 5.5 mmol/L (0.5-2.2)
--- NOTE | 2025-03-27 16:20 | PM.HP ---
Providers/Chief Complaint Admitting Physician: Marin Montgomery MD Primary Care Provider: Albin Bah MD Chief Complaint: resp distress History of Present Illness As per the previous notes since the patient is a little bit lethargic however alert and unable to provide adequate history, poor historian, no 1 from the family or collateral history provider available. 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 Due to his hypotension, hypoxemia, increased lactate with lethargy, admitted as a case of septic shock. Blood gas showed respiratory acidosis with CO2 narcosis. He was started on BiPAP with bolus of normal saline and broad-spectrum antibiotics with vancomycin and Zosyn were given and improved his overall status. Currently the patient is being managed as a case of acute hypoxemic respiratory failure underlying his immunosuppressed status with possible of severe sepsis secondary to pneumonia and other infectious causes to rule out Review of Systems General: Reports: ROS unobtainable due to mental status Medications/Allergies Home Medications ?Medication ?Instructions ?Recorded ?Confirmed ?Last Taken ?Type midodrine 10 mg tablet 10 mg PO TID #90 tabs 06/14/24 03/27/25 Unknown Rx Held on 01/10/25. Instructions: Home Medication placed on hold at Doctor's office citalopram 10 mg tablet 10 mg PO DAILY #30 tabs 01/10/25 03/27/25 Unknown Rx fludrocortisone 0.1 mg tablet 0.2 mg (2 x 0.1 mg) PO DAILY #180 01/10/25 03/27/25 Unknown Rx tabs ferrous sulfate 325 mg (65 mg 325 mg PO BID #60 tabs 01/18/25 03/27/25 Unknown Rx iron) tablet Orthopedic seat cushion #1 ea 03/03/25 03/27/25 Unknown Rx triamcinolone acetonide 0.1 % 1 applic topical DAILY #30 grams 03/03/25 03/27/25 Unknown Rx topical cream zinc oxide 13 % topical cream 1 applic topical QID PRN skin 03/03/25 03/27/25 Unknown Rx (Desitin Daily Defense) irritation #113 grams dexamethasone 4 mg tablet 20 mg (5 x 4 mg) PO .COMPLEX #40 03/14/25 03/27/25 Unknown Rx tabs ondansetron HCl 4 mg tablet 4 mg PO Q6H PRN nausea and 03/14/25 03/27/25 Unknown Rx vomiting #30 tabs prochlorperazine maleate 10 mg 10 mg PO Q4H PRN mild nausea #30 03/14/25 03/27/25 Unknown Rx tablet (Compazine) tabs Allergies Allergy/AdvReac Type Severity Reaction Status Date / Time No Known Allergies Allergy Verified 03/21/25 07:53 PFSH Acute PFSH: Medical History (Updated 03/27/25 @ 16:42 by Marin Montgomery MD) Non-small cell lung cancer Port-A-Cath in place 11/03/23 Dr Ambrose Abuse of smoked substance Carotid stenosis Abnormal nuclear stress test Weight loss [place] (dyspnea on exertion) Fatigue Anemia Elevated PSA Surgical History History of splenectomy History of right-sided carotid endarterectomy S/P cholecystectomy H/O cataract removal with insertion of prosthetic lens Family History Family/Other Diabetes Brother Diabetes Heart attack, Onset Age: 40 Mother , in her 80's No problems noted. Father , IN HIS 70'S No problems noted. Denies family history of Rheumatoid arthritis Lupus CAD (coronary artery disease) Clotting disorder Dementia Hyperlipidemia Chronic kidney disease (CKD) Suicide Anesthesia complication Bleeding disorder Lung disease Cancer Hypertension Stroke Social History Smoking and tobacco/nicotine status: current every day tobacco/nicotine user cigarettes Packs smoked per day: 1 Years cigarettes smoked: 65 Alcohol intake: current Alcohol intake frequency: few times a week Alcohol type: beer Substance/Drug Use: never Caregiver/support person: Yes Lives independently: Yes Marital status: Current occupational status: retired Current gender identity: Male Vitals/I&O/Wt Last Vital Signs Temp 97.8 F 03/27/25 16:00 Pulse 96 03/27/25 16:00 Resp 26 H 03/27/25 16:00 BP 92/59 03/27/25 16:00 Pulse Ox 95 03/27/25 15:34 O2 Del Method BiPAP 03/27/25 14:31 O2 Flow Rate 3 03/27/25 11:29 FiO2 100 03/27/25 15:34 03/27/25 03/27/25 03/27/25 06:59 14:59 22:59 Intake Total 3550 / 3550 Balance 3550 / 3550 Weight last 48 hrs Weight 73.936 kg Weight 63.503 kg Physical Exam Narrative: General: Alert but not oriented, looks weak and lethargic on BiPAP, follow commands opening eyes patient moaning and groaning without respiratory distress, looks dehydrated with dry oral mucosa and cachectic HEENT: Normocephalic, atraumatic, grossly unremarkable exam Cardio: normal rate rhythm, normal S1-S2 without any murmurs, JVD normal Respiratory: Bilateral mild diffuse wheezes heard on both side however due to patient respiratory effort and on BiPAP could not comment on respiratory sounds adequately GI: Abdomen soft, nontender, nondistended, normoactive bowel sounds present all 4 quadrants, Neuro: Unable to assess neurological function due to patient fatigability and lethargic, however patient is alert moving all extremities Behavior: Lethargic and weak Extremities: Decreased muscle mass no peripheral edema feeble pulses decreased capillary refill cold extremities with mild mottling of the skin at the peripheries Skin: As mentioned above Urinary Catheter Management: Dias: Cath Placed During This Visit: yes Urinary Catheter Date of Insertion: 03/27/25 Urinary Catheter Time of Insertion: 11:59 Data 03/27/25 11:52 03/27/25 11:52 Micro: Microbiology 03/27/25 11:58 Blood Culture - Preliminary Blood SPECIMEN COLLECTED 03/27/25 11:52 Blood Culture - Preliminary Blood SPECIMEN COLLECTED A&P Assessment and plan 1. Septic shock: Blood cultures urine culture sputum culture with respiratory viral panel CTA showed signs of pneumonia with emphysematous changes without pulmonary embolism Lactate series Maintain 2 IV bore cannulas Broad-spectrum antibiotics coverage with levofloxacin and vancomycin MRSA Patient is fluid responsive, fluid bolus and continue maintenance fluids with dextrose water Maintain MAP above 65 Maintain normoglycemia and normal hemodynamics 2. Acute respiratory failure with hypoxia: As mentioned above Secondary to likely pneumonia Continue with broad-spectrum antibiotics Hydrocortisone 100 mg twice daily 3. Acute hypercapnic respiratory failure: Secondary to pneumonia and underlying lung condition leading to CO2 narcosis Continue NIV Follow-up with the respiratory therapist and guided by the blood gas for further changes Neurochecks Low threshold for intubation in case of patient further deterioration of drowsiness with drop in GCS 4. Pneumonia: Broad-spectrum antibiotics and steroids Nebs as scheduled Continue NIV Monitor O2 sats between 88 to 92% 5. Altered mental state: CT head negative Secondary to CO2 narcosis Continue treatment of pneumonia as mentioned above with NIV Neurochecks every shift Fall precaution and aspiration precaution N.p.o. for the meantime Continue IV fluids with dextrose 5% Blood glucose monitoring every 2 hourly 6. Postural hypotension: Patient medication reconciled and commenced on fludrocortisone and midodrine Maintain normal blood pressure 7. Squamous cell carcinoma lung: Patient also following with oncology, continue to treat pneumonia and sepsis 8. Hypoglycemia: Continue on hydration with dextrose water Likely secondary to decreased oral intake and sepsis Blood glucose monitoring every 2 hours 9. Severe malnutrition: Dietitian consult placed and follow the recommendation 10. Encounter for screening involving social determinants of health (SDoH): Patient has schema cell carcinoma of the lung, and having decreased oral intake and presented with sepsis septic shock To have case management on board to further evaluate for patient needs postdischarge to optimize his care according to his current medical condition PDMP PDMP Reviewed: Not Reviewed Attestations Medical Necessity Statement*: Patient will stay more than 2 midnights for the management of severe septic shock which is fluid responsive underlying pneumonia and other comorbidities Time Spent in Patient Care: Greater than 35 minutes (>than 50% of time spent in counselling and/or direct pt care on unit). Critical Care Time: The high probability of a clinically significant, sudden or life threatening deterioration, as referenced in this documentation, required my full and direct attention, intervention and personal management. The critical care time shown is in addition to time spent performing any reported separately billable procedures and includes the following: [x] Data and vital sign review and interpretation [x] Patient assessment, examination and intervention [x] Medication orders and management [x] Patient/Family updates as able [x] Care Coordination and Documentation. Critical Care Time (min): 45 Other Attestations: Patient condition has been discussed at length with the patient/family, I have independently reviewed the chart labs imaging/diagnostics/EKG. the goals of care and code status with the patient/family/NOK/legal marketing sales representative, and documented accordingly. The patient/family has been informed about the current condition and further plan of care. Agreed with the plan of care and understood without any language barrier. Every effort was made to ensure accuracy of store coordinator. Any obvious errors or omissions should be clarified with the author of the document. Coding Level of Care Code Critical Care >/= 30 minutes Diagnoses Septic shock A41.9; R65.21 Acute respiratory failure with hypoxia J96.01 Acute hypercapnic respiratory failure J96.02 Pneumonia J18.9 Altered mental state R41.82 Postural hypotension I95.1 Squamous cell carcinoma lung C34.90 Hypoglycemia E16.2 Severe malnutrition E43 Encounter for screening involving social determinants of health (SDoH) Z13.9
[2025-03-27] MEDS: hydrocortisone 100 mg/2 mL SDV IVP (16:41)
[2025-03-27] MEDS: levofloxacin-dextrose 5 % 750 MG/150 ML PREMIX 100 MG IV (16:41)
[2025-03-27] MEDS: dextrose 5%-sod chloride 0.9% 1,000 ML 100 ML IV (16:42)
[2025-03-27] MEDS: vancomycin 1,750 MG/350 ML PIGGYBACK 175 MG IV (16:48)
[2025-03-27] MEDS: LORazepam 2 mg/mL INJ 1 mL 0.5 MG IVP (17:20)
--- NOTE | 2025-03-27 17:22 | USCV_ITS ---
KaileeVlad hewitt Age: 79 Gender: M : 1945 Exam Date: 03/27/2025 22:03 Ordering Phys: Marin Montgomery MD Technologist: LAMIN Exam Location: [facility] [place] Indication: hypotension, hypoxemia, septic shock, troponin leak BP: 81 / 53 HR: 98 Rhythm: Sinus Technical Quality: Adequate MEASUREMENTS (Male / Female) Normal Values 2D ECHO LV Diastolic Diameter PLAX 5.8 cm 4.2 - 5.9 / 3.9 - 5.3 cm IVS Diastolic Thickness 1.0 cm 0.6 - 1.0 / 0.6 - 0.9 cm IVS Systolic Thickness 1.1 cm LVPW Diastolic Thickness 1.0 cm 0.6 - 1.0 / 0.6 - 0.9 cm LVPW Systolic Thickness 1.4 cm LVOT Diameter 1.7 cm LV Ejection Fraction 2D Teich 38.5 % LV Ejection Fraction MOD 4C 28.6 % LV Ejection Fraction MOD 2C 2.4 % LV Ejection Fraction 2C AL 5.3 % LA Diameter 1.8 cm Aorta at Sinotubular Diameter 2.6 cm IVC Diameter 2.0 cm M-MODE LA Ao Ratio MM 0.8 AV Cusp Separation MM 1.0 cm DOPPLER AV Peak Velocity 106.0 cm/s LVOT Peak Velocity 38.0 cm/s AV Area Cont Eq vti 1.0 cm squared AV Area Cont Eq pk 0.8 cm squared MV Peak Velocity 113.0 cm/s MV Area PHT 3.9 cm squared Mitral E to A Ratio 0.4 TR Peak Velocity 287.0 cm/s TR Peak Gradient 32.9 mmHg TV Peak E Velocity 40.0 cm/s PV Peak Velocity 76.0 cm/s FINDINGS Left Ventricle Mildly increased left ventricular cavity size. Severely decreased left ventricular systolic function. Left ventricular ejection fraction is estimated at 38 %. Global left ventricular hypokinesis with septal bounce. Grade II/IV diastolic dysfunction, moderately elevated filling pressures. Right Ventricle Normal right ventricular size. Mild pulmonary hypertension, RVSP 40 mmHg. Right Atrium Normal right atrial size. Left Atrium Normal left atrial size. IA Septum Normal appearance of the interatrial septum. Mitral Valve Mildly thickened mitral valve. No mitral valve stenosis. Mild mitral valve regurgitation. Aortic Valve Mild aortic valve calcification. No aortic valve stenosis. Trace aortic valve regurgitation. Tricuspid Valve Moderate tricuspid valve regurgitation. Pulmonic Valve Mild pulmonary valve regurgitation. Pericardium No pericardial effusion. Aorta Normal diameter of the aortic root and ascending thoracic aorta. IVC Normal IVC diameter. CONCLUSIONS Mildly increased left ventricular cavity size. Severely decreased left ventricular systolic function. Left ventricular ejection fraction is estimated at 38 %. Global left ventricular hypokinesis with septal bounce. Grade II/IV diastolic dysfunction, moderately elevated filling pressures. Mildly thickened mitral valve. No mitral valve stenosis. Mild mitral valve regurgitation. Mild aortic valve calcification. No aortic valve stenosis. Trace aortic valve regurgitation. Moderate tricuspid valve regurgitation. There is no pericardial effusion. Right atrial pressure is around 5 mm of mercury. Hannah Feliciano MD (Electronically Signed) Final Date: 28 March 2025 19:49 S
--- NOTE | 2025-03-27 17:37 | ECG_ITS ---
[facility] 2025-[facility]27 Pat Name: Vlad Dugan Department: Room: [facility] Gender: Male Discovery Manager: DAVID: 1945 Requested By: Matthias Johnson Order Number: [id number] Reading MD: REJI TRUONG Measurements Intervals Lucinda Rate: 93 P: 81 AK: 146 QRS: -36 QRSD: 170 T: 26 QT: 443 QTc: 554 Interpretive Statements SINUS RHYTHM LEFT AXIS DEVIATION [QRS AXIS < -30] RIGHT BUNDLE BRANCH BLOCK [120+ ms QRS DURATION, UPRIGHT V1, 40+ ms S IN I/aVL/V4/V5/V6] Compared to ECG 03/27/2025 11:27:30 Sinus tachycardia no longer present Electronically Signed On 04-01-2025 21:12:29 CDT by REJI TRUONG [email or web address] [id number]
--- NOTE | 2025-03-27 17:40 | PHA.VACGOAL ---
Vancomycin Goal - Goal Vancomycin Goal:: 15-20 mg/L Vancomycin Indication:: Pneumonia - Therapy Day of therpy:: Day []of [] . Actual body weight (kg): 163 lb - Data Labs: WBC 0.52 10^3/uL (3.29-11.43) L* 03/27/25 11:52 RBC 2.84 10^6/uL (3.85-5.65) L 03/27/25 11:52 Hgb 8.50 g/dL (11.27-16.99) L 03/27/25 11:52 Hct 30.1 % (37-53) L 03/27/25 11:52 MCV 106.0 fl (82-101) H 03/27/25 11:52 MCH 29.9 pg (27-33) 03/27/25 11:52 MCHC 28.2 g/dL (30-55) L 03/27/25 11:52 RDW 17.2 % (12.1-15.1) H 03/27/25 11:52 Sodium 142 mmol/L (136-145) 03/27/25 11:52 Potassium 3.8 mmol/L (3.5-5.1) 03/27/25 11:52 Chloride 101 mmol/L (98-107) 03/27/25 11:52 Carbon Dioxide 21 mmol/L (22-29) L 03/27/25 11:52 Anion Gap 23.8 (5-19) H 03/27/25 11:52 BUN 30 mg/dL (8-23) H 03/27/25 11:52 Creatinine 1.2 mg/dL (0.7-1.2) 03/27/25 11:52 GFR Calculation Not Reportable 03/27/25 11:52 Last dialysis session:: N/A Treatment plan:: new consult Regimen:: PATIENT HAS DX OF PNEUMONIA. BASED ON DX AND RENAL FUNCTION, STARTED LOADING DOSE OF 1750. FOLLOWING LOADING DOSE, STARTED MAINTENANCE DOSE OF 500 MG Q12H. WILL CONTINUE TO MONITOR AND PLAN TO DRAW TROUGH PRIOR TO 4TH DOSE.
[2025-03-27 18:38] LABS: Troponin(5th) Baseline 584 ng/L (0-15)
[2025-03-27 19:23] LABS: MRSA PCR OZH (swab) NOT DETECTED (Negative)
[2025-03-27 20:03] LABS: Coronavirus 229E,HKU1,NL63,OC4 Not Detected (NOT DETECT); Parainfluenza Virus Type 1 Not Detected (NOT DETECT); Parainfluenza Virus Type 2 Not Detected (NOT DETECT); Parainfluenza Virus Type 3 Not Detected (NOT DETECT); Parainfluenza Virus Type 4 Not Detected (NOT DETECT); SARS-COV-2 Not Detected (NOT DETECT)
[2025-03-27 20:31] LABS: Troponin 5 2HR 669.8 ng/L (0-15); Troponin 5 2HR Delta 85.8 ABS# (0-10)
--- NOTE | 2025-03-27 20:37 | PC.NURSE ---
Patient noted to be breathing upwards of 30 times a minute consecutively, Dr Greene notified and received telephone orders for ABG at this time
--- NOTE | 2025-03-27 22:10 | PC.NURSE ---
Patient unable to follow commands to swallow P.O. medications, Dr Greene notified. Also discussed that due to patient being unable to swallow medications he was not given his scheduled Midodrine and is having consecutive low blood pressure readings. Received telephone order at this time to restart order for Levophed, MAR to reflect orders.
--- NOTE | 2025-03-27 22:56 | PC.NURSE ---
Start of shift patient had critical troponin results. Dr Montgomery notified and came down to see the patient. Dr Montgomery stated he is aware of high troponin levels and has put in for Cardiology consult and wishes to just follow through with serial troponin labs at this time due to patients Platelet level
[2025-03-27] MEDS: norepinephrine 4 MG/250 ML BAG 7.5 MG IV (23:01)
[2025-03-28] VITALS (184 sets, daily range): BP systolic 55–135; BP diastolic 31–86; PULSE 99–126; RESP 4–41; TEMP 36.2–36.4; O2SAT 64–100
[2025-03-28 00:11] LABS: Troponin 5 6HR 757.7 ng/L (0-15); Troponin 5 6HR Delta 173.7 ng/L (0-12)
[2025-03-28 00:39] LABS: Alveolar-Arterial Oxygen Gradi 69.6 mmHg (5-10); Arterial Blood Gas Hematocrit 38.7 % (42-52); Blood Gas Allen Test Pos; Blood Gas Operator Identificat SAM; Blood Gas Sample Site Radial, right; Blood Gas Sample Type Arterial; Carboxyhemoglobin 0.6 %THgb (0.4-20.1); Glucose Level-ABG 107.0 mg/dL (70-115); HCO3 ABG 21.9 mmol/L (22-26); Ionized Calcium Level - ABG 1.1 mmol/L (1.1-1.4); Methemoglobin 1.1 % (0.4-1.5); Oxygen Saturation ABG 95.5; PO2 ABG 99.0 mmHg (80.0-100.0); PO2 FiO2 Ratio Arterial Blood 99; Potassium Level - ABG 3.9 mmol/L (3.5-5.0); Sodium Level - ABG 140.0 mmol/L (131-143)
[2025-03-28 00:42] LABS: ABG PH Result 7.14 (7.35-7.45)
[2025-03-28 00:43] LABS: ABG PCO2 65.1 mmHg (35-45)
[2025-03-28 03:57] LABS: Lactate (Lactic Acid level) 3.5 mmol/L (0.5-2.2)
[2025-03-28] MEDS: pantoprazole 40 mg SDV IVP (05:13)
[2025-03-28] MEDS: hydrocortisone 100 mg/2 mL SDV IVP ×2 (05:13→16:10)
[2025-03-28] MEDS: vancomycin 500 MG in sodium chloride 0.9% (plus) 100 ML 200 MG IV ×2 (05:17→16:11)
--- NOTE | 2025-03-28 08:00 | XR_ITS ---
WS: [id number] Exam: XR chest 1V portable [id number] Date/Time of Exam: 03/28/2025 8:17 AM Reason For Exam: lung sounds diminished Comparison 03/27/2025. Extensive bilateral airspace and interstitial infiltrates have worsened slightly. Lungs are hyperinflated. Small RIGHT pleural effusion unchanged. Heart size remains normal. An ET tube has been placed and ends about 6 cm above the sarah in good position. A left-sided port ends in the lower one third of the SVC. An additional opaque line is seen along the RIGHT lateral margin of the ET tube. Significance of this tube is undetermined. Bony structures are intact. XR/XR chest 1V portable [id number] IMPRESSION: 1 widespread interstitial and alveolar infiltrates mildly advanced since the pr evious exam. 2. Small RIGHT basal pleural effusion unchanged. Pulmonary hyperinflation. 3. ET tube in satisfactory position. LEFT subclavian port in place as noted abo ve.
[2025-03-28 09:38] LABS: Platelet Count 45 10^3/cmm (157-399)
--- NOTE | 2025-03-28 10:06 | ANES.PROC ---
Anesthesia Procedures Procedure/Date: 03/28/25 Central Venous Insert: Central Venous Line: R femoral Time Out Performed: Yes Consent: requested by attending/covering physician, from other and risks and benefits reviewed Central Line: New Anesthesia monitors: pulse oximetry, EKG, BP cuff and oxygen Vein cannulated: other (R femoral) Ultrasound used: to identify patency to vessel and to visualize needle entry to vein Additional Comments: Groin shaved and skin prepped with copious amounts of chloraprep, sterile gown and gloves and full body drape applied. Lidocaine 1% to entry point. Vessels visualized on US and seldinger technique used to gain access. Wire threaded and US used to visualize wire in femoral vein. Vein dilated and triple-lumen inserted, guidewire removed and line sutured in place, dressing applied. Other Information: Diagnosis: Septic shock Placed at request of Dr. Montgomery
[2025-03-28] MEDS: rocuronium 10 mg/mL INJ 5mL 100 MG IVP (10:09)
[2025-03-28] MEDS: etomidate 2 mg/mL INJ SDV 10 mL 20 MG IVP (10:09)
--- NOTE | 2025-03-28 10:09 | P.ANES_ITS ---
Anesthesia Procedures Procedure/Date: 03/28/25 Arterial Line: Time Out Performed: Yes Consent: requested by attending/covering physician, risks and benefits reviewed and patient agrees to proceed Size (Gauge): 20 Technique Used: guide wire technique Post- Procedure: dry sterile dressing placed Patient Tolerated Procedure: well Complications: none Site: right and radial Additional Comments: Chloraprep of site US used to visualize vessel Placed at request of Dr. Rader
[2025-03-28] MEDS: dextrose 5%-sod chloride 0.9% 1,000 ML 100 ML IV (10:10)
[2025-03-28] MEDS: fentaNYL 1,000 MCG/100 ML BAG 2.5 MCG IV (10:10)
[2025-03-28] MEDS: methylPREDNISolone sod succ 125 mg/2 mL INJ IVP (10:19)
--- NOTE | 2025-03-28 10:24 | PC.NURSE ---
patient noted to be breathing 40 times a min on bipap at 1005 [address] patient not responsive Dr barker called to bedside and intubation was performed verbal orders received at bedside for Atomodate and rocaronium to be given for intubation. 20 mg atomodate given at 0818 100 mg Rocaronium at given at 0819 Patient intubated by lucero mcelroy at bedside for support at 0821 8 togolese tube set at 26 at the teeth xray obtained to confirm ET placement, tube repositioned by RT and Igbals orders to 29@ lip.
[2025-03-28] MEDS: norepinephrine 4 MG/250 ML BAG 7.5 MG IV (10:34)
[2025-03-28 10:52] LABS: ABG PCO2 50.8 mmHg (35-45); ABG PH Result 7.29 (7.35-7.45); Arterial Blood Gas Hematocrit 28.0 % (42-52); Blood Gas Operator Identificat GD; Blood Gas Sample Site Not specified; Blood Gas Sample Type Arterial; Carboxyhemoglobin 0.9 %THgb (0.4-20.1); Glucose Level-ABG 61.0 mg/dL (70-115); HCO3 ABG 24.6 mmol/L (22-26); Ionized Calcium Level - ABG 0.9 mmol/L (1.1-1.4); Methemoglobin 1.2 % (0.4-1.5); Oxygen Saturation ABG 97.1; PO2 ABG 87.1 mmHg (80.0-100.0); Potassium Level - ABG 3.1 mmol/L (3.5-5.0); Sodium Level - ABG 146.0 mmol/L (131-143)
[2025-03-28 10:53] LABS: Alveolar-Arterial Oxygen Gradi 73.1 mmHg (5-10); Blood Gas Tidal Volume 0.55; PEEP 8.0 cmH20; PO2 FiO2 Ratio Arterial Blood 87
--- NOTE | 2025-03-28 11:00 | P.CONIM_ITS ---
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 He was brought to the emergency room yesterday due to hypoxia, oxygen saturation in the 60s. He was found to be septic secondary to pneumonia, started on antibiotics and treated with BiPAP therapy initially, however now intubated. We have been consulted due to elevated troponin: 258-> 359 starting 1152, new series baseline starting at 1752 yesterday 584-> 669-> 757. EKG shows sinus tachycardia with right bundle branch block, wide QRS duration 166 to [address] depression noted lead II and V4. Significant laboratory abnormalities: Hemoglobin 8.5, platelet 45, WBC 0.5, lactic acid 8.9, AST 677, ALT 409, BNP 13,874. Review of Systems 2 Narrative: Unable to perform review of systems, patient is intubated and sedated Medications/Allergies Home Medications ?Medication ?Instructions ?Recorded ?Confirmed ?Last Taken ?Type midodrine 10 mg tablet 10 mg PO TID #90 tabs 03/27/25 Unknown Rx Held on 01/10/25. Instructions: Home Medication placed on hold at Doctor's office citalopram 10 mg tablet 10 mg PO DAILY #30 tabs 12/3003/27/25 Unknown Rx fludrocortisone 0.1 mg tablet 0.2 mg (2 x 0.1 mg) PO D AILY #180 01/10/25 03/27/25 Unknown Rx tabs ferrous sulfate 325 mg (65 mg 325 mg PO BID #60 tabs 0 01/18/25 03/27/25 Unknown Rx iron) tablet Orthopedic seat cushion #1 ea 03/03/25 03/27/25 Unkn own Rx triamcinolone acetonide 0.1 % 1 applic topical DAILY # 30 grams 03/03/25 03/27/25 Unknown Rx topical cream zinc oxide 13 % topical cream 1 applic topical QID PRN skin 03/03/25 03/27/25 Unknown Rx (Desitin Daily Defense) irritation #113 grams dexamethasone 4 mg tablet 20 mg (5 x 4 mg) PO .COMPLEX #40 03/14/25 03/27/25 Unknown Rx tabs ondansetron HCl 4 mg tablet 4 mg PO Q6H PRN nausea and 03/14/25 03/27/25 Unknown Rx vomiting #30 tabs prochlorperazine maleate 10 mg 10 mg PO Q4H PRN mild n ausea #30 03/14/25 03/27/25 Unknown Rx tablet (Compazine) tabs Allergies Allergy/AdvReac Type Severity Reaction Status Date / Time No Known Allergies Allergy Verified 03/21/25 07:53 Current Medications Generic Name Dose Route Start Last Admin Trade Name Freq PRN Reason Stop Dose Admin Albuterol/Ipratropium 3 ml 03/27/25 20:00 03/28/25 07:52 Ipratropium-Albuterol 3 Ml Neb INHALATION 3 ml Q6H.RESP GAURANG Administration Fludrocortisone Acetate 0.2 mg 03/28/25 05:00 03/28/25 05:24 Fludrocortisone 0.1 Mg Tablet PO Not Given DAILY GAURANG Hydrocortisone Sodium Succinate 100 mg 03/27/25 16:30 03/28/25 05:13 Hydrocortisone 100 Mg/2 Ml Sdv IVP 100 mg Q12H GAURANG Administration Dextrose 250 mls @ 1,000 mls/hr 03/27/25 12:18 03/27/25 12:32 D10w IV Infused PRN PRN Infusion HYPOGLYCEMIA Dextrose/Sodium Chloride 1,000 mls @ 100 mls/hr 03/27/25 16:15 03/28/25 10:10 Dextrose 5%-Sod Chloride 0.9% IV 100 mls/hr .Q10H GAURANG Administration Vancomycin HCl 500 mg/ Sodium 100 mls @ 200 mls/hr 03/28/25 05:00 03/28/25 07:13 Chloride IV Infused Q12H GAURANG Infusion Norepinephrine Bitartrate 4 mg in 250 mls @ 0 mls/hr 03/27/25 22:15 03/28/25 10:34 Levophed IV 2 mcg/min .Q0M GAURANG 7.5 mls/hr Protocol Administration Per Protocol Sodium Chloride 1,000 mls @ 999 mls/hr 03/28/25 10:11 03/28/25 10:20 Sodium Chloride 0.9% IV 03/28/25 11:11 999 mls/hr .Q1H1M ONE Administration Lorazepam 0.5 mg 03/27/25 16:15 03/27/25 17:20 Lorazepam 2 Mg/Ml Inj 1 Ml IVP 0.5 mg Q6H PRN Administration ANXIETY Midodrine 10 mg 03/27/25 21:00 03/28/25 05:24 Midodrine 5 Mg Tablet PO Not Given TID GAURANG Pantoprazole Sodium 40 mg 03/28/25 05:00 03/28/25 05:13 Pantoprazole 40 Mg Sdv IVP 40 mg DAILY GAURANG Administration Rocuronium Lorimor 100 mg 03/28/25 07:57 03/28/25 10:09 Rocuronium 10 Mg/Ml Inj 5ml IVP 100 mg Q1H PRN Administration intubation Senna 17.2 mg 03/27/25 21:00 03/27/25 22:07 Sennosides 8.6 Mg Tablet PO Not Given BEDTIME GAURANG PFSH Acute 2 PFSH: Medical History Non-small cell lung cancer Port-A-Cath in place 11/03/23 Dr Ambrose Abuse of smoked substance Carotid stenosis Abnormal nuclear stress test Weight loss [place] (dyspnea on exertion) Fatigue Anemia Elevated PSA Surgical History History of splenectomy History of right-sided carotid endarterectomy S/P cholecystectomy H/O cataract removal with insertion of prosthetic lens Family History Family/Other Diabetes Brother Diabetes Heart attack, Onset Age: 40 Mother , in her 80's No problems noted. Father , IN HIS 70'S No problems noted. Denies family history of Rheumatoid arthritis Lupus CAD (coronary artery disease) Clotting disorder Dementia Hyperlipidemia Chronic kidney disease (CKD) Suicide Anesthesia complication Bleeding disorder Lung disease Cancer Hypertension Stroke Social History Smoking and tobacco/nicotine status: current every day tobacco/nicotine user cigarettes Packs smoked per day: 1 Years cigarettes smoked: 65 Alcohol intake: current Alcohol intake frequency: few times a week Alcohol type: beer Substance/Drug Use: never Caregiver/support person: Yes Lives independently: Yes Marital status: Current occupational status: retired Current gender identity: Male Vitals/I&O/Wt Last Vital Signs Temp 97.2 F L 03/28/25 07:40 Pulse 111 H 03/28/25 10:40 Resp 16 03/28/25 10:44 BP 86/52 03/28/25 10:40 Pulse Ox 91 03/28/25 10:44 O2 Del Method BiPAP 03/28/25 07:52 O2 Flow Rate 3 03/27/25 11:29 FiO2 100 03/28/25 10:44 03/27/25 03/28/25 03/28/25 22:59 06:59 14:59 Intake Total 3000 / 7550 1000 / 7550 186.625 / 186.625 Output Total 110 / 110 0 / 110 Balance 2890 / 7440 1000 / 7440 186.625 / 186.625 Weight last 48 hrs Weight 164 lb Weight 163 lb Weight 140 lb Physical Exam 2 Chest: COMMONS NORMALS: normal inspection of the chest Resp: COMMON NORMALS: clear to auscultation bilaterally AUSCULTATION: clear to auscultation bilaterally OTHER: Intubated Cardio: COMMON NORMALS: regular rhythm, S1 normal heart sound present, S2 normal heart sound present and No murmurs present (Cardio) RATE: tachycardic RHYTHM: regular rhythm HEART SOUNDS: S1 normal heart sound present and S2 normal heart sound present Extremity: GENERAL: No edema Urinary Catheter Management: Dias: Cath Placed During This Visit: yes Reason for Continuing Indwelling Catheter: Accurate Measurement of Urinary Output in Critically Ill Patients Urinary Catheter Date of Insertion: 03/27/25 Urinary Catheter Time of Insertion: 11:59 Data 03/28/25 03:25 03/27/25 11:52 Micro: Microbiology 03/27/25 11:58 Blood Culture - Preliminary Blood SPECIMEN COLLECTED 03/27/25 11:52 Blood Culture - Preliminary Blood SPECIMEN COLLECTED A&P Assessment and plan 1. Septic shock: 2. Acute respiratory failure with hypoxia: 3. Heart failure with reduced ejection fraction: 4. Squamous cell carcinoma lun. Postural hypotension: 6. Thrombocytopenia: Plan: He has troponin elevation in the setting of severe sepsis. Would not recommend heparin due to the low platelet count, as it would increase risk of bleeding. Echocardiogram has been performed and pending read. Hospitalist service is treating for pneumonia, he is on Levophed for septic shock. Further plan will be devised based on progress of patient, and results of echocardiogram. PDMP PDMP Reviewed: Not Reviewed Procedures Arterial Line Size (Gauge): 20 Coding Level of Care Code Acute Code for Chg Fwd Diagnoses Septic shock A41.9; R65.21 Acute respiratory failure with hypoxia J96.01 Heart failure with reduced ejection fraction I50.20 Squamous cell carcinoma lung C34.90 Postural hypotension I95.1 Thrombocytopenia D69.6
[2025-03-28] MEDS: potassium phosphate (mEq K) 40 MEQ in sodium chloride 0.9% (100 ml) 100 ML 27.25 MEQ IV (11:09)
[2025-03-28 13:04] LABS: Hematocrit 30.2 % (37-53); Hemoglobin 9.20 g/dL (11.27-16.99); Mean Corpuscular HGB Conc 30.5 g/dL (30-55); Mean Corpuscular Hemoglobin 30.1 pg (27-33); Mean Corpuscular Volume 98.7 fl (82-101); Platelet Count 30 10^3/cmm (157-399); Red Blood Count 3.06 10^6/uL (3.85-5.65)
[2025-03-28 13:49] LABS: Slide Review Slide Review Perform
[2025-03-28 13:50] LABS: Total Cells Counted 10 (0-100)
[2025-03-28 13:51] LABS: Absolute Segmented Neutrophil 0.0 10/cmm (1.6-7.1); Atypical Lymphs 20.0 % (0-5); Band Neutrophils Absolute 0.1 10^3/cmm (0.0-1.2)
[2025-03-28 13:52] LABS: Anisocytosis 2+; Giant Platelets 1+
[2025-03-28 13:53] LABS: Burr Cells 1+
[2025-03-28 13:55] LABS: White Blood Count 0.33 10^3/uL (3.29-11.43)
[2025-03-28] MEDS: norepinephrine 4 MG/250 ML BAG 75 MG IV ×2 (14:10→16:55)
--- NOTE | 2025-03-28 14:24 | PM.ACPR ---
Procedure/Consent Time out: Time Out Performed: Yes Consent: Consent for Procedure: Consent obtained from other (indicate), Emergency procedure, Risks & Benefits reviewed and Agrees to proceed with procedure Additional Consent Information: Patient consented to proceed with intubation in case the patient needs it however to avoid further chest compressions or shocks or resuscitation since there is a high risk of bleeding and can further complicate his situation Acute Procedures Arterial Line: Size (Gauge): 20 Epistaxis Control: Time out performed: Yes Intubation: Time out performed: Yes Sedative: etomidate Paralytic: rocuronium Laryngoscope: fiber optic video scope Assist device used: fiber optic device ET tube size: 8 ET tube uncuffed: No Tube secured location: lips Tube placement confirmation: visualized tube passing through cords, equal breath sounds bilaterally, no breath sounds over epigastrium, confirmation by capnometry and color change noted Patient tolerated procedure: well and no complications Intubation complications: none
--- NOTE | 2025-03-28 14:26 | P.PN_ITS ---
Subjective 2 Subjective: Patient was seen in the morning and was having drowsiness with GCS less than 7 unable to protect his airways The was already informed and referred to resuscitate patient with intubation however to avoid any complication that can increase the risk of bleeding that includes chest compression and shocks Therefore proceeded with intubation of the patient in the best interest of the patient as per the patient family and to optimize his management Vitals/I&O/Wt Last Vital Signs Temp 97.3 F L 03/28/25 13:45 Pulse 109 H 03/28/25 13:45 Resp 16 03/28/25 13:23 BP 88/58 03/28/25 13:45 Pulse Ox 93 03/28/25 13:45 O2 Del Method Mechanical Ventilation 03/28/25 13:45 O2 Flow Rate 3 03/27/25 11:29 FiO2 100 03/28/25 13:45 03/27/25 03/28/25 03/28/25 22:59 06:59 14:59 Intake Total 3000 / 6550 1000 / 7550 339.125 / 339.125 Output Total 110 / 110 0 / 110 Balance 2890 / 6440 1000 / 7440 339.125 / 339.125 Weight last 48 hrs Weight 74.389 kg Weight 73.936 kg Weight 63.503 kg Physical Exam 2 Narrative: General: Patient on mechanical ventilation and sedation HEENT: Grossly unremarkable exam Resp system: Bilateral equal air entry through mechanical ventilation however there are conducting sounds therefore unable to comment on wheezing or stridor, grossly unremarkable exam CVS: Patient having sinus tachycardia, feeble pulses, MAP around 60-65, unable to comment on heart sounds since the patient is having sinus tachycardia Neuro: Patient on sedation therefore unable to assess properly neurological status GI: Abdomen soft and no distention, no organomegaly, normal bowel sounds Extremities/skin:: Peripheral cool extremities with decreased capillary refill and mild skin mottling present, dry oral mucosa Urinary Catheter Management: Dias: Cath Placed During This Visit: yes Reason for Continuing Indwelling Catheter: Accurate Measurement of Urinary Output in Critically Ill Patients Urinary Catheter Date of Insertion: 03/27/25 Urinary Catheter Time of Insertion: 11:59 Data 03/28/25 12:43 03/27/25 11:52 Micro: Microbiology 03/27/25 11:58 Blood Culture - Preliminary Blood NEGATIVE TO DATE 03/27/25 11:52 Blood Culture - Preliminary Blood NEGATIVE TO DATE A&P Assessment and plan 1. Acute respiratory failure with hypoxia: Patient unable patient having severe acidosis secondary to likely CO2 narcosis and septic shock, unable to protect his airways, GCS dropped below 7 Repeat sequencing endotracheal intubation has been performed with timeout without any complication confirmed by the chest x-ray and capnometry around 8:30 AM. Orogastric tube insertion CT chest without contrast Follow echo Continue management with broad-spectrum antibiotics to cover pneumonia and septic shock Continue steroids hydrocortisone 100 mg twice daily Follow-up with cultures to tailor the antibiotics Maintain MAP above 65 Adequate hydration Intake output monitoring ABGs to guide for further management 2. Acute hypercapnic respiratory failure: Secondary to pneumonia and underlying lung condition leading to CO2 narcosis Continue NIV Follow-up with the respiratory therapist and guided by the blood gas for further changes Neurochecks Low threshold for intubation in case of patient further deterioration of drowsiness with drop in GCS 3. Septic shock: Blood cultures urine culture sputum culture with respiratory viral panel CTA showed signs of pneumonia with emphysematous changes without pulmonary embolism Lactate series Maintain 2 IV bore cannulas Broad-spectrum antibiotics coverage with levofloxacin and vancomycin MRSA negative and to discontinue Vanco Patient is fluid responsive, fluid bolus and continue maintenance fluids with dextrose water Maintain MAP above 65 Maintain normoglycemia and normal hemodynamics 4. Altered mental state: CT head negative Secondary to CO2 narcosis Continue treatment of pneumonia as mentioned above with NIV Neurochecks every shift Fall precaution and aspiration precaution NGT insertion Continue IV fluids with dextrose 5% and resuscitation guided by patient MAP Blood glucose monitoring every 2 hourly 5. Troponin level elevated: Likely secondary to mismatch phenomena, cardiology already informed Follow echo Continue monitoring Maintain MAP over 65 6. Postural hypotension: Patient medication reconciled and commenced on fludrocortisone and midodrine Maintain normal blood pressure 7. Squamous cell carcinoma of right lung: Patient also following with oncology, continue to treat pneumonia and sepsis 8. Hypoglycemia: Continue on hydration with dextrose water Likely secondary to decreased oral intake and sepsis Blood glucose monitoring every 2 hours 9. Severe malnutrition: Dietitian consult placed and follow the recommendation 10. Encounter for screening involving social determinants of health (SDoH): Patient has schema cell carcinoma of the lung, and having decreased oral intake and presented with sepsis septic shock To have case management on board to further evaluate for patient needs postdischarge to optimize his care according to his current medical condition PDMP PDMP Reviewed: Not Reviewed Attestations 2 Medical Necessity Statement*: Patient will stay more than 2 midnights for the management of severe septic shock and acute on chronic hypoxemic/hypercapnic respiratory failure The patient prognosis is guarded Time Spent in Patient Care: Greater than 35 minutes (>than 50% of time spent in counselling and/or direct pt care on unit) . Critical Care Time: The high probability of a clinically significant, sudden or life threatening deterioration, as referenced in this documentation, required my full and direct attention, intervention and personal management. The critical care time shown is in addition to time spent performing any reported separately billable procedures and includes the following: [x] Data and vital sign review and interpretation [x ] Patient assessment, examination and intervention [x] Medication orders and management [x] Patient/Family updates as able [x] Care Coordination and Documentation. Critical Care Time (min): 45 Other Attestations: Patient critical condition with guarded prognosis has been discussed at length with the patient/family(), I have independently reviewed the chart labs imaging/diagnostics/EKG. the goals of care and code status with the patient/family/NOK/legal aircraft sales representative, and documented accordingly. The management has been done according to the current clinical condition with respect to patient goals of care and based on recommendations/guidelines. The patient/family has been informed about the current condition and further plan of care. Agreed with the plan of care and understood without any language barrier. Every effort was made to ensure accuracy of medical assisting program director. Any obvious errors or omissions should be clarified with the author of the document. Procedures Arterial Line Size (Gauge): 20 Coding Level of Care Code Critical Care >/= 30 minutes Diagnoses Acute respiratory failure with hypoxia J96.01 Acute hypercapnic respiratory failure J96.02 Septic shock A41.9; R65.21 Altered mental state R41.82 Troponin level elevated R79.89 Postural hypotension I95.1 Squamous cell carcinoma of right lung C34.91 Laterality: right Hypoglycemia E16.2 Severe malnutrition E43 Encounter for screening involving social determinants of health (SDoH) Z13.9
--- NOTE | 2025-03-28 14:28 | ECG_ITS ---
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: : 1945 Requested By: Marin Montgomery Order Number: [id number] Reading MD: REJI TRUONG Measurements Intervals [place] Rate: 108 P: -17 MT: 128 QRS: -42 QRSD: 116 T: 60 QT: 360 QTc: 483 Interpretive Statements SINUS TACHYCARDIA LEFT AXIS DEVIATION [QRS AXIS < -30] POSSIBLE RIGHT VENTRICULAR CONDUCTION DELAY [RSR (QR) IN V1/V2] ANTEROSEPTAL MYOCARDIAL INFARCTION , OF INDETERMINATE AGE [40+ ms Q WAVE IN V1-V4] Compared to ECG 03/27/2025 16:58:43 Myocardial infarct finding now present Sinus rhythm no longer present Right bundle-branch block no longer present Electronically Signed On 04-01-2025 21:13:32 CDT by REJI TRUONG [email or web address]
[2025-03-28] MEDS: lidocaine 1% 5 ML in potassium chloride premix 100 ML 26.25 ML IV (16:10)
[2025-03-28 16:12] LABS: ABG PCO2 46.2 mmHg (35-45); ABG PH Result 7.28 (7.35-7.45); Arterial Blood Gas Hematocrit 28.8 % (42-52); Blood Gas Operator Identificat GD; Blood Gas Sample Site Not specified; Blood Gas Sample Type Arterial; HCO3 ABG 21.7 mmol/L (22-26); PO2 ABG 73.5 mmHg (80.0-100.0)
[2025-03-28 16:14] LABS: Blood Gas Tidal Volume 0.60; PEEP 8.0 cmH20; PO2 FiO2 Ratio Arterial Blood 105
[2025-03-28] MEDS: dextrose 5%-sod chloride 0.9% 1,000 ML 150 ML IV (18:16)
[2025-03-28] MEDS: norepinephrine 4 MG/250 ML BAG 52.5 MG IV (20:32)
[2025-03-28] MEDS: dexmedeTOMIDine 0.9 % NaCL 400 MCG/100 ML PREMIX IV (21:15)
--- NOTE | 2025-03-28 21:17 | PC.NURSE ---
Arterial Line At 1945 patient pulled Arterial Line out of right radius. This nurse held pressure to site x20 minutes. After pressure was held radial pulse was palpated, no hematoma formation present. Dr. Montgomery at bedside and gave verbal orders at this time to start Precedex for agitation and applied a pressure dressing. JANAE reflected to show orders.
[2025-03-28] MEDS: fentaNYL 1,000 MCG/100 ML BAG 7.5 MCG IV (21:59)
[2025-03-28 23:36] LABS: Hematocrit 27.7 % (37-53); Hemoglobin 8.30 g/dL (11.27-16.99); Mean Corpuscular HGB Conc 30.0 g/dL (30-55); Mean Corpuscular Hemoglobin 29.9 pg (27-33); Mean Corpuscular Volume 99.6 fl (82-101); Red Blood Count 2.78 10^6/uL (3.85-5.65)
[2025-03-29] VITALS (109 sets, daily range): BP systolic 51–128; BP diastolic 32–75; PULSE 86–132; RESP 16–23; TEMP 37.4–39; O2SAT 29–94
--- NOTE | 2025-03-29 00:20 | PC.NURSE ---
FIO2 Requirements Contacted Dr. Greene to let her know the patient's fi02 requirements went up from 70% to 100% and patient is maintaining a saturation of 80-88% Also let Dr. Greene know at this time that the patient's Levophed requirements have gone up and received telephone orders to start Vasopressin if needed. Discussed CT orders and patients decompensation, physician approved waiting on CT until patient stabilities.
[2025-03-29 00:31] LABS: Slide Review Slide Review Perform
[2025-03-29 00:32] LABS: Absolute Segmented Neutrophil 0.1 10/cmm (1.6-7.1); Atypical Lymphs 1.0 % (0-5); Band Neutrophils Absolute 0.1 10^3/cmm (0.0-1.2); Giant Platelets 1+; Total Cells Counted 50 (0-100)
[2025-03-29 00:33] LABS: Anisocytosis 1+; Burr Cells 2+; Macrocytosis 1+
[2025-03-29 00:35] LABS: Platelet Count 18 10^3/cmm (157-399); White Blood Count 0.87 10^3/uL (3.29-11.43)
--- NOTE | 2025-03-29 00:44 | PC.NURSE ---
Critical lab Contacted Dr. Greene in regards to critical labs, received telephone orders to transfuse Platelets x2
[2025-03-29] MEDS: dextrose 5%-sod chloride 0.9% 1,000 ML 150 ML IV ×3 (00:47→14:29)
[2025-03-29] MEDS: norepinephrine 4 MG/250 ML BAG 67.5 MG IV (00:53)
[2025-03-29 01:30] LABS: Hematocrit 30.9 % (37-53); Hemoglobin 9.30 g/dL (11.27-16.99); Mean Corpuscular HGB Conc 30.1 g/dL (30-55); Mean Corpuscular Hemoglobin 29.2 pg (27-33); Mean Corpuscular Volume 97.2 fl (82-101); Nucleated Red Blood Cells % 10.9 %; Red Blood Count 3.18 10^6/uL (3.85-5.65); White Blood Count 1.28 10^3/uL (3.29-11.43)
[2025-03-29 01:43] LABS: Platelet Count 20 10^3/cmm (157-399); Slide Review Slide Review Perform
[2025-03-29 01:50] LABS: Albumin Level 2.1 g/dL (3.5-5.2); Alkaline Phosphatase 83 U/L (40-130); Anion Gap 20.9 (5-19); Blood Urea Nitrogen 49 mg/dL (8-23); Calcium 6.4 mg/dL (8.5-10.5); Carbon Dioxide 21 mmol/L (22-29); Chloride 110 mmol/L (98-107); Creatinine Clr Calc Pharmacy 32.9644; Globulin 2.1 g/dL (1.3-4.6); Glucose 155 mg/dL (65-115); Osmolality Calculated 320 mOsm/kg (285-295); Potassium 4.9 mmol/L (3.5-5.1); Sodium 147 mmol/L (136-145); Total Protein 4.2 g/dL (6.6-8.7)
[2025-03-29 02:01] LABS: Alanine Aminotransferase 1151 U/L (0-41)
[2025-03-29 02:27] LABS: Aspartate Amino Transferase 1132 U/L (0-40)
[2025-03-29] MEDS: vasopressin 40 UNIT/100 ML PREMIX IV ×2 (03:23→21:59)
[2025-03-29] MEDS: norepinephrine 4 MG/250 ML BAG 75 MG IV ×6 (04:21→21:13)
[2025-03-29] MEDS: hydrocortisone 100 mg/2 mL SDV IVP ×3 (05:27→23:57)
[2025-03-29] MEDS: pantoprazole 40 mg SDV IVP (05:27)
--- NOTE | 2025-03-29 05:55 | PC.NURSE ---
Hypoglycemia patient had a blood glucose reading of 69, this nurse started a 250 mL d10 bolus per hypoglycemia protocol. Dr. Greene notified.
[2025-03-29 06:32] LABS: Hematocrit 26.0 % (37-53); Hemoglobin 8.00 g/dL (11.27-16.99); Mean Corpuscular HGB Conc 30.8 g/dL (30-55); Mean Corpuscular Hemoglobin 30.3 pg (27-33); Mean Corpuscular Volume 98.5 fl (82-101); Nucleated Red Blood Cells % 13.0 %; Red Blood Count 2.64 10^6/uL (3.85-5.65); White Blood Count 1.92 10^3/uL (3.29-11.43)
[2025-03-29 07:17] LABS: Platelet Count 94 10^3/cmm (157-399)
[2025-03-29 07:19] LABS: Slide Review Slide Review Perform
[2025-03-29] MEDS: dexmedeTOMIDine 0.9 % NaCL 400 MCG/100 ML PREMIX 13.02 MCG IV ×2 (07:44→14:20)
[2025-03-29] MEDS: meropenem 1,000 MG in sodium chloride 0.9% (plus) 50 ML 100 MG IV ×2 (09:19→23:56)
[2025-03-29 10:27] LABS: ABG PCO2 45.4 mmHg (35-45); ABG PH Result 7.21 (7.35-7.45); Arterial Blood Gas Hematocrit 26.0 % (42-52); Blood Gas Operator Identificat GD; Blood Gas Sample Site Brachial, left; Blood Gas Sample Type Arterial; Blood Gas Tidal Volume 0.60; HCO3 ABG 18.2 mmol/L (22-26); PEEP 8.0 cmH20; PO2 ABG 57.5 mmHg (80.0-100.0); PO2 FiO2 Ratio Arterial Blood 57
--- NOTE | 2025-03-29 10:27 | P.PN_ITS ---
<Statement entered by Hannah Feliciano MD - 03/29/25 20:43> Patient was evaluated and cared for in conjunction with an advanced practice practitioner. I personally examined the patient and reviewed the chart and all pertinent data including imaging, telemetry, and laboratory results. I discussed the patient in detail with the advanced practice practitioner. Please see their note for complete H&P testing result and agreed upon plan of care for the patient. GENERAL: Patient is intubated sedated HEART: Regular S1 and S2. No murmur, rub or gallop. LUNGS: Clear to auscultate bilaterally. CENTRAL NERVOUS SYSTEM: Grossly nonfocal. EXTREMITIES: Lower extremities with out edema bilaterally. 1. Septic shock: 2. Acute respiratory failure with hypoxia: 3. Heart failure with reduced ejection fraction: 4. Squamous cell carcinoma lun. Postural hypotension: 6. Thrombocytopenia: 7. Leukopenia: 8. Neutropenia Elevated cardiac markers most likely due to sepsis and type II Continue antibiotics and supportive management Patient is not a candidate and not indicated at this point any invasive cardiac procedure. Subjective 2 Subjective: Remains intubated and sedated, he is febrile this morning at 100.4-101 ?F. Platelet count increased to 94, creatinine increased to 2.0, urine output has been 125 mL last 24 hours. ALT 1151, AST 1132. WBC 1.92. He is on 100% FiO2 currently. Echocardiogram revealed LVEF 38%, moderate TR, mild pulmonary hypertension. He is somewhat agitated this morning, pulling at the restraints. Vitals/I&O/Wt Last Vital Signs Temp 100.4 F H 03/29/25 05:04 Pulse 114 H 03/29/25 08:54 Resp 19 H 03/29/25 09:00 BP 93/54 03/29/25 06:45 Pulse Ox 81 L 03/29/25 09:00 O2 Del Method Mechanical Ventilation 03/29/25 08:54 O2 Flow Rate 3 03/27/25 11:29 FiO2 100 03/29/25 09:00 03/28/25 03/29/25 03/29/25 22:59 06:59 14:59 Intake Total 4917.0909 / 8239.2899 1969.324 / 8239.2899 1305.767 / 1305.767 Output Total 125 / 125 0 / 125 Balance 4792.0909 / 8114.2899 1969.324 / 8114.2899 1305.767 / 1305.767 Weight last 48 hrs Weight 177 lb Weight 164 lb Weight 163 lb Weight 140 lb Physical Exam 2 Chest: COMMONS NORMALS: normal inspection of the chest Resp: COMMON NORMALS: clear to auscultation bilaterally AUSCULTATION: clear to auscultation bilaterally OTHER: Intubated Cardio: COMMON NORMALS: regular rhythm, S1 normal heart sound present and S2 normal heart sound present RATE: tachycardic RHYTHM: regular rhythm H EART SOUNDS: S1 normal heart sound present, S2 normal heart sound present and no murmurs Extremity: GENERAL: No edema Urinary Catheter Management: Dias: Cath Placed During This Visit: yes Reason for Continuing Indwelling Catheter: Accurate Measurement of Urinary Output in Critically Ill Patients Urinary Catheter Date of Insertion: 03/27/25 Urinary Catheter Time of Insertion: 11:59 Data 03/29/25 06:25 03/29/25 01:10 Micro: Microbiology 03/29/25 08:46 Blood Culture - Preliminary Blood SPECIMEN COLLECTED 03/29/25 08:48 Blood Culture - Preliminary Blood SPECIMEN COLLECTED 03/28/25 09:05 Gram Stain - Final Sputum - Endotracheal Tube Aspirate 03/27/25 11:58 Blood Culture - Preliminary Blood NEGATIVE TO DATE 03/27/25 11:52 Blood Culture - Preliminary Blood NEGATIVE TO DATE A&P Assessment and plan 1. Septic shock: 2. Acute respiratory failure with hypoxia: 3. Heart failure with reduced ejection fraction: 4. Squamous cell carcinoma lun. Postural hypotension: 6. Thrombocytopenia: 7. Leukopenia: 8. Neutropenia: Plan: Compared to the echocardiogram in July of this year, LVEF is decreased slightly from 40 to 45% to 38%. He has septic shock requiring 2 vasopressors as well as fludrocortisone and midodrine, blood pressure maintaining in the 90s systolic. CODE STATUS is no CPR, he is intubated and on the ventilator. Do not recommend any invasive cardiac procedures at this time. PDMP PDMP Reviewed: Not Reviewed Attestations 2 Medical Necessity Statement*: Septic shock Procedures Arterial Line Size (Gauge): 20 Coding Level of Care Code Acute Code for [facility] Fwd Diagnoses Septic shock A41.9; R65.21 Acute respiratory failure with hypoxia J96.01 Heart failure with reduced ejection fraction I50.20 Squamous cell carcinoma lung C34.90 Postural hypotension I95.1 Thrombocytopenia D69.6 Leukopenia D72.819 Neutropenia D70.9
--- NOTE | 2025-03-29 16:40 | PC.SOCIAL ---
*IMM* copy of IMM was gave to Family/patient, dated and initialed in chart.
[2025-03-29] MEDS: sennosides-docusate Tablet 2 TAB PO (16:46)
--- NOTE | 2025-03-29 16:56 | P.PN_ITS ---
Subjective 2 Subjective: Remains intubated and sedated, he is febrile this morning at 100.4-101 ?F. Patient having multiorgan failure with increased FiO2 requirement RANDAL acute liver injury Echocardiogram revealed LVEF 38%, moderate TR, mild pulmonary hypertension. The patient platelets are improving however the prognosis is still guarded and the family/ is aware Vitals/I&O/Wt Last Vital Signs Temp 100.1 F H 03/29/25 12:45 Pulse 116 H 03/29/25 13:58 Resp 21 H 03/29/25 15:30 BP 100/57 03/29/25 12:45 Pulse Ox 85 L 03/29/25 15:30 O2 Del Method Mechanical Ventilation 03/29/25 13:50 O2 Flow Rate 3 03/27/25 11:29 FiO2 100 03/29/25 15:30 03/29/25 03/29/25 03/29/25 06:59 14:59 22:59 Intake Total 1969.324 / 8239.2899 3902.499 / 3902.499 2.975 / 3905.474 Output Total 0 / 125 Balance 1968.324 / 8114.2899 3902.499 / 3902.499 2.975 / 3905.474 Weight last 48 hrs Weight 80.286 kg Weight 74.389 kg Physical Exam 2 Narrative: General: Patient on mechanical ventilation and sedation, on high-dose vasopressors with MAP around 65 however FiO2 100% saturating hardly 85 to 90% HEENT: Grossly unremarkable exam Resp system: Bilateral equal air entry through mechanical ventilation however there are conducting sounds therefore unable to comment on wheezing or stridor, grossly unremarkable exam CVS: Patient having sinus tachycardia, feeble pulses, MAP around 60-65, unable to comment on heart sounds since the patient is having sinus tachycardia Neuro: Patient on sedation therefore unable to assess properly neurological status GI: Abdomen mild distended, no organomegaly, normal bowel sounds Extremities/skin:: Peripheral cool extremities with decreased capillary refill and mild skin mottling present, dry oral mucosa Urinary Catheter Management: Dias: Cath Placed During This Visit: yes Reason for Continuing Indwelling Catheter: Accurate Measurement of Urinary Output in Critically Ill Patients Urinary Catheter Date of Insertion: 03/27/25 Urinary Catheter Time of Insertion: 11:59 Data 03/29/25 06:25 03/29/25 01:10 Micro: Microbiology 03/28/25 09:05 Gram Stain - Final Sputum - Endotracheal Tube Aspirate Sputum Culture - Preliminary 03/27/25 17:50 Urine Culture - Preliminary Urine Catheterized 03/29/25 08:46 Blood Culture - Preliminary Blood SPECIMEN COLLECTED 03/29/25 08:48 Blood Culture - Preliminary Blood SPECIMEN COLLECTED 03/27/25 11:58 Blood Culture - Preliminary Blood NEGATIVE TO DATE 03/27/25 11:52 Blood Culture - Preliminary Blood NEGATIVE TO DATE A&P Assessment and plan 1. Septic shock: Patient with septic shock having neutropenia as well, although the counts are improving however there is increase fever spikes and decrease blood glucose episodes which carries bad prognostic sign having multiorgan failure S/p intubation and hayward cultures so far negative, resp viral panel also negative CTA showed signs of pneumonia with emphysematous changes without pulmonary embolism Maintain 2 IV bore cannulas steroids hydrocortisone 100mg bid Broad-spectrum antibiotics coverage escalated to meropenem and vancomycin although MRSA was negative but vancomycin added again since the patient was getting sick and critically ill multiple boluses of fluids and maintenance fluids alongwith vasopresors to continue guided by the MAP to keep it above 65mmhg Maintain normoglycemia and normal hemodynamics 2. Acute respiratory failure with hypoxia: element of possible severe pneumonia and HFrEF Patient s/p intubation 03/28/2025 due to severe drop in GCS and respiratory distress CT chest abdomen and pelvis Echo showed reduced EF of 38%, to start the patient on dobutamine, and hold aggressive fluids to avoid fluid overload and desaturation albumin to suppor the oncotic pressure as albumin is low Intake output monitoring ABGs to guide for further management daily spontaneous breathing and awakening trials 3. Acute hypercapnic respiratory failure: as mentioned above neurochecks every shift 4. Altered mental state: CT head negative Secondary to CO2 narcosis Continue treatment of pneumonia as mentioned above with NIV Neurochecks every shift Fall precaution and aspiration precaution NGT insertion Continue IV fluids with dextrose 5% and resuscitation guided by patient MAP Blood glucose monitoring every 2 hourly 5. Troponin level elevated: Likely secondary to mismatch phenomena, cardiology already informed Follow echo Continue monitoring Maintain MAP over 65 6. Postural hypotension: continue management with vasopressors, fludrocortisone and hydrocortisone to maintain MAP >65mmhg 7. Squamous cell carcinoma of right lung: Patient also following with oncology, continue to treat pneumonia and septic shock unresponsive to fluids 8. Hypoglycemia: Continue on hydration with dextrose water 10% and avoid aggressive hydration Blood glucose monitoring rigorously 9. Severe malnutrition: Dietitian consult placed and follow the recommendation 10. Encounter for screening involving social determinants of health (SDoH): Patient has schema cell carcinoma of the lung, and having decreased oral intake and presented with sepsis septic shock To have case management on board to further evaluate for patient needs postdischarge to optimize his care according to his current medical condition PDMP PDMP Reviewed: Not Reviewed Attestations 2 Medical Necessity Statement*: Patient will stay more than 2 midnights for the management of severe septic shock and acute on chronic hypoxemic/hypercapnic respiratory failure The patient prognosis is guarded Time Spent in Patient Care: Greater than 35 minutes (>than 50% of time spent in counselling and/or direct pt care on unit) . Critical Care Time: The high probability of a clinically significant, sudden or life threatening deterioration, as referenced in this documentation, required my full and direct attention, intervention and personal management. The critical care time shown is in addition to time spent performing any reported separately billable procedures and includes the following: [x] Data and vital sign review and interpretation [x ] Patient assessment, examination and intervention [x] Medication orders and management [x] Patient/Family updates as able [x] Care Coordination and Documentation. Critical Care Time (min): 40 Other Attestations: Patient critical condition with guarded prognosis has been discussed at length with the patient/family(), I have independently reviewed the chart labs imaging/diagnostics/EKG. the goals of care and code status with the patient/family/NOK/legal clearance representative, and documented accordingly. The management has been done according to the current clinical condition with respect to patient goals of care and based on recommendations/guidelines. The patient/family has been informed about the current condition and further plan of care. Agreed with the plan of care and understood without any language barrier. Every effort was made to ensure accuracy of cdc associate. Any obvious errors or omissions should be clarified with the author of the document. Procedures Arterial Line Size (Gauge): 20 Coding Level of Care Code Critical Care >/= 30 minutes Diagnoses Septic shock A41.9; R65.21 Acute respiratory failure with hypoxia J96.01 Acute hypercapnic respiratory failure J96.02 Altered mental state R41.82 Troponin level elevated R79.89 Postural hypotension I95.1 Squamous cell carcinoma of right lung C34.91 Laterality: right Hypoglycemia E16.2 Severe malnutrition E43 Encounter for screening involving social determinants of health (SDoH) Z13.9
[2025-03-29] MEDS: fentaNYL 1,000 MCG/100 ML BAG 2.5 MCG IV (17:03)
[2025-03-29] MEDS: glucagon 1 mg/mL KIT 1 mL IVP ×2 (18:14→19:09)
--- NOTE | 2025-03-29 19:34 | XRR_ITS ---
PROCEDURE INFORMATION: Exam: XR Chest Exam date and time: 03/29/2025 7:59 PM Age: 79 years old Clinical indication: Other: Desaturation and high fio2 TECHNIQUE: Imaging protocol: Radiologic exam of the chest. Views: 1 view. COMPARISON: CR XR chest 1V portable [id number] 03/28/2025 8:24 AM FINDINGS: Tubes, catheters and devices: Endotracheal tube with tip above the sarah similar to prior. Helder enteric tube courses into the abdomen with tip off image. Lungs: Coarsened bilateral interstitial markings similar to prior. Pleural spaces: Interval appearance of moderate right pleural effusion and small left pleural effusion. Interval appearance of increased diffuse parenchymal opacities in the mid to lower left lung zone as compared to 03/28/2025. Heart/Mediastinum: Unremarkable. No cardiomegaly. Bones/joints: Unremarkable. XR/XR chest 1V portable [id number] IMPRESSION: 1. Interval appearance of moderate right pleural effusion and small left pleural effusion. Interval appearance of increased diffuse parenchymal opacities in the mid to lower left lung zone as compared to 03/28/2025. 2. Coarsened bilateral interstitial markings similar to prior.
[2025-03-29] MEDS: DOBUTamine drip 500 MG/250 ML PREMIX 12.04 MG IV (19:39)
[2025-03-29] MEDS: albumin 37.5 GM/150 ML VIAL IV (19:44)
[2025-03-29] MEDS: FUROsemide 10 mg/mL SDV 4mL 40 MG IVP (19:59)
--- NOTE | 2025-03-29 20:28 | PC.NURSE ---
Dr Montgomery and family at bedside, received verbal orders at this time to d/c vasopressin and start dobutamine. Also recieved orders to give Lasix and Albumin. MAR reflected to show orders at this time
[2025-03-29] MEDS: dexmedeTOMIDine 0.9 % NaCL 400 MCG/100 ML PREMIX 14.88 MCG IV (21:11)
[2025-03-29 21:21] LABS: Free T4 Free Thyroxine 0.48 ng/dL (0.82-1.77); Magnesium 1.7 mg/dL (1.7-2.3); Thyroid Stimulating Hormone 2.90 uIU/mL (0.27-4.20)
[2025-03-30] VITALS (81 sets, daily range): BP systolic 0–128; BP diastolic 0–71; PULSE 0–137; RESP 0–21; TEMP -17.7–38; O2SAT 0–100
[2025-03-30] MEDS: norepinephrine 4 MG/250 ML BAG 75 MG IV ×6 (00:12→15:33)
[2025-03-30 00:47] LABS: ABG PCO2 50.8 mmHg (35-45); Alveolar-Arterial Oxygen Gradi 77.5 mmHg (5-10); Arterial Blood Gas Hematocrit 24.6 % (42-52); Blood Gas Sample Site Brachial, left; Blood Gas Sample Type Arterial; Blood Gas Tidal Volume 0.60; Carboxyhemoglobin 0.8 %THgb (0.4-20.1); Glucose Level-ABG 186.0 mg/dL (70-115); HCO3 ABG 14.0 mmol/L (22-26); Ionized Calcium Level - ABG 0.9 mmol/L (1.1-1.4); Methemoglobin 1.6 % (0.4-1.5); Oxygen Saturation ABG 78.2; PEEP 10.0 cmH20; PO2 ABG 53.1 mmHg (80.0-100.0); PO2 FiO2 Ratio Arterial Blood 53; Potassium Level - ABG 5.3 mmol/L (3.5-5.0); Sodium Level - ABG 140.0 mmol/L (131-143)
[2025-03-30 00:48] LABS: ABG PH Result 7.05 (7.35-7.45)
--- NOTE | 2025-03-30 02:12 | PC.NURSE ---
SHIFT SUMMARY multiple low blood sugar readings obtained and reported to Dr. Greene via telephone. Multiple hypoglycemic orders received and is reflected in MAR Consecutive low blood pressure readings obtained and reported to Dr. Greene via telephone, new orders received as reflected in MAR. Patient's was contacted in regards to changes in patient condition. Dr. Greene joined via speaker phone where voiced she would like to continue plan of care until patient's son is able to make it in tomorrow, with the understanding that the patient may at anytime. Would discuss comfort care/termination of treatment at that time.
[2025-03-30] MEDS: dexmedeTOMIDine 0.9 % NaCL 400 MCG/100 ML PREMIX 14.88 MCG IV (04:02)
[2025-03-30] MEDS: vasopressin 40 UNIT/100 ML PREMIX 6 UNIT IV (04:57)
[2025-03-30] MEDS: pantoprazole 40 mg SDV IVP (05:05)
[2025-03-30] MEDS: vancomycin 500 MG in sodium chloride 0.9% (plus) 100 ML 200 MG IV (05:05)
[2025-03-30 05:39] LABS: Hematocrit 24.9 % (37-53); Hemoglobin 7.40 g/dL (11.27-16.99); Mean Corpuscular HGB Conc 29.7 g/dL (30-55); Mean Corpuscular Hemoglobin 30.6 pg (27-33); Mean Corpuscular Volume 102.9 fl (82-101); Red Blood Count 2.42 10^6/uL (3.85-5.65); White Blood Count 14.43 10^3/uL (3.29-11.43)
[2025-03-30] MEDS: fentaNYL 1,000 MCG/100 ML BAG 7.5 MCG IV (05:46)
[2025-03-30 05:59] LABS: Albumin Level 2.4 g/dL (3.5-5.2); Alkaline Phosphatase 110 U/L (40-130); Anion Gap 23.7 (5-19); Blood Urea Nitrogen 58 mg/dL (8-23); Calcium 6.4 mg/dL (8.5-10.5); Carbon Dioxide 17 mmol/L (22-29); Chloride 105 mmol/L (98-107); Creatinine Clr Calc Pharmacy 24.2364; Globulin 1.9 g/dL (1.3-4.6); Glucose 210 mg/dL (65-115); Osmolality Calculated 312 mOsm/kg (285-295); Potassium 5.7 mmol/L (3.5-5.1); Sodium 140 mmol/L (136-145); Total Protein 4.3 g/dL (6.6-8.7)
[2025-03-30 06:11] LABS: Alanine Aminotransferase 1388 U/L (0-41)
[2025-03-30 06:13] LABS: Aspartate Amino Transferase 2123 U/L (0-40)
[2025-03-30 06:56] LABS: Platelet Count 7 10^3/cmm (157-399); Slide Review Slide Review Perform
[2025-03-30 06:57] LABS: Absolute Segmented Neutrophil 5.9 10/cmm (1.6-7.1); Band Neutrophils Absolute 4.9 10^3/cmm (0.0-1.2); Total Cells Counted 100 (0-100)
[2025-03-30 06:58] LABS: Atypical Lymphs 0.0 % (0-5)
[2025-03-30 06:59] LABS: Anisocytosis 1+; Burr Cells Trace; Poikilocytosis 1+
--- NOTE | 2025-03-30 06:59 | PC.NURSE ---
Critical platelet level reported to Dr. Greene, verbal order received to give platelets, 1.
[2025-03-30] MEDS: hydrocortisone 100 mg/2 mL SDV IVP ×2 (07:29→15:22)
[2025-03-30] MEDS: meropenem 1,000 MG in sodium chloride 0.9% (plus) 50 ML 100 MG IV (08:47)
--- NOTE | 2025-03-30 09:20 | PC.NURSE ---
Dr. Montgomery verbal order to reduce dextrose to 100ml/hr and reduce sedation. See MAR.
--- NOTE | 2025-03-30 09:21 | P.PN_ITS ---
<Statement entered by Hannah Feliciano MD - 04/03/25 19:39> Patient was evaluated and cared for in conjunction with an advanced practice practitioner. I personally examined the patient and reviewed the chart and all pertinent data including imaging, telemetry, and laboratory results. I discussed the patient in detail with the advanced practice practitioner. Please see their note for complete H&P testing result and agreed upon plan of care for the patient. Subjective 2 Subjective: No events overnight, requiring more vasopressors. Platelet count down to 7. FiO2 100%. Still febrile. Vitals/I&O/Wt Last Vital Signs Temp 100.2 F H 03/30/25 07:45 Pulse 113 H 03/30/25 08:45 Resp 16 03/30/25 07:39 BP 118/61 03/30/25 08:45 Pulse Ox 93 03/30/25 08:45 O2 Del Method Mechanical Ventilation 03/30/25 08:45 O2 Flow Rate 3 03/27/25 11:29 FiO2 100 03/30/25 07:45 03/29/25 03/30/25 03/30/25 22:59 06:59 14:59 Intake Total 4897.938 / 10387.837 2088.400 / 94392.837 0 / 0 Output Total 0 / 50 50 / 50 Balance 4897.938 / 83427.837 2038.400 / 58256.837 0 / 0 Weight last 48 hrs Weight 180 lb Weight 177 lb Physical Exam 2 Narrative: intubated, sedated Chest: COMMONS NORMALS: normal inspection of the chest Resp: AUSCULTATION: rales on the right at the base Cardio: COMMON NORMALS: regular rhythm, S1 normal heart sound present and S2 normal heart sound present RATE: tachycardic RHYTHM: regular rhythm H EART SOUNDS: S1 normal heart sound present, S2 normal heart sound present and no murmurs Extremity: GENERAL: No edema Urinary Catheter Management: Dias: Cath Placed During This Visit: yes Reason for Continuing Indwelling Catheter: Accurate Measurement of Urinary Output in Critically Ill Patients Urinary Catheter Date of Insertion: 03/27/25 Urinary Catheter Time of Insertion: 11:59 Data 03/30/25 05:25 03/30/25 05:25 Micro: Microbiology 03/29/25 08:48 Blood Culture - Preliminary Blood NEGATIVE TO DATE 03/29/25 08:46 Blood Culture - Preliminary Blood NEGATIVE TO DATE 03/28/25 09:05 Gram Stain - Final Sputum - Endotracheal Tube Aspirate Sputum Culture - Preliminary 03/27/25 17:50 Urine Culture - Preliminary Urine Catheterized A&P Assessment and plan 1. Heart failure with reduced ejection fraction: 2. Troponin level elevated: 3. Squamous cell carcinoma lun. Septic shock: 5. Thrombocytopenia: Plan: Limited resuscitation, no CPR or defib. Critical condition. No cardiac procedures recommended. Continue vasopressors, antibiotics. Will sign off. Please call with questions. PDMP PDMP Reviewed: Not Reviewed Attestations 2 Medical Necessity Statement*: septic shock Procedures Arterial Line Size (Gauge): 20 Coding Level of Care Code Acute Code for g Fwd Diagnoses Heart failure with reduced ejection fraction I50.20 Troponin level elevated R79.89 Squamous cell carcinoma lung C34.90 Septic shock A41.9; R65.21 Thrombocytopenia D69.6
[2025-03-30] MEDS: dexmedeTOMIDine 0.9 % NaCL 400 MCG/100 ML PREMIX 13.02 MCG IV (09:25)
[2025-03-30] MEDS: DOBUTamine drip 500 MG/250 ML PREMIX 12.25 MG IV (13:05)
--- NOTE | 2025-03-30 16:52 | PC.NURSE ---
Nila CADENA, gave okay to extubate patient.
[2025-03-30] MEDS: morphine 4 mg/mL SDV 1 mL IVP (17:03)
[2025-03-30] MEDS: LORazepam 2 mg/mL INJ 1 mL IVP (17:03)
--- NOTE | 2025-03-30 17:17 | PC.NURSE ---
Bartolome from [facility] cleared patient to be released. Awaiting [facility].
--- NOTE | 2025-03-30 18:13 | P.DES_ITS ---
Discharge Providers DDS Date of Admission: 03/27/25 14:07 Date Summary Completed: 03/30/25 Attending Provider at Admission: Marin Montgomery MD Attending Provider at Discharge: Marin Montgomery MD Primary Care Provider: Albin Bah MD DS Diagnoses Hospital Diagnoses 1. Heart failure with reduced ejection fraction: 2. Troponin level elevated: 3. Squamous cell carcinoma of right lung: Qualifiers: Laterality: right Qualified Code(s): C34.91 - Malignant neoplasm of unspecified part of right bronchus or lung Permanent Problem Comments: Biopsy positive on 09/14/23 - at [facility] in [place] 4. Septic shock: 5. Thrombocytopenia: 6. Pancytopenia due to chemotherapy: 7. Severe malnutrition: 8. Acute respiratory failure with hypoxia: 9. Ejection fraction < 50%: 10. Lung cancer: 11. Hypoglycemia: 12. Altered mental state: 13. Acute hypercapnic respiratory failure: 14. Neutropenia: 15. Encounter for screening involving social determinants of health (SDoH): Reason for Visit Reason for Visit resp distress Brief History: As per the previous notes since the patient is a little bit lethargic however alert and unable to provide adequate history, poor historian, no 1 from the family or collateral history provider available. 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 Due to his hypotension, hypoxemia, increased lactate with lethargy, admitted as a case of septic shock. Blood gas showed respiratory acidosis with CO2 narcosis. He was started on BiPAP with bolus of normal saline and broad-spectrum antibiotics with vancomycin and Zosyn were given and improved his overall status. Currently the patient is being managed as a case of acute hypoxemic respiratory failure underlying his immunosuppressed status with possible of severe sepsis secondary to pneumonia and other infectious causes to rule out. Summary Summary Summary: Patient was admitted as a case of acute hypoxic/hypercapnic respiratory failure with underlying septic shock. He was quite critical at presentation. Patient was kept on full code after discussion thoroughly with the his current clinical situation and critical medical condition. The patient had pancytopenia during his hospital stay post chemo and was managed as a case of septic shock underlying immunosuppressed state possible neutropenia contributing to it. The patient in the next 24 to 48 hours was deteriorating even with the standard broad-spectrum antibiotics and management of sepsis and septic shock with initial responsiveness to fluids but later became fluid resistant and was eventually intubated due to drop in GCS severe acidosis and poor respiratory effort. After intubation the patient further had drop of platelets and the was informed about patient condition at every point. It was also further info rmed that considering the patient's high bleeding risk after intubation if the patient codes and chest compressions or shocks may lead to uncontrolled internal bleeding and further deterioration. The patient agreed not to do chest compressions or shocks and to keep managing patient until the son arrives. The patient antibiotics were escalated based on his worsening clinical condition and broad-spectrum coverage with repeat hayward cultures. He required high dose of vasopressors. His FiO2 reached 100 % with barely saturating around 80s, echo showed reduced ejection fraction of around 38% with troponin leak which was secondary high likely to septic shock. Cardiology was taken on board with considering patient severe critical condition no intervention was suggested and it was decided to manage him medically to optimize and later to decide for any further options. The patient underwent severe hypoglycemic episodes during his worsening of clinical condition and dextrose was started. The patient was being managed according to the severe critical condition based on recommendations/guidelines and the was taken on board on every point to discuss his management and to proceed according to the family wishes. The later on agreed not to make him more suffer with his current severe critical condition. The patient is barely having any response of sedation and no brainstem reflexes such as gag reflex corneal reflex or doll's eye reflex but to wait for the son who is coming from [place] to see his father. Patient family wishes were respected. After the son arrived a thorough discussion of the patient presentation further clinical deterioration and standard of care were discussed. The patient and the son appreciated the medical management of the team and understand all the care delivered, with risk and benefits and further complications and criticality of the situation without any language barrier Patient was kept on comfort care with comfort/hospice protocol. As per the family wishes and after thorough discussion patient was extubated based on hospice protocol. And patient was pronounced at 5: 03 PM. The organ donation protocol was also completed. And further prerequisites after the were proceeded. May the soul rest in peace Patient condition has been discussed at length with the patient/family, I have independently reviewed the chart labs imaging/diagnostics/EKG. the goals of care and code status with the patient/family/NOK/legal outside sales account representative, and documented accordingly. The management has been done according to the current clinical condition with respect to patient goals of care and based on recommendations/guidelines. The patient/family has been informed about the current condition and further plan of care. Agreed with the plan of care and understood without any language barrier. Every effort was made to ensure accuracy of associate director of development. Any obvious errors or omissions should be clarified with the author of the document. Additional Data Advance directives?: No Discharge Plan Discharge Patient Disposition: Condition: DS Attestations Time Spent in /Discharge Care*: critical care time Critical Care Time (min): 40 Quality - AMI: AMI present?: No Quality - Stroke: CVA present?: No Symptom Onset Unknown: No Quality - VTE: VTE present?: No Deep Vein Thrombosis/Pulmonary Embolism Present on Admission: No Coding Level of Care Code Critical Care >/= 30 minutes Diagnoses Heart failure with reduced ejection fraction I50.20 Troponin level elevated R79.89 Squamous cell carcinoma of right lung C34.91 Laterality: right Septic shock A41.9; R65.21 Thrombocytopenia D69.6 Pancytopenia due to chemotherapy D61.810 Severe malnutrition E43 Acute respiratory failure with hypoxia J96.01 Ejection fraction < 50% Lung cancer C34.90 Hypoglycemia E16.2 Altered mental state R41.82 Acute hypercapnic respiratory failure J96.02 Neutropenia D70.9 Encounter for screening involving social determinants of health (SDoH) Z13.9
--- NOTE | 2025-03-30 18:37 | PC.NURSE ---
Waste of remaining fentanyl with Corey MAYES.
--- NOTE | 2025-03-30 18:38 | PC.NURSE ---
Post mortem care performed. Lines, Dias removed. Patient bathed. Prepared for [facility]. supervisor fruit grading called and patient transported to [facility].
--- NOTE | 2025-03-30 18:43 | PC.NURSE ---
Pts body was moved to the [facility] at 1840. We are waiting on a call from [facility].
--- NOTE | 2025-03-31 09:39 | PC.NURSE ---
Per [facility] will not be seeking donation. pt is released to the home. I spoke with Sandee ref number [id number]. [facility] contacted at [phone] and will be here to pickup the pts body soon.
== END 2025-03-31 04:00 | disposition expired | DRG 871 ==
LOC: ER 12:11 → ICU 14:09
PROVIDERS: Internal Medicine; Admitting Provider Student in an Organized Health Care Education/Training Program; Emergency Provider Emergency Medicine; PCP Family Medicine; Visit Provider Student in an Organized Health Care Education/Training Program
DX: A41.9 Sepsis, unspecified organism (principal); E43 Unspecified severe protein-calorie malnutrition; R65.21 Severe sepsis with septic shock; J96.02 Acute respiratory failure with hypercapnia; J96.01 Acute respiratory failure with hypoxia; I21.A1 Myocardial infarction type 2; J18.9 Pneumonia, unspecified organism; I50.20 Unspecified systolic (congestive) heart failure; C34.91 Malignant neoplasm of unspecified part of right bronchus or lung; D61.818 Other pancytopenia; D84.821 Immunodeficiency due to drugs; T45.1X5A Adverse effect of antineoplastic and immunosuppressive drugs, initial encounter; E16.2 Hypoglycemia, unspecified; R41.82 Altered mental status, unspecified; D70.1 Agranulocytosis secondary to cancer chemotherapy; I95.1 Orthostatic hypotension; I07.1 Rheumatic tricuspid insufficiency; I27.20 Pulmonary hypertension, unspecified; R97.20 Elevated prostate specific antigen [PSA]; B95.62 Methicillin resistant Staphylococcus aureus infection as the cause of diseases classified elsewhere; F17.210 Nicotine dependence, cigarettes, uncomplicated; Z68.22 Body mass index [BMI] 22.0-22.9, adult; Z90.81 Acquired absence of spleen; Z95.828 Presence of other vascular implants and grafts; Z51.5 Encounter for palliative care
CPT/HCPCS: 36415; 36416; 36430; 36591; 36592; 36600; 51702; 70450; 71045; 71275; 80051; 80053; 80202; 81001; 82330; 82803; 82805; 82962; 83605; 83735; 83880; 84100; 84439; 84443; 84481; 84484; 85007; 85025; 85049; 85610; 86140; 86900; 87040; 87070; 87086; 87205; 87486; 87581; 87633; 93005; 93306; 94002; 94003; 94640; 94660; 94799; 96365; 96367; 96375; 99291; 99292; A4570; J1250; J1610; J1720; J1938; J1956; J2060; J2185; J2270; J2312; J2470; J2543; J2598; J2919; J3010; J3372; J3373; J3480; J3490; J7030; J7040; J7042; J7050; J7070; J7120; J7799; J9999; P9016; P9047